=== PATIENT | male | born 1960 | race Caucasian/White ===

== ENCOUNTER → 2018-01-09 06:38 | Outpatient (CLI) | payer BC, SELFPAY ==
--- NOTE | 2018-01-09 14:50 | PFTCOMP ---
COMPLETE PULMONARY FUNCTION TEST INTERPRETATION Brief HPI: Patient is a 57 year old male, currently under the care of Naina Downing, who presents to [facility] for complete pulmonary function tests secondary to diagnosis of shortness of breath. Respiratory therapist reports good effort and reproducible results. Interpretation: Forced expiration spirometry shows no large airways obstructive ventilatory defect with an FEV1 of 64 % predicted. There is no significant bronchodilator response by ATS criteria. Spirograms are of good quality and plateau normally. The respiratory flow volume loop shows a normal pattern. Lung volumes by body plethysmography show a decreased total lung capacity at 4.92 L, 74 % predicted. All other lung volumes are reduced symmetrically. Diffusion capacity by carbon monoxide is decreased at 52 % predicted. The airway resistance is normal. Compared to previous pulmonary function tests from 05/14/2015, there has been a significant change in FVC, FEV1 and DLCO. Impression: Moderate restrictive ventilatory defect with a symmetric reduction diffusing capacity and worsening compared to previous study. Consider chest imaging if not completed previously.
--- NOTE | 2018-01-09 14:54 | PFTCOMP_ITS ---
COMPLETE PULMONARY FUNCTION TEST INTERPRETATION Brief HPI: Patient is a 57 year old male, currently under the care of Naina Downing, who presents to [facility] for complete pulmonary function tests secondary to diagnosis of shortness of breath. Respiratory therapist reports good effort and reproducible results. Interpretation: Forced expiration spirometry shows no large airways obstructive ventilatory defect with an FEV1 of 64 % predicted. There is no significant bronchodilator response by ATS criteria. Spirograms are of good quality and plateau normally. The respiratory flow volume loop shows a normal pattern. Lung volumes by body plethysmography show a decreased total lung capacity at 4.92 L, 74 % predicted. All other lung volumes are reduced symmetrically. Diffusion capacity by carbon monoxide is decreased at 52 % predicted. The airway resistance is normal. Compared to previous pulmonary function tests from 05/14/2015, there has been a significant change in FVC, FEV1 and DLCO. Impression: Moderate restrictive ventilatory defect with a symmetric reduction diffusing capacity and worsening compared to previous study. Consider chest imaging if not completed previously.
== END ==
PROVIDERS: Family Provider Nurse Practitioner; PCP Nurse Practitioner; Visit Provider Physician Assistant Medical
DX: R06.02 Shortness of breath (principal)
CPT/HCPCS: 94060; 94726; 94729

== ENCOUNTER → 2018-01-16 05:48 | Outpatient (CLI) | payer BC, SELFPAY ==
--- NOTE | 2018-01-16 12:57 | STRESSREP_ITS ---
Stress Test Report Myocardial perfusion stress test. 57-year-old man scleroderma status post pacemaker implantation. Stress protocol: EKG demonstrates atrial fibrillation with a ventricular paced rhythm at 70 bpm. Resting blood pressure is 148/100 mmHg. 0.4 mg regadenoson was infused per usual protocol followed by rapid intravenous saline flush injection continuous EKG monitoring was performed. The maximum heart rate attained was 74 beats minute is 45% maximum predicted heart rate the maximum workload attained was 1 metabolic equivalent. Patient maintained a paced rhythm throughout the recording. Resting blood pressure is 148/100 with a final blood pressure 138/ 92. Myocardial perfusion protocol: 11.7 mCi of technetium 99m sestamibi was injected at rest. 0.4 mg of regadenoson was infused per usual protocol peak infusion 33.5 mCi of technetium 99m sestamibi was injected. Stress images were obtained stress and rest images were reconstructed and compared in the short axis vertical long and horizontal long axis. Gated images, also obtained. Perfusion SPECT analysis: There is significant GI attenuation artifact noted. The stress images however demonstrate normal uptake of tracer noted in the septum and anterior wall and lateral wall. The apex appears to have a medium-sized defect on the stress images as well as the mid inferior wall. Images demonstrate a similar patent in the septum and anterior wall and lateral wall. There is a persistent defect noted in the apex with improvement in the mid inferior wall. The bibi-infarct area around the apex appears to improve. Previous apical infarct cannot be completely excluded with mild bibi-infarct ischemia and a mid inferior wall ischemic zone is noted. Gated SPECT analysis: The gated ejection fraction is noted be 46% with apical dyskinesis present. The above may be secondary to pacemaker activity. Conclusion: Abnormal pharmacologic myocardial perfusion scan with evidence of mid inferior ischemia and previous apical infarct. Cardiomyopathy noted
== END ==
PROVIDERS: Family Provider Nurse Practitioner; PCP Nurse Practitioner; Visit Provider Physician Assistant Medical
DX: I42.9 Cardiomyopathy, unspecified (principal); M34.9 Systemic sclerosis, unspecified; Z95.0 Presence of cardiac pacemaker
CPT/HCPCS: 78452; 93017; A9500; A4216; J2785

== ENCOUNTER → 2018-01-17 12:10 | Outpatient (CLI) | payer BC, SELFPAY ==
--- NOTE | 2018-01-17 12:26 | RAD_ITS ---
STUDY: X-RAY CHEST REASON FOR EXAM: Male, 57 years old. SOB, ABNORMAL STRESS TEST; SCLERODERMA, PACER TECHNIQUE: Frontal and lateral views of the chest. COMPARISON: 3.3 FINDINGS: Chronic appearing increased interstitial lung markings. There is a left sided pacemaker batterypack. There is no demonstrated pleural abnormality. Enlarged heart size. Normal mediastinum and samantha. Normal visualized pulmonary arteries. There is atherosclerotic calcification of the aortic arch with tortuosity. There are diffuse degenerative changes of the visualized thoracic spine. There is degenerative osteoarthritis of the bilateral shoulders. There is no demonstrated abnormality of the visualized soft tissue structures of the upper abdomen. RAD/Chest PA and Lateral IMPRESSION: There are no acute findings. Electronically Signed: Meño Valentin MD at 17:30 EST , Service support ,
[2018-01-17 12:44] LABS: Absolute Lymphocyte Count 2.18 X10^3/ul (0.83-4.51); Absolute Neutrophil Count 6.6 X10^3/uL (2.0-7.7); Basophil# 0.03 X10^3/uL; Basophil% 0.3 % (0-1); Eosinophil# 0.12 X10^3/uL; Eosinophils% 1.2 % (0-5); Hematocrit 42.1 % (40-54); Hemoglobin 13.8 g/dl (13.0-16.5); Lymphocyte # 2.18 X10^3/ul (4.0); Mean Corp Hgb Conc 32.8 g/gl (32-36); Mean Corpuscular Hgb 31.2 pg (27.0-32.0); Mean Platelet Vol. 11.1 fl (6.2-12.0); Monocyte% 9.1 % (0-10); Neutrophil # 6.62 X10^3/uL (2.7-7.7); Platelet Count 211 K/mm3 (150-450); RBC Distribution Width CV 13.5 % (11.6-14.6); RBC Distribution Width SD 45.1 fl (35.1-43.9); Red Blood Count 4.43 M/mm3 (4.6-6.2); White Blood Count 9.9 K/mm3 (4.4-11.0)
[2018-01-17 12:50] LABS: POSITIVE COUNT NO; POSITIVE DIFFERENTIAL NO; POSITIVE MORPHOLOGY NO
[2018-01-17 13:11] LABS: Anion Gap 5 (5-15); BUN 28 mg/dL (7-18); BUN/Creat Ratio 14.7 RATIO (10-20); Calcium,Total 9.3 mg/dL (8.5-10.1); Chloride 110 mmol/L (98-107); Creatinine, Serum 1.91 mg/dL (0.70-1.30); EST Glomerular Filtration Rate 39 mL/min (>60); Est Glom Filt Rate - Afr Amer 47 mL/min (>60); Glucose 96 mg/dL (74-106); Potassium 4.9 mmol/L (3.5-5.1); Sodium Level 142 mmol/L (136-145)
== END ==
PROVIDERS: Family Provider Nurse Practitioner; PCP Nurse Practitioner; Visit Provider Physician Assistant Medical
DX: R06.02 Shortness of breath (principal); R94.39 Abnormal result of other cardiovascular function study
CPT/HCPCS: 36415; 71046; 80048; 85025

== ENCOUNTER → 2018-01-28 06:52 | Day surgery (SDC) | payer BC, SELFPAY ==
[2018-01-25 11:39] VITALS: BMI 26.8
[2018-01-28 08:36] LABS: International Normalized Ratio 1.2; Prothrombin Time (Protime)PT. 15.5 SECONDS (11.7-14.9)
--- NOTE | 2018-01-28 10:47 | CL.D_ITS ---
Patient Name: LAINE OLIVARES Study Date: 01/28/2018 Performing: Sudheer Lemus MD Ht: 70.07 inches 178 cm : 1960 Wt: 187.39 lbs 85 kg Age: 57 Gender: male BSA: 2.03 PROCEDURE(S) PERFORMED ZB28-DUO/COR CLINICAL PROFILE AND INDICATIONS INDICATIONS: 57-year-old man with a history of shortness of breath and abnormal stress test Stress/Imaging Standard Exercise Stress Test: Yes Result: Positive Low Risk CONCLUSIONS Normal coronary arteries RECOMMENDATIONS Medical therapy DESCRIPTION OF PROCEDURE The patient arrived to the procedure lab. The risks and benefits of the procedure as well as a full d escription of our services here and current unavailability of surgical backup were fully explained to the patient and/or their significant other prior to the catheterization. The Timeout was completed, verifying the correct patient and procedure. The patient's procedural site was prepped and draped in the usual fashion. Local anesthetic was given subcutaneously to right groin region with Lidocaine 2%. Using a modified Seldinger technique, arterial access was obtained via the right femoral artery, a 5 Fr sheath was inserted. Left Coronary Artery selective angiography was performed in multiple views u sing a 5 Fr. JL4 catheter. Right Coronary Artery selective angiography was then performed in multiple views using a 5 Fr. 3DRC (Randy) catheter.The arterial sheath was pulled and a Mynx closure devic e was deployed for hemostasis CORONARY ANGIOGRAPHY DOMINANCE: Right Dominant LEFT HEART ASSESSMENT Left Ventricular Ejection Fraction: by Echo 50 % Normal Left Ventricular systolic function LEFT MAIN: Angiographically normal LEFT ANTERIOR DECENDING ARTERY: Angiographically normal CIRCUMFLEX ARTERY: Angiographically normal RIGHT CORONARY ARTERY: Angiographically normal COMPLICATIONS No Complications PROCEDURE MEDICATIONS Versed 1 mg IV Aspirin (325mg) 1 Tabs PO @ 01/28/2018 08:41:17 Plavix 75 mg PO 01/28/2018 08:03:46 IV Fluids: .9 NaCl IV started @ 75 ml/hr 01/28/2018 07:48:42 SUMMARY OF HEMODYNAMIC DATA Time AIR REST ECG 07:47:06 ECG 10:03:20 AO 126/72 (94) SA 10:27:57 Signed By Sudheer Lemus MD On 01/28/2018 10:46:46 AM Sudheer Lemus MD
== END ==
PROVIDERS: Family Provider Nurse Practitioner; PCP Nurse Practitioner; Visit Provider Internal Medicine Cardiovascular Disease
DX: I48.1 Persistent atrial fibrillation (principal); R06.02 Shortness of breath; R94.39 Abnormal result of other cardiovascular function study; I10 Essential (primary) hypertension; I48.2 Chronic atrial fibrillation; M34.9 Systemic sclerosis, unspecified; E78.5 Hyperlipidemia, unspecified; Z79.01 Long term (current) use of anticoagulants; Z95.0 Presence of cardiac pacemaker; Z94.84 Stem cells transplant status
CPT/HCPCS: 36415; 85610; 93454; 99152; 99153; C1760; J7040; C1769; Q9967

== ENCOUNTER 2018-07-11 15:48 | Outpatient (RCR) | payer BC, SELFPAY ==
[2018-07-08 17:07] LABS: Prothrombin Time (Protime)PT. 46.5 SECONDS (11.7-14.9)
== END 2018-07-11 17:00 ==
LOC: LAB 15:48
PROVIDERS: Family Provider Nurse Practitioner; PCP Nurse Practitioner; Visit Provider Internal Medicine Cardiovascular Disease
DX: I42.0 Dilated cardiomyopathy (principal); I48.1 Persistent atrial fibrillation; I48.2 Chronic atrial fibrillation; Z79.01 Long term (current) use of anticoagulants
CPT/HCPCS: 36415; 85610

== ENCOUNTER 2018-08-13 16:13 | Outpatient (RCR) | payer BC, SELFPAY ==
[2018-08-13 17:48] LABS: Prothrombin Time (Protime)PT. 39.9 SECONDS (11.7-14.9)
[2018-08-13 18:09] LABS: International Normalized Ratio 4.1
== END 2018-08-13 18:00 | disposition home or self-care (01) ==
LOC: LAB 16:13
PROVIDERS: Family Provider Nurse Practitioner; PCP Nurse Practitioner; Visit Provider Internal Medicine Cardiovascular Disease
DX: I42.0 Dilated cardiomyopathy (principal); I48.1 Persistent atrial fibrillation; I48.2 Chronic atrial fibrillation; Z79.01 Long term (current) use of anticoagulants
CPT/HCPCS: 36415; 85610

== ENCOUNTER → 2018-08-27 09:12 | Outpatient (CLI) | payer BC, SELFPAY ==
[2018-08-27 10:58] LABS: Absolute Lymphocyte Count 1.84 X10^3/ul (0.83-4.51); Absolute Neutrophil Count 4.6 X10^3/uL (2.0-7.7); Basophil# 0.03 X10^3/uL; Basophil% 0.4 % (0-1); Eosinophil# 0.17 X10^3/uL; Eosinophils% 2.3 % (0-5); Hematocrit 41.6 % (40-54); Hemoglobin 13.3 g/dl (13.0-16.5); Lymphocyte # 1.84 X10^3/ul (4.0); Lymphocyte % 24.6 % (19-41); Mean Corpuscular Hgb 30.2 pg (27.0-32.0); Mean Corpuscular Volume 94.3 fL (80-94); Mean Platelet Vol. 11.9 fl (6.2-12.0); Monocyte# 0.84 X10^3/uL; Monocyte% 11.2 % (0-10); Neutrophil # 4.57 X10^3/uL (2.7-7.7); Neutrophil % 61.1 % (47-70); POSITIVE COUNT NO; POSITIVE DIFFERENTIAL NO; POSITIVE MORPHOLOGY NO; Platelet Count 186 K/mm3 (150-450); Red Blood Count 4.41 M/mm3 (4.6-6.2); White Blood Count 7.5 K/mm3 (4.4-11.0)
[2018-08-27 11:37] LABS: AST(SGOT) 33 U/L (15-37); Alanine Aminotransfer ALT/SGPT 45 U/L (16-61); Alkaline Phosphatase 76 U/L (45-117); Anion Gap 7 (5-15); BUN 26 mg/dL (7-18); Calcium,Total 9.5 mg/dL (8.5-10.1); Chloride 108 mmol/L (98-107); Cholesterol 139 mg/dL (200); Creatinine, Serum 1.86 mg/dL (0.70-1.30); EST Glomerular Filtration Rate 40 mL/min (>60); Est Glom Filt Rate - Afr Amer 48 mL/min (>60); Free T3 2.9 pg/mL (2.18-3.98); Glucose 97 mg/dL (74-106); High Density Lipoprotein 26 mg/dL; Potassium 4.6 mmol/L (3.5-5.1); Sodium Level 141 mmol/L (136-145); T4 Free Direct 1.13 ng/dL (0.76-1.46); Thyroid Stim Hormone (TSH) 0.14 uIU/mL (0.358-3.74); Triglycerides 130 mg/dL; Very Low Density Lipoprotein 26 mg/dL (5-40)
[2018-08-30 13:40] LABS: Testosterone Free 4.9 pg/mL (7.2-24.0)
== END ==
PROVIDERS: Family Provider Nurse Practitioner; PCP Nurse Practitioner; Referring Provider Nurse Practitioner; Visit Provider Nurse Practitioner
DX: R53.83 Other fatigue (principal); E78.1 Pure hyperglyceridemia; E03.9 Hypothyroidism, unspecified
CPT/HCPCS: 36415; 80053; 80061; 84402; 84439; 84443; 84481; 85025

== ENCOUNTER → 2018-09-12 12:14 | Outpatient (CLI) | payer BC, SELFPAY ==
[2018-09-12 12:32] VITALS: PULSE 60; PULSE 70; PULSE 71; PULSE 73; PULSE 78; PULSE 79; O2SAT 100; O2SAT 98; O2SAT 99
--- NOTE | 2018-09-13 12:30 | PCM.PSN.6M ---
PSN 6 Minute Walk Test - 6 Minute Walk Test 6 Minute Walk Test: 6 Minute Walk Test PSN:6-Minute Walk Test Start: 09/12/18 12:32 Freq: Status: Active Protocol: RESP.6MINW Document 09/12/18 12:32 JLA (Rec: 09/12/18 12:36 JLA [id number]) 6 Minute Walk Test Date Performed 09/12/18 Time Performed 12:30 Height 5 ft 10 in Weight: 182 lb Weight in Pounds 182.[address]: Chad Cruz Assistive device used: None Pre-test Oxygen Delivery Method Room Air Pulse Ox (%) 98 Pulse Rate (60-100 beats/min) 60 Dyspnea France Scale (0-10) 0 Exertion France Scale (6-20) 6 1st minute Oxygen Delivery Method Room Air Pulse Ox (%) 100 Pulse Rate (60-100 beats/min) 78 2nd minute Oxygen Delivery Method Room Air Pulse Ox (%) 99 Pulse Rate (60-100 beats/min) 70 3rd minute Oxygen Delivery Method Room Air Pulse Ox (%) 99 Pulse Rate (60-100 beats/min) 73 4th minute Oxygen Delivery Method Room Air Pulse Ox (%) 99 Pulse Rate (60-100 beats/min) 71 5th minute Oxygen Delivery Method Room Air Pulse Ox (%) 100 Pulse Rate (60-100 beats/min) 78 6th minute Oxygen Delivery Method Room Air Pulse Ox (%) 99 Pulse Rate (60-100 beats/min) 79 Dyspnea France Scale (0-10) 2 Exertion France Scale (6-20) 11 Post-test Oxygen Delivery Method Room Air Pulse Ox (%) 98 Pulse Rate (60-100 beats/min) 70 Full Laps Walked 24 Partial Lap, Number of Tiles Walked 30 Total Distance Walked (ft) 1446 - Interpretation Interpretation: The patient ambulated 1446 feet over the course of 6 minutes beginning on room air without assistive devices or breaks. Pretesting oxygen saturation was noted to be 98% on room air. With ambulation, the cynthia oxygen saturation was 99%. There was no significant exertional oxygen desaturation. - Recommendations Recommendations: There is no indication for the use of supplemental oxygen at this time.
== END ==
PROVIDERS: Family Provider Nurse Practitioner; PCP Nurse Practitioner; Referring Provider Internal Medicine Critical Care Medicine; Visit Provider Internal Medicine Critical Care Medicine
DX: R06.02 Shortness of breath (principal)
CPT/HCPCS: 94618

== ENCOUNTER → 2018-09-13 14:45 | Outpatient (CLI) | payer BC, SELFPAY ==
--- NOTE | 2018-09-13 14:49 | ECHOD_ITS ---
[id number] ECHO^ECHOD^Echo Complete [id number] TAG_START Cardiovascular Services Echocardiogram [address] [place], [place] [address] Ordering Physician: Chad Cruz D.O. TAG_ENDED TAG_START Name: LAINE OLIVARES Study Date: 09/13/2018 02:47 PM BP: 140/80 mmHg Patient Location: [facility] BSA: 2.0 m2 : 1960 Gender: Male Height: 70 in Age: 58 yrs Ethnicity: C Weight: 182 lb History: SCLERODERMA, CMP, AFIB w/anticoagulation, HTN, HLD, PACEMAKER, DYSPNEA/SOB. TAG_ENDED Reason For Study: DYSPNEA/SOB Procedure This was a 2D Doppler, Color Flow transthoracic echocardiogram. Exam performed in department. Left Ventricle Moderate concentric left ventricular hypertrophy. The estimated ejection fraction is 55 %. Septal motion consistent with IVCD. No regional wall motion abnormalities noted. TAG_START I Segments Size 1-2 small X - Cannot 1 - Normal 2 - 3 - Akinetic 4 - Dyskinetic3-5 moderate Interpret Hypokinetic 6-14 large 5 - Aneurysmal 15-16 diffuse TAG_ENDED Right Ventricle Normal size and thickness. ICD or pacer leads identified within the right ventricle. Normal systolic function. Atria The left atrium is severely enlarged. The right atrium is severely enlarged. Normal atrial septum. Mitral Valve Mild diffuse mitral valve thickening. Mild (1+) mitral valve insufficiency. Tricuspid Valve Normal tricuspid valve. Mild to moderate (1-2+) tricuspid valve insufficiency. Right ventricular systolic pressure estimated to be 28 mmHg. Aortic Valve Trisinus/trileaflet aortic valve. Pulmonic Valve Normal pulmonic valve. Great Vessels Normal aortic root. Normal arch. Normal inferior vena cava. Inferior vena cava collapse with sniff. Pericardium/Pleural No pericardial effusion. MMode/2D Measurements & Calculations LVIDd: 5.2 cm IVSd: 1.4 cm Ao root diam: 3.6 cm LVIDs: 3.6 cm LVPWd: 1.4 cm RVDd: 4.2 cm FS: 29.7 % LAV(MOD-bp): 107.2 ml LA A4 area: 30.7 cm2 LA dimension(2D): 4.5 cm LAV(MOD-bp) Indexed: 53.5 ml/m2 LAV(MOD-sp2): 88.7 ml LAV(MOD-sp4): 115.8 ml RA A4 area: 30.7 cm2 Doppler Measurements & Calculations MV E max jose david: 106.8 cm/sec Lat Peak E' Jose David: 8.5 cm/sec Med Peak E' Jose David: 7.1 cm/sec MV A max jose david: 27.3 cm/sec E/E' lat: 12.5 E/E' med: 15.0 MV E/A: 3.9 Ao V2 max: 126.1 cm/sec LV V1 max: 91.4 cm/sec MR max jose david: 515.9 cm/sec Ao max P.4 mmHg LV V1 max P.3 mmHg MR max P.5 mmHg PA V2 max: 75.7 cm/sec TR max jose david: 241.7 cm/sec TR max P.4 mmHg Interpretation Summary The estimated ejection fraction is 55 %. The left atrium is severely enlarged. The right atrium is severely enlarged. Mild (1+) mitral valve insufficiency. Mild to moderate (1-2+) tricuspid valve insufficiency. Right ventricular systolic pressure estimated to be 28 mmHg. Compared to echo report dated 06/05/2016, no appreciable changes noted. TAG_START TAG_ENDED Ordering Physician: Chad Cruz D.O. Referring Physician: Janette Chavira Performed By: Melba Wells, HAYLEY, RVT
== END ==
PROVIDERS: Family Provider Nurse Practitioner; PCP Nurse Practitioner; Referring Provider Internal Medicine Critical Care Medicine; Visit Provider Internal Medicine Critical Care Medicine
DX: R06.02 Shortness of breath (principal); M34.9 Systemic sclerosis, unspecified
CPT/HCPCS: 93306

== ENCOUNTER → 2018-09-18 17:49 | Outpatient (CLI) | payer BC, SELFPAY ==
--- NOTE | 2018-09-18 17:53 | CT_ITS ---
STUDY: CT CHEST WITHOUT CONTRAST REASON FOR EXAM: Male, 58 years old. Interstitial lung disease. RADIATION DOSAGE (If Supplied By Facility): CTDIvol = ( 14.80 ) mGy, DLP = ( 491.76 ) mGycm TECHNIQUE: Transaxial imaging was performed without the administration of intravenous contrast material. Individualized dose optimization techniques were used for this CT. COMPARISON: 01/17/2018. FINDINGS: Normal lung volumes. Mild peripheral interstitial fibrotic changes in the mid and lower lung pandey bilaterally. Findings most pronounced in the posterior lung bases. No infiltrates. No effusions. There is moderate cardiac enlargement. There are calcifications of the coronary arteries. Pacemaker is seen with leads terminating in the right atrium and right ventricle. Normal mediastinum. Normal hilar regions. Normal unenhanced pulmonary arteries. Normal aorta arch and descending thoracic aorta. Normal osseous structures. There is no demonstrated acute abnormality of the visualized upper abdomen. CT/Chest without Contrast IMPRESSION: No acute abnormality. Diffuse bilateral peripheral interstitial fibrosis of the mid and lower lung pandey. Cardiomegaly. Electronically Signed: Tyler Christianson MD at 14:15 EDT , Service support ,
== END ==
PROVIDERS: Family Provider Nurse Practitioner; PCP Nurse Practitioner; Referring Provider Internal Medicine Critical Care Medicine; Visit Provider Internal Medicine Critical Care Medicine
DX: J84.9 Interstitial pulmonary disease, unspecified (principal)
CPT/HCPCS: 71250

== ENCOUNTER → 2018-11-05 12:06 | Outpatient (CLI) | payer BC, SELFPAY ==
[2018-10-30 14:12] VITALS: BMI 25.4
[2018-11-05 12:30] VITALS: PULSE 70; PULSE 75; PULSE 76; O2SAT 96; O2SAT 97; O2SAT 98; O2SAT 99
[2018-11-05 12:46] LABS: Allen Test POS; Base Excess -3 mmol/L (-2 to +2); Bicarbonate 22.5 mmol/L (22-26); Blood Gas Specimen Type ART; O2 Delivery Device Room Air; PO2 93 mmHG (75-100); SITE L Radial; SO2 97 % (95-99); Time Given 1240; Total Carbon Dioxide 24 mmol/L; pCO2 38.5 mmHg (35-45); pH 7.38 (7.35-7.45)
--- NOTE | 2018-11-05 12:50 | CPS ---
Pt walked with ear pulse ox probe on during test, pt's SpO2 stayed normal the entire test. ABG done immediately after with normal results.
--- NOTE | 2018-11-07 15:03 | PCM.PSN.6M ---
PSN 6 Minute Walk Test - 6 Minute Walk Test 6 Minute Walk Test: 6 Minute Walk Test PSN:6-Minute Walk Test Start: 11/05/18 12:47 Freq: Status: Active Protocol: RESP.6MINW Document 11/05/18 12:30 HG (Rec: 11/05/18 12:51 HG [id number]) 6 Minute Walk Test Date Performed 11/05/18 Time Performed 12:30 Height 5 ft 10 in Weight: 180 lb Weight in Pounds 180.[address]: Chad Cruz Assistive device used: None Pre-test Oxygen Delivery Method Room Air Pulse Ox (%) 99 Pulse Rate (60-100 beats/min) 70 Dyspnea France Scale (0-10) 1 Exertion France Scale (6-20) 8 1st minute Oxygen Delivery Method Room Air Pulse Ox (%) 97 Pulse Rate (60-100 beats/min) 75 2nd minute Oxygen Delivery Method Room Air Pulse Ox (%) 98 Pulse Rate (60-100 beats/min) 75 3rd minute Oxygen Delivery Method Room Air Pulse Ox (%) 98 Pulse Rate (60-100 beats/min) 76 4th minute Oxygen Delivery Method Room Air Pulse Ox (%) 96 Pulse Rate (60-100 beats/min) 76 5th minute Oxygen Delivery Method Room Air Pulse Ox (%) 96 Pulse Rate (60-100 beats/min) 76 6th minute Oxygen Delivery Method Room Air Pulse Ox (%) 97 Pulse Rate (60-100 beats/min) 76 Post-test Oxygen Delivery Method Room Air Pulse Ox (%) 98 Pulse Rate (60-100 beats/min) 70 Dyspnea France Scale (0-10) 2 Exertion France Scale (6-20) 11 Full Laps Walked 22 Partial Lap, Number of Tiles Walked 0 Total Distance Walked (ft) 1298 11/05/18 12:50 Cardiopulmonary Services by Nargis Lancaster Pt walked with ear pulse ox probe on during test, pt's SpO2 stayed normal the entire test. ABG done immediately after with normal results. Initialized on 11/05/18 12:50 - END OF NOTE - Interpretation Interpretation: The patient ambulated 1298 feet over the course of 6 minutes beginning on room air without assistive devices or breaks. Pretesting oxygen saturation was noted to be 99% on room air. With ambulation, the cynthia oxygen saturation was 96%. There was no significant exertional oxygen desaturation. A post walk arterial blood gas was also obtained, which revealed a pH of 7.37, PCO2 of 39 and PO2 of 93 on room air. - Recommendations Recommendations: There is no indication for the use of supplemental oxygen at this time.
--- OUTSIDE RECORDS SUMMARY | 2019-02-06 21:47 | XMS RPT_ITS ---
:1960 Author Organization OHIP Support Name Relationship Address Phone JANETTE OLIVARES Unavailable [address] + [place] [address] MARSHALL, CINTHIA Unavailable [address] + [place] [address] WOOBR Unavailable [address] [place] [address] JANETTE OLIVARES JO Unavailable [address] + [place] [address] BOYENS, CINTHIA Unavailable [address] + [place] [address] WOOBR Unavailable [address] + [address] [place] [address] MARSHALL, CRIS Unavailable [address] + [place] [address] BOYENS, CINTHIA Unavailable [address] + [place] [address] WOOBR Unavailable [address] [place] [address] JANETTE OLIVARES JO Unavailable [address] + [place] [address] BOYENS, CINTHIA Unavailable [address] + [place] [address] WOOBR Unavailable [address] + [address] [place] [address] JANETTE OLIVARES JO Unavailable [address] + [place] [address] BOYENS, CINTHIA Unavailable [address] + [place] [address] WOOBR Unavailable [address] + [address] [place] [address] BOYENS, CRIS Unavailable [address] + [place] [address] BOYENS, CINTHIA Unavailable [address] + [place] [address] WOOBR Unavailable [address] + [address] [place] [address] BOYENS, CRIS Unavailable [address] + [place] [address] BOYENS, CINTHIA Unavailable [address] + [place] [address] WOOBR Unavailable [address] [place] [address] BOYENS, CRIS Unavailable [address] + [place] [address] BOYENS, CINTHIA Unavailable [address] + [place] [address] WOOBR Unavailable [address] [place] [address] BOYENS, CRIS Unavailable [address] + [place] [address] BOYENS, CINTHIA Unavailable [address] + [place] [address] WOOBR Unavailable [address] [place] [address] BOYENS, CRIS Unavailable [address] + [place] [address] BOYENS, CINTHIA Unavailable [address] + [place] [address] WOOBR Unavailable [address] + [address] [place] [address] BOYENS, CRIS Unavailable [address] + [place] [address] BOYENS, CINTHIA Unavailable [address] + [place] [address] WOOBR Unavailable [address] + [address] [place] [address] BOYENS, CRIS Unavailable [address] + [place] [address] BOYENS, CINTHIA Unavailable [address] + [place] [address] WOOBR Unavailable [address] + [address] [place] [address] BOYENS, CRIS Unavailable [address] + [place] [address] BOYENS, CINTHIA Unavailable [address] + [place] [address] WOOBR Unavailable [address] + [address] [place] [address] BOYENS, CRIS Unavailable [address] + [place] [address] BOYENS, CINTHIA Unavailable [address] + [place] [address] WOOBR Unavailable [address] + [address] [place] [address] BOYENS, CRIS Unavailable [address] + [place] [address] BOYENS, CINTHIA Unavailable [address] + [place] [address] WOOBR Unavailable [address] + [address] [place] [address] BOYENS, CRIS Unavailable [address] + [place] [address] BOYENS, CINTHIA Unavailable [address] + [place] [address] WOOBR Unavailable [address] + [address] [place] [address] BOYENS, CRIS Unavailable [address] + [place] [address] BOYENS, CINTHIA [address]available [address] + [place] [address] WOOBR Unavailable [address] + [address] [place] [address] BOYENS, CRIS Unavailable [address] + [place] [address] BOYENS, CINHTIA Unavailable [address] + [place] [address] WOOBR Unavailable [address] [place] [address] BOYENS, CRIS Unavailable [address] + [place] [address] BOYENS, CINTHIA [facility] + [place] [address] WOOBR Unavailable [address] + [address] [place] [address] BOYENS, CRIS Unavailable [address] + [place] [address] BOYENS, CINTHIA [facility] + [place] [address] WOOBR Unavailable [address] [place] [address] BOYENS, CRIS Unavailable [address] + [place] [address] BOYENS, CINTHIA [facility] + [place] [address] WOOBR Unavailable [address] + [address] [place] [address] BOYENS, CRIS Unavailable [address] + [place] [address] BOYENS, CINTHIA [facility] + [place] [address] WOOBR Unavailable [address] [place] [address] BOYENS, CRIS Unavailable [address] [place] [address] RD + [place] [address] BOYENS, CINTHIA Unavailable . + [place] [address] WOOBR Unavailable [address] + [address] [place] [address] BOYENS, CRIS Unavailable [address] + [place] [address] BOYENS, CINTHIA Unavailable . + [place] [address] WOOBR Unavailable [address] [place] [address] JANETTE OLIVARES JO Unavailable [address] + [place] [address] BOYENS, CINTHIA Unavailable [facility] + [place] [address] WOOBR Unavailable [address] [place] [address] JANETTE OLIVARES JO Unavailable [address] + [place] [address] BOYENS, CINTHIA Unavailable Unavailable + WOOBR Unavailable [address] + [address] [place] [address] JANETTE OLIVARES JO Unavailable [address] + [place] [address] BOYENS, CINTHIA Unavailable Unavailable + WOOBR Unavailable [address] [place] [address] JANETTE OLIVARES JO Unavailable [address] + [place] [address] BOYENS, CINTHIA Unavailable [facility] + [place] [address] WOOBR Unavailable [address] + [address] [place] [address] JANETTE OLIVARES JO Unavailable NA + [place], [place] BOY, CINTHIA Unavailable NA + [place], [place] WOOBR Unavailable [address] [place] [address] Care Team Providers Name Role Phone Chad Cruz D.O. Attending Unavailable Chad Cruz D.O. Referring Unavailable Chad Cruz D.O. Attending Unavailable Chad Cruz D.O. Referring Unavailable [facility] Primary Care Unavailable Chad Cruz D.O. Attending Unavailable Chad Cruz D.O. Referring Unavailable Naina Downing Attending Unavailable [facility] Janette Referring Unavailable [facility] Primary Care Unavailable Jesica Chopra Attending Unavailable Jennifer Daugherty Attending Unavailable sharifa, Janette Referring Unavailable Ciesa, Janette Primary Care Unavailable Sudheer Lemus Attending Unavailable Ciesa, Janette Referring Unavailable Ciesa, Janette Attending Unavailable Ciesa, Janette Referring Unavailable Ciesa, Janette Primary Care Unavailable Varun Jensen Attending Unavailable Ciesa, Janette Referring Unavailable Chad Cruz D.O. Attending Unavailable Chad Cruz D.O. Referring Unavailable Ciesa, Janette Primary Care Unavailable Chad Cruz D.O. Attending Unavailable Chad Cruz D.O. Referring Unavailable Ciesa, Janette Primary Care Unavailable Jennifer Daugherty Attending Unavailable Ciesa, Janette Referring Unavailable Indy Ricardo Attending Unavailable Ciesa, Janette Referring Unavailable DatJennifer stinson Attending Unavailable Ciesa, Janette Referring Unavailable Ciesa, Janette Primary Care Unavailable Mariah, [employer] Attending Unavailable Mariah, [employer] Attending Unavailable Naina Downing Referring Unavailable Bright Mcdaniel Attending Unavailable Naina Downing Referring Unavailable Mariah, Sudheer Attending Unavailable Mariah, [employer] Referring Unavailable Ciesa, Janette Primary Care Unavailable Naina Downing Attending Unavailable Ciesa, Janette Primary Care Unavailable Naina Downing Referring Unavailable Naina Downing Attending Unavailable Naina Downing Referring Unavailable Ciesa, Janette Primary Care Unavailable Jennifer Daugherty Attending Unavailable Ciesa, Janette Referring Unavailable Chad Cruz D.O. Attending Unavailable Ciesa, Janette Referring Unavailable Varun Vo Attending Unavailable Chad Cruz D.O. Referring Unavailable Ciesa, Janette Primary Care Unavailable Chad Cruz D.O. Consulting Unavailable Chad Cruz D.O. Attending Unavailable Chad Cruz D.O. Referring Unavailable Ciesa, Janette Primary Care Unavailable Chad Cruz D.O. Attending Unavailable Ciesa, Janette Referring Unavailable Mariah, [employer] Attending Unavailable Mariah, [employer] Referring Unavailable Ciesa, Janette Primary Care Unavailable Mraiah, Sudheer Attending Unavailable Mariah, Sudheer Referring Unavailable Ciesa, Janette Primary Care Unavailable Mariah, [employer] Attending Unavailable Mariah, [employer] Referring Unavailable Ciesa, Janette Primary Care Unavailable Naina Downing Attending Unavailable Naina Downing Referring Unavailable Ciesa, Janette Primary Care Unavailable PROBLEMS PROBLEMS DATE TYPE CONDITION / CODE ATTENDING STATUS SOURCE 12/05/2018 Unknown I42.0 - Dilated Mariah, [employer] Active [place] cardiomyopathy / Community I42.0(ICD-10) Hospital Repository 11/21/2018 Unknown J96.11 - Chronic Chad Cruz, Active [place] respiratory failure D.O. Community with hypoxia / Hospital J96.11(ICD-10) Repository 09/13/2018 Unknown M34.9 - Systemic Varun Vo Active [place] sclerosis, unspecified Community / M34.9(ICD-10) Hospital Repository 11/01/2018 Unknown R06.02 - Shortness of Chad Cruz Active [place] breath / D.O. Community R06.02(ICD-10) Hospital Repository 09/04/2018 Unknown J98.4 - Other Chad Cruz Active [place] disorders of lung / D.O. Community J98.4(ICD-10) Hospital Repository 08/27/2018 Unknown R53.83 - Other fatigue Janette Chavira Active [place] / R53.83(ICD-10) Community Hospital Repository 08/27/2018 Unknown E78.1 - Pure CiJanette angel Active [place] hyperglyceridemia / Community E78.1(ICD-10) Hospital Repository 08/27/2018 Unknown E03.9 - CiJanette angel Active [place] Hypothyroidism, Community unspecified / Hospital E03.9(ICD-10) Repository 08/27/2018 Unknown R73.01 - Impaired CiJanette angel Active [place] fasting glucose / Community R73.01(ICD-10) Hospital Repository 08/13/2018 Unknown I10 - Essential Mariah, Sudheer Active [place] (primary) hypertension Community / I10(ICD-10) Hospital Repository 08/13/2018 Unknown Z95.0 - Presence of Mariah, Sudheer Active [place] cardiac pacemaker / Community Z95.0(ICD-10) Hospital Repository 07/23/2018 Unknown I48.1 - Persistent Mariah, [employer] Active [place] atrial fibrillation / Community I48.1(ICD-10) Hospital Repository 07/23/2018 Unknown 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, Sudheer Active [place] (current) use of Community anticoagulants / Hospital Z79.01(ICD-10) Repository 07/23/2018 Unknown I48.2 - Chronic atrial Mariah, [employer] Active [place] fibrillation / Community I48.2(ICD-10) Hospital Repository 01/17/2018 Unknown R94.39 - Abnormal [place], Active [place] result of other [facility] cardiovascular Hospital function study / Repository R94.39(ICD-10) 02/15/2018 Unknown I42.9 - Sduheer Lemus Active [place] Cardiomyopathy, Community unspecified / Hospital I42.9(ICD-10) Repository PROCEDURES PROCEDURES No Procedure Records FoundRESULTS RESULTS PROTHROMBIN TIME W/INR Collected: 12/05/2018 Status: F Source: [place] 3:59 PM [facility] REPOSITORY TYPE CODE TESTS RESULT OUT OF RANGE REFERENCE UNITS LAB L300.4150 11.7-14.9 SECONDS High PROTIME 30.6 LAB L300.4200 Normal INR 2.9 Performed By: #### L300.3900 #### [facility] [address] [place], [address] PROTHROMBIN TIME W/INR Collected: 11/27/2018 Status: F Source: [place] 3:51 PM [facility] REPOSITORY TYPE CODE TESTS RESULT OUT OF REFERENCE UNITS RANGE LAB L300.4150 11.7-14.9 SECONDS High PROTIME 37.3 LAB L300.4200 High alert INR 3.7 Result Comment: CRITICAL VALUE VERIFIED. [facility] DR [facility]EMUS [facility] RESULTS READ BACK BY DR LEMUS . Performed By: #### L300.3900 #### [facility] [address] [place], [place], [id number] 6 MINUTE WALK TEST Observed: 11/07/2018 Status: F Source: [place] 3:04 PM [facility] REPOSITORY [facility] Pulmonary Services/Neurology [address] [place] [address] MR#: [id number] Acct: [id number] Name: LAINE OLIVARES Rep #: [id number] : 1960 58 From: Chad Cruz DO Referring Dr: Chad Cruz D.O. Date: Ordering Dr: Keeley: Justin Layne Location: PSN PSN 6 Minute Walk Test - 6 Minute Walk Test 6 Minute Walk Test: 6 Minute Walk Test PSN:6-Minute Walk Test Start: 11/05/18 12:47 Freq: Status: Active Protocol: RESP.6MINW Document 11/05/18 12:30 HG (Rec: 11/05/18 12:51 HG [id number]) 6 Minute Walk Test Date Performed 11/05/18 Time Performed 12:30 Height 5 ft 10 in Weight: 180 lb Weight in Pounds 180.[address]: Chad Cruz Assistive device used: None Pre-test Oxygen Delivery Method Room Air Pulse Ox (%) 99 Pulse Rate (60-100 beats/min) 70 Dyspnea France Scale (0-10) 1 Exertion France Scale (6-20) 8 1st minute Oxygen Delivery Method Room Air Pulse Ox (%) 97 Pulse Rate (60-100 beats/min) 75 2nd minute Oxygen Delivery Method Room Air Pulse Ox (%) 98 Pulse Rate (60-100 beats/min) 75 3rd minute Oxygen Delivery Method Room Air Pulse Ox (%) 98 Pulse Rate (60-100 beats/min) 76 4th minute Oxygen Delivery Method Room Air Pulse Ox (%) 96 Pulse Rate (60-100 beats/min) 76 5th minute Oxygen Delivery Method Room Air Pulse Ox (%) 96 Pulse Rate (60-100 beats/min) 76 6th minute Oxygen Delivery Method Room Air Pulse Ox (%) 97 Pulse Rate (60-100 beats/min) 76 Post-test Oxygen Delivery Method Room Air Pulse Ox (%) 98 Pulse Rate (60-100 beats/min) 70 Dyspnea France Scale (0-10) 2 Exertion France Scale (6-20) 11 Full Laps Walked 22 Partial Lap, Number of Tiles Walked 0 Total Distance Walked (ft) 1298 11/05/18 12:50 Cardiopulmonary Services by Nargis Lancaster Pt walked with ear pulse ox probe on during test, pt's SpO2 stayed normal the entire test. ABG done immediately after with normal results. Initialized on 11/05/18 12:50 - END OF NOTE - Interpretation Interpretation: The patient ambulated 1298 feet over the course of 6 minutes beginning on room air without assistive devices or breaks. Pretesting oxygen saturation was noted to be 99% on room air. With ambulation, the cynthia oxygen saturation was 96%. There was no significant exertional oxygen desaturation. A post walk arterial blood gas was also obtained, which revealed a pH of 7.37, PCO2 of 39 and PO2 of 93 on room air. - Recommendations Recommendations: There is no indication for the use of supplemental oxygen at this time. 11/07/18 1504 <Electronically signed by Chad Cruz DO> Date Chad Cruz DO CC: Date Dictated: 11/07/18 1503 Date Transcribed: 11/07/181502 Zipper Setter Chainstitch: Chad Cruz DO Signed BLOOD GASES BY CPS Collected: 11/05/2018 Status: F Source: [place] 12:42 PM [facility] REPOSITORY TYPE CODE TESTS RESULT OUT OF RANGE REFERENCE UNITS LAB L9000.9990 Normal BLD GAS TYPE ART LAB L9001.1000 Normal SITE L Radial LAB L9001.1010 Normal JONG TEST POS LAB L9001.1050 O2 Normal Delivery Dev Room Air LAB L9001.1104 Normal Results To OTHER LAB L9001.1105 Normal Time Given 1240 LAB L9001.1110 7.35-7.45 pH Normal - I-STAT 7.38 LAB L9001.1210 35-45 mmHg Normal pCO2 - ISTAT 38.5 LAB L9001.1310 75-100 mmHG Normal PO2 I-STAT 93 LAB L9001.2300 22-26 mmol/L Normal HCO3 ISTAT 22.5 LAB L9001.2400 -2 to +2 mmol/L Low BE ISTAT -3 LAB L9001.2415 mmol/L Normal TOTAL CO2 24 ISTAT LAB L9001.2425 95-99 % Normal SO2 ISTAT 97 Performed By: #### L9000.0800 #### [facility] Point of Care [address] [place] [address] PULMONARY VISIT REPORT Observed: 10/31/2018 Status: F Source: [place] 6:39 AM [facility] REPOSITORY [facility] [place] [id number] [place] [address] OFFICE VISIT Date of Service: 10/30/18 MR#: [id number] Acct: [id number] Name: LAINE OLIVARES Rep #: [id number] : 1960 Provider: Chad Cruz D.O. Age/Sex: 58/M Location: [facility] Status: Signed Assessment AND Plan 1. Scleroderma M34.9 Plan The patient has a long-standing history of scleroderma, with previously stable disease off of any form of treatment. The patient was previously being followed by a can reforming machine operator at the [facility]. Prior documentation did reveal the presence of scleroderma related interstitial lung disease along with a reduced diffusing capacity dating back to 2005. Repeat chest imaging did confirm the presence of basilar predominant interstitial lung disease along with a restrictive ventilatory impairment and reduced DLCO. However, given that I do not have prior imaging studies to review personally, it is unclear as to whether his pulmonary disease has progressed over time. He did have a documented DLCO during his last office visit at the [facility] of 67%, which is now reduced further on his most recent PFTs. Although the patient's right ventricular systolic pressures have been noted to be normal in surface echocardiograms, there is also the possibility that he may have pulmonary hypertension. At this time, I do feel that it is imperative that the patient be reevaluated by a can reforming machine operator to render an opinion as to whether the patient's disease is active or quiescent. The patient states that he will reach out to his previous provider and attempt to reestablish care. If rheumatology does not feel that the patient's disease is active, may need to consider right heart catheterization for evaluation of pulmonary hypertension. Of note, I did spend 35 minutes prior to the patient's office visit today reviewing his medical records from the [facility], which totaled 43 pages. 2. Chronic hypoxemic respiratory failure J96.11 Plan During the patient's last office visit, a walking oximetry study was completed which revealed the need for supplemental oxygen. However, the patient has exceedingly inconsistent pulse oximetry readings due to a history of raynaud's. I Would like to reevaluate his supplemental oxygen need by performing a repeat 6-minute walk test, utilizing an ear probe and obtaining an arterial blood gas immediately after the walk test is completed. The patient is in agreement with this plan. Orders Orders: 3. Restrictive airway disease J98.4 Plan The patient does have restrictive airway disease related to known interstitial lung disease. This will need to be tracked longitudinally on a yearly basis. 4. Interstitial lung disease J84.9 Plan The patient does have evidence of scleroderma associated interstitial lung disease. Given that I do not have prior imaging studies for comparison, it is unknown as to whether this disease has progressed with time. I am concerned that this is a distinct possibility, given that the patient's shortness of breath has progressed and his DLCO has decreased. I have recommended that he be reevaluated by a can reforming machine operator, as noted above. Plan Detail Follow Up 3 Months (DMB) HPI HPI Comments Details: The patient is a 58-year-old male who presents to the clinic today for a routine scheduled follow-up office visit. If you recall, the patient initially presented to me with a long-standing history of progressively worsening exertional shortness of breath. He reported at that time that he was initially diagnosed with scleroderma in 1994. He also has a history of nonischemic cardiomyopathy and is status post pacemaker placement. He follows with Dr. Lemus on an outpatient basis. Pulmonary function testing was completed in December 2017 and revealed evidence of a moderate restrictive ventilatory defect with a symmetric reduction in diffusing capacity. Surface echocardiogram completed in May 2016 revealed an ejection fraction of 50% with a pulmonary artery systolic pressure estimated to be 26 mmHg. A repeat surface echocardiogram was obtained in August 2018 revealed evidence of moderate concentric LVH with an ejection fraction of 55%. There was evidence of severe biatrial enlargement. Right ventricular systolic pressure was estimated to be [address] chest without contrast was completed in September 2018 and revealed evidence of diffuse bilateral peripheral interstitial fibrosis of the mid and lower lung pandey. He is a lifelong non-smoker and denies any significant secondhand smoke exposure. 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 He has lived in [place] his entire life. He does keep a dog as a pet in his home environment. Since the patient's last office visit with our nurse practitioner, records from the [facility] were obtained regarding the patient's prior treatment. In total, 43 pages of outside medical records were personally reviewed prior to the patient's office visit today. The patient appears to have been followed by a can reforming machine operator in 2002 and was being treated for systemic sclerosis with Prograf. At that time, the patient disease was noted to be stable. A CT chest completed in 2002 did demonstrate minimal to moderate bilateral interstitial lung disease in the lung bases. It was noted to be essentially unchanged from prior imaging studies. In 2005, the patient was noted to have been off Prograf for 1 years duration. His DLCO in 2005 was noted to be 67%. The patient was also noted at that time to have new dysphasia, for which the patient underwent upper endoscopy with dilation. The last documented note by the patient's prior can reforming machine operator occurred in July 2008, it which time the patient was again documented to have stable pulmonary function testing. Today, the patient does confirm progressively worsening shortness of breath with time. At his last office visit a walking oximetry study was completed and revealed the need for supplemental oxygen. However, the patient continues to be reluctant to utilize said oxygen as it will limit his ability to continue to remain employed. It has been noted previously that the patient's pulse oximetry readings are inconsistent due to his history of Raynaud's. The patient has yet to reestablish care with a can reforming machine operator. Intake Vital Signs10/30/18 Height 5 ft 10 in 10/30/18 Weight: 177 lb 10/30/18 Body Mass Index (BMI) 25.4 Intake Visit Reasons: 1 M FU Accompanied by: Allergies penicillamine Allergy (Severe, Verified 10/30/18 13:17) Anaphylaxis Medications Lamotrigine [Lamictal] 200 mg PO QHS 12/24/13 [History Confirmed 10/30/18] Olanzapine [Zyprexa] 5 mg PO QHS 12/24/13 [History Confirmed 10/30/18] Cholecalciferol (VIT D3) [Vitamin D3] 1,000 unit PO DAILY 09/23/14 [History Confirmed 10/30/18] ascorbic acid (vitamin C) 1,000 mg tablet 1,000 mg PO QDAY tab 11/14/17 [History Confirmed 10/30/18] levothyroxine 125 mcg tablet 125 mcg PO QDAY 30 Days #30 tab 11/14/17 [History Confirmed 10/30/18] fenofibrate nanocrystallized 145 mg tablet 145 mg PO DAILY 30 Days #30 01/17/18 [History Confirmed 10/30/18] lisinopril 40 mg tablet 40 mg PO DAILY 30 Days #30 01/17/18 [History Confirmed 10/30/18] carvedilol 25 mg tablet 25 mg PO BID #60 tab 03/04/18 [Rx Confirmed 10/30/18] warfarin 1 mg tablet 1 mg PO .COMPLEX tab 08/13/18 [History Confirmed 10/30/18] warfarin 4 mg tablet 4 mg PO DAILY #135 tab 08/13/18 [Rx Confirmed 10/30/18] esomeprazole magnesium 40 mg capsule,delayed release 40 mg PO DAILY 09/03/18 [History Confirmed 10/30/18] [facility] 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 (Chronic) History of left heart catheterization (Chronic) Yodit's thyroiditis (Chronic) Hypothyroidism, iatrogenic (Chronic) Lipoprotein deficiency (Chronic) HTN (hypertension) (Chronic) Dilated cardiomyopathy (Chronic) Persistent atrial fibrillation (Chronic) Cardiac pacemaker in situ (Chronic) HLD (hyperlipidemia) (Chronic) Scleroderma (Chronic) Shortness of breath (Chronic) Hypertension (Chronic) Atrial fibrillation, chronic (Chronic) Hypothyroidism (Chronic) Pacemaker (Chronic) History of scleroderma (Chronic) Community acquired pneumonia (Chronic) Acute kidney injury (Chronic) Head trauma (Chronic) Scalp laceration (Chronic) Surgical History S/P inguinal hernia repair (Acute) H/O stem cell transplant (Chronic) hx pacemaker generator change (Chronic) H/O colonoscopy (Resolved) Family History Mother CVA (cerebral vascular accident) Yodit's disease Social History Smoking Status: Never smoker alcohol intake: current alcohol intake frequency: a few times a week Alcohol type: beer substance use type: does not use caffeine: Yes Type: coffee Number of servings: 1 what type of physical activity do you participate in: none seatbelt use: always do you feel safe at home: Yes Review of Systems Const CONSTITUTIONAL: Negative anorexia, body ache, chills, daytime sleepiness, fever(s), night sweats, oral thrush, stops breathing during sleep, weight loss, sleeping in chair, fatigue, weight loss, weight gain, frequent colds, seasonal allergies, other, headache(s) or orthopnea EETM Ear Nose Throat Mouth: Positive hearing normal; negative hard of hearing, hoarseness, dry mouth in morning, change in vision, itchy eyes, eye pain, swallowing Difficulty, ear pain, nose bleed, headache(s), mouth pain, nasal congestion, nasal discharge, post nasal drip, sinus pain, sinus pressure, sore throat or other Cardio Cardiovascular: Negative chest pain, chest pain at rest, chest pain with activity, irregular heart rhythm, edema, shortness of breath when lying down, palpitations, murmur or other Resp Respiratory: Positive as per HPI and shortness of breath shortness of breath: Positive with activity; negative pain with cough, wheezing, chest congestion, cough, chest tightness, pain on inspiration, inhalers, increase use of rescue inhalers, snoring, apnea or other Gastro Gastrointestional: Negative bloody stools, change in appetite, difficulty swallowing, reflux, hematemesis, melena stool, loose stool, constipation or other Genitourinary: Negative blood in urine, nocturia, pain with urination or other Musc Musculoskeletal: Negative body pain, back pain, neck pain or other Skin/Breast Skin/Breast: Negative dry skin, itching, unusual bruising, breast lump or other Neuro Neurological: Negative restless legs, confusion, weakness or other Psych Psychocological: Negative abnormal sleep pattern, anxiety, thoughts of hurting self/others, hopelessness or other Lymph Lymphatic: Negative easy bleeding, easy bruising, swollen lymph nodes or other Exam Const Constitutional: Positive conversant, cooperative, in no acute respiratory distress, well developed, well nourished and good hygiene Head Head: Positive normocephalic and atraumatic; negative cyanosis of lips/distal nose Eyes Eye: Positive clear conjunctiva; negative nystagmus or scleral abnormality Ears Ear: Positive hearing normal and external ears normal; negative hard of hearing Nose Nose: Positive external nose normal; negative epistaxis Mouth Mouth: Positive oral mucosae normal and posterior oropharynx is adequate; negative no lesions or post nasal drip Mallampati Score: III: Mallampati Score Neck Neck: Positive normal visual inspection and trachea midline; negative lymphadenopathy Chest Wall Chest: Positive symmetric chest movement Normal AP diameter. Resp lung sounds: Positive good air exchange and rales rales: Positive lower; negative wheezes or rhonchi Cardio Cardiac: Positive regular rate, regular rhythm, S1 normal and S2 normal; negative rub, gallop or murmur GI GI: Positive normal bowel sounds Soft without distention Genitourinary: Positive deferred Musc Musculoskeletal: Positive steady gait Skin Pulmonary Skin Exam: Positive intact Stigmata of scleroderma and Raynaud's present Pulses Pulse: Yes Pedal pulses present: Extremities Extremities: Yes clubbing, No cyanosis, No edema Neuro Neurologic: Yes conversant, Yes no focal neuro deficits, Yes cooperative Lymph Lymphatic: No lymphadenopathy Psych Appearance: Positive grossly normal Mental Status: Positive mental status grossly normal Mood: Positive congruent mood Affect: Positive normal affect Coding Level of Care Code Off vis,est,level 4 Diagnoses Scleroderma M34.9 Chronic hypoxemic respiratory failure J96.11 Restrictive airway disease J98.4 Interstitial lung disease J84.9 Comment 35 minutes was spent reviewing medical records prior to office visit. CPT 07359 10/31/18 0639 <Electronically signed by Chad Cruz DO> Date Chad Cruz DO Cosigner Signature: Date (if applicable) CC: Janette Chavira NP PULMONARY VISIT REPORT Observed: 10/24/2018 Status: F Source: [place] 10:28 AM [facility] REPOSITORY [facility] Pulmonary Medicine [address] [place] [address] OFFICE VISIT Date of Service: 10/22/18 MR#: [id number] Acct: [id number] Name: LAINE OLIVARES Rep #: [id number] : 1960 Provider: Indy Ricardo Age/Sex: 58/M Location: [facility] Status: Signed Assessment AND Plan 1. Acute respiratory failure with hypoxia J96.01 Plan New. Patient recently had a walking stress test but did not support the need for supplemental oxygen, however given the patient's severe raynaud's phenomenon and scleroderma it is possible that the results obtained during that test are not accurately depicting his clinical presentation. He was found to be hypoxic today with little ambulation he is safe at rest, but does require 2 L/min with ambulation. The patient will be set up with supplemental oxygen. Follow-up with Dr. Cruz in 1 month to evaluate how the patient is responding. 2. Scleroderma M34.9 Plan Deteriorated. The patient admits that he has not followed up with a specialist regarding his scleroderma in approximately 10 years. The patient has been encouraged to reestablish a relationship with this provider or contact our office for referral to a new provider. We will attempt to obtain previous records regarding management of his scleroderma. Follow-up with Dr. Crzu in 1 month. 3. Shortness of breath R06.02 Plan Deteriorated. Suspect pulmonary hypertension or cor pulmonale. Pulmonary hypertension not documented on recent echocardiogram, however severely enlarged right atrium was noted. The patient may require a right heart catheterization to accurately diagnose and documented right-sided heart pressures. This was discussed with the patient and will be further discussed at the one-month follow-up with Dr. Cruz. Plan Detail Follow Up 1 Month (DMB) HPI HPI Comments Details: This patient presents to the office today to follow-up on recent test results, regarding his shortness of breath. He is ambulatory and currently on room air. Shortness of breath currently occurs when he is walking up elevations. He states that when he is on a flat surface his shortness of breath does not become too bothersome, however if he is walking up steps, a ramp or graded surface he becomes short of breath. He denies any chest pain or palpitations. He is not experience any wheezing or chest tightness. He denies any cough, sputum production or hemoptysis. He does not have any trouble with lower extremity edema. He is not currently on any inhalers. He is compliant with medications for his high blood pressure and is currently on oral anticoagulation. CT of the chest completed on September 18, 2018 shows mild peripheral interstitial fibrotic changes in the mid and lower lung pandey bilaterally as well as cardiomegaly. Echocardiogram completed on September 13, 2018 shows an EF of 55%. RVSP estimated to be 28 mmHg, right atrium is severely enlarged. Walking oximetry was completed on September 12, 2018 shows that the patient was able to walk a total of 1446 feet over the course of 6 minutes, he did not require supplemental oxygen at the time. Intake Vital Signs10/22/18 Pulse Ox 95 Intake Visit Reasons: 6 wk FU Accompanied by: Self Allergies penicillamine Allergy (Severe, Verified 10/22/18 13:13) Anaphylaxis Medications Lamotrigine [Lamictal] 200 mg PO QHS 12/24/13 [History Confirmed 10/22/18] Olanzapine [Zyprexa] 5 mg PO QHS 12/24/13 [History Confirmed 10/22/18] Cholecalciferol (VIT D3) [Vitamin D3] 1,000 unit PO DAILY 09/23/14 [History Confirmed 10/22/18] ascorbic acid (vitamin C) 1,000 mg tablet 1,000 mg PO QDAY tab 11/14/17 [History Confirmed 10/22/18] levothyroxine 125 mcg tablet 125 mcg PO QDAY 30 Days #30 tab 11/14/17 [History Confirmed 10/22/18] fenofibrate nanocrystallized 145 mg tablet 145 mg PO DAILY 30 Days #30 01/17/18 [History Confirmed 10/22/18] lisinopril 40 mg tablet 40 mg PO DAILY 30 Days #30 01/17/18 [History Confirmed 10/22/18] carvedilol 25 mg tablet 25 mg PO BID #60 tab 03/04/18 [Rx Confirmed 10/22/18] warfarin 1 mg tablet 1 mg PO .COMPLEX tab 08/13/18 [History Confirmed 10/22/18] warfarin 4 mg tablet 4 mg PO DAILY #135 tab 08/13/18 [Rx Confirmed 10/22/18] esomeprazole magnesium 40 mg capsule,delayed release 40 mg PO DAILY 09/03/18 [History Confirmed 10/22/18] [facility] Medical History senior living current use of anticoagulant (Chronic) History of left heart catheterization (Chronic) Yodit's thyroiditis (Chronic) Hypothyroidism, iatrogenic (Chronic) Lipoprotein deficiency (Chronic) HTN (hypertension) (Chronic) Dilated cardiomyopathy (Chronic) Persistent atrial fibrillation (Chronic) Cardiac pacemaker in situ (Chronic) HLD (hyperlipidemia) (Chronic) Scleroderma (Chronic) Shortness of breath (Chronic) Hypertension (Chronic) Atrial fibrillation, chronic (Chronic) Hypothyroidism (Chronic) Pacemaker (Chronic) History of scleroderma (Chronic) Community acquired pneumonia (Chronic) Acute kidney injury (Chronic) Head trauma (Chronic) Scalp laceration (Chronic) Surgical History S/P inguinal hernia repair (Acute) H/O stem cell transplant (Chronic) hx pacemaker generator change (Chronic) H/O colonoscopy (Resolved) Family History Mother CVA (cerebral vascular accident) Yodit's disease Social History Smoking Status: Never smoker alcohol intake: current alcohol intake frequency: a few times a week Alcohol type: beer substance use type: does not use caffeine: Yes Type: coffee Number of servings: 1 what type of physical activity do you participate in: none seatbelt use: always do you feel safe at home: Yes Review of Systems Const CONSTITUTIONAL: Negative anorexia, body ache, chills, daytime sleepiness, fever(s), night sweats, oral thrush, stops breathing during sleep, weight loss, sleeping in chair, fatigue, weight loss, weight gain, frequent colds, seasonal allergies, other, headache(s) or orthopnea EETM Ear Nose Throat Mouth: Positive hearing normal; negative hard of hearing, hoarseness, dry mouth in morning, change in vision, itchy eyes, eye pain, swallowing Difficulty, ear pain, nose bleed, headache(s), mouth pain, nasal congestion, nasal discharge, post nasal drip, sinus pain, sinus pressure, sore throat or other Cardio Cardiovascular: Negative chest pain, chest pain at rest, chest pain with activity, irregular heart rhythm, edema, shortness of breath when lying down, palpitations, murmur or other Resp Respiratory: Positive as per HPI; negative shortness of breath, pain with cough, wheezing, chest congestion, cough, chest tightness, pain on inspiration, inhalers, increase use of rescue inhalers, snoring, apnea or other Gastro Gastrointestional: Negative bloody stools, change in appetite, difficulty swallowing, reflux, hematemesis, melena stool, loose stool, constipation or other Genitourinary: Negative blood in urine, nocturia, pain with urination or other Musc Musculoskeletal: Negative body pain, back pain, neck pain or other Skin/Breast Skin/Breast: Negative dry skin, itching, rash, unusual bruising, breast lump or other Neuro Neurological: Negative restless legs, confusion, weakness or other Psych Psychocological: Negative abnormal sleep pattern, anxiety, thoughts of hurting self/others, hopelessness or other Lymph Lymphatic: Negative easy bleeding, easy bruising, swollen lymph nodes or other Exam Const Constitutional: Positive conversant, cooperative, in no acute respiratory distress, well developed, well nourished and good hygiene Head Head: Positive normocephalic and atraumatic; negative cyanosis of lips/distal nose Eyes Eye: Positive clear conjunctiva; negative nystagmus or scleral abnormality Ears Ear: Positive hearing normal and external ears normal; negative hard of hearing Nose Nose: Positive external nose normal and no nasal discharge; negative epistaxis Mouth Mouth: Positive oral mucosae normal, no lesions and crowded posterior oropharynx; negative post nasal drip, malodorous breath or oral thrush present Mallampati Score: III: Mallampati Score Neck Neck: Positive normal visual inspection, full ROM and trachea midline; negative lymphadenopathy, JVD or tender Chest Wall Chest: Positive normal inspection of the chest and symmetric chest movement; negative increased A/P diameter Resp lung sounds: Positive clear to auscultation, diminished, normal expiratory time and normal respiratory effort; negative wheezes, rhonchi, rales, dullness to percussion or wheeze present on forced exhalation Cardio Cardiac: Positive regular rate, regular rhythm, S1 normal and S2 normal; negative murmur GI GI: Positive normal to inspection; negative distended Genitourinary: Positive deferred Musc Musculoskeletal: Positive steady gait, ROM normal and Raynaud's phenomenon; negative kyphosis or scoliosis Skin Pulmonary Skin Exam: Positive intact and other (raynaud's phenomenon and scleroderma obvious in fingertips); negative rash Pulses Pulse: Yes pulses normal x4 extremities Extremities Extremities: Yes capillary refill normal, Yes clubbing, No cyanosis, No edema Neuro Neurologic: Yes conversant, Yes no focal neuro deficits, Yes normal concentration, Yes understands questions, Yes cooperative, Yes normal cognition, Yes normal coordination, No tremor Lymph Lymphatic: No lymphadenopathy, No tenderness, No cervical adenopathy Psych Appearance: Positive grossly normal, eye contact and well kempt Mental Status: Positive mental status grossly normal Mood: Positive congruent mood Affect: Positive normal affect Coding Level of Care Code Off vis,est,level 4 Diagnoses Acute respiratory failure with hypoxia J96.01 Scleroderma M34.9 Shortness of breath R06.02 10/24/18 1028 <Electronically signed by Indy Ricardo SHOP DIRECTOR-C> Date Indy Ricardo SHOP DIRECTOR-C Cosigner Signature: Date (if applicable) CC: Janette Fan SHOP DIRECTOR 6 MINUTE WALK TEST Observed: 10/08/2018 Status: F Source: [place] 12:36 PM [facility] REPOSITORY [facility] Pulmonary Services/Neurology [address] [place] [address] MR#: [id number] Acct: [id number] Name: LAINE OLIVARES Rep #: [id number] : 1960 58 From: Chad Cruz DO Referring Dr: Chad Cruz D.O. Date: Ordering Dr: Sex: M C Location: PSN PSN 6 Minute Walk Test - 6 Minute Walk Test 6 Minute Walk Test: 6 Minute Walk Test PSN:6-Minute Walk Test Start: 09/12/18 12:32 Freq: Status: Active Protocol: RESP.6MINW Document 09/12/18 12:32 JLA (Rec: 09/12/18 12:36 JLA [id number]) 6 Minute Walk Test Date Performed 09/12/18 Time Performed 12:30 Height 5 ft 10 in Weight: 182 lb Weight in Pounds 182.[address]: Chad Cruz Assistive device used: None Pre-test Oxygen Delivery Method Room Air Pulse Ox (%) 98 Pulse Rate (60-100 beats/min) 60 Dyspnea France Scale (0-10) 0 Exertion France Scale (6-20) 6 1st minute Oxygen Delivery Method Room Air Pulse Ox (%) 100 Pulse Rate (60-100 beats/min) 78 2nd minute Oxygen Delivery Method Room Air Pulse Ox (%) 99 Pulse Rate (60-100 beats/min) 70 3rd minute Oxygen Delivery Method Room Air Pulse Ox (%) 99 Pulse Rate (60-100 beats/min) 73 4th minute Oxygen Delivery Method Room Air Pulse Ox (%) 99 Pulse Rate (60-100 beats/min) 71 5th minute Oxygen Delivery Method Room Air Pulse Ox (%) 100 Pulse Rate (60-100 beats/min) 78 6th minute Oxygen Delivery Method Room Air Pulse Ox (%) 99 Pulse Rate (60-100 beats/min) 79 Dyspnea France Scale (0-10) 2 Exertion France Scale (6-20) 11 Post-test Oxygen Delivery Method Room Air Pulse Ox (%) 98 Pulse Rate (60-100 beats/min) 70 Full Laps Walked 24 Partial Lap, Number of Tiles Walked 30 Total Distance Walked (ft) 1446 - Interpretation Interpretation: The patient ambulated 1446 feet over the course of 6 minutes beginning on room air without assistive devices or breaks. Pretesting oxygen saturation was noted to be 98% on room air. With ambulation, the cynthia oxygen saturation was 99%. There was no significant exertional oxygen desaturation. - Recommendations Recommendations: There is no indication for the use of supplemental oxygen at this time. 10/08/18 1236 <Electronically signed by Chad Cruz DO> Date Chad Cruz DO CC: Date Dictated: 09/13/18 1230 Date Transcribed: 09/13/181229 Zipper Setter Chainstitch: Chad Cruz DO Signed PACEMAKER CHECK Observed: 10/04/2018 Status: F Source: [place] 9:[address] [place] [address] Pacemaker Check Date of Service: 10/03/18 1646 MR#: [id number] Acct: [id number] Name: LAINE OLIVARES Rep #: [id number] : 1960 From: Jennifer Daugherty Age/Sex: 58/M Location: [facility] Status: Signed with Addenda ADDENDUM by Jennifer Daugherty on 10/03/18 at 1841 Addendum entered and electronically signed by Jennifer Daugherty 10/03/18 18:41: Dr. Lemus should be billed for PPM check 10/03/18 1841 <Electronically signed by Jennifer Daugherty > Date Jennifer Daugherty cc: * Signed ADDENDUM Addendum entered and electronically signed by Jennifer Daugherty 10/03/18 18:41: Dr. Lemus should be billed for PPM check Original Note: Billing Codes PM Device Codes: PM Dev Prog Eval, Dual 10/03/18 1648 <Electronically signed by Jennifer Daugherty > Date Jennifer Youngignmilad Signature: Date (if applicable) CC: CHEST WITHOUT Observed: 09/18/2018 Status: F Source: [place] CONTR[place] 5:53 PM [facility] REPOSITORY [facility] Imaging Services [address] [place] [address] Chest without Contrast MR#: [id number] Acct: [id number] Name: LAINE OLIVARES Rep #: [id number] : 1960 M 58 From: Tyler Christianson MD PCP: Janette Chavira NP Status: REG CLI Study: Chest without Contrast Date of Exam: 09/18/18 Exam# [id number] Ordering Dr: Chad Cruz DO STUDY: CT CHEST WITHOUT CONTRAST REASON FOR EXAM: Male, 58 years old. Interstitial lung disease. RADIATION DOSAGE (If Supplied By Facility): CTDIvol = ( 14.80 ) mGy, DLP = ( 491.76 ) mGycm TECHNIQUE: Transaxial imaging was performed without the administration of intravenous contrast material. Individualized dose optimization techniques were used for this CT. COMPARISON: 01/17/2018. FINDINGS: Normal lung volumes. Mild peripheral interstitial fibrotic changes in the mid and lower lung pandey bilaterally. Findings most pronounced in the posterior lung bases. No infiltrates. No effusions. There is moderate cardiac enlargement. There are calcifications of the coronary arteries. Pacemaker is seen with leads terminating in the right atrium and right ventricle. Normal mediastinum. Normal hilar regions. Normal unenhanced pulmonary arteries. Normal aorta arch and descending thoracic aorta. Normal osseous structures. There is no demonstrated acute abnormality of the visualized upper abdomen. CT/Chest without Contrast IMPRESSION: No acute abnormality. Diffuse bilateral peripheral interstitial fibrosis of the mid and lower lung pandey. Cardiomegaly. Electronically Signed: Tyler Christianson MD at 14:15 EDT , Service support , CC: Janette Chavira SHOP DIRECTOR; Chad Cruz D.O. Zipper Setter Chainstitch: Signed ECHOCARDIOGRAM COMPLETE Observed: 09/13/2018 Status: F Source: [place] 5:08 PM [facility] REPOSITORY [facility] Cardiovascular Services [address] [place] [address] Echo Complete 09/13/18 1447 MR#: [id number] Acct: [id number] Name: LAINE OLIVARES Rep #: [id number] : 1960 58 From: Varun Vo MD Attending Dr: Chad Cruz D.O. Status: REG CLI Ordering Dr: Chad Cruz DO Date: 09/13/18 Location: [facility] Sex: M C Admitted: [id number] ECHO [id number] TAG_START Cardiovascular Services Echocardiogram [facility] [place] [address] Ordering Physician: Chad Cruz D.O. TAG_ENDED TAG_START Name: LAINE OLIVARES Study Date: 09/13/2018 02:47 PM BP: 140/80 mmHg Patient Location: [facility] BSA: 2.0 m2 : 1960 Gender: Male Height: 70 in Age: 58 yrs Ethnicity: C Weight: 182 lb History: SCLERODERMA, CMP, AFIB w/anticoagulation, HTN, HLD, PACEMAKER, DYSPNEA/SOB. TAG_ENDED Reason For Study: DYSPNEA/SOB Procedure This was a 2D Doppler, Color Flow transthoracic echocardiogram. Exam performed in department. Left Ventricle Moderate concentric left ventricular hypertrophy. The estimated ejection fraction is 55 %. Septal motion consistent with IVCD. No regional wall motion abnormalities noted. TAG_START I Segments Size 1-2 small X - Cannot 1 - Normal 2 - 3 - Akinetic 4 - Dyskinetic3-5 moderate Interpret Hypokinetic 6-14 large 5 - Aneurysmal 15-16 diffuse TAG_ENDED Right Ventricle Normal size and thickness. ICD or pacer leads identified within the right ventricle. Normal systolic function. Atria The left atrium is severely enlarged. The right atrium is severely enlarged. Normal atrial septum. Mitral Valve Mild diffuse mitral valve thickening. Mild (1+) mitral valve insufficiency. Tricuspid Valve Normal tricuspid valve. Mild to moderate (1-2+) tricuspid valve insufficiency. Right ventricular systolic pressure estimated to be 28 mmHg. Aortic Valve Trisinus/trileaflet aortic valve. Pulmonic Valve Normal pulmonic valve. Great Vessels Normal aortic root. Normal arch. Normal inferior vena cava. Inferior vena cava collapse with sniff. Pericardium/Pleural No pericardial effusion. MMode/2D Measurements AND Calculations LVIDd: 5.2 cm IVSd: 1.4 cm Ao root diam: 3.6 cm LVIDs: 3.6 cm LVPWd: 1.4 cm RVDd: 4.2 cm FS: 29.7 % LAV(MOD-bp): 107.2 ml LA A4 area: 30.7 cm2 LA dimension(2D): 4.5 cm LAV(MOD-bp) Indexed: 53.5 ml/m2 LAV(MOD-sp2): 88.7 ml LAV(MOD-sp4): 115.8 ml RA A4 area: 30.7 cm2 Doppler Measurements AND Calculations MV E max noe: 106.8 cm/sec Lat Peak E' Noe: 8.5 cm/sec Med Peak E' Noe: 7.1 cm/sec MV A max noe: 27.3 cm/sec E/E' lat: 12.5 E/E' med: 15.0 MV E/A: 3.9 Ao V2 max: 126.1 cm/sec LV V1 max: 91.4 cm/sec MR max noe: 515.9 cm/sec Ao max P.4 mmHg LV V1 max P.3 mmHg MR max P.5 mmHg PA V2 max: 75.7 cm/sec TR max noe: 241.7 cm/sec TR max P.4 mmHg Interpretation Summary The estimated ejection fraction is 55 %. The left atrium is severely enlarged. The right atrium is severely enlarged. Mild (1+) mitral valve insufficiency. Mild to moderate (1-2+) tricuspid valve insufficiency. Right ventricular systolic pressure estimated to be 28 mmHg. Compared to echo report dated 06/05/2016, no appreciable changes noted. TAG_START TAG_ENDED Ordering Physician: Chad Cruz D.O. Referring Physician: Janette Chavira Performed By: Melba Wells RDCS, RVT 09/13/181707 Date Varun Vo MD CC: Janette Chavira SHOP DIRECTOR; Chad Cruz D.O. Date Dictated: 09/13/18 1447 Date Transcribed: 09/13/181707 Zipper Setter Chainstitch: Signed SURGERY VISIT REPORT Observed: 09/10/2018 Status: F Source: [place] 9:12 AM [facility] REPOSITORY [facility] [address] [place] [address]. [address] [place] [address] OFFICE VISIT Date of Service: 09/03/18 MR#: [id number] Acct: [id number] Name: LAINE OLIVARES Rep #: [id number] : 1960 Provider: Varun Jensen MD Age/Sex: 58/M Location: [facility] Status: Signed Intake Vital Signs09/03/18 Height 5 ft 10 in 09/03/18 Weight: 183 lb 09/03/18 Body Mass Index (BMI) 26.2 Intake Visit Reasons: Rt Knee Ganglion Cyst or Fatty Tumor Chief Complaint: Follow up visit Stocking And Box Shop Supervisor Required: No Is patient in pain?: No Allergies penicillamine Allergy (Severe, Verified 09/04/18 12:56) Anaphylaxis Medications Lamotrigine [Lamictal] 200 mg PO QHS 12/24/13 [History Confirmed 09/04/18] Olanzapine [Zyprexa] 5 mg PO QHS 12/24/13 [History Confirmed 09/04/18] Cholecalciferol (VIT D3) [Vitamin D3] 1,000 unit PO DAILY 09/23/14 [History Confirmed 09/04/18] ascorbic acid (vitamin C) 1,000 mg tablet 1,000 mg PO QDAY tab 11/14/17 [History Confirmed 09/04/18] levothyroxine 125 mcg tablet 125 mcg PO QDAY 30 Days #30 tab 11/14/17 [History Confirmed 09/04/18] fenofibrate nanocrystallized 145 mg tablet 145 mg PO DAILY 30 Days #30 01/17/18 [History Confirmed 09/04/18] lisinopril 40 mg tablet 40 mg PO DAILY 30 Days #30 01/17/18 [History Confirmed 09/04/18] carvedilol 25 mg tablet 25 mg PO BID #60 tab 03/04/18 [Rx Confirmed 09/04/18] warfarin 1 mg tablet 1 mg PO .COMPLEX tab 08/13/18 [History Confirmed 09/04/18] warfarin 4 mg tablet 4 mg PO DAILY #135 tab 08/13/18 [Rx Confirmed 09/04/18] esomeprazole magnesium 40 mg capsule,delayed release 40 mg PO DAILY 09/03/18 [History Confirmed 09/04/18] [facility] Medical History senior living current use of anticoagulant (Chronic) History of left heart catheterization (Chronic) Yodit's thyroiditis (Chronic) Hypothyroidism, iatrogenic (Chronic) Lipoprotein deficiency (Chronic) HTN (hypertension) (Chronic) Dilated cardiomyopathy (Chronic) Persistent atrial fibrillation (Chronic) Cardiac pacemaker in situ (Chronic) HLD (hyperlipidemia) (Chronic) Scleroderma (Chronic) Shortness of breath (Chronic) Hypertension (Chronic) Atrial fibrillation, chronic (Chronic) Hypothyroidism (Chronic) Pacemaker (Chronic) History of scleroderma (Chronic) Community acquired pneumonia (Chronic) Acute kidney injury (Chronic) Head trauma (Chronic) Scalp laceration (Chronic) Surgical History S/P inguinal hernia repair (Acute) H/O stem cell transplant (Chronic) hx pacemaker generator change (Chronic) H/O colonoscopy (Resolved) Family History Mother CVA (cerebral vascular accident) Yodit's disease Social History Smoking Status: Never smoker alcohol intake: current alcohol intake frequency: a few times a week Alcohol type: beer substance use type: does not use caffeine: Yes Type: coffee Number of servings: 1 what type of physical activity do you participate in: none seatbelt use: always do you feel safe at home: Yes HPI HPI HPI: LAINE OLIVARES, is a 58 M who presents to the office today for a cyst on the lateral aspect of his right knee right along the joint line. States that he has had this for many years and it is gradually gotten larger. He is not complaining of any pain from it. He has never sought surgical consultation for it ROS General General: Yes fatigue; no weight change, appetite, colon cancer, breast cancer or weakness HEENT HEENT: Yes difficulty swallowing; no eye injury, eye surgery, swollen glands or hoarseness Endo Endocrine: Yes thyroid disease; no diabetes mellitus, thyroid cancer, Hair loss, heat intolerance or cold intolerance Skin Skin: No rash or changing moles Breast Breast: No left breast lump, right breast lump, nipple discharge, breast pain, abnormal mammogram, abnormal US or breast enlargement Musc Musculoskeletal: No back problems, arthritis, rheumatoid arthritis, gout or joint pain Cardio Cardiovascular: Yes pacemaker, atrial fibrillation and high blood pressure; no murmur, heart disease, heart attack, heart stent, palpitations, shortness of breat with exertion or chest pain Psych Psychiatric: Yes depression; no anxiety or hearing voices Resp Respiratory: Yes shortness of breath, No sleep apnea, No cough, No COPD, No asthma, No emphysema, No wheezing Gastro Gastrointestinal: Yes acid reflux, No abdominal pain, No nausea or vomiting, No diarrhea, No constipation, No blood in stool, No hemorrhoids, No ulcers, No gallbladder problem, No black,tarry stools Leobardo Hematologic: Yes blood thinners, No blood disorders, No bleeding, No anemia, No blood clots Neuro Neurologic: No system reviewed and no additional complaints, except as docu, No as per HPI, No abnormal walking, No abnormal hearing, No abnormal movements, No abnormal speech, No behavioral changes, No burning sensations, No confusion, No seizure-like activity, No unsteadiness, No dizziness, No localized weakness, No frequent falls, No headache(s), No lack of coordination, No loss of vision, No memory loss, No numbness, No other visual disturbances, No radiating pain, No restless legs, No sensory deficit, No fainting, No tingling, No tremor(s), No weakness, No other Exam Chest Breast Palpation: No nipple discharge Cardio Heart Sounds: no murmurs Skin Other: On the right lateral aspect of his knee right on the joint line there is a 1-1/2 cm subcutaneous nodule it appears to be somewhat firm it is not appreciably movable. It does not appear to be a fatty tumor. Assessment AND Plan Problems 1. Lesion of subcutaneous tissue L98.9 Plan At this point I do not feel comfortable removing this. I think it represents probably a cyst from the underlying joint and would be reserved to be seen by a orthopedic surgeon. Coding Level of Care Code Off vis,est,level 2 Diagnoses Lesion of subcutaneous tissue L98.9 09/10/18 0912 <Electronically signed by Varun Jensen MD> Date Varun Jensen MD Cosigner Signature: Date (if applicable) CC: Janette Chavira SHOP DIRECTOR; David Rowan DO PULMONARY VISIT REPORT Observed: 09/04/2018 Status: F Source: [place] 1:48 PM [facility] REPOSITORY [facility] [address] [place] [address] OFFICE VISIT Date of Service: 09/04/18 MR#: [id number] Acct: [id number] Name: LAINE OLIVARES Rep #: [id number] : 1960 Provider: Chad Cruz D.O. Age/Sex: 58/M Location: [facility] Status: Signed Assessment AND Plan 1. SOB (shortness of breath) R06.02 Plan Given the patient's pulmonary function testing completed in December that revealed evidence of a restrictive ventilatory defect with a proportionate reduction in diffusing capacity, it is possible that the patient may have an evolving interstitial lung process. Given his history of scleroderma, would recommend obtaining a high-resolution chest CT for further evaluation. In addition, would also recommend repeating a surface echocardiogram to evaluate for the presence of pulmonary hypertension. Additionally, the patient will undergo a 6-minute walk test to assess for any exertional hypoxemia. He will have a short interval follow-up office visit with our nurse practitioner to review the results of those tests. Orders Orders: 2. Scleroderma M34.9 Plan The patient was diagnosed initially in 1994. Given his worsening shortness of breath and restrictive lung mechanics on PFTs, concerns arise for an evolving interstitial lung process and/or the development of pulmonary hypertension. As noted above, will obtain CT chest and surface echocardiogram. Orders Orders: Plan Detail Other Orders Orders: Follow Up 6 Weeks (CSM) HPI HPI Comments Details: The patient is a 58-year-old male who presents to the clinic today in referral for evaluation of shortness of breath. The patient reports a long-standing history of progressively worsening exertional shortness of breath. He states that he was initially diagnosed with scleroderma in 1994. He also has a history of nonischemic cardiomyopathy and is status post pacemaker placement. He follows with Dr. Lemus on an outpatient basis. Pulmonary function testing was completed in December 2017 and revealed evidence of a moderate restrictive ventilatory defect with a symmetric reduction in diffusing capacity. The patient denies the presence of a cough, chest tightness or wheezing. He is a lifelong non-smoker and denies any significant secondhand smoke exposure. 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 He has lived in [place] his entire life. He does keep a dog as a pet in his home environment. His weight has been stable. He denies fevers, chills or night sweats. Surface echocardiogram completed in May 2016 revealed ejection fraction of 50% with a pulmonary artery systolic pressure estimated to be 26 mmHg. The patient does not currently utilize inhalers or supplemental oxygen at his baseline. Intake Vital Signs09/04/18 Height 5 ft 10 in 09/04/18 Weight: 180 lb Intake Visit Reasons: ESTABLISH CARE Accompanied by: Self Allergies penicillamine Allergy (Severe, Verified 09/04/18 12:56) Anaphylaxis Medications Lamotrigine [Lamictal] 200 mg PO QHS 12/24/13 [History Confirmed 09/04/18] Olanzapine [Zyprexa] 5 mg PO QHS 12/24/13 [History Confirmed 09/04/18] Cholecalciferol (VIT D3) [Vitamin D3] 1,000 unit PO DAILY 09/23/14 [History Confirmed 09/04/18] ascorbic acid (vitamin C) 1,000 mg tablet 1,000 mg PO QDAY tab 11/14/17 [History Confirmed 09/04/18] levothyroxine 125 mcg tablet 125 mcg PO QDAY 30 Days #30 tab 11/14/17 [History Confirmed 09/04/18] fenofibrate nanocrystallized 145 mg tablet 145 mg PO DAILY 30 Days #30 01/17/18 [History Confirmed 09/04/18] lisinopril 40 mg tablet 40 mg PO DAILY 30 Days #30 01/17/18 [History Confirmed 09/04/18] carvedilol 25 mg tablet 25 mg PO BID #60 tab 03/04/18 [Rx Confirmed 09/04/18] warfarin 1 mg tablet 1 mg PO .COMPLEX tab 08/13/18 [History Confirmed 09/04/18] warfarin 4 mg tablet 4 mg PO DAILY #135 tab 08/13/18 [Rx Confirmed 09/04/18] esomeprazole magnesium 40 mg capsule,delayed release 40 mg PO DAILY 09/03/18 [History Confirmed 09/04/18] [facility] Medical History senior living current use of anticoagulant (Chronic) History of left heart catheterization (Chronic) Yodit's thyroiditis (Chronic) Hypothyroidism, iatrogenic (Chronic) Lipoprotein deficiency (Chronic) HTN (hypertension) (Chronic) Dilated cardiomyopathy (Chronic) Persistent atrial fibrillation (Chronic) Cardiac pacemaker in situ (Chronic) HLD (hyperlipidemia) (Chronic) Scleroderma (Chronic) Shortness of breath (Chronic) Hypertension (Chronic) Atrial fibrillation, chronic (Chronic) Hypothyroidism (Chronic) Pacemaker (Chronic) History of scleroderma (Chronic) Community acquired pneumonia (Chronic) Acute kidney injury (Chronic) Head trauma (Chronic) Scalp laceration (Chronic) Surgical History H/O colonoscopy (Resolved) S/P inguinal hernia repair (Acute) H/O stem cell transplant (Chronic) hx pacemaker generator change (Chronic) Family History Mother CVA (cerebral vascular accident) Yodit's disease Social History Smoking Status: Never smoker alcohol intake: current alcohol intake frequency: a few times a week Alcohol type: beer substance use type: does not use caffeine: Yes Type: coffee Number of servings: 1 what type of physical activity do you participate in: none seatbelt use: always do you feel safe at home: Yes Review of Systems Const CONSTITUTIONAL: Negative anorexia, body ache, chills, daytime sleepiness, fever(s), night sweats, oral thrush, stops breathing during sleep, weight loss, sleeping in chair, fatigue, weight loss, weight gain, frequent colds, seasonal allergies, other, headache(s) or orthopnea EETM Ear Nose Throat Mouth: Positive hearing normal; negative hard of hearing, hoarseness, dry mouth in morning, change in vision, itchy eyes, eye pain, swallowing Difficulty, ear pain, nose bleed, headache(s), mouth pain, nasal congestion, nasal discharge, post nasal drip, sinus pain, sinus pressure, sore throat or other Cardio Cardiovascular: Negative chest pain, chest pain at rest, chest pain with activity, irregular heart rhythm, edema, shortness of breath when lying down, palpitations, murmur or other Resp Respiratory: Positive as per HPI and shortness of breath shortness of breath: Positive with activity; negative pain with cough, wheezing, chest congestion, cough, chest tightness, pain on inspiration, inhalers, increase use of rescue inhalers, snoring, apnea or other Gastro Gastrointestional: Negative bloody stools, change in appetite, difficulty swallowing, reflux, hematemesis, melena stool, loose stool, constipation or other Genitourinary: Negative blood in urine, nocturia, pain with urination or other Musc Musculoskeletal: Negative body pain, back pain, neck pain or other Skin/Breast Skin/Breast: Negative dry skin, itching, rash, unusual bruising, breast lump or other Neuro Neurological: Negative restless legs, confusion, weakness or other Psych Psychocological: Negative abnormal sleep pattern, anxiety, thoughts of hurting self/others, hopelessness or other Lymph Lymphatic: Negative easy bleeding, easy bruising, swollen lymph nodes or other Exam Const Constitutional: Positive conversant, cooperative, in no acute respiratory distress, well developed, well nourished and good hygiene Head Head: Positive normocephalic and atraumatic; negative cyanosis of lips/distal nose Eyes Eye: Positive clear conjunctiva; negative nystagmus or scleral abnormality Ears Ear: Positive hearing normal; negative hard of hearing Nose Nose: Positive external nose normal; negative epistaxis Mouth Mouth: Positive oral mucosae normal and posterior oropharynx is adequate; negative no lesions or post nasal drip Mallampati Score: II: Mallampati Score Neck Neck: Positive normal visual inspection and trachea midline; negative lymphadenopathy Chest Wall Chest: Positive symmetric chest movement Normal AP diameter. Resp lung sounds: Positive rales, diminished and normal expiratory time; negative wheezes or rhonchi Cardio Cardiac: Positive regular rate, regular rhythm, S1 normal and S2 normal; negative rub, gallop or murmur GI GI: Positive normal bowel sounds Soft without distention Genitourinary: Positive deferred Musc Musculoskeletal: Positive steady gait Skin Pulmonary Skin Exam: Positive intact; negative lesion, ulcers, dermal atrophy or rash Pulses Pulse: Yes Pedal pulses present: Extremities Extremities: No clubbing, No cyanosis, No edema Neuro Neurologic: Yes conversant, Yes no focal neuro deficits, Yes cooperative Lymph Lymphatic: No lymphadenopathy Psych Appearance: Positive grossly normal Mental Status: Positive mental status grossly normal Mood: Positive congruent mood Affect: Positive normal affect Coding Level of Care Code Off vis,new,level 4 Diagnoses SOB (shortness of breath) R06.02 Scleroderma M34.9 09/04/18 1348 <Electronically signed by Chad Cruz DO> Date Chad Cruz DO Cosigner Signature: Date (if applicable) CC: Janette Chavira SHOP DIRECTOR CBC W/DIFF, AUTOMATED Collected: 08/27/2018 Status: F Source: [place] 9:16 AM [facility] REPOSITORY TYPE CODE TESTS RESULT OUT OF RANGE REFERENCE UNITS LAB L100.1000 4.4-11.0 K/mm3 Normal WBC 7.5 LAB L100.1200 4.6-6.2 M/mm3 Low RBC 4.41 LAB L100.1300 13.0-16.5 g/dl Normal HGB 13.3 LAB L100.1400 40-54 % Normal HCT 41.6 LAB L100.1500 80-94 fL High MCV 94.3 LAB L100.1600 27.0-32.0 pg Normal MCH 30.2 LAB L100.1700 32-36 g/gl Normal MCHC 32.0 LAB L100.1810 11.6-14.6 % Normal RDW CV 14.0 LAB L100.1820 35.1-43.9 fl High RDW SD 48.0 LAB L100.1900 150-450 K/mm3 Normal PLT 186 LAB L100.2000 6.2-12.0 fl Normal MPV 11.9 LAB L100.2100 47-70 % Normal NEUT% 61.1 LAB L100.2200 19-41 % Normal LY% 24.6 LAB L100.2300 0-10 % High MONO% 11.2 LAB L100.2400 0-5 % Normal EO% 2.3 LAB L100.2500 0-1 % Normal BASO% 0.4 LAB L100.2550 0.0-0.9 % Normal IM GRAN % 0.400 Result Comment: IG% - Immature Granulocytes (promyelocytes, myelocytes and metamyelocytes) > 1% indicates that a LEFT SHIFT is Present. LAB L100.2620 2.0-7.7 X10 3/uL Normal Absolute Neut 4.6 LAB L100.2720 0.83-4.51 X10 3/ul Normal Absolute Lymph 1.84 Performed By: #### L100.0100 #### [facility] [address] [place], [place], [id number] COMPREHENSIVE METABOLIC Collected: 08/27/2018 Status: F Source: [place] 9:16 AM [facility] REPOSITORY TYPE CODE TESTS RESULT OUT OF RANGE REFERENCE UNITS LAB L501.0100 74-106 mg/dL Normal GLU 97 Result Comment: Please note revised GLUCOSE reference range effective 2017. LAB L501.1000 7-18 mg/dL High BUN 26 LAB L501.1100 0.70-1.30 mg/dL High CREAT,SERUM 1.86 Result Comment: The validity of the calculated GFR AND GFRAA in patients over 70 years has not been determined. Clinical correlation is essential. LAB L501.1110 >60 mL/min Low EST GFR 40 Result Comment: Non- GFR Calc LAB L501.1115 >60 mL/min Low EST GFR - AA 48 Result Comment: GFR Calc LAB L501.1300 10-20 RATIO Normal BUN/CRE 14.0 LAB L501.1500 6.4-8.2 g/dL T Normal PROT 8.0 LAB L501.1800 3.2-5.0 g/dL Normal ALB 4.0 LAB L501.1950 2.2-4.2 g/dL Normal GLOB 4.0 LAB L501.2000 0.9-2.4 RATIO Normal A/G 1.0 LAB L501.2200 8.5-10.1 mg/dL CA Normal 9.5 LAB L501.4100 15-37 U/L Normal AST 33 LAB L501.4305 45-117 U/L Normal ALK P 76 LAB L501.4405 16-61 U/L Normal ALT 45 LAB L501.4600 0.20-1.00 mg/dL T Normal BILI 0.50 LAB L501.5300 136-145 mmol/L NA Normal 141 LAB L501.5600 3.5-5.1 mmol/L K Normal 4.6 LAB L501.5900 98-107 mmol/L High CL 108 LAB L501.6100 21.0-32.0 mmol/L Normal CO2 26.0 LAB L501.6200 5-15 Normal GAP 7 Performed By: #### L500.4050, L500.4100, L501.68938, L501.9520, L506.0400 #### [facility] [address] [place], [address] LIPID PROFILE Collected: 08/27/2018 Status: F Source: [place] 9:16 AM [facility] REPOSITORY TYPE CODE TESTS RESULT OUT OF RANGE REFERENCE UNITS LAB L501.4900 200 mg/dL Normal CHOL 139 Result Comment: <200 mg/dL Desirable 200-240 mg/dL Borderline >240 mg/dL High Risk LAB L501.5000 mg/dL Normal TRIG 130 Result Comment: The drugs N-Acetylcysteine and Metamizole may falsely depress this assay. Serum Triglycerides Reference Interval Normal <150 mg/dL Borderline high 150 - 199 mg/dL High 200 - 499 mg/dL Very High > or = 500 mg/dL LAB L501.6400 mg/dL Low HDL 26 Result Comment: The drugs N-Acetylcysteine and Metamizole may falsely depress this assay. Reference Range HDL <40 mg/dL Low HDL Cholesterol HDL >or= 60 mg/dL High HDL Cholesterol LAB L501.6500 0-130 mg/dL Normal LDL 87 LAB L501.6600 5-40 mg/dL Normal VLDL 26 Performed By: #### L500.4050, L500.4100, L501.28580, L501.9520, L506.0400 #### [facility] [address] [place], [place], [id number] FREE T3 Collected: 08/27/2018 Status: F Source: [place] 9:16 AM [facility] REPOSITORY TYPE CODE TESTS RESULT OUT OF RANGE REFERENCE UNITS LAB L501.46813 2.18-3.98 pg/mL Normal FREE T3 2.9 Performed By: #### L500.4050, L500.4100, L501.40608, L501.9520, L506.0400 #### [facility] [address] [place], [place], [id number] THYROID STIM HORMONE Collected: 08/27/2018 Status: F Source: [place] (TSH) 9:16 AM [facility] REPOSITORY TYPE CODE TESTS RESULT OUT OF RANGE REFERENCE UNITS LAB L501.9520 0.358-3.74 uIU/mL Low TSH 0.14 Performed By: #### L500.4050, L500.4100, L501.48897, L501.9520, L506.0400 #### [facility] [address] [place], [address] T4 FREE DIRECT Collected: 08/27/2018 Status: F Source: [place] 9:16 AM [facility] REPOSITORY TYPE CODE TESTS RESULT OUT OF RANGE REFERENCE UNITS LAB L506.0400 0.76-1.46 ng/dL Normal T4 FREE 1.13 DIRECT Performed By: #### L500.4050, L500.4100, L501.53072, L501.9520, L506.0400 #### [facility] [address] [place], [address] TESTOSTERONE FREE Collected: 08/27/2018 Status: F Source: [place] 9:16 AM [facility] REPOSITORY TYPE CODE TESTS RESULT OUT OF REFERENCE UNITS RANGE LAB L3400.4800 7.2-24.0 pg/mL Low TEST FR 4.9 [id number] Result Comment: Performed at: [facility] [address] [id number] [place]: Wolf Puckett MD, Phone: [phone] Performed By: #### L3400.4800 #### [facility] (refer to report for specific site) refer to report for address and phone number PROTHROMBIN TIME W/INR Collected: 08/13/2018 Status: C Source: [place] 4:21 PM [facility] REPOSITORY TYPE CODE TESTS RESULT OUT OF REFERENCE UNITS RANGE LAB L300.4150 11.7-14.9 SECONDS High PROTIME 39.9 LAB L300.4200 High alert INR 4.1 Result Comment: CRITICAL VALUE VERIFIED. CALLED TO [facility] FROM DR. MARSHALL'S OFFICE 08/13/18 1800 Faby Lincoln. RESULTS READ BACK BY SAME . Performed By: #### L300.3900 #### [facility] [address] [place], [address] CARDIOLOGY VISIT Observed: 08/13/2018 Status: F Source: [place] 4:05 PM [facility] REPOSITORY [facility] [address] [place] [address] OFFICE VISIT Date of Service: 08/13/18 MR#: [id number] Acct: [id number] Name: LAINE OLIVARES Rep #: [id number] : 1960 Provider: Sudheer Lemus MD Age/Sex: 58/M Location: [facility] Status: Signed [facility] Chief Complaint: Follow up visit Details: LAINE OLIVARES, is a 58 M who presents to the office today for for a follow-up visit. He has a history of nonischemic cardiomyopathy status post pacemaker implantation chronic atrial fibrillation, scleroderma and hypertension. You do remember he underwent a cardiac catheterization in January 2018 due to shortness of breath. It demonstrated no obstructive coronary disease and his ejection fraction was estimated to be 50%. He is scheduled to see a car inspector. He has had no neck arm or jaw discomfort suggest angina no dizziness or diaphoresis no near syncope or syncope. He continues to follow- up in our pacemaker clinic. His physical exam today demonstrates clear lung pandey regular rate and rhythm and no pedal edema. Intake Vital Signs08/13/18 Height 5 ft 10 in 08/13/18 Weight: 183 lb 08/13/18 Body Mass Index (BMI) 26.2 08/13/18 Blood Pressure 142/84 H H H Intake Visit Reasons: missed last appt [employer] Supervisor Required: No Accompanied by: none Is patient in pain?: No Allergies penicillamine Allergy (Verified 01/28/18 07:20) Unknown Medications Lamotrigine [Lamictal] 200 mg PO QHS 12/24/13 [History Confirmed 08/13/18] Olanzapine [Zyprexa] 5 mg PO QHS 12/24/13 [History Confirmed 08/13/18] Cholecalciferol (VIT D3) [Vitamin D3] 1,000 unit PO DAILY 09/23/14 [History Confirmed 08/13/18] ascorbic acid (vitamin C) 1,000 mg tablet 1,000 mg PO QDAY tab 11/14/17 [History Confirmed 08/13/18] levothyroxine 125 mcg tablet 125 mcg PO QDAY 30 Days #30 tab 11/14/17 [History Confirmed 08/13/18] warfarin 4 mg tablet 4 mg PO .COMPLEX #135 tab 11/21/17 [Rx Confirmed 08/13/18] clopidogrel 75 mg tablet 75 mg PO QDAY #30 tab 01/17/18 [Rx Confirmed 08/13/18] fenofibrate nanocrystallized 145 mg tablet 145 mg PO DAILY 30 Days #30 01/17/18 [History Confirmed 08/13/18] lisinopril 40 mg tablet 40 mg PO DAILY 30 Days #30 01/17/18 [History Confirmed 08/13/18] omeprazole 40 mg capsule,delayed release 40 mg PO DAILY 90 Days #90 01/17/18 [History Confirmed 08/13/18] Warfarin Sodium [Coumadin] 6 mg PO .COMPLEX 01/28/18 [History Confirmed 08/13/18] carvedilol 25 mg tablet 25 mg PO BID #60 tab 03/04/18 [Rx Confirmed 08/13/18] [facility] 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 (Chronic) History of left heart catheterization (Chronic) Yodit's thyroiditis (Chronic) Hypothyroidism, iatrogenic (Chronic) Lipoprotein deficiency (Chronic) HTN (hypertension) (Chronic) Dilated cardiomyopathy (Chronic) Persistent atrial fibrillation (Chronic) Cardiac pacemaker in situ (Chronic) HLD (hyperlipidemia) (Chronic) Scleroderma (Chronic) Shortness of breath (Chronic) Surgical History H/O stem cell transplant (Chronic) hx pacemaker generator change (Chronic) Family History Mother CVA (cerebral vascular accident) Yodit's disease Social History Smoking Status: Never smoker alcohol intake: current alcohol intake frequency: a few times a week Alcohol type: beer substance use type: does not use caffeine: Yes Type: coffee Number of servings: 1 what type of physical activity do you participate in: none seatbelt use: always do you feel safe at home: Yes ROS Const Const: Negative for fatigue, weakness, night sweats, excessive sweating, frequent falls, headache(s) or daytime sleepiness Eyes Eyes: Negative for loss of peripheral vision, transient loss of vision, blind spots, double vision or blurry vision ENT ENT: Negative for headache(s), dizziness, balance problems, Nosebleed/epistaxis, tongue swelling or lip swelling Cardio Chest Pain: No Palpitations: No Edema: None Muscle aches with walking: None Resp Respiratory: Negative for SOB at rest, SOB orthopnea\SOB lying down, Cough, paroxysmal nocturnal dyspnea or SOB with activity GI GI: Negative nausea, vomiting, heartburn, black,tarry stools or bright, red blood in stools : Negative for hematuria Musc Musc: Negative for balance problems, muscle aches/ myalgia, muscle weakness or joint pain Skin Skin: Negative non-healing lesions, unusual bruising or rash Neuro Neuro: Negative for weakness, frequent falls, headache(s), double vision, dizziness, lightheadedness, orthostatic symptoms, blurry vision or lack of coordination Leobardo Hematologic/Lymphatic: Negative for easy bruising or easy bleeding Endo Endo: Negative for fatigue, excessive sweating, cold intolerance, heat intolerance, increased thirst/drinking or hair loss Psych Psych: Negative for anxiety or depression Allergy Allergy/Immunology: Negative for throat swelling, Negative for tongue swelling, Negative for hives, Negative for rash, Negative for lip swelling Cardiology Exam Const Appearance: cooperative, healthy appearing, well developed, well groomed and no acute distress Nutritional Appearance: well nourished and average body habitus Orientation: alert, awake and oriented x3 Head Head: normal to inspection, normocephalic and atraumatic Ears: hearing grossly normal bilaterally and external ears normal Nose: external nose normal, nasal mucous membranes and turbinates normal, nares normal, septum normal, no nasal discharge Face and Sinus: face symmetric Mouth: oral mucosae normal, tongue normal, oropharynx normal and moist mucous membranes Teeth and gingiva: dentition normal Throat: posterior oropharynx normal, tonsils normal and uvula midline Eyes General: appearance normal, both eyes and all related structures Eyelids: eyelids normal Conjunctivae: conjunctivae normal Pupils: PERRL, normal by confrontation and accommodation normal EOM: EOM intact bilaterally Neck Neck: normal visual inspection, trachea midline and no JVD JVD: +5 Carotids: normal carotid upstroke and bounding pulses Chest Chest inspection: normal inspection of the chest, symmetric chest movement and normal respiratory effort Auscultation: Bilateral: Clear to Auscultation Cardio Palpation: normal PMI Rate: regular rate Rhythm: regular rhythm Heart sounds: S1 normal, S2 normal and normal, physiologic split S2; negative rub, gallop or murmur GI GI: normal to inspection, soft, no hepatosplenomegaly and bowel sounds present Neuro General: alert, awake, oriented x3, no focal sensory deficit, gait normal and moves all extremities Skin Skin: no rashes or lesions noted Extremities Pulses: Normal: Right Femoral Pulse, Left Femoral Pulse, Right Dorsalis Pedis Pulse, Left Dorsalis Pedis Pulse, Right Posterior Tibial Pulse, Left Posterior Tibial Pulse, Right Radial Pulse, Left Radial Pulse Lower Extremity Edema: None: Bilateral Musculoskel Musculoskeletal: No joint tenderness Psych Psychological: normal affect Assessment AND Plan 1. HTN (hypertension) I10 Plan His blood pressure remains under good control at this particular time my recommendation is to keep things the same on the carvedilol as well as the lisinopril. 2. Dilated cardiomyopathy I42.0 Plan He does have a history of a cardiomyopathy which is mild. His last ejection fraction via the cardiac catheterization was estimated to be approximately 50%. He is already on a beta-norma and PATRICIO inhibitor I suspect some of this may be secondary to pacemaker function. 3. Cardiac pacemaker in situ Z95.0 Plan He does have a permanent pacemaker in situ and he has been having routine pacemaker interrogations. His last pacemaker interrogation demonstrated underlying atrial fibrillation with ventricular pacing 99% of the time. His battery longevity was noted to be in excess of 5 years. At this time I will not suggest any changes other than following him up in our pacemaker clinic. Thank you for allowing me to participate in his care. Plan Detail Follow Up 6 Months (mmm) Coding Level of Care Code Off vis,est,level 3 Diagnoses HTN (hypertension) I10 Dilated cardiomyopathy I42.0 Cardiac pacemaker in situ Z95.0 Coding Level of Care Code Off vis,est,level 3 Diagnoses HTN (hypertension) I10 Dilated cardiomyopathy I42.0 Cardiac pacemaker in situ Z95.0 08/13/18 6555 <Electronically signed by Sudheer Lemus MD> Date Sudheer Lemus MD Cosigner Signature: Date (if applicable) CC: Janette Chavira SHOP DIRECTOR PROTHROMBIN TIME W/INR Collected: 07/11/2018 Status: F Source: [place] 3:52 PM [facility] REPOSITORY Order Comment: Comments: Standing order Comments: Standing order TYPE CODE TESTS RESULT OUT OF RANGE REFERENCE UNITS LAB L300.4150 11.7-14.9 SECONDS High PROTIME 23.0 LAB L300.4200 Normal INR 2.0 Performed By: #### L300.3900 #### [facility] [address] [place], [address] PROTHROMBIN TIME W/INR Collected: 07/08/2018 Status: F Source: [place] 3:55 PM [facility] REPOSITORY TYPE CODE TESTS RESULT OUT OF REFERENCE UNITS RANGE LAB L300.4150 11.7-14.9 SECONDS High PROTIME 46.5 LAB L300.4200 High alert INR 5.0 Result Comment: RESULTS CALLED TO TIMBER FRAMER FOR 07/08/18 1738 David Guerrero. REPORT READ BACK BY SAME . Performed By: #### L300.3900 #### [facility] [address] [place], [address] PACEMAKER CHECK Observed: 07/01/2018 Status: F Source: [place] 10:44 AM [facility] REPOSITORY [facility] [address] [place] [address] Pacemaker Check Date of Service: 06/28/18919 MR#: [id number] Acct: [id number] Name: LAINE OLIVARES Rep #: [id number] : 1960 From: Jennifer Daugherty Age/Sex: 57/M Location: [facility] Status: Signed Billing Codes PM Device Codes: PM Dev Prog Eval, Dual 06/28/18 0922 <Electronically signed by Jennifer Daugherty > Date Jennifer Daugherty 07/01/18 1044<Electronically signed by Naina Justin Schofield Signature: Date (if applicable) Naina Downing CC: PACEMAKER CHECK Observed: 04/02/2018 Status: F Source: [place] 12:45 PM [facility] REPOSITORY [facility] [address] [place] [address] Pacemaker Check Date of Service: 03/21/18 1616 MR#: [id number] Acct: [id number] Name: LAINE OLIVARES Rep #: [id number] : 1960 From: Jennifer Raber Age/Sex: 57/M Location: [facility] Status: Signed Comments Summary Comments: Dual Chamber Pacemaker Evaluation: See attached scanned net programmer report. Interrogation shows ongoing 1 MS episode, 100% total time and no VT/VF episodes since last check 12/14/17. Presenting rhythm shows ventricular paced @ 70 ppm with underlying chronic atrial fib. 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 Pt PPM dependent, no intrinsic R waves. Device and lead measurements remain stable. No parameter changes made. Counters cleared. Next f/u appt scheduled for in 3 mos. Device Device Date Interviewed: 03/21/18 Follow-up Location: in office Interview Reason: routine follow up Supervisor Tunnel Heading: St. Rm Name: Elio PARRISH Model: 2210 Serial #: [id number] Implant Date: 12/25/13 Year(s): 4 Implant Physician: Dr. Sudheer Lemus Patient Characteristics Atrial Indication: Paroxysmal atrial fibrillation AV/Node Indication: Complete heart block Patient Substrate: Nonischemic cardiomyopathy Ejection fraction %: 50 to 54 (06/05/2016) By: Echo Underlying rhythm: Atrial flutter, Complete heart block Pacemaker Dependent: Yes Device Characteristics Device: Dual Chamber Type: Pacemaker Remote Follow-Up: No Device Physical Exam Yes Incision well healed Leads Lead #1 Supervisor Tunnel Heading Lead 1: St. Rm Model Lead 1: 2088TC/46 Serial# Lead 1: [id number] Date Implanted Lead 1: 01/02/14 Position Lead 1: RA Lead #2 Supervisor Tunnel Heading Lead 2: 8th [employer] Model Lead 2: 5076/52 Serial# Lead 2: [id number] Date Implanted Lead 2: 01/02/14 Position Lead 2: RV Cristhian Settings Bradycardia Mode and Timing Settings Pacemaker Mode: DDDR Base Rate: 60 bpm Max Track Rate: 120 bpm Max Sensor Rate: 120 bpm Maximum AV Delay: 200 msec Bradycardia Output and Sensitivity Settings Right Atrium: 0.4 msec, Automatic1.5 volts, 0.5 mV sensitivity. Right Ventricle: 0.4 msec, 2.5 volts, 2 mV sensitivity. Billing Codes PM Device Codes: PM Dev Prog Eval, Dual Assessment AND Plan Problems 1. Head trauma S09.90XA 2. Pacemaker Z95.0 3. Dilated cardiomyopathy I42.0 4. Persistent atrial fibrillation I48.1 03/30/18 1258 <Electronically signed by Jennifer Daugherty > Date Jennifer Daugherty 04/02/18 1245<Electronically signed by Sudheer Lemus MD> Cosigner Signature: Date (if applicable) Sudheer Lemus MD CC: Observed: 02/07/2018 Status: F Source: [place] URINE CULTURE 4:15 PM [facility] REPOSITORY Sp. Request/Comment: - Specimen received in preservative Culture Result - No growth (<1,000 CFU/ml) Performed By: #### URCUL #### [facility] [address], [place] [address] PROGRESS Observed: 02/07/2018 Status: COMPLETED Source: [place] 4:10 PM [facility] REPOSITORY HNO ID: [id number] Author: Yao Ross) Elysia Service: (none) Author Type: Physician Service Counselor Type: Progress Notes Filed: 02/07/2018 4:22 PM Note Text: Subjective HPI Pt presents with dysuria and frequency x 2 weeks. He was on macrobid until 2 days ago which seemed to be helping but has returned. He has never had a UTI before. No discharge. No fever. He is on coumadin due to afib as well. No vomiting. No back pain. Review of Systems Constitutional: Negative. HENT: Negative. Eyes: Negative. Respiratory: Negative. Cardiovascular: Negative. Gastrointestinal: Negative. Genitourinary: Positive for dysuria, frequency and urgency. Negative for flank pain and hematuria. Musculoskeletal: Negative. Skin: Negative. Endo/Heme/Allergies: Negative. All other systems reviewed and are negative. PAST MEDICAL HISTORY Diagnosis Date - Atrial fibrillation (HCC) - Bipolar disorder, unspecified (HCC) - Dysmetabolic syndrome X - Esophageal reflux - Essential hypertension, benign - Loss of weight - Raynaud's disease - Renal failure, unspecified - Scleroderma (HCC) - Systemic sclerosis (HCC) - Unspecified hypothyroidism Current Outpatient Prescriptions: OLANZAPINE (ZYPREXA ORAL) Take by mouth. Disp: Rfl: Cholecalciferol, Vitamin D3, (VITAMIN D) 1,000 unit cap Take 1,000 Units by mouth once daily. Disp: Rfl: lisinopril(ZESTRIL 10 MG TAB) Take one(1) tablet daily. Disp: Rfl: 0 esomeprazole mag trihydrate(NEXIUM 40 MG CAP) Take one(1) capsule daily. Disp: Rfl: 0 lamotrigine(LAMICTAL 200 MG TAB) Take 1 tab daily Disp: Rfl: 0 ascorbic acid(VITAMIN C 1,000 MG TAB) Take one(1) tablet daily. Disp: Rfl: 0 levothyroxine sodium(SYNTHROID 150 MCG TAB) take one(1)tablet sunday-sunday Disp: 30 Rfl: 6 carvedilol(COREG 25 MG TAB) Take one(1) tablet twice daily. Disp: Rfl: 0 COUMADIN 5 MG TAB daily Disp: Rfl: 0 cephALEXin (KEFLEX) 500 mg capsule Take 1 capsule by mouth twice daily for 10 days. Disp: 20 capsule Rfl: 0 lactobacillus rhamnosus (CULTURELLE) 10 billion cell capsule Take 1 capsule by mouth once daily. Disp: 30 capsule Rfl: 0 clonazepam(KLONOPIN 1 MG TAB) Take two(2) at bedtime Disp: Rfl: 0 No current facility-administered medications for this visit. PAST SURGICAL HISTORY Procedure Laterality Date - COLONOSCOP W/ OR W/O [facility] SPEC 01/28/10 - EGD W/O [facility] SPECIMEN W/BX 01/28/10 - INSER ANAYA PACER XVENOUS ATRIAL Perm pacemaker insert - PAST SURGICAL HISTORY OF bone marrow transplant FAMILY HISTORY Problem Relation Age of Onset - Allergies Mother - Cancer Paternal Grandmother - Psychiatry Father - Stroke Maternal Grandmother Social History Substance Use Topics - Smoking status: Never Smoker - Smokeless tobacco: Never Used - Alcohol use Not on file BP 160/100 Pulse 72 Temp 36.3 ?C (97.4 ?F) (Left Tympanic) Resp 18 Wt 84.8 kg (187 lb) BMI 26.83 kg/m2 Objective Physical Exam Constitutional: He is oriented to person, place, and time. HENT: Head: Normocephalic and atraumatic. Cardiovascular: Normal rate, regular rhythm and normal heart sounds. Pulmonary/Chest: Effort normal and breath sounds normal. Abdominal: Soft. Bowel sounds are normal. He exhibits no distension. There is no tenderness. Musculoskeletal: No cva tenderness Neurological: He is alert and oriented to person, place, and time. Skin: Skin is warm and dry. Psychiatric: Affect normal. Nursing note and vitals reviewed. ASSESSMENT/PLAN: 1. Dysuria - ICD9: 788.1, ICD10: R30.0 acute - UA positive for romaine esterase and hematuria - Send urine for culture - Begin treatment with Keflex for 10 days Follow up with pcp if no better in 1 week. - If you develop fever, chills, vomiting, go to the ED. - UA DIP B/O - URINE CULTURE CHE HigginsOV Observed: 02/07/2018 Status: COMPLETED Source: [place] 4:00 PM [facility] REPOSITORY Office Visit (WSTR) LAINE OLIVARES ([id number]) 1960 M Date Time Provider Department 02/07/18 4:00 PM YAO PITTS) [facility] During your visit today, we recorded the following information about you: Temperature Pulse Respiration Blood pressure 97.4 degrees 72/minute 18/minute 160/100 Weight 84.8 kg Yao Pitts PA-C 02/07/2018 4:22 PM Signed Subjective HPI Pt presents with dysuria and frequency x 2 weeks. He was on macrobid until 2 days ago which seemed to be helping but has returned. He has never had a UTI before. No discharge. No fever. He is on coumadin due to afib as well. No vomiting. No back pain. Review of Systems Constitutional: Negative. HENT: Negative. Eyes: Negative. Respiratory: Negative. Cardiovascular: Negative. Gastrointestinal: Negative. Genitourinary: Positive for dysuria, frequency and urgency. Negative for flank pain and hematuria. Musculoskeletal: Negative. Skin: Negative. Endo/Heme/Allergies: Negative. All other systems reviewed and are negative. PAST MEDICAL HISTORY Diagnosis Date - Atrial fibrillation (HCC) - Bipolar disorder, unspecified (HCC) - Dysmetabolic syndrome X - Esophageal reflux - Essential hypertension, benign - Loss of weight - Raynaud's disease - Renal failure, unspecified - Scleroderma (HCC) - Systemic sclerosis (HCC) - Unspecified hypothyroidism Current Outpatient Prescriptions: OLANZAPINE (ZYPREXA ORAL) Take by mouth. Disp: Rfl: Cholecalciferol, Vitamin D3, (VITAMIN D) 1,000 unit cap Take 1,000 Units by mouth once daily. Disp: Rfl: lisinopril(ZESTRIL 10 MG TAB) Take one(1) tablet daily. Disp: Rfl: 0 esomeprazole mag trihydrate(NEXIUM 40 MG CAP) Take one(1) capsule daily. Disp: Rfl: 0 lamotrigine(LAMICTAL 200 MG TAB) Take 1 tab daily Disp: Rfl: 0 ascorbic acid(VITAMIN C 1,000 MG TAB) Take one(1) tablet daily. Disp: Rfl: 0 levothyroxine sodium(SYNTHROID 150 MCG TAB) take one(1)tablet sunday-sunday Disp: 30 Rfl: 6 carvedilol(COREG 25 MG TAB) Take one(1) tablet twice daily. Disp: Rfl: 0 COUMADIN 5 MG TAB daily Disp: Rfl: 0 cephALEXin (KEFLEX) 500 mg capsule Take 1 capsule by mouth twice daily for 10 days. Disp: 20 capsule Rfl: 0 lactobacillus rhamnosus (CULTURELLE) 10 billion cell capsule Take 1 capsule by mouth once daily. Disp: 30 capsule Rfl: 0 clonazepam(KLONOPIN 1 MG TAB) Take two(2) at bedtime Disp: Rfl: 0 No current facility-administered medications for this visit. PAST SURGICAL HISTORY Procedure Laterality Date - COLONOSCOP W/ OR W/O [facility] SPEC 01/28/10 - EGD W/O [facility] SPECIMEN W/BX 01/28/10 - INSER ANAYA PACER XVENOUS ATRIAL Perm pacemaker insert - PAST SURGICAL HISTORY OF bone marrow transplant FAMILY HISTORY Problem Relation Age of Onset - Allergies Mother - Cancer Paternal Grandmother - Psychiatry Father - Stroke Maternal Grandmother Social History Substance Use Topics - Smoking status: Never Smoker - Smokeless tobacco: Never Used - Alcohol use Not on file BP 160/100 Pulse 72 Temp 36.3 ?C (97.4 ?F) (Left Tympanic) Resp 18 Wt 84.8 kg (187 lb) BMI 26.83 kg/m2 Objective Physical Exam Constitutional: He is oriented to person, place, and time. HENT: Head: Normocephalic and atraumatic. Cardiovascular: Normal rate, regular rhythm and normal heart sounds. Pulmonary/Chest: Effort normal and breath sounds normal. Abdominal: Soft. Bowel sounds are normal. He exhibits no distension. There is no tenderness. Musculoskeletal: No cva tenderness Neurological: He is alert and oriented to person, place, and time. Skin: Skin is warm and dry. Psychiatric: Affect normal. Nursing note and vitals reviewed. ASSESSMENT/PLAN: 1. Dysuria - ICD9: 788.1, ICD10: R30.0 acute - UA positive for romaine esterase and hematuria - Send urine for culture - Begin treatment with Keflex for 10 days Follow up with pcp if no better in 1 week. - If you develop fever, chills, vomiting, go to the ED. - UA DIP B/O - URINE CULTURE MIRLANDE HigginsC Referring Provider: SELF [200] Allergies As of Date: 02/07/2018 Noted Allergy Reaction Depenicillamine [Other] 12/02/1999 Comments: tightening throat Date Reviewed: 02/07/2018 Reviewed by: Ellen Ortega Ma - Fully Assessed Reason for Visit: UTI [116] Primary Visit Diagnosis:Dysuria [R30.0] Order(s):UA DIP B/O [[id number]] Order #: [id number] URINE CULTURE [SQURCUL] Order #: [id number] cephALEXin (KEFLEX) 500 mg capsuleTake 1 capsule by mouth twice daily for 10 days.Disp: 20 capsuleRfl: 0 Prescriptions as of 02/07/2018 Sig: ZYPREXA ORAL Take by mouth. CHOLECALCIFEROL (VITAMIN D3) * Take 1,000 Units by mouth onc* * ZESTRIL 10 MG TABLET Take one(1) tablet daily. * NEXIUM 40 MG CAPSULE,DELAYED * Take one(1) capsule daily. * LAMICTAL 200 MG TABLET Take 1 tab daily * VITAMIN C 1,000 MG TABLET Take one(1) tablet daily. * SYNTHROID 150 MCG TABLET take one(1)tablet sunday-* * COREG 25 MG TABLET Take one(1) tablet twice gloria* * COUMADIN 5 MG TABLET daily CEPHALEXIN 500 MG CAPSULE Take 1 capsule by mouth twice* LACTOBACILLUS RHAMNOSUS GG 10* Take 1 capsule by mouth once * * KLONOPIN 1 MG TABLET Take two(2) at bedtime Problem List As Of Date 02/07/2018 Noted Resolved ATRIAL FLUTTER [I48.92] INVALID FOR* Class: Chronic SYSTEMIC SCLEROSIS [M34.9] INVALID FOR* IMPOTENCE, ORGANIC ORIGN [N52.9] INVALID FOR* ASCVD [I25.10] INVALID FOR* HYPOTHYROIDISM NOS [E03.9] INVALID FOR* Bilat Ing Hernia [K40.20] INVALID FOR* Loss of Weight [R63.4] INVALID FOR* Prescriptions ordered this encounter Disp Refills Start End CEPHALEXIN 500 MG CAPSULE 20 c* 0 02/07/2018 02/17/2018 Route: ORAL Sig: Take 1 capsule by mouth twice daily for 10 days. Encounter Status:Closed by YAO PITTS PA-C on 02/07/18 CARDIOLOGY VISIT Observed: 01/29/2018 Status: F Source: [place] REPORT 2:57 PM [facility] REPOSITORY [facility] [address] [place] [address]. [address] [place] [address] OFFICE VISIT Date of Service: 01/17/18 MR#: [id number] Acct: [id number] Name: LAINE OLIVARES Rep #: [id number] : 1960 Provider: Naina Downing Age/Sex: 57/M Location: [facility] Status: Signed [facility] HPI Details: LAINE OLIVARES, is a 57 M who presents to the office today for cardiovascular follow-up. He underwent a stress test this past week for increased SOB, this was abnormal. He has a history of nonischemic cardiomyopathy with pacemaker implant, chronic atrial fibrillation, scleroderma and hypertension. He continues to have SOB with exertion. This is worse than was it was in the last year. He does not have any chest pain/tightness. He does occasionally have SOB when he lays down, this has never woken him up. He does not have any near syncope/syncope. He does occasionally have lightheadedness, he notes that this occurs when he is SOB with exertion. He does not have any edema. He is scheduled to undergo an upper EGD tomorrow to evaluate for barretts. 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 Intake Vital Signs01/17/18 Height 5 ft 10 in 01/17/18 Weight: 187 lb 01/17/18 Body Mass Index (BMI) 26.8 01/17/18 Blood Pressure 110/72 01/17/18 Blood Pressure Location Lt brachial Intake Visit Reasons: update H AND P [employer] Supervisor Required: No Accompanied by: None Is patient in pain?: No Allergies penicillamine Allergy (Verified 01/28/18 07:20) Unknown Medications Carvedilol [Coreg (Beta Norma)] 25 mg PO BID 12/24/13 [History Confirmed 01/25/18] Lamotrigine [Lamictal] 200 mg PO QHS 12/24/13 [History Confirmed 01/25/18] Olanzapine [Zyprexa] 5 mg PO QHS 12/24/13 [History Confirmed 01/25/18] Cholecalciferol (VIT D3) [Vitamin D3] 1,000 unit PO DAILY 09/23/14 [History Confirmed 01/25/18] ascorbic acid (vitamin C) 1,000 mg tablet 1,000 mg PO QDAY tab 11/14/17 [History Confirmed 01/25/18] levothyroxine 125 mcg tablet 125 mcg PO QDAY 30 Days #30 tab 11/14/17 [History Confirmed 01/25/18] warfarin 4 mg tablet 4 mg PO .COMPLEX #135 tab 11/21/17 [Rx Confirmed 01/28/18] clopidogrel 75 mg tablet 75 mg PO QDAY #30 tab 01/17/18 [Rx Confirmed 01/25/18] fenofibrate nanocrystallized 145 mg tablet 145 mg PO DAILY 30 Days #30 01/17/18 [History Confirmed 01/25/18] lisinopril 40 mg tablet 40 mg PO DAILY 30 Days #30 01/17/18 [History Confirmed 01/25/18] omeprazole 40 mg capsule,delayed release 40 mg PO DAILY 90 Days #90 01/17/18 [History Confirmed 01/25/18] Warfarin Sodium [Coumadin] 6 mg PO .COMPLEX 01/28/18 [History Confirmed 01/28/18] Ejection fraction %: 50 to 54 PFSH Medical History Yodit's thyroiditis (Chronic) Hypothyroidism, iatrogenic (Chronic) Lipoprotein deficiency (Chronic) HTN (hypertension) (Chronic) Dilated cardiomyopathy (Chronic) Persistent atrial fibrillation (Chronic) Cardiac pacemaker in situ (Chronic) HLD (hyperlipidemia) (Chronic) Scleroderma (Chronic) Anticoagulated on warfarin (Chronic) Shortness of breath (Chronic) Surgical History H/O stem cell transplant (Chronic) hx pacemaker generator change (Chronic) Family History Mother CVA (cerebral vascular accident) Yodit's disease Social History Smoking Status: Never smoker alcohol intake: current alcohol intake frequency: a few times a week Alcohol type: beer substance use type: does not use caffeine: Yes Type: coffee Number of servings: 1 what type of physical activity do you participate in: none seatbelt use: always do you feel safe at home: Yes ROS Const Const: Negative for weakness, fatigue, fever(s) or headache(s) Eyes Eyes: Negative for blind spots, loss of peripheral vision or transient loss of vision ENT ENT: Negative for headache(s), dizziness, tinnitus or Nosebleed/epistaxis Cardio Chest Pain: No Palpitations: No Edema: None Muscle aches with walking: None Resp Respiratory: Positive for SOB with activity; negative for SOB at rest, SOB orthopnea\SOB lying down or Cough GI GI: Negative nausea, vomiting, heartburn or vomiting blood/hematemesis : Negative for hematuria Musc Musc: Negative for muscle aches/ myalgia Neuro Neuro: Positive for lightheadedness; negative for weakness, headache(s), dizziness, near syncope, syncope or orthostatic symptoms Leobardo Hematologic/Lymphatic: Negative for easy bleeding Endo Endo: Negative for fatigue Cardiology Exam Const Appearance: cooperative, no acute distress and well developed Orientation: alert, awake and oriented x3 Head Head: normocephalic and atraumatic Mouth: moist mucous membranes Eyes General: appearance normal, both eyes and all related structures Conjunctivae: conjunctivae normal Pupils: PERRL EOM: EOM intact bilaterally Neck Neck: normal visual inspection, no lymphadenopathy and no JVD Carotids: Negative bruit Neck Mass: Negative Neck mass Chest Chest inspection: normal inspection of the chest, symmetric chest movement and Pacemaker/ICD Yes left pectoral incision Auscultation: Bilateral: Clear to Auscultation, Diminished Lung Sounds Cardio Palpation: normal PMI Rate: regular rate Rhythm: regular rhythm Heart sounds: S1 normal and S2 normal; negative rub, gallop or murmur GI GI: normal to inspection, soft, no hepatosplenomegaly and bowel sounds present; negative tender Neuro General: alert, awake, oriented x3, CN's II-XI intact bilaterally and moves all extremities Extremities Pulses: Normal: Right Posterior Tibial Pulse, Left Posterior Tibial Pulse, Right Radial Pulse, Left Radial Pulse Lower Extremity Edema: None: Bilateral Psych Psychological: normal affect Assessment AND Plan 1. Abnormal stress test R94.39 Plan - HEIKE Lindquist Patient had an abnormal stress test. Would like to proceed with a diagnostic heart catheterization. He does have renal insufficiency. Would like for patient to come in to be hydrated prior to his heart catheterization. Based upon findings he will follow up accordingly. Patient Instructions - HEIKE Lindquist You will hold your coumadin starting 01/23 and start plavix on that day. If you do not need a stent placed at the time of the heart cath you will be able to stop this. Orders Orders: 2. Persistent atrial fibrillation I48.1 Plan - HEIKE Lindquist Patient's heart rate is controlled. He is currently anticoagulated with a therapeutic INR goal of 2-3. This will need to be held prior to his heart catheterization. 3. Pacemaker Z95.0 Plan - HEIKE Lindquist Pacemaker is functioning appropriately. We will continue to monitor at routine scheduled pacemaker interrogations. 4. Shortness of breath R06.02 Plan - HEIKE Lindquist If heart catheterization does not find anything significant will then refer patient to pulmonary for his shortness of breath. Orders Orders: 5. Essential hypertension I10 Plan - HEIKE Lindquist Blood pressure is well controlled on current medications, we do not recommend any changes at this time. Plan Detail Other Medications New: Discontinued: warfarin Discontinued Reason: Orde1 mg PO take two tablets with a 4 mg t Michelle dixon edited - Discontinuing original ordeablet to = 6 mg X 3 days per week (ata r e a 4 mg tablet daily the other 4 days per week 60 tabs 11RF Additional Comments - HEIKE Lindquist The above patient was discussed with Dr. Lemus, he agrees with plan of care. Thank you for allowing us to participate in patient's plan of care, if you have any questions please do not hesitate to call. This note was generated using a voice recognition system and there may be incorrect words, spelling or punctuation errors that were not noted when reviewing the office note prior to saving. Coding Level of Care Code Off vis,est,level 4 Diagnoses Abnormal stress test R94.39 Persistent atrial fibrillation I48.1 Pacemaker Z95.0 Shortness of breath R06.02 Essential hypertension I10 Hypertension type: essential hypertension Coding Level of Care Code Off vis,est,level 4 Diagnoses Abnormal stress test R94.39 Persistent atrial fibrillation I48.1 Pacemaker Z95.0 Shortness of breath R06.02 Essential hypertension I10 Hypertension type: essential hypertension 01/28/18 0850 <Electronically signed by Naina BURROUGHS> Date Naina BURROUGHS 01/29/18 1457<Electronically signed by Sudheer Lemus MD> Cosigner Signature: Date (if applicable) Sudheer Lemus MD CC: Janette Chavira NP PROTHROMBIN TIME W/INR Collected: 01/28/2018 Status: F Source: [place] 7:06 AM [facility] REPOSITORY TYPE CODE TESTS RESULT OUT OF RANGE REFERENCE UNITS LAB L300.4150 11.7-14.9 SECONDS High PROTIME 15.5 LAB L300.4200 Normal INR 1.2 Performed By: #### L300.3900 #### [facility] [address] [place], [address] CHEST PA AND LATERAL Observed: 01/17/2018 Status: F Source: [place] 12:25 PM [facility] REPOSITORY [facility] Imaging Services [address] [place] [address] Chest PA and Lateral MR#: [id number] Acct: [id number] Name: LAINE OLIVARES Rep #: [id number] : 1960 M 57 From: Meño Valentin MD PCP: Janette Chavira NP Status: REG CLI Study: Chest PA and Lateral Date of Exam: 01/17/18 Exam# [id number] Ordering Dr: Naina Downing STUDY: X-RAY CHEST REASON FOR EXAM: Male, 57 years old. SOB, ABNORMAL STRESS TEST; SCLERODERMA, PACER TECHNIQUE: Frontal and lateral views of the chest. COMPARISON: 3.3.15 FINDINGS: Chronic appearing increased interstitial lung markings. There is a left sided pacemaker batterypack. There is no demonstrated pleural abnormality. Enlarged heart size. Normal mediastinum and samantha. Normal visualized pulmonary arteries. There is atherosclerotic calcification of the aortic arch with tortuosity. There are diffuse degenerative changes of the visualized thoracic spine. There is degenerative osteoarthritis of the bilateral shoulders. There is no demonstrated abnormality of the visualized soft tissue structures of the upper abdomen. RAD/Chest PA and Lateral IMPRESSION: There are no acute findings. Electronically Signed: Meño Valentin MD at 17:30 EST , Service support , CC: Janette Chavira NP; Naina Downing Zipper Setter Chainstitch: Signed CBC W/DIFF, AUTOMATED Collected: 01/17/2018 Status: F Source: [place] 12:16 PM [facility] REPOSITORY TYPE CODE TESTS RESULT OUT OF RANGE REFERENCE UNITS LAB L100.1000 4.4-11.0 K/mm3 Normal WBC 9.9 LAB L100.1200 4.6-6.2 M/mm3 Low RBC 4.43 LAB L100.1300 13.0-16.5 g/dl Normal HGB 13.8 LAB L100.1400 40-54 % Normal HCT 42.1 LAB L100.1500 80-94 fL High MCV 95.0 LAB L100.1600 27.0-32.0 pg Normal MCH 31.2 LAB L100.1700 32-36 g/gl Normal MCHC 32.8 LAB L100.1810 11.6-14.6 % Normal RDW CV 13.5 LAB L100.1820 35.1-43.9 fl High RDW SD 45.1 LAB L100.1900 150-450 K/mm3 Normal PLT 211 LAB L100.2000 6.2-12.0 fl Normal MPV 11.1 LAB L100.2100 47-70 % Normal NEUT% 67.0 LAB L100.2200 19-41 % Normal LY% 22.0 LAB L100.2300 0-10 % Normal MONO% 9.1 LAB L100.2400 0-5 % Normal EO% 1.2 LAB L100.2500 0-1 % Normal BASO% 0.3 LAB L100.2550 0.0-0.9 % Normal IM GRAN % 0.400 Result Comment: IG% - Immature Granulocytes (promyelocytes, myelocytes and metamyelocytes) > 1% indicates that a LEFT SHIFT is Present. LAB L100.2620 2.0-7.7 X10 3/uL Normal Absolute Neut 6.6 LAB L100.2720 0.83-4.51 X10 3/ul Normal Absolute Lymph 2.18 Performed By: #### L100.0100 #### [facility] [address] [place], [address] BASIC METABOLIC Collected: 01/17/2018 Status: F Source: [place] PROFILE (BMP) 12:16 PM [facility] REPOSITORY TYPE CODE TESTS RESULT OUT OF RANGE REFERENCE UNITS LAB L501.0100 74-106 mg/dL Normal GLU 96 Result Comment: Please note revised GLUCOSE reference range effective 2017. LAB L501.1000 7-18 mg/dL High BUN 28 LAB L501.1100 0.70-1.30 mg/dL High CREAT,SERUM 1.91 Result Comment: The validity of the calculated GFR AND GFRAA in patients over 70 years has not been determined. Clinical correlation is essential. LAB L501.1110 >60 mL/min Low EST GFR 39 Result Comment: Non- GFR Calc LAB L501.1115 >60 mL/min Low EST GFR - AA 47 Result Comment: GFR Calc LAB L501.1300 10-20 RATIO Normal BUN/CRE 14.7 LAB L501.2200 8.5-10.1 mg/dL CA Normal 9.3 LAB L501.5300 136-145 mmol/L NA Normal 142 LAB L501.5600 3.5-5.1 mmol/L K Normal 4.9 LAB L501.5900 98-107 mmol/L High CL 110 LAB L501.6100 21.0-32.0 mmol/L Normal CO2 27.0 LAB L501.6200 5-15 Normal GAP 5 Performed By: #### L500.2500 #### [facility] [address] [place], [address] STRESS REPORT Observed: 01/16/2018 Status: F Source: [place] 12:57 PM [facility] REPOSITORY [facility] Cardiovascular Services [address] [place] [address] MR#: [id number] Acct: [id number] Name: LAINE OLIVARES Rep #: [id number] : 1960 57 From: Sudheer Lemus MD Primary Care: Janette Chavira NP Status: REG CLI Ordering Dr: Sex: Justin C Stress Test Report Myocardial perfusion stress test. 57-year-old man scleroderma status post pacemaker implantation. Stress protocol: EKG demonstrates atrial fibrillation with a ventricular paced rhythm at 70 bpm. Resting blood pressure is 148/100 mmHg. 0.4 mg regadenoson was infused per usual protocol followed by rapid intravenous saline flush injection continuous EKG monitoring was performed. The maximum heart rate attained was 74 beats minute is 45% maximum predicted heart rate the maximum workload attained was 1 metabolic equivalent. Patient maintained a paced rhythm throughout the recording. Resting blood pressure is 148/100 with a final blood pressure 138/92. Myocardial perfusion protocol: 11.7 mCi of technetium 99m sestamibi was injected at rest. 0.4 mg of regadenoson was infused per usual protocol peak infusion 33.5 mCi of technetium 99m sestamibi was injected. Stress images were obtained stress and rest images were reconstructed and compared in the short axis vertical long and horizontal long axis. Gated images, also obtained. Perfusion SPECT analysis: There is significant GI attenuation artifact noted. The stress images however demonstrate normal uptake of tracer noted in the septum and anterior wall and lateral wall. The apex appears to have a medium-sized defect on the stress images as well as the mid inferior wall. Images demonstrate a similar patent in the septum and anterior wall and lateral wall. There is a persistent defect noted in the apex with improvement in the mid inferior wall. The bibi-infarct area around the apex appears to improve. Previous apical infarct cannot be completely excluded with mild bibi-infarct ischemia and a mid inferior wall ischemic zone is noted. Gated SPECT analysis: The gated ejection fraction is noted be 46% with apical dyskinesis present. The above may be secondary to pacemaker activity. Conclusion: Abnormal pharmacologic myocardial perfusion scan with evidence of mid inferior ischemia and previous apical infarct. Cardiomyopathy noted 01/16/18 1257 <Electronically signed by Sudheer Lemus MD> Date Sudheer Lemus MD CC: Janette Chavira NP; Naina Downing Date Dictated: 01/16/18 1253 Date Transcribed: 01/16/18 1253 Zipper Setter Chainstitch: CO Signed PULMONARY FUNCTION Observed: 01/09/2018 Status: F Source: [place] REPORT COMP 2:54 PM [facility] REPOSITORY [facility] Pulmonary Services/Neurology [facility] [place] [address] MR#: [id number] Acct: [id number] Name: LAINE OLIVARES Rep #: [id number] : 1960 57 From: Bright Mcdaniel MD Referring Dr: Naina Downing Status: REG CLI Ordering Dr: Date: Location: [facility] Sex: M C COMPLETE PULMONARY FUNCTION TEST INTERPRETATION Brief HPI: Patient is a 57 year old male, currently under the care of Naina Downing, who presents to [facility] for complete pulmonary function tests secondary to diagnosis of shortness of breath. Respiratory therapist reports good effort and reproducible results. Interpretation: Forced expiration spirometry shows no large airways obstructive ventilatory defect with an FEV1 of 64 % predicted. There is no significant bronchodilator response by ATS criteria. Spirograms are of good quality and plateau normally. The respiratory flow volume loop shows a normal pattern. Lung volumes by body plethysmography show a decreased total lung capacity at 4.92 L, 74 % predicted. All other lung volumes are reduced symmetrically. Diffusion capacity by carbon monoxide is decreased at 52 % predicted. The airway resistance is normal. Compared to previous pulmonary function tests from 05/14/2015, there has been a significant change in FVC, FEV1 and DLCO. Impression: Moderate restrictive ventilatory defect with a symmetric reduction diffusing capacity and worsening compared to previous study. Consider chest imaging if not completed previously. 01/09/181453 <Electronically signed by Bright Mcdaniel MD> Date Bright Mcdaniel MD CC: Janette Chavira SHOP DIRECTOR; Bright Mcdaniel MD; Naina Downing Date Dictated: 01/09/181449 Date Transcribed: 01/09/181449 Zipper Setter Chainstitch: ROBI Signed OFFICE VISIT REPORT Observed: 12/17/2017 Status: F Source: [place] 7:32 AM [place] [address] [place] [address] OFFICE VISIT Date of Service: 12/14/17 MR#: [id number] Acct: [id number] Patient: LAINE OLIVARES Rep #: [id number] : 1960 Provider: Jennifer Daugherty Age/Sex: 57/M Location: [facility] Status: Signed Comments Summary Comments: Dual Chamber Pacemaker Evaluation: Interrogation shows 13 MS episodes, 55% total time or 54 day 4 hrs. Pt in atrial flutter since 10/21/17 with fairly well controlled ventricular rate. Left pectoral pocket/incision w/o s/s of infection or erosion. Patient states he has been experiencing increased SOB with activity over last 6 mos. Presenting rhythm shows ventricular paced @ 70 ppm with underlying atrial fib. Battery longevity approx 8.3 yrs. 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 Lead impedances, sensing and pace/sense thresholds remain stable. Increased ventricular amplitude for 2:1 safety margin. No other parameter changes made. Counters cleared. Next f/u appt scheduled for in 3 mos. Pt scheduled for stress test and PFT's on 12/18/17 per Naina Downing PA-C for increased SOB. Device Device Date Interviewed: 12/14/17 Follow-up Location: in office Interview Reason: routine follow up Supervisor Tunnel Heading: St. Rm Name: Elio PARRISH Model: 2210 Serial #: [id number] Implant Date: 12/25/13 Year(s): 3 Implant Physician: Dr. Sudheer Lemus Patient Characteristics Atrial Indication: Paroxysmal atrial fibrillation (atril flutter) AV/Node Indication: Complete heart block Patient Substrate: Nonischemic cardiomyopathy (dilated cardiomyopathy) Ejection fraction %: 50 to 54 (06/05/2016) By: Echo Underlying rhythm: Atrial flutter, Complete heart block Pacemaker Dependent: Yes Device Characteristics Device: Dual Chamber Type: Pacemaker Remote Follow-Up: No Device Physical Exam Yes Incision well healed Leads Lead #1 Supervisor Tunnel Heading Lead 1: St. Rm Model Lead 1: 2088TC/46 Serial# Lead 1: [id number] Date Implanted Lead 1: 01/02/14 Position Lead 1: RA Lead #2 Supervisor Tunnel Heading Lead 2: 8th [employer] Model Lead 2: 5076/52 Serial# Lead 2: [id number] Date Implanted Lead 2: 01/02/14 Position Lead 2: RV Diagnostics Pacing % RA Pacin % RV Pacin Mode Switching Total # Episodes: 13 % Mode switched: 55 Arrhythmias Non-Sust Episodes: 0 Measurements Battery Voltage (V): 2.93 Magnet Rate (bmp): 99.4 Battery %: 81 Predicted Remaining Longevity (months or years): 8.3 years RA Measurements Signal Amplitude (mV): 2.8 Impedance (Ohms): 380 RV Measurements Impedance (Ohms): 490 Threshold Voltage: 1.5 @ PW(ms): 0.4 Cristhian Settings Cristhian Settings Pacemaker Mode DDDR Output/Sensing V/PW (ms) 1.5/0.4 3.0/0.4 Sensitivity RA RV LV Comments: Billing Codes PM Device Codes: PM Dev Prog Eval, Dual Assessment AND Plan Problems 1. Dilated cardiomyopathy I42.0 2. Persistent atrial fibrillation I48.1 3. Pacemaker Z95.0 4. Atrial fibrillation, chronic I48.2 Status post pacemaker, on Coumadin. 5. Acute kidney injury N17.9 12/15/17 0942 <Electronically signed by Jennifer Daugherty > Date Jennifer Daugherty 12/17/17 0732<Electronically signed by Sudheer Lemus MD> Cosigner Signature: Date (if applicable) Sudheer Lemus MD CC: ALLERGIES ALLERGIES DATE TYPE / CODE NAME / CODE REACTION SEVERITY SOURCE 10/30/2018 Drug penicillami Anaphylaxis [place] Allergy/[id number]([facility]/[id number] [place] [address](RXNORM) Hospital Repository 12/02/1999 Miscellaneous OTHER Sen Allergy/974216247([facility]) [place] Repository ENCOUNTERS ENCOUNTERS ADMIT/DISCHARGE ACCOUNT ADMITTING ENCOUNTER LOCATION SOURCE NUMBER CLASS 12/05/2018 [id number] Ambulatory [facility] ing:LAB Repository 11/07/2018 [id number] Ambulatory [facility] Repository 11/05/2018 [id number] Ambulatory [facility] ing:PSN Repository 10/30/2018/10/30/20 [id number] Ambulatory [facility]:B [place] [facility] MS.[facility] Repository 10/22/2018/10/22/20 [id number] Ambulatory [facility]:B [place] 18 MS.[facility] Repository 10/03/2018/10/03/20 [id number] Ambulatory [facility]:B [place] 18 MS.[facility] Repository 09/18/2018 [id number] Ambulatory [facility] ing:CT Repository 09/13/2018 [id number] Ambulatory [facility]Building:B [place] MS.CF.[facility] Repository 09/13/2018 [id number] Ambulatory [facility] ing:CVS Repository 09/13/2018 [id number] Ambulatory [facility] Repository 09/12/2018 [id number] Ambulatory [facility] ing:PSN Repository 09/04/2018/09/04/20 [id number] Ambulatory [facility]:B [place] 18 MS.[facility] Repository 09/03/2018/09/03/20 [id number] Ambulatory [facility]:B [place] 18 MS.[facility] Repository 08/27/2018 [id number] Ambulatory [facility] ing:LAB Repository 08/13/2018/08/13/20 [id number] Ambulatory [address] Hospital ing:LAB Repository 08/13/2018/08/13/20 [id number] Ambulatory [facility]:B [place] 18 MS.[facility] Repository 07/11/2018/07/11/20 [id number] Ambulatory [address] [facility] ing:LAB Repository 06/27/2018/06/27/20 [id number] Ambulatory [facility]:B [place] 18 MS.[facility] Repository 03/21/2018/03/21/20 [id number] Ambulatory [facility]:B [place] 18 MS.[facility] Repository 02/07/2018/02/08/20 [id number] Ambulatory [address] Repository 01/29/2018 [id number] Ambulatory [facility]Building:B [place].[facility] Repository 01/28/2018 [id number] Ambulatory [facility] Repository 01/28/2018 [id number] Ambulatory [facility] ing:CLSP Repository 01/17/2018 [id number] Ambulatory [facility] ing:LAB Repository 01/17/2018/01/18/20 [id number] Ambulatory [facility]MSBuilding:B [place] 18 MS.[facility] Repository 01/16/2018 [id number] Ambulatory [facility] Repository 01/16/2018 [id number] Ambulatory [facility] ing:CVS Repository 01/09/2018 [id number] Ambulatory [facility] ing:PSN Repository 01/09/2018 [id number] Ambulatory [facility] Repository 12/14/2017/12/14/19 [id number] Ambulatory [facility]:B [place] 18 MS.[facility] Repository PAYERS PAYERS ENCOUNTER GUARANTOR PAYER SUBSCRIBER SOURCE 12/05/2018 LAINE F Primary LAINE Benavides [place] [id number] [address] Insurance:ANTHEMPolic [facility] y Number: [id number], [place] [id number] Repository [address]Gkd: 330) Date:3495-84-01DS [phone] () [place]47[place]QKXCVOB, [place] [address]PF: 12/05/2018 Secondary NOT GIVENUNK [place] Insurance:SELF PAY [facility] Number: Effective Repository Date:2018-08-21 11/07/2018 LAINE F Primary LAINE Carvalho [id number] W [facility] y Number: [id number], [place] [id number] Repository [address]Mna: 330) Date:4741-65-18SM [phone] () [id number], [place] [address]WS: 11/07/2018 Secondary NOT GIVENUNK [place] Insurance:SELF PAY [facility] Number: Effective Repository Date:2018-11-07 11/05/2018 LAINE Benavides Primary LAINE Carvalho [id number] W Insurance:ANTHEMPolic BOYENSDOB: Community [place] y Number: [id number], [place] [id number] Repository [address]Ghu: (330) Date:0545-16-07VC [phone] () [id number], [place] [address]AM: 11/05/2018 Secondary NOT GIVENUNK [place] Insurance:SELF PAY [facility] Number: Effective Repository Date:2018-10-30 10/30/2018 LAINE Benavides Primary LAINE Carvalho [id number] W Insurance:ANTHEMPolic BOYENSDOB: Community [place] y Number: [id number], [place] [id number] Repository [address]Xbx: (330) Date:6373-73-03EZ [phone] () [id number], [place] [address]KI: 10/30/2018 Secondary NOT GIVENUNK [place] Insurance:SELF PAY [facility] Number: Effective Repository Date:2018-10-25 10/22/2018 LAINE Benavides Primary LAINE Carvalho [id number] W Insurance:ANTHEMPolic BOYENSDOB: Community [place] y Number: [id number], [place] [id number] Repository [address]Pgo: (330) Date:9102-69-28WJ [phone] () [id number], [place] [address]EA: 10/22/2018 Secondary NOT GIVENUNK [place] Insurance:SELF PAY [facility] Number: Effective Repository Date:2018-10-08 10/03/2018 LAINE Benavides Primary LAINE Carvalho [id number] [address] Insurance:ANTHEMPolic BOYENSDOB: Community [place] y Number: [id number], [place] [id number] Repository [address]Daw: (330) Date:5381-44-84KK [phone] () [address] [place] [address]FW: 10/03/2018 Secondary NOT GIVENUNK [place] Insurance:SELF PAY [facility] Number: Effective Repository Date:2018-10-03 09/18/2018 LAINE Benavides Primary LAINE Carvalho [id number] W Insurance:ANTHEMPolic BOYENSDOB: Community [place] y Number: [id number], [place] [id number] Repository [address]Pzq: (330) Date:8581-05-79ND [phone] () [address] [place] [address]VN: 09/18/2018 Secondary NOT GIVENUNK [place] Insurance:SELF PAY [facility] Number: Effective Repository Date:2018-09-09 09/13/2018 LAINE Benavides Primary LAINE Carvalho [id number] W Insurance:ANTHEMPolic BO[facility]ENSDOB: [facility] [place] y Number: [id number] Lady of Peace [id number] Repository [address]Qug: (330) Date:4393-66-56ZC [phone] () [id number] [place] [address]DH: 09/13/2018 Secondary NOT GIVENUNK [place] Insurance:SELF PAY [facility] Number: Effective Repository Date:2018-09-13 09/13/2018 LAINE Benavides Primary LAINE Carvalho [id number] W Insurance:ANTHEMPolic BOYENSDOB: Community [place] y Number: [id number], [place] [id number] Repository [address]Wgf: 330) Date:2208-41-43CC [phone] () [id number] [place] [address]ZK: 09/13/2018 Secondary NOT GIVENUNK [place] Insurance:SELF PAY [facility] Number: Effective Repository Date:2018-09-09 09/13/2018 LAINE Benavides Primary LAINE Carvalho [id number] W Insurance:ANTHEMPolic BOYENSDOB: Community [place] y Number: [id number] Lady of Peace [id number] Repository [address]Uyl: (330) Date:5613-25-65KO [phone] () [id number] [place] [address]IK: 09/13/2018 Secondary NOT GIVENUNK [place] Insurance:SELF PAY [facility] Number: Effective Repository Date:2018-09-13 09/12/2018 LAINE Benavides Primary LAINE Carvalho [id number] W Insurance:ANTHEMPolic BOYENSDOB: Community [place] y Number: [id number], [place] [id number] Repository [address]Inc: (330) Date:0072-60-23BA [phone] () RUY CUENCA [address]IW: 09/12/2018 Secondary NOT GIVENUNK [place] Insurance:SELF PAY [facility] Number: Effective Repository Date:2018-09-04 09/04/2018 LAINE F Primary LAINE Carvalho [id number] [address] Insurance:ANTHEMPolic BOYENSDOB: Community [place] y Number: [id number], [place] [id number] Repository [address]Fao: (330) Date:9748-69-72CW [phone] () [id number] [place] [address]YP: 09/04/2018 Secondary NOT GIVENUNK [place] Insurance:SELF PAY [facility] Number: Effective Repository Date:2018-08-28 09/03/2018 LAINE F Primary LAINE Carvalho [id number] W Insurance:ANTHEMPolic BOYENSDOB: Community [place] y Number: [id number], [place] [id number] Repository [address]Jsr: (330) Date:1836-36-80YQ [phone] () [id number] [place] [address]WP: 09/03/2018 Secondary NOT GIVENUNK [place] Insurance:SELF PAY [facility] Number: Effective Repository Date:2018-09-03 08/27/2018 LAINE F Primary LAINE Carvalho [id number] W Insurance:ANTHEMPolic BOYENSDOB: Community [place] y Number: [id number], [place] [id number] Repository [address]Yuy: (330) Date:1513-51-26QU [phone] () 418794HZPBUDK, [place] [address]OJ: 08/27/2018 Secondary NOT GIVENUNK [place] Insurance:SELF PAY [facility] Number: Effective Repository Date:2018-08-27 08/13/2018 LAINE Kennedy Primary LAINE Carvalho [id number] W Insurance:ANTHEMPolic BOYENSDOB: Community [place] y Number: [id number] Lady of Peace [id number] Repository [address]Cfb: (330) Date:3953-50-99SZ [phone] () [id number], [place] [address]MS: 08/13/2018 Secondary NOT GIVENUNK [place] Insurance:SELF PAY [facility] Number: Effective Repository Date:2018-07-23 08/13/2018 LAINE Kennedy Primary LAINE Carvalho [id number] [address] Insurance:ANTHEMPolic BOYENSDOB: Community [place] y Number: [id number] Lady of Peace [id number] Repository 32670Bwt: (330) Date:4480-47-24FS [phone] () 477901UVGEWTW, [place] [address]PW: 08/13/2018 Secondary NOT GIVENUNK [place] Insurance:SELF PAY [facility] Number: Effective Repository Date:2018-08-13 07/11/2018 LAINE Benavides Primary LAINE Carvalho [id number] W Insurance:ANTHEMPolic BOYENSDOB: Community [place] y Number: [id number] Lady of Peace [id number] Repository 97901Bgu: (330) Date:0215-04-02MJ [phone] () 750263YCRNSMK, [place] [address]EG: 07/11/2018 Secondary NOT GIVENUNK [place] Insurance:SELF PAY [facility] Number: Effective Repository Date:2018-07-08 06/27/2018 LAINE Benavides Primary LAINE Carvalho [id number] [address] Insurance:ANTHEMPolic BOYENSDOB: Community [place] y Number: [id number], [place] [id number] Repository 58589Rbz: (330) Date:9724-99-52JP [phone] () [id number], [place] [address]TZ: 06/27/2018 Secondary NOT GIVENUNK [place] Insurance:SELF PAY [facility] Number: Effective Repository Date:2018-06-27 03/21/2018 LAINE Benavides Primary LAINE Carvalho [id number] W Insurance:ANTHEMPolic BOYENSDOB: Community [place] y Number: [id number], [place] [id number] Repository 70[address]Pwm: (330) Date:1346-97-85GB [phone] () 690333RNJOFGB, [place] [address]LU: 03/21/2018 Secondary NOT GIVENUNK [place] Insurance:SELF PAY [facility] Number: Effective Repository Date:2018-03-21 01/29/2018 LAINE Benavides Primary LAINE Carvalho [id number] W Insurance:ANTHEMPolic BOYENSDOB: Community [place] y Number: [id number], [place] [id number] Repository 764[address]Zxg: (330) Date:7549-42-04YM [phone] () [id number], [place] [address]AJ: 01/29/2018 Secondary NOT GIVENUNK [place] Insurance:SELF PAY [facility] Number: Effective Repository Date:2018-01-29 01/28/2018 LAINE Benavides Primary LAINE Carvalho [id number] W Insurance:ANTHEMPolic BOYENSDOB: Community [place] y Number: [id number], [place] [id number] Repository 57[address]Ulp: (330) Date:5780-24-34II [phone] () 489207SWGLENL, [place] [address]OA: 01/28/2018 Secondary NOT GIVENUNK [place] Insurance:SELF PAY [facility] Number: Effective Repository Date:2018-01-28 01/28/2018 LAINE Benavides Primary LAINE Carvalho [id number] W Insurance:ANTHEMPolic BOYENSDOB: Community [place] y Number: [id number], [place] [id number] Repository [address]17[address]Ava: (330) Date:3490-06-36CN [phone] () [id number] [place] [address]VP: 01/28/2018 Secondary NOT GIVENUNK [place] Insurance:SELF PAY [facility] Number: Effective Repository Date:2018-01-17 01/17/2018 LAINE F Primary LAINE Carvalho [id number] W Insurance:ANTHEMPolic BOYENSDOB: Community [place] y Number: [id number] Lady of Peace [id number] Repository 34891Bro: (330) Date:3255-34-88CK [phone] () [id number] [place] [address]IR: 01/17/2018 Secondary NOT GIVENUNK [place] Insurance:SELF PAY [facility] Number: Effective Repository Date:2018-01-17 01/17/2018 LAINE Kennedy Primary LAINE Carvalho [id number] W Insurance:ANTHEMPolic BOYENSDOB: Community [place] y Number: [id number], [place] [id number] Repository 846[address]Ykb: (330) Date:8627-39-77AP [phone] () [id number], [place] [address]IS: 01/17/2018 Secondary NOT GIVENUNK [place] Insurance:SELF PAY [facility] Number: Effective Repository Date:2018-01-17 01/16/2018 LAINE F Primary LAINE Carvalho [id number] W Insurance:ANTHEMPolic BOYENSDOB: Community [place] y Number: [id number] Lady of Peace [id number] Repository 712[address]Oxh: (330) Date:8236-18-91TN [phone] () [id number] [place] [address]OM: 01/16/2018 Secondary NOT GIVENUNK [place] Insurance:SELF PAY [facility] Number: Effective Repository Date:2018-01-16 01/16/2018 LAINE Benavides Primary LAINE Carvalho [id number] W Insurance:ANTHEMPolic BOYENSDOB: Community [place] y Number: [id number], [place] [id number] Repository 88227Hzv: (330) Date:2393-51-83EM [phone] () [id number] [place] [address]WM: 01/16/2018 Secondary NOT GIVENUNK [place] Insurance:SELF PAY [facility] Number: Effective Repository Date:2017-12-25 01/09/2018 LAINE F Primary LAINE Carvalho [id number] W Insurance:ANTHEMPolic BOYENSDOB: Community [place] y Number: [id number], [place] [id number] Repository 95[address]Xvm: (330) Date:9548-72-96HN [phone] () [id number] [place] [address]UI: 01/09/2018 Secondary NOT GIVENUNK [place] Insurance:SELF PAY [facility] Number: Effective Repository Date:2017-12-04 01/09/2018 LAINE F Primary LAINE Carvalho [id number] W Insurance:ANTHEMPolic BOYENSDOB: Community [place] y Number: [id number], [place] [id number] Repository 387[address]Wge: (330) Date:0735-16-45DF [phone] () [id number] [place] [address]ZJ: 01/09/2018 Secondary NOT GIVENUNK [place] Insurance:SELF PAY [facility] Number: Effective Repository Date:2018-01-09 12/14/2017 LAINE F Primary LAINE Carvalho [id number] W Insurance:ANTHEMPolic BOYENSDOB: Community [place] y Number: [id number] [place] [id number] Repository 617[address]Rem: (330) Date:6805-35-92EG [phone] () [id number], [place] [address]UT: 12/14/2017 Secondary NOT GIVENUNK [place] Insurance:SELF PAY [facility] Number: Effective Repository Date:2017-10-21
== END ==
PROVIDERS: Family Provider Nurse Practitioner; PCP Nurse Practitioner; Referring Provider Internal Medicine Critical Care Medicine; Visit Provider Internal Medicine Critical Care Medicine
DX: J96.11 Chronic respiratory failure with hypoxia (principal)
CPT/HCPCS: 36600; 82803; 94618

== ENCOUNTER 2018-12-05 15:44 | Outpatient (RCR) | payer BC, SELFPAY ==
[2018-10-30 14:12] VITALS: BMI 25.4
[2018-11-27 18:16] LABS: Prothrombin Time (Protime)PT. 37.3 SECONDS (11.7-14.9)
[2018-11-27 18:28] LABS: International Normalized Ratio 3.7
[2018-12-05 16:42] LABS: International Normalized Ratio 2.9; Prothrombin Time (Protime)PT. 30.6 SECONDS (11.7-14.9)
== END 2018-12-05 16:00 | disposition home or self-care (01) ==
LOC: LAB 15:44
PROVIDERS: Family Provider Nurse Practitioner; PCP Nurse Practitioner; Referring Provider Internal Medicine Cardiovascular Disease; Visit Provider Internal Medicine Cardiovascular Disease
DX: I42.0 Dilated cardiomyopathy (principal); I48.1 Persistent atrial fibrillation; I48.2 Chronic atrial fibrillation; Z79.01 Long term (current) use of anticoagulants
CPT/HCPCS: 36415; 85610

== ENCOUNTER → 2018-12-21 08:09 | Outpatient (CLI) | payer BC, SELFPAY ==
[2018-10-30 14:12] VITALS: BMI 25.4
[2018-12-21 08:38] LABS: Bacteria 0 SEEN /hpf (None Seen); Mucous, Urine 0 SEEN /hpf (<or=2+); Red Blood Cells-Urine 0 SEEN /hpf (0-5); Squamous Epithelial Cells - UA 0 SEEN /hpf (0-5); White Blood Cells 0 SEEN /hpf (0-5)
[2018-12-21 09:08] LABS: Absolute Lymphocyte Count 1.06 X10^3/ul (0.83-4.51); Absolute Neutrophil Count 4.1 X10^3/uL (2.0-7.7); Basophil# 0.02 X10^3/uL; Basophil% 0.3 % (0-1); Eosinophil# 0.13 X10^3/uL; Eosinophils% 2.1 % (0-5); Hematocrit 39.9 % (40-54); Hemoglobin 12.4 g/dl (13.0-16.5); Lymphocyte # 1.06 X10^3/ul (4.0); Mean Corp Hgb Conc 31.1 g/gl (32-36); Mean Corpuscular Hgb 30.2 pg (27.0-32.0); Mean Corpuscular Volume 97.3 fL (80-94); Mean Platelet Vol. 11.9 fl (6.2-12.0); Monocyte% 14.4 % (0-10); Neutrophil % 65.9 % (47-70); Platelet Count 144 K/mm3 (150-450); RBC Distribution Width CV 14.2 % (11.6-14.6); RBC Distribution Width SD 50.1 fl (35.1-43.9); White Blood Count 6.2 K/mm3 (4.4-11.0)
[2018-12-21 09:09] LABS: POSITIVE COUNT NO; POSITIVE DIFFERENTIAL NO; POSITIVE MORPHOLOGY NO
[2018-12-21 09:24] LABS: Color, Urine Yellow (Yellow); Glucose, Dipstick Normal (Normal); Ketone-Dipstick Negative (Negative); Leukocyte Esterase-Dipstick Negative /ul (Negative); Nitrite-Dipstick Negative (Negative); Occult Blood-Urine Negative /ul (Negative); Protein-Dipstick 100 mg/dl (Negative); Urine Bilirubin Dipstick Negative (Negative); Urine Clarity Clear (Clear); Urine Urobilinogen Normal (Normal); Urine pH 6.5 (5.0 - 8.0)
[2018-12-21 09:27] LABS: Microalbumin:Creatinine Ratio 365.6 mg/g CRE (<30 mg/g CRE)
[2018-12-21 09:48] LABS: ALB/GLOB Ratio 0.9 RATIO (0.9-2.4); AST(SGOT) 22 U/L (15-37); Alanine Aminotransfer ALT/SGPT 26 U/L (16-61); Albumin, Serum 3.8 g/dL (3.2-5.0); Alkaline Phosphatase 83 U/L (45-117); Anion Gap 9 (5-15); BUN 23 mg/dL (7-18); BUN/Creat Ratio 12.9 RATIO (10-20); Calcium,Total 9.9 mg/dL (8.5-10.1); Chloride 108 mmol/L (98-107); Cholesterol 134 mg/dL (200); Creatinine, Serum 1.78 mg/dL (0.70-1.30); EST Glomerular Filtration Rate 42 mL/min (>60); Est Glom Filt Rate - Afr Amer 51 mL/min (>60); Globulin 4.3 g/dL (2.2-4.2); Glucose 108 mg/dL (74-106); High Density Lipoprotein 29 mg/dL; Magnesium 2.2 mg/dL (1.6-2.6); Potassium 4.3 mmol/L (3.5-5.1); Protein, Total 8.1 g/dL (6.4-8.2); Sodium Level 144 mmol/L (136-145); T4 Free Direct 1.28 ng/dL (0.76-1.46); Thyroid Stim Hormone (TSH) 0.21 uIU/mL (0.358-3.74); Triglycerides 113 mg/dL; Very Low Density Lipoprotein 23 mg/dL (5-40)
[2018-12-21 11:09] LABS: Ferritin 73 ng/mL (26-388); Iron 66 ug/dL (65-175); Iron Binding Capacity,Total 433 ug/dL (250-450); PERCENT IRON SATURATION 15.2 % (15.0-55.0)
[2018-12-23 10:47] LABS: Vitamin B12 595 pg/mL (211-911); Vitamin D,25 Hydroxy 60.5 ng/mL (29.95-100.01)
[2018-12-24 09:38] LABS: Testosterone, Free 6.34 ng/dL (5.00-21.00)
[2018-12-24 13:15] LABS: Testosterone, Total 488 ng/dL (264-916)
== END ==
PROVIDERS: Family Provider Family Medicine; PCP Family Medicine; Referring Provider Family Medicine; Visit Provider Family Medicine
DX: E03.8 Other specified hypothyroidism (principal); I10 Essential (primary) hypertension; R53.83 Other fatigue; I48.91 Unspecified atrial fibrillation; E78.1 Pure hyperglyceridemia
CPT/HCPCS: 80053; 80061; 81001; 82043; 82306; 82570; 82607; 82728; 82746; 83540; 83550; 83735; 84402; 84403; 84439; 84443; 85025

== ENCOUNTER 2019-01-08 15:47 | Outpatient (RCR) | payer BC, SELFPAY ==
[2018-10-30 14:12] VITALS: BMI 25.4
[2019-01-08 16:35] LABS: International Normalized Ratio 2.8; Prothrombin Time (Protime)PT. 29.9 SECONDS (11.7-14.9)
== END 2019-01-16 13:42 | disposition home or self-care (01) ==
LOC: LAB 15:47
PROVIDERS: Family Provider Nurse Practitioner; PCP Nurse Practitioner; Referring Provider Internal Medicine Cardiovascular Disease; Visit Provider Internal Medicine Cardiovascular Disease
DX: I42.0 Dilated cardiomyopathy (principal); I48.1 Persistent atrial fibrillation; I48.2 Chronic atrial fibrillation; Z79.01 Long term (current) use of anticoagulants
CPT/HCPCS: 36415; 85610

== ENCOUNTER → 2019-01-09 16:29 | Outpatient (CLI) | payer BC, SELFPAY ==
[2018-10-30 14:12] VITALS: BMI 25.4
[2019-01-09 17:52] LABS: Anion Gap 8 (5-15); BUN 23 mg/dL (7-18); BUN/Creat Ratio 12.6 RATIO (10-20); Chloride 108 mmol/L (98-107); Creatinine, Serum 1.83 mg/dL (0.70-1.30); EST Glomerular Filtration Rate 40 mL/min (>60); Est Glom Filt Rate - Afr Amer 49 mL/min (>60); Glucose 100 mg/dL (74-106); Sodium Level 140 mmol/L (136-145)
[2019-01-09 17:59] LABS: Hemoglobin A1c 6.2 % (4.2-6.3)
== END ==
PROVIDERS: Family Provider Family Medicine; PCP Family Medicine; Referring Provider Family Medicine; Visit Provider Family Medicine
DX: R73.09 Other abnormal glucose (principal); R94.4 Abnormal results of kidney function studies
CPT/HCPCS: 36415; 80048; 83036

== ENCOUNTER → 2019-01-21 08:02 | Outpatient (CLI) | payer BC, SELFPAY ==
[2018-10-30 14:12] VITALS: BMI 25.4
--- NOTE | 2019-01-21 08:10 | RDU_ITS ---
Reason For Study: Decreased GFR Right Renal Artery Left Renal Artery Right renal artery ostium 131/36.5 Left renal artery ostium 96.7/24.6 RSV/EDV. PSV/EDV. Right renal artery proximal Left renal artery proximal PSV/EDV 143/36.5 PSV/EDV. 117/31.9 . Right renal artery mid 141/37.4 Left renal artery mid 131/39.2 PSV/EDV. PSV/EDV . Right renal artery distal 126/39.9 Left renal artery distal 137/35.6 PSV/EDV. PSV/EDV. Right RAR 2.46. Left RAR 2.36. Right Renal Parenchyma Left Renal Parenchyma Upper Pole Medula 13.8/3.51 Left upper pole medulla 29/11.6 PSV/EDV. PSV/EDV . Right upper pole medulla EDR 0.25 . Left upper pole medulla EDR 0.4 . Right upper pole medulla R.I. Left upper pole medulla R.I. 0.60 . 0.74 . UP Cortex 19.3/6.30 PSV/EDV. Upper Ray Cortx 11.8/3.97 PSV/EDV. Left upper pole cortex EDR 0.33 . Right upper pole cortex EDR 0.34 . Left upper pole cortex R.I. 0.67 . Right upper pole cortex R.I. 0.66 . Left lower Pole medulla 24.6/8.52 Right lower Pole medulla 24.8/9.26 PSV/EDV . PSV/EDV . Left lower pole medulla EDR 0.35 . Right lower pole medulla EDR 0.37 . Left lower pole medulla R.I. 0.65 . Right lower pole medulla R.I. Lower Pole Cortx 12.8/4.07 PSV/EDV. 0.63 . Left lower pole cortex EDR 0.32 . Lower Pole Cortex 16.9/4.26 Left lower pole cortex R.I. 0.68 . PSV/EDV. Left Renal Hilar Right lower pole cortex EDR 0.25 . LT Hilar avg 70.2/19.6 PSV/EDV . Right lower pole cortex R.I. 0.75 . Left hilar acceleration time 37 Right Renal Hilar m/sec. Right Hilar avg 52.4/13.7 PSV/EDV. Left Renal Dimensions Right hilar acceleration time 51 Left kidney size 12.5 cm . m/sec. Left cortical dimension 1.48 cm . Right Renal Dimensions Right kidney size 12 cm . Right cortical dimension 1.57 cm . Cysts noted measuring 2.63 x 2.74 cm and 4.45 x 3.75 cm. Aorta Proximal abdominal aorta 1.42 x 1.40 cm . Proximal abdominal aorta peak systolic velocity is 58.1 cm/sec . Distal abdominal aorta 1.56 x 1.57 cm . Distal abdominal aorta peak systolic velocity is 56.2 cm/sec . Interpretation Summary Dimensions of the intra-abdominal aorta appear normal, without evidence of aneurysmal dilatation. Renal artery velocities are bilaterally normal. Acceleration times are normal bilaterally. Renal- aortic ratios are also bilaterally normal. There is no evidence of hemodynamically significant renal artery stenosis on either side. Renovascular resistance appears to be bilaterally normal . The right cortical dimension is increased. The left cortical dimension is normal. Two cystic structures are noted in the right kidney, with dimensions as noted above. Clinical correlation is advised. Ordering Physician: Satnam Ybarra Referring Physician: Satnam Ybarra Performed By: Valeria Strauss RVT and Student
== END ==
PROVIDERS: Family Provider Family Medicine; PCP Family Medicine; Referring Provider Family Medicine; Visit Provider Family Medicine
DX: R94.4 Abnormal results of kidney function studies (principal)
CPT/HCPCS: 93975

== ENCOUNTER → 2019-01-28 16:38 | Outpatient (CLI) | payer BC, SELFPAY ==
[2018-10-30 14:12] VITALS: BMI 25.4
--- NOTE | 2019-01-28 16:40 | US_ITS ---
STUDY: RENAL ULTRASOUND - COMPLETE REASON FOR EXAM: Male, 58 years old. Decreased GFR. TECHNIQUE: Ultrasound evaluation of the kidneys was performed with real-time and static millan-scale imaging. COMPARISON: None. FINDINGS: RIGHT KIDNEY: Normal location of the right kidney, which is normal in size. The right kidney measures 11.8 cm x 4.5 cm x 4.7 cm. There is a normal cortex of the right kidney. The renal cortex measures 1.5 cm. Multiple renal cysts are seen. The largest cyst measures 5 cm x 4.3 cm x 4.1 cm. This is in the upper pole. There are no right renal calculi. There is no right hydronephrosis. DISTAL RIGHT URETER: There is non-visualization of the distal right ureter. There is no demonstrated right ureterovesical junction calculus. There is no demonstrated right ureteral jet. LEFT KIDNEY: Normal location of the left kidney, which is normal in size. The left kidney measures 12.7 cm x 5.2 cm x 5.3 cm. There is a normal cortex of the left kidney. The renal cortex measures 2.0 cm. There is no left renal mass or cyst. There are no left renal calculi. There is no left hydronephrosis. DISTAL LEFT URETER: There is non-visualization of the distal left ureter. There is no demonstrated left ureterovesical junction calculus. There is no demonstrated left ureteral jet. BLADDER: The distended urinary bladder has a volume of 28 ml. The empty urinary bladder has a volume of 22 ml. The bladder wall thickness measures 8 mm most likely secondary to poor distention. There is no demonstrated mass within the urinary bladder. There are no demonstrated bladder calculi. US/Kidney and Bladder IMPRESSION: Right renal cysts. Electronically Signed: Levi Hernandez, at 14:13 EDT , Service support ,
== END ==
PROVIDERS: Family Provider Family Medicine; PCP Family Medicine; Referring Provider Family Medicine; Visit Provider Family Medicine
DX: R94.4 Abnormal results of kidney function studies (principal)
CPT/HCPCS: 76770

== ENCOUNTER 2019-02-18 16:06 | Outpatient (RCR) | payer BC, SELFPAY ==
[2018-10-30 14:12] VITALS: BMI 25.4
[2019-02-18 17:40] LABS: International Normalized Ratio 2.6; Prothrombin Time (Protime)PT. 28.2 SECONDS (11.7-14.9)
== END 2019-03-18 16:00 | disposition home or self-care (01) ==
LOC: LAB 16:06
PROVIDERS: Family Provider Family Medicine; PCP Family Medicine; Referring Provider Internal Medicine Cardiovascular Disease; Visit Provider Internal Medicine Cardiovascular Disease
DX: I42.0 Dilated cardiomyopathy (principal); I48.1 Persistent atrial fibrillation; I48.2 Chronic atrial fibrillation; Z79.01 Long term (current) use of anticoagulants
CPT/HCPCS: 36415; 85610

== ENCOUNTER → 2019-04-07 16:15 | Outpatient (CLI) | payer BC, SELFPAY ==
[2019-04-07 16:14] VITALS: BMI 24.8
[2019-04-07 17:46] LABS: Anion Gap 10 (5-15); BUN 42 mg/dL (7-18); BUN/Creat Ratio 13.9 RATIO (10-20); Calcium,Total 9.6 mg/dL (8.5-10.1); Chloride 110 mmol/L (98-107); Creatinine, Serum 3.03 mg/dL (0.70-1.30); EST Glomerular Filtration Rate 23 mL/min (>60); Est Glom Filt Rate - Afr Amer 27 mL/min (>60); Glucose 116 mg/dL (74-106); Potassium 3.9 mmol/L (3.5-5.1); Sodium Level 144 mmol/L (136-145)
[2019-04-07 17:51] LABS: International Normalized Ratio 2.5; Prothrombin Time (Protime)PT. 27.2 SECONDS (11.7-14.9)
== END ==
PROVIDERS: Family Provider Family Medicine; PCP Nurse Practitioner; Visit Provider Family Medicine
DX: I10 Essential (primary) hypertension (principal)
CPT/HCPCS: 36415; 80048; 85610

== ENCOUNTER → 2019-04-09 08:06 | Outpatient (CLI) | payer BC, SELFPAY ==
[2019-04-07 16:14] VITALS: BMI 24.8
[2019-04-09 10:05] LABS: Absolute Lymphocyte Count 0.85 X10^3/ul (0.83-4.51); Absolute Neutrophil Count 3.9 X10^3/uL (2.0-7.7); Basophil# 0.02 X10^3/uL; Basophil% 0.4 % (0-1); Eosinophil# 0.18 X10^3/uL; Eosinophils% 3.2 % (0-5); Hematocrit 36.9 % (40-54); Hemoglobin 11.6 g/dl (13.0-16.5); Lymphocyte # 0.85 X10^3/ul (4.0); Lymphocyte % 15.2 % (19-41); Mean Corp Hgb Conc 31.4 g/gl (32-36); Mean Corpuscular Hgb 28.7 pg (27.0-32.0); Mean Corpuscular Volume 91.3 fL (80-94); Mean Platelet Vol. 11.7 fl (6.2-12.0); Monocyte# 0.64 X10^3/uL; Monocyte% 11.4 % (0-10); Neutrophil % 69.6 % (47-70); Platelet Count 164 K/mm3 (150-450); RBC Distribution Width CV 14.9 % (11.6-14.6); RBC Distribution Width SD 50.1 fl (35.1-43.9); Red Blood Count 4.04 M/mm3 (4.6-6.2); White Blood Count 5.6 K/mm3 (4.4-11.0)
[2019-04-09 10:19] LABS: POSITIVE COUNT NO; POSITIVE DIFFERENTIAL NO; POSITIVE MORPHOLOGY NO
[2019-04-09 10:41] LABS: AST(SGOT) 22 U/L (15-37); Alanine Aminotransfer ALT/SGPT 26 U/L (16-61); Albumin, Serum 3.7 g/dL (3.2-5.0); Alkaline Phosphatase 114 U/L (45-117); Anion Gap 8 (5-15); BUN 32 mg/dL (7-18); BUN/Creat Ratio 17.3 RATIO (10-20); Calcium,Total 9.8 mg/dL (8.5-10.1); Chloride 108 mmol/L (98-107); Cholesterol 134 mg/dL (200); Creatinine, Serum 1.85 mg/dL (0.70-1.30); EST Glomerular Filtration Rate 40 mL/min (>60); Est Glom Filt Rate - Afr Amer 48 mL/min (>60); Globulin 3.6 g/dL (2.2-4.2); Glucose 94 mg/dL (74-106); High Density Lipoprotein 27 mg/dL; Magnesium 1.6 mg/dL (1.6-2.6); Potassium 4.2 mmol/L (3.5-5.1); Protein, Total 7.3 g/dL (6.4-8.2); Sodium Level 143 mmol/L (136-145); T4 Free Direct 1.06 ng/dL (0.76-1.46); Thyroid Stim Hormone (TSH) 2.38 uIU/mL (0.358-3.74); Triglycerides 142 mg/dL; Very Low Density Lipoprotein 28 mg/dL (5-40)
== END ==
PROVIDERS: Family Provider Family Medicine; PCP Family Medicine; Referring Provider Family Medicine; Visit Provider Family Medicine
DX: E78.1 Pure hyperglyceridemia (principal); I10 Essential (primary) hypertension; E03.8 Other specified hypothyroidism; I48.91 Unspecified atrial fibrillation
CPT/HCPCS: 36415; 80053; 80061; 83735; 84439; 84443; 85025

== ENCOUNTER → 2019-05-06 | Outpatient (CLI) | payer BC, SELFPAY ==
[2019-04-07 16:14] VITALS: BMI 24.8
[2019-05-06 17:55] LABS: Hemoglobin A1c 6.3 % (4.2-6.3)
[2019-05-06 18:20] LABS: Anion Gap 11 (5-15); BUN 40 mg/dL (7-18); BUN/Creat Ratio 21.7 RATIO (10-20); Calcium,Total 10.2 mg/dL (8.5-10.1); Chloride 106 mmol/L (98-107); Creatinine, Serum 1.84 mg/dL (0.70-1.30); EST Glomerular Filtration Rate 40 mL/min (>60); Est Glom Filt Rate - Afr Amer 49 mL/min (>60); Glucose 130 mg/dL (74-106); Potassium 4.9 mmol/L (3.5-5.1); Sodium Level 142 mmol/L (136-145)
[2019-05-07 09:29] LABS: Absolute Lymphocyte Count 1.32 X10^3/ul (0.83-4.51); Absolute Neutrophil Count 5.6 X10^3/uL (2.0-7.7); Basophil# 0.02 X10^3/uL; Basophil% 0.3 % (0-1); Eosinophil# 0.21 X10^3/uL; Eosinophils% 2.7 % (0-5); Hematocrit 37.8 % (40-54); Hemoglobin 12.3 g/dl (13.0-16.5); Lymphocyte # 1.32 X10^3/ul (4.0); Lymphocyte % 16.7 % (19-41); Mean Corp Hgb Conc 32.5 g/gl (32-36); Mean Corpuscular Hgb 29.3 pg (27.0-32.0); Mean Platelet Vol. 12.9 fl (6.2-12.0); Monocyte# 0.77 X10^3/uL; Monocyte% 9.7 % (0-10); Neutrophil # 5.57 X10^3/uL (2.7-7.7); Neutrophil % 70.2 % (47-70); Platelet Count 152 K/mm3 (150-450); RBC Distribution Width CV 14.5 % (11.6-14.6); RBC Distribution Width SD 47.3 fl (35.1-43.9); White Blood Count 7.9 K/mm3 (4.4-11.0)
[2019-05-07 09:30] LABS: Magnesium 1.9 mg/dL (1.6-2.6)
[2019-05-07 09:30] LABS: POSITIVE COUNT NO; POSITIVE DIFFERENTIAL NO; POSITIVE MORPHOLOGY NO
== END | disposition home or self-care (01) ==
PROVIDERS: Family Provider Family Medicine; PCP Family Medicine; Referring Provider Family Medicine; Visit Provider Family Medicine
DX: I12.9 Hypertensive chronic kidney disease with stage 1 through stage 4 chronic kidney disease, or unspecified chronic kidney disease (principal); N18.3 Chronic kidney disease, stage 3 (moderate); I48.91 Unspecified atrial fibrillation; R73.02 Impaired glucose tolerance (oral)
CPT/HCPCS: 36415; 80048; 83036; 83735; 85025

== ENCOUNTER 2019-11-03 16:30 | Outpatient (RCR) | payer BC, SELFPAY ==
[2019-03-19 11:39] VITALS: BMI 25.4
[2019-09-11 15:33] VITALS: BMI 25.2
[2019-11-03 17:30] LABS: Prothrombin Time (Protime)PT. 22.8 SECONDS (11.7-14.9)
== END 2019-11-03 18:00 | disposition home or self-care (01) ==
LOC: LAB 16:30
PROVIDERS: Family Provider Family Medicine; PCP Family Medicine; Referring Provider Internal Medicine Cardiovascular Disease; Visit Provider Internal Medicine Cardiovascular Disease
DX: I48.20 Chronic atrial fibrillation, unspecified (principal); Z79.01 Long term (current) use of anticoagulants
CPT/HCPCS: 36415; 85610

== ENCOUNTER → 2019-12-05 05:55 | Outpatient (CLI) | payer BC, SELFPAY ==
[2019-04-07 16:14] VITALS: BMI 24.8
[2019-09-11 15:33] VITALS: BMI 25.2
[2019-12-05 07:31] LABS: Absolute Lymphocyte Count 1.16 X10^3/uL (0.83-4.51); Basophil# 0.03 X10^3/uL; Basophil% 0.5 % (0-1); Eosinophils% 1.7 % (0-5); Hematocrit 40.2 % (40-54); Hemoglobin 12.8 g/dL (13.0-16.5); Lymphocyte # 1.16 X10^3/ul (4.0); Lymphocyte % 19.1 % (19-41); Mean Corp Hgb Conc 31.8 g/dL (32-36); Mean Corpuscular Volume 97.3 fL (80-94); Monocyte# 0.79 X10^3/uL; NRBC Flagged by Analyzer 0 % (0-5); Neutrophil # 3.95 X10^3/uL (2.7-7.7); Neutrophil % 65.2 % (47-70); Platelet Count 144 K/mm3 (150-450); RBC Distribution Width CV 13.9 % (11.6-14.6); RBC Distribution Width SD 49.2 fl (35.1-43.9); Red Blood Count 4.13 M/mm3 (4.6-6.2); White Blood Count 6.1 K/mm3 (4.4-11.0)
[2019-12-05 07:47] LABS: Protein, Urine (Random) 149.5 mg/dL (<11.9); Protein:Creat Ratio 1335 mg/g CRE (0-200)
[2019-12-05 08:00] LABS: Hemoglobin A1c 6.5 % (4.2-6.3)
[2019-12-05 08:20] LABS: ALB/GLOB Ratio 0.9 RATIO (0.9-2.4); AST(SGOT) 25 U/L (15-37); Alanine Aminotransfer ALT/SGPT 38 U/L (16-61); Albumin, Serum 3.8 g/dL (3.2-5.0); Alkaline Phosphatase 125 U/L (45-117); Anion Gap 5 (5-15); BUN 25 mg/dL (7-18); BUN/Creat Ratio 16.3 RATIO (10-20); Calcium,Total 10.1 mg/dL (8.5-10.1); Chloride 106 mmol/L (98-107); Cholesterol 151 mg/dL (200); Creatinine, Serum 1.53 mg/dL (0.70-1.30); EST Glomerular Filtration Rate 50 mL/min (>60); Est Glom Filt Rate - Afr Amer 60 mL/min (>60); Ferritin 27 ng/mL (26-388); Globulin 4.1 g/dL (2.2-4.2); Glucose 115 mg/dL (74-106); High Density Lipoprotein 27 mg/dL; Iron 52 ug/dL (65-175); Iron Binding Capacity,Total 407 ug/dL (250-450); Potassium 3.9 mmol/L (3.5-5.1); Protein, Total 7.9 g/dL (6.4-8.2); Sodium Level 141 mmol/L (136-145); T4 Free Direct 1.12 ng/dL (0.76-1.46); Thyroid Stim Hormone (TSH) 2.83 uIU/mL (0.358-3.74); Triglycerides 144 mg/dL; Very Low Density Lipoprotein 29 mg/dL (5-40)
[2019-12-05 08:22] LABS: Vitamin B12 541 pg/mL (211-911); Vitamin D,25 Hydroxy 85.8 ng/mL (29.95-100.01)
== END ==
LOC: LAB.FUTURE 05:58 → LAB 06:08
PROVIDERS: Family Provider Family Medicine; PCP Family Medicine; Referring Provider Family Medicine; Visit Provider Family Medicine
DX: D64.9 Anemia, unspecified (principal); E78.1 Pure hyperglyceridemia; R73.02 Impaired glucose tolerance (oral); I48.91 Unspecified atrial fibrillation; E03.8 Other specified hypothyroidism; I10 Essential (primary) hypertension
CPT/HCPCS: 36415; 80053; 80061; 82306; 82570; 82607; 82728; 82746; 83036; 83540; 83550; 83735; 84156; 84439; 84443; 85025

== ENCOUNTER → 2020-01-14 15:56 | Outpatient (CLI) | payer BC, SELFPAY ==
[2019-09-11 15:33] VITALS: BMI 25.2
[2020-01-14 17:29] LABS: Absolute Lymphocyte Count 1.51 X10^3/uL (0.83-4.51); Absolute Neutrophil Count 4.8 X10^3/uL (2.0-7.7); Basophil# 0.02 X10^3/uL; Basophil% 0.3 % (0-1); Eosinophil# 0.11 X10^3/uL; Eosinophils% 1.5 % (0-5); Hematocrit 43.7 % (40-54); Hemoglobin 13.9 g/dL (13.0-16.5); Lymphocyte # 1.51 X10^3/ul (4.0); Lymphocyte % 20.8 % (19-41); Mean Corp Hgb Conc 31.8 g/dL (32-36); Mean Corpuscular Hgb 31.4 pg (27.0-32.0); Mean Corpuscular Volume 98.6 fL (80-94); Mean Platelet Vol. 12.2 fl (6.2-12.0); Monocyte# 0.83 X10^3/uL; Monocyte% 11.4 % (0-10); NRBC Flagged by Analyzer 0 % (0-5); Neutrophil # 4.78 X10^3/uL (2.7-7.7); Neutrophil % 65.7 % (47-70); Platelet Count 141 K/mm3 (150-450); RBC Distribution Width CV 13.9 % (11.6-14.6); RBC Distribution Width SD 50.5 fl (35.1-43.9); Red Blood Count 4.43 M/mm3 (4.6-6.2); White Blood Count 7.3 K/mm3 (4.4-11.0)
[2020-01-14 18:14] LABS: Ferritin 42 ng/mL (26-388); Iron 62 ug/dL (65-175); Iron Binding Capacity,Total 380 ug/dL (250-450); PERCENT IRON SATURATION 16.3 % (15.0-55.0)
== END ==
PROVIDERS: PCP Family Medicine; Referring Provider Family Medicine; Visit Provider Family Medicine
DX: D50.9 Iron deficiency anemia, unspecified (principal)
CPT/HCPCS: 36415; 82728; 83540; 83550; 85025

== ENCOUNTER 2020-02-17 11:46 | Emergency (ER) | payer BC, SELFPAY ==
[2020-02-03 15:46] VITALS: BMI 25.2
[2020-02-17 11:48] VITALS: BP 161/93; PULSE 69; RESP 18; TEMP 36.3; O2SAT 99; BMI 24.3
--- NOTE | 2020-02-17 12:02 | ED.VIS.GEN ---
History of Present Illness Chief Complaint: Nosebleed Narrative: Patient is a 59-year-old male who presents with epistaxis. He developed a nosebleed from the left nostril about 11:30 PM last night. He has been unable to control this. He is on warfarin for history of atrial fibrillation. He admits that he does not get his INR checked regularly and that it is likely been months since it has been checked. He otherwise denies any recent illness. Past Medical History - Allergies and Home Meds Allergies/Adverse Reactions: Allergies penicillamine Allergy (Severe, Verified 02/17/20 11:46) Anaphylaxis Primary Care Physician: Satnam Ybarra MD [Primary Care Provider] - Past Medical History: - - Atrial fibrillation, hypertension, scleroderma Surgical History: herniorrhaphy, - - Bone marrow transplantation for scleroderma. Smoking Status: Never smoker - Family History Maternal Family History: Family History (Last Updated 02/03/20 @ 15:07 by Melba Alfredo) Mother Yodit's disease Diabetes Hypertension Grandfather CVA (cerebral vascular accident) Family History: Reports: No pertinent history Paternal Family History: Family History (Last Updated 02/03/20 @ 15:07 by Melba Alfredo) Mother Yodit's disease Diabetes Hypertension Grandfather CVA (cerebral vascular accident) Family History: Reports: No pertinent history Review of Systems All systems negative except as indicated General: Denies: Fever Eyes: Denies: Visual changes - bilaterally ENT: Reports: - - Epistaxis. Denies: Bilateral ear pain Cardiovascular: Denies: Chest pain Respiratory: Denies: Dyspnea Gastrointestinal: Denies: Vomiting Skin: Denies: Rash Neurological: Denies: Headache Physical Exam Vital Signs/Narrative: Vital Signs Temp Pulse Resp BP Pulse Ox 02/17/20 11:48 97.3 F L 69 18 161/93 H 99 Inital Vital Signs reviewed: Yes General: Well nourished Head: Normocephalic Eyes: EOMI ENT: Moist mucous membranes, - - Patient presented with a cotton ball in his left nostril. This was removed along with a large clot. I am unable to identify definite source of bleeding. Neck: Supple Cardiovascular: Regular rate Respiratory: No distress Skin: Normal color Neurological: Alert Psychological: Normal affect Diagnostic/Tx/Re-eval Laboratory Results 02/17/20 12:46 PT 20.2 H INR 1.7 - Medical Decision Making INR subtherapeutic at 1.7. Patient advised to follow-up with his primary care physician in regards to this. Patient had an Afrin-soaked cotton ball placed in the left nare. This was then later removed and an anterior 5.5 cm Rhino Rocket type packing was placed and hemostasis achieved. Patient has been observed without any apparent bleeding around this. He will be discharged with packing in place to follow-up with otolaryngology. ED Disposition - Plan for ED Patient: Disposition: Home or Assisted Living Diagnosis: Epistaxis Instructions: ED Epistaxis Adult Referrals: Satnam Ybarra MD [Primary Care Provider] - Lionel Steel MD [STAFF PHYSICIAN] -
[2020-02-17 12:53] VITALS: RESP 18
[2020-02-17] MEDS: Oxymetazoline 0.05% 1 SPRAY SPRAY.BTL 2 SPRAY NASAL (12:54)
[2020-02-17 13:09] LABS: International Normalized Ratio 1.7; Prothrombin Time (Protime)PT. 20.2 SECONDS (11.7-14.9)
== END 2020-02-17 13:30 | disposition home or self-care (01) ==
PROVIDERS: Emergency Provider Emergency Medicine; PCP Family Medicine
DX: R04.0 Epistaxis (principal); I48.91 Unspecified atrial fibrillation; I10 Essential (primary) hypertension; M34.9 Systemic sclerosis, unspecified; Z82.3 Family history of stroke; Z82.49 Family history of ischemic heart disease and other diseases of the circulatory system
CPT/HCPCS: 30901; 36415; 85610; 99282

== ENCOUNTER → 2020-04-27 15:50 | Outpatient (CLI) | payer BC, SELFPAY ==
[2020-04-27 17:42] LABS: Absolute Lymphocyte Count 1.18 X10^3/uL (0.83-4.51); Absolute Neutrophil Count 4.7 X10^3/uL (2.0-7.7); Basophil# 0.03 X10^3/uL; Basophil% 0.4 % (0-1); Eosinophil# 0.09 X10^3/uL; Eosinophils% 1.3 % (0-5); Hematocrit 37.3 % (40-54); Hemoglobin 12.1 g/dL (13.0-16.5); Lymphocyte # 1.18 X10^3/ul (4.0); Lymphocyte % 17.2 % (19-41); Mean Corp Hgb Conc 32.4 g/dL (32-36); Mean Corpuscular Hgb 31.3 pg (27.0-32.0); Mean Corpuscular Volume 96.6 fL (80-94); Mean Platelet Vol. 11.5 fl (6.2-12.0); Monocyte# 0.83 X10^3/uL; Monocyte% 12.1 % (0-10); NRBC Flagged by Analyzer 0 % (0-5); Neutrophil # 4.71 X10^3/uL (2.7-7.7); Neutrophil % 68.7 % (47-70); Platelet Count 145 K/mm3 (150-450); RBC Distribution Width CV 13.6 % (11.6-14.6); RBC Distribution Width SD 48.3 fl (35.1-43.9); Red Blood Count 3.86 M/mm3 (4.6-6.2); White Blood Count 6.9 K/mm3 (4.4-11.0)
[2020-04-27 17:58] LABS: AST(SGOT) 17 U/L (15-37); Alanine Aminotransfer ALT/SGPT 29 U/L (16-61); Albumin, Serum 3.9 g/dL (3.2-5.0); Alkaline Phosphatase 153 U/L (45-117); Anion Gap 10 (5-15); BUN 29 mg/dL (7-18); BUN/Creat Ratio 16.2 RATIO (10-20); Calcium,Total 9.5 mg/dL (8.5-10.1); Chloride 107 mmol/L (98-107); Cholesterol 161 mg/dL (200); Creatinine, Serum 1.79 mg/dL (0.70-1.30); EST Glomerular Filtration Rate 41 mL/min (>60); Est Glom Filt Rate - Afr Amer 50 mL/min (>60); Ferritin 28 ng/mL (26-388); Globulin 4.1 g/dL (2.2-4.2); Glucose 122 mg/dL (74-106); High Density Lipoprotein 25 mg/dL; Iron 74 ug/dL (65-175); Iron Binding Capacity,Total 394 ug/dL (250-450); Potassium 3.8 mmol/L (3.5-5.1); Sodium Level 141 mmol/L (136-145); T4 Free Direct 0.97 ng/dL (0.76-1.46); Thyroid Stim Hormone (TSH) 4.18 uIU/mL (0.358-3.74); Triglycerides 163 mg/dL; Very Low Density Lipoprotein 33 mg/dL (5-40)
[2020-04-27 19:05] LABS: Microalbumin:Creatinine Ratio 908.6 mg/g CRE (<30 mg/g CRE); Protein, Urine (Random) 216.7 mg/dL (<11.9); Protein:Creat Ratio 1165 mg/g CRE (0-200)
== END ==
PROVIDERS: PCP Family Medicine; Referring Provider Family Medicine; Visit Provider Family Medicine
DX: E11.22 Type 2 diabetes mellitus with diabetic chronic kidney disease (principal); N18.3 Chronic kidney disease, stage 3 (moderate); D50.9 Iron deficiency anemia, unspecified; E03.8 Other specified hypothyroidism
CPT/HCPCS: 36415; 80053; 80061; 82043; 82570; 82728; 83036; 83540; 83550; 84156; 84439; 84443; 85025

== ENCOUNTER 2020-05-12 15:11 | Outpatient (RCR) | payer BC, SELFPAY ==
[2019-09-11 15:33] VITALS: BMI 25.2
[2020-05-12 16:19] LABS: International Normalized Ratio 1.4; Prothrombin Time (Protime)PT. 16.6 SECONDS (11.7-14.9)
== END 2020-05-12 18:00 | disposition home or self-care (01) ==
LOC: LAB 15:11
PROVIDERS: Family Provider Family Medicine; PCP Family Medicine; Referring Provider Internal Medicine Cardiovascular Disease; Visit Provider Internal Medicine Cardiovascular Disease
DX: I48.20 Chronic atrial fibrillation, unspecified (principal); Z79.01 Long term (current) use of anticoagulants
CPT/HCPCS: 36415; 85610

== ENCOUNTER → 2020-05-13 | Outpatient (CLI) | payer BC, SELFPAY ==
[2020-05-13 16:03] VITALS: BMI 24.5
--- NOTE | 2020-05-13 16:16 | RAD_ITS ---
STUDY: X-RAY CHEST REASON FOR EXAM: Male, 59 years old. sob, takes HBP medication TECHNIQUE: Frontal and lateral views of the chest COMPARISON: September 18, 2018 FINDINGS: Lungs are clear. There is no pneumothorax, pulmonary edema or pleural effusions. There is moderate cardiomegaly. Pacemaker is present in the left upper chest with intact leads terminating in the right atrium and right ventricle. Appearance is stable since prior. RAD/Chest PA and Lateral IMPRESSION: 1. No acute findings or change since prior. 2. Moderate cardiomegaly. Electronically Signed: Benny Dunaway, at 16:38 EDT Tel , Service support ,
[2020-05-13 17:14] LABS: Absolute Lymphocyte Count 1.34 X10^3/uL (0.83-4.51); Absolute Neutrophil Count 5.3 X10^3/uL (2.0-7.7); Basophil# 0.04 X10^3/uL; Basophil% 0.5 % (0-1); Eosinophil# 0.11 X10^3/uL; Eosinophils% 1.4 % (0-5); Hematocrit 43.2 % (40-54); Hemoglobin 13.2 g/dL (13.0-16.5); Lymphocyte # 1.34 X10^3/ul (4.0); Mean Corp Hgb Conc 30.6 g/dL (32-36); Mean Corpuscular Hgb 30.9 pg (27.0-32.0); Mean Corpuscular Volume 101.2 fL (80-94); Mean Platelet Vol. 11.4 fl (6.2-12.0); Monocyte# 1.02 X10^3/uL; Monocyte% 12.9 % (0-10); NRBC Flagged by Analyzer 0 % (0-5); Neutrophil # 5.34 X10^3/uL (2.7-7.7); Neutrophil % 67.8 % (47-70); Platelet Count 179 K/mm3 (150-450); RBC Distribution Width CV 14.1 % (11.6-14.6); RBC Distribution Width SD 51.5 fl (35.1-43.9); Red Blood Count 4.27 M/mm3 (4.6-6.2); White Blood Count 7.9 K/mm3 (4.4-11.0)
[2020-05-13 17:46] LABS: BNP,B-Type NATRIURETIC PEPTIDE 439.8 pg/mL (0-100)
[2020-05-13 17:47] LABS: Anion Gap 4 (5-15); BUN 28 mg/dL (7-18); BUN/Creat Ratio 17.8 RATIO (10-20); Calcium,Total 9.9 mg/dL (8.5-10.1); Chloride 105 mmol/L (98-107); Creatinine, Serum 1.57 mg/dL (0.70-1.30); EST Glomerular Filtration Rate 48 mL/min (>60); Est Glom Filt Rate - Afr Amer 58 mL/min (>60); Glucose 84 mg/dL (74-106); Potassium 4.2 mmol/L (3.5-5.1); Sodium Level 138 mmol/L (136-145)
== END | disposition home or self-care (01) ==
PROVIDERS: PCP Family Medicine; Referring Provider Nurse Practitioner Family; Visit Provider Nurse Practitioner Family
DX: R06.00 Dyspnea, unspecified (principal)
CPT/HCPCS: 36415; 71046; 80048; 83880; 85025

== ENCOUNTER → 2020-06-02 14:47 | Outpatient (CLI) | payer BC, SELFPAY ==
[2020-05-13 16:03] VITALS: BMI 24.5
--- NOTE | 2020-06-02 14:48 | ECHOD_ITS ---
Reason For Study: CHF Procedure This was a 2D Doppler, Color Flow transthoracic echocardiogram. Exam performed in department. Left Ventricle Normal LV size. Left ventricular systolic function is normal. Stage 3 diastolic dysfunction. No regional wall motion abnormalities noted. Right Ventricle Normal RV size. ICD or pacer leads identified within the right ventricle. Normal systolic function. Atria The left atrium is moderately enlarged. The right atrium is moderately enlarged. Mitral Valve Normal mitral valve. Mild (1+) eccentric mitral valve insufficiency. Tricuspid Valve Normal tricuspid valve. Mild (1+) tricuspid valve insufficiency. Pulmonary artery systolic pressure is 34 mmHg. Aortic Valve Normal aortic valve. Trisinus/trileaflet aortic valve. Pulmonic Valve Normal pulmonic valve. Great Vessels Mildly dilated aortic root. The pulmonary artery is normal size. The inferior vena cava is dilated. Pericardium/Pleural No pericardial effusion. MMode/2D Measurements & Calculations RVDd: 4.2 cm Ao root diam: 3.9 cm LAV(MOD-bp): 121.1 ml LAV(MOD-bp) Indexed: 62.5 ml/m2 LAV(MOD-sp2): 118.5 ml LAV(MOD-sp4): 111.1 ml LA dimension(2D): 4.5 cm LA A4 area: 31.0 cm2 RA A4 area: 27.8 cm2 Time Measurements MV dec time: 0.15 sec Doppler Measurements & Calculations MV E max jose david: 102.3 cm/sec Lat Peak E' Jose David: 12.1 cm/sec Med Peak E' Jose David: 5.6 cm/sec MV A max jose david: 21.7 cm/sec E/E' lat: 8.5 E/E' med: 18.2 MV E/A: 4.7 Ao V2 max: 131.0 cm/sec LV V1 max: 78.8 cm/sec PA V2 max: 98.0 cm/sec Ao max P.9 mmHg LV V1 max P.5 mmHg TR max jose david: 272.4 cm/sec TR max P.7 mmHg Interpretation Summary Normal LV size. Left ventricular systolic function is normal. Stage 3 diastolic dysfunction. The left atrium is moderately enlarged. The right atrium is moderately enlarged. Compared to prior study, there is no significant change. Ordering Physician: Laine Esparza/Sudheer Lemus Referring Physician: LAINE VENTURA Performed By: Joyce Montemayor, AIRAMCS, RVT
== END ==
PROVIDERS: PCP Family Medicine; Referring Provider Nurse Practitioner Family; Visit Provider Nurse Practitioner Family
DX: R06.00 Dyspnea, unspecified (principal); I50.9 Heart failure, unspecified
CPT/HCPCS: 93306

== ENCOUNTER 2020-06-11 09:52 | Day surgery (SDC) | payer BC, SELFPAY ==
[2020-05-13 16:03] VITALS: BMI 24.5
--- NOTE | 2020-06-11 | GASB_PTH ---
PATIENT: LAINE OLIVARES LOC: EN U#:[id number] AGE/SX: 59/M ROOM: RE06/11/[address]: Dr. Aureliano Kamara MD : 1960 BED: DIS: 06/11/2020 SPEC #: [id number] RECD: 06/11/20 13:51 STATUS: JENIFER RAMOS #: [id number] BELLE: 06/11/20 00:[address]: Aureliano Kamara DEPT: SURGICAL PATHOLOGY RECD BY: Imtiaz Spaulding ENTERED: 06/14/20 07:57 SP TYPE: Gastric Bx OTHR DR: Dr. Laine Ybarra MD Tissues: A - Gastric mucous membrane B - Gastric mucous membrane C - Sigmoid colon biopsy Procedures: Surgery Specimen Level IV HEADER OPERATION: Colonoscopy[place] DIAGNOSIS: Guaiac positive stools; iron deficiency TISSUE SUBMITTED: A - Antrum histo and H. pylori, B - Gastric polyp, C - Proximal sigmoid MICROSCOPIC DIAGNOSIS A. Gastric antrum, biopsy: Mild chronic inflammation. See comment. B. Gastric polyp, biopsy: Fundic gland polyp. C. Proximal sigmoid colon, biopsy: No significant pathologic change. No evidence of colitis. AM:kendra 06/15/20 COMMENT A. The results of immunohistochemistry for Helicobacter pylori will be reported separately ([id number]). MICROSCOPIC DESCRIPTION Slides are reviewed. GROSS DESCRIPTION A - Received in fixative is one container labeled with the patient's name and designated antrum biopsy. The specimen consists of one irregular fragment of light singletary soft tissue that measures 0.5 x 0.3 x 0.1 cm. The specimen is totally submitted in one cassette. B - Received in fixative is one container labeled with the patient's name and designated gastric polyp. The specimen consists of one irregular fragment of light singletary soft tissue that measures 0.5 x 0.3 x 0.1 cm. The specimen is totally submitted in one cassette. C - Received in fixative is one container labeled with the patient's name and designated proximal sigmoid. The specimen consists of three irregular fragments of light singletary soft tissue that in aggregate measure 0.6 x 0.5 x 0.1 cm. The specimen is totally submitted in one cassette. / AM:kendra 06/14/20 TC:3 CPT: 42672 x3
[2020-06-11 10:19] VITALS: BP 130/76; PULSE 60; RESP 15; TEMP 36.4; O2SAT 100; BMI 23.5
[2020-06-11 10:26] LABS: Prothrombin Time Fingerstick 16.6 SEC (11.9-14.4)
[2020-06-11] MEDS: Lactated Ringers 1,000 ML 100 ML IV (10:30)
--- NOTE | 2020-06-11 11:00 | IMM_PTH ---
PATIENT: LAINE OLIVARES LOC: EN U#:[id number] AGE/SX: 59/M ROOM: RE06/11/[address]: Dr. Aureliano Kamara MD : 1960 BED: DIS: 06/11/2020 SPEC #: [id number] RECD: 06/14/20 09:46 STATUS: SOUJacey REQ #: [id number] BELLE: 06/11/20 11:[address]: Aureliano Kamara DEPT: IMMUNOHISTOCHEMISTRY RECD BY: Elaine Santos ENTERED: 06/14/20 09:46 SP TYPE: IMMUNO OTHR DR: Dr. Laine Ybarra MD Tissues: A - Stomach, NOS Procedures: H Pylori (initial) PHYSICIAN & INSTITUTION [place] [address] SPECIMEN INFORMATION: Tissue Source: A - Antrum Clinical Info: Guaiac positive stools, iron deficiency Specimen Number: [id number] CPT code: 15935 METHODOLOGY: Deparaffinized sections of prefer/formalin-fixed tissue or PAP/DQ stained slides are incubated with monoclonal/polyclonal antibodies/oligonucleotide probes. Localization is made via biotin free immunoperoxidase method. Appropriate controls are performed and reacted as expected. Results on target cell population are indicated in the following table: RESULTS: ANTIBODY / CLONE RESULT Block A H Pylori (polyclonal) negative These tests were developed and their performance characteristics determined by [facility]. They may not have been cleared or approved by the U.S. Food and Drug Administration. The FDA has determined that such clearance or approval is not necessary. INTERPRETATION: A. Antrum biopsy: Negative for Helicobacter pylori organisms. AM:kendra 06/16/20
--- NOTE | 2020-06-11 11:13 | PCM.HP.STD ---
Problem List (1) Guaiac positive stools Status: Acute (2) Iron deficiency Status: Acute History of Present Illness Date of Admission: 06/11/20 The patient is a 59 year old M for surgical follow-up regarding Hemoccult positive stool and iron deficiency anemia. I saw him January 2020 but COVID-19 shutdown elective procedures. HPI: LAINE OLIVARES, is a 59 M who presents to the office today for who is referred by Dr Laine Ybarra for evaluation of stool card Hemoccult positive x3 and iron deficiency anemia. A written copy of my surgical consult recommendations will be returned to him. The patient previously on January 28, 2010 had a combined upper and lower endoscopy. At that time esophagus stomach duodenum normal. Colonoscopy was not remarkable either. The patient states that approximately September 2019 he noted some tarry dark stool. Now the patient does have scleroderma. 1996 he had a stem cell transplant. He has chronic atrial fibrillation and indwelling pacemaker. He is on chronic Coumadin therapy. He also because of his scleroderma routinely gets esophageal dilatations approximately once a year or every other year by in [facility]. The most recent upper endoscopy and dilatation he had done was September 2019. The patient will occasionally have some bright red blood on the stool and tissue paper. That has been going on for several years. As of January 14, 2020 his white blood cell count was 7.3 with a hemoglobin 13.9 and hematocrit 43.7 platelet count 141,000. TIBC was 380 normal. Iron was 62 with normal being 65-1 75. Iron saturation was 16.3 with normal being 15-55. Ferritin was 42 with normal being 26-388. Since previous visit he has had no new complaints. No abdominal pain. 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) Medical History: Medical History (Last Reviewed 02/03/20 @ 15:07 by Melba Alfredo) Guaiac positive stools (Acute) R19.5 Iron deficiency (Acute) E61.1 Cardiac pacemaker in situ (Chronic) Onset Date: 12/25/13 Z95.0 Dilated cardiomyopathy (Chronic) I42.0 Chronic atrial fibrillation (Chronic) I48.20 Chronotropic incompetence (Chronic) I45.89 Essential (primary) hypertension (Chronic) I10 HLD (hyperlipidemia) (Chronic) E78.5 Black tarry stools K92.1 hemoccult positive stools 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 Hypothyroidism, iatrogenic E03.2 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 Scleroderma M34.9 Acute kidney injury N17.9 Community acquired pneumonia J18.9 Head trauma S09.90XA Scalp laceration Allergies penicillamine Allergy (Severe, Verified 06/11/20 10:10) Anaphylaxis Home Medications: Ambulatory Orders Medication Instructions Recorded Lamotrigine [Lamictal] 200 mg PO QHS 12/24/13 lisinopril 40 mg tablet 40 mg PO DAILY 30 Days #30 01/17/18 esomeprazole magnesium 40 mg 40 mg PO DAILY 09/03/18 capsule,delayed release ascorbic acid (vitamin C) 500 mg 500 mg PO DAILY cap 02/03/20 capsule cholecalciferol (vitamin D3) 125 125 mcg PO DAILY 02/03/20 mcg (5,000 unit) tablet magnesium 250 mg tablet 500 mg PO DAILY tab 02/03/20 olanzapine 5 mg tablet 5 mg PO DAILY 02/03/20 carvedilol 25 mg tablet 25 mg PO BID #60 tab 03/12/20 amlodipine 10 mg tablet 10 mg PO DAILY 05/13/20 hydralazine 50 mg tablet 50 mg PO TID 05/13/20 levothyroxine 112 mcg tablet 112 mcg PO DAILY tab 05/13/20 furosemide 40 mg tablet 40 mg PO DAILY #30 tab 06/02/20 Warfarin Sodium [Coumadin] 4 mg PO DAILY 06/10/20 Surgical History: Surgical History (Last Reviewed 02/03/20 @ 15:07 by Melba Alfredo) H/O stem cell transplant Z94.84 H/O colonoscopy Z98.890 01/2010, negative History of left heart catheterization Onset Date: 01/28/18 Z98.890 01/28/[address] Lemus: normal coronaries, EF 50% History of right heart catheterization Onset Date: 05/07/19 Z98.890 S/P inguinal hernia repair Z98.890, Z87.19 bilat Surgical History: herniorrhaphy, - - Bone marrow transplantation for scleroderma. Smoking Status: Never smoker Tobacco Use: Non-smoker - *Family History Maternal Family History: Family History (Last Updated 02/03/20 @ 15:07 by Melba Alfredo) Mother Yodit's disease Diabetes Hypertension Grandfather CVA (cerebral vascular accident) History Items: No pertinent history Paternal Family History: Family History (Last Updated 02/03/20 @ 15:07 by Melba Alfredo) Mother Yodit's disease Diabetes Hypertension Grandfather CVA (cerebral vascular accident) History Items: No pertinent history Review of Systems Constitutional: Denies: Anorexia Cardiovascular: Denies: Chest Pain Respiratory: Denies: Cough, Shortness of Breath Gastrointestinal: Denies: Abdominal Pain, Melena VTE Information - Inpt Only VTE Present on Admission: No - Physical Exam Vitals/I&O's: Vital Signs Temp Pulse Resp BP Pulse Ox 97.5 F L 60 15 130/76 H 100 06/11/20 10:19 06/11/20 10:19 06/11/20 10:19 06/11/20 10:19 06/11/20 10:19 Oxygen Delivery Method Room Air Weight: 164 lb 0.383 oz Body Mass Index (BMI) 23.5 General: Alert, Oriented x3, Cooperative, No apparent distress HEENT: Atraumatic Lungs: Clear to auscultation, Normal air movement Cardiovascular: Regular rate, Regular Rhythm Abdomen: Bowel Sounds Present, Soft, Non Tender Extremities: No Calf Tenderness Psych/Mental Status: Normal Affect Laboratory Results 06/10/20 16:25: COVID-19 (IBAN) Negative 06/11/20 10:20: POC PT 16.6 H, INR 1.30 Current Medications Lactated Ringer's () 1,000 mls @ 100 mls/hr IV .Q10H VANDANA Last Admin: 06/11/20 10:30 Dose: 100 mls/hr Documented by: Assessment/Plan All Active Problems (Last Reviewed 02/03/20 @ 15:07 by Melba Alfredo) Guaiac positive stools (Acute) Iron deficiency (Acute) Shortness of breath (Resolved) Because of his Hemoccult positive stool and after discussion with the patient we have elected to proceed with a combined upper and lower endoscopy. We are planning for a esophagogastroduodenoscopy with possible biopsy and colonoscopy with possible biopsy or polypectomy is indicated. He is aware of the technique, benefit, risk, alternatives. He has had an opportunity to ask and have questions answered. He presents via open access today. Aureliano Kamara M.D., F.A.C.S. Procedure Criteria Procedure Type: Elective COVID Risk Discussion: The surgeon/proceduralist and patient have discussed in detail the risk of exposure to and/or potential harm posed by the COVID-19 virus with having a surgery/procedure at this time versus the risk of delaying the surgery/procedure. It is not possible to know either the risk of delaying the surgery or procedure or chance of getting an infection with perfect accuracy, but a joint decision was made between the patient and the surgeon/proceduralist to proceed at this time with the scheduled surgery/procedure as indicated on the consent form.
[2020-06-11 12:40] VITALS: BP 113/66; BP 130/76; PULSE 60; RESP 16; TEMP 36.2; O2SAT 100
--- NOTE | 2020-06-11 12:40 | OP.EGD_ITS ---
Patient Name: Satnam Yu Procedure Date: 06/11/2020 12:05 PM Date of : 1960 Age: 59 Procedure: Upper GI endoscopy Indications: Iron deficiency anemia Providers: Aureliano Kamara MD Medicines: See the Anesthesia note for documentation of the administered medications Complications: No immediate complications. Procedure: Pre-Anesthesia Assessment: - Prior to the procedure, a History and Physical was performed, and patient medications and allergies were reviewed. The patient's tolerance of previous anesthesia was also reviewed. The risks and benefits of the procedure and the sedation options and risks were discussed with the patient. All questions were answered, and informed consent was obtained. Prior Anticoagulants: The patient has taken no previous anticoagulant or antiplatelet agents. ASA Grade Assessment: II - A patient with mild systemic disease. After reviewing the risks and benefits, the patient was deemed in satisfactory condition to undergo the procedure. After obtaining informed consent, the endoscope was passed under direct vision. Throughout the procedure, the patient's blood pressure, pulse, and oxygen saturations were monitored continuously. The gastroscope was introduced through the mouth, and advanced to the second part of duodenum. The upper GI endoscopy was accomplished without difficulty. The patient tolerated the procedure well. Scope In: 12:08:39 PM Scope Out: 12:14:35 PM Total Procedure Duration Time 0 hours 5 minutes 56 seconds Findings: There were esophageal mucosal changes secondary to established long-segment Walden's disease present in the lower third of the esophagus. The maximum longitudinal extent of these mucosal changes was 8 cm in length. A medium-sized hiatal hernia was present. Diffuse minimal inflammation was found in the gastric antrum. Biopsies were taken with a cold forceps for histology. A few sessile polyps with no bleeding and no stigmata of recent bleeding were found in the gastric fundus. The polyp was removed with a cold biopsy forceps. Polyp resection was incomplete. The examined duodenum was normal. Impression: - Esophageal mucosal changes secondary to established long-segment Walden's disease. - Medium-sized hiatal hernia. - Chronic gastritis. Biopsied. - A few gastric polyps. Incomplete resection. - Normal examined duodenum. Recommendation: - Await pathology results. - Resume previous diet. - Continue present medications. - Telephone my office for pathology results in 1 week. No active signs of bleeding Walden's not biopsied as he is already under managemtent for this Procedure Code(s): --- Professional --- 75048, Esophagogastroduodenoscopy, flexible, transoral; with biopsy, single or multiple Diagnosis Code(s): --- Professional --- K22.70, Walden's esophagus without dysplasia K44.9, Diaphragmatic hernia without obstruction or gangrene K29.50, Unspecified chronic gastritis without bleeding K31.7, Polyp of stomach and duodenum D50.9, Iron deficiency anemia, unspecified CPT copyright 2017 [employer]. All rights reserved. The codes documented in this report are preliminary and upon tiller worker review may be revised to meet current compliance requirements. Aureliano Kamara MD 06/11/2020 12:40:02 PM This report has been signed electronically. Number of Addenda: 0 Note Initiated On: 06/11/2020 12:05 PM
--- NOTE | 2020-06-11 12:40 | OP.CCLET_ITS ---
06/11/2020 Satnam Ybarra [address] [place] [address] Re : Upper GI endoscopy procedure for Satnam Yu Dear Dr. Ybarra This procedure was performed on Thursday, June 11, 2020. My impressions and recommendations are as follows: Impressions : - Esophageal mucosal changes secondary to established long-segment Walden's disease. - Medium-sized hiatal hernia. - Chronic gastritis. Biopsied. - A few gastric polyps. Incomplete resection. - Normal examined duodenum. Recommendations : - Await pathology results. - Resume previous diet. - Continue present medications. - Telephone my office for pathology results in 1 week. No active signs of bleeding Walden's not biopsied as he is already under managemtent for this My findings are described in the full procedure note, which is enclosed. If I can be of further assistance, please feel free to contact me at Doctor phone number(s): Work: . Sincerely, Aureliano Kamara MD 06/11/2020 12:40:02 PM This report has been signed electronically.
[2020-06-11 12:45] VITALS: BP 116/66; BP 130/76; PULSE 63; RESP 16; O2SAT 100
--- NOTE | 2020-06-11 12:45 | OP.CCLET_ITS ---
06/11/2020 Satnam Ybarra [address] [place] [address] Re : Colonoscopy procedure for Satnam Yu Dear Dr. Ybarra This procedure was performed on Thursday, June 11, 2020. My impressions and recommendations are as follows: Impressions : - Non-thrombosed external hemorrhoids, non-thrombosed internal hemorrhoids and internal hemorrhoids that prolapse with straining, but spontaneously regress to the resting position (Grade II) found on digital rectal exam. - One 4 mm polyp in the proximal sigmoid colon, removed with a cold biopsy forceps. Resected and retrieved. - A few non-bleeding colonic angioectasias. - Tortuous colon. Recommendations : - Discharge patient to home. - Resume previous diet. - Continue present medications. - Repeat colonoscopy in 5 years for surveillance based on pathology results. No signs of active bleeding. Angioectasias of cecum/ascending colon can bleed but appeared stable My findings are described in the full procedure note, which is enclosed. If I can be of further assistance, please feel free to contact me at Doctor phone number(s): Work: . Sincerely, Aureliano Kamara MD 06/11/2020 12:45:17 PM This report has been signed electronically.
--- NOTE | 2020-06-11 12:45 | OP.COLON_ITS ---
Patient Name: Satnam Yu Procedure Date: 06/11/2020 12:15 PM Date of : 1960 Age: 59 Procedure: Colonoscopy Indications: Iron deficiency anemia Providers: Aureliano Kamara MD Medicines: See the Anesthesia note for documentation of the administered medications Patient Profile: Last Colonoscopy: January 2010. Complications: No immediate complications. Procedure: Pre-Anesthesia Assessment: - Prior to the procedure, a History and Physical was performed, and patient medications and allergies were reviewed. The patient's tolerance of previous anesthesia was also reviewed. The risks and benefits of the procedure and the sedation options and risks were discussed with the patient. All questions were answered, and informed consent was obtained. Prior Anticoagulants: The patient has taken no previous anticoagulant or antiplatelet agents. ASA Grade Assessment: II - A patient with mild systemic disease. After reviewing the risks and benefits, the patient was deemed in satisfactory condition to undergo the procedure. After I obtained informed consent, the scope was passed under direct vision. Throughout the procedure, the patient's blood pressure, pulse, and oxygen saturations were monitored continuously. The adult colonoscope was introduced through the anus and advanced to the cecum, identified by appendiceal orifice and ileocecal valve. The patient tolerated the procedure well. The ileocecal valve and the appendiceal orifice were photographed. Scope In: 12:15:42 PM Scope Withdrawal Time 0 hours 6 minutes 44 seconds Scope Out: 12:32:18 PM Total Procedure Duration Time 0 hours 16 minutes 36 seconds Findings: The digital rectal exam findings include non-thrombosed external hemorrhoids, non-thrombosed internal hemorrhoids and internal hemorrhoids that prolapse with straining, but spontaneously regress to the resting position (Grade II). Pertinent negatives include normal prostate (size, shape, and consistency). A 4 mm polyp was found in the proximal sigmoid colon. The polyp was sessile. The polyp was removed with a cold biopsy forceps. Resection and retrieval were complete. A few medium-sized localized angioectasias without bleeding were found in the cecum. The colon (entire examined portion) was moderately tortuous. Advancing the scope required using manual pressure. Impression: - Non-thrombosed external hemorrhoids, non-thrombosed internal hemorrhoids and internal hemorrhoids that prolapse with straining, but spontaneously regress to the resting position (Grade II) found on digital rectal exam. - One 4 mm polyp in the proximal sigmoid colon, removed with a cold biopsy forceps. Resected and retrieved. - A few non-bleeding colonic angioectasias. - Tortuous colon. Recommendation: - Discharge patient to home. - Resume previous diet. - Continue present medications. - Repeat colonoscopy in 5 years for surveillance based on pathology results. No signs of active bleeding. Angioectasias of cecum/ascending colon can bleed but appeared stable Procedure Code(s): --- Professional --- 73425, Colonoscopy, flexible; with biopsy, single or multiple Diagnosis Code(s): --- Professional --- K64.1, Second degree hemorrhoids K64.4, Residual hemorrhoidal skin tags D12.5, Benign neoplasm of sigmoid colon K55.20, Angiodysplasia of colon without hemorrhage D50.9, Iron deficiency anemia, unspecified Q43.8, Other specified congenital malformations of intestine CPT copyright 2017 [employer]. All rights reserved. The codes documented in this report are preliminary and upon fleet administrator review may be revised to meet current compliance requirements. Aureliano Kamara MD 06/11/2020 12:45:17 PM This report has been signed electronically. Number of Addenda: 0 Note Initiated On: 06/11/2020 12:15 PM
[2020-06-11 12:50] VITALS: BP 130/69; BP 130/76; PULSE 60; RESP 16; O2SAT 99
[2020-06-11 12:55] VITALS: BP 128/71; BP 130/76; PULSE 60; RESP 16; TEMP 36.4; O2SAT 100
== END 2020-06-11 13:17 | disposition home or self-care (01) ==
LOC: EN 09:53 → AC 09:55
PROVIDERS: Anesthesiology; PCP Family Medicine; Referring Provider Family Medicine; Visit Provider Surgery
PROC: 0DJD8ZZ Inspection of Lower Intestinal Tract, Via Natural or Artificial Opening Endoscopic (ICD-10-PCS; CPT 45378; principal; 2020-06-11 10:55)
DX: D50.9 Iron deficiency anemia, unspecified (principal); K64.1 Second degree hemorrhoids; K64.4 Residual hemorrhoidal skin tags; D12.5 Benign neoplasm of sigmoid colon; K55.20 Angiodysplasia of colon without hemorrhage; Q43.8 Other specified congenital malformations of intestine; K22.70 Barrett's esophagus without dysplasia; K44.9 Diaphragmatic hernia without obstruction or gangrene; K31.7 Polyp of stomach and duodenum; K29.50 Unspecified chronic gastritis without bleeding; Z79.01 Long term (current) use of anticoagulants; Z82.3 Family history of stroke; Z82.49 Family history of ischemic heart disease and other diseases of the circulatory system; Z95.0 Presence of cardiac pacemaker; I48.20 Chronic atrial fibrillation, unspecified; I42.0 Dilated cardiomyopathy; I10 Essential (primary) hypertension; E78.5 Hyperlipidemia, unspecified; M34.9 Systemic sclerosis, unspecified
CPT/HCPCS: 43239; 45380; 36416; 85610; 87635; 88305; 88342; G2023; J7120; J2405; U0003

== ENCOUNTER 2020-08-31 15:46 | Outpatient (RCR) | payer BC, SELFPAY ==
[2020-05-13 16:03] VITALS: BMI 24.5
[2020-08-31 17:10] LABS: International Normalized Ratio 1.9; Prothrombin Time (Protime)PT. 21.1 SECONDS (11.7-14.9)
== END 2020-08-31 18:00 | disposition home or self-care (01) ==
LOC: LAB 15:46
PROVIDERS: Family Provider Family Medicine; PCP Family Medicine; Referring Provider Internal Medicine Cardiovascular Disease; Visit Provider Internal Medicine Cardiovascular Disease
DX: I48.20 Chronic atrial fibrillation, unspecified (principal); Z79.01 Long term (current) use of anticoagulants
CPT/HCPCS: 36415; 85610

== ENCOUNTER → 2020-10-19 09:10 | Outpatient (CLI) | payer BC, SELFPAY ==
[2020-10-19 09:59] LABS: Hemoglobin 14.4 g/dL (13.0-16.5); Mean Corpuscular Hgb 31.7 pg (27.0-32.0); Mean Corpuscular Volume 99.1 fL (80-94); Mean Platelet Vol. 11.2 fl (6.2-12.0); Platelet Count 197 K/mm3 (150-450); RBC Distribution Width CV 12.7 % (11.6-14.6); RBC Distribution Width SD 45.4 fl (35.1-43.9); Red Blood Count 4.54 M/mm3 (4.6-6.2); White Blood Count 9.5 K/mm3 (4.4-11.0)
[2020-10-19 10:07] LABS: International Normalized Ratio 1.5; Prothrombin Time (Protime)PT. 17.4 SECONDS (11.7-14.9)
[2020-10-19 10:23] LABS: Hemoglobin A1c 5.6 % (3.8-5.6)
[2020-10-19 10:40] LABS: ALB/GLOB Ratio 0.9 RATIO (0.9-2.4); AST(SGOT) 38 U/L (15-37); Alanine Aminotransfer ALT/SGPT 56 U/L (16-61); Albumin, Serum 4.5 g/dL (3.2-5.0); Alkaline Phosphatase 157 U/L (45-117); Anion Gap 7 (5-15); BUN 40 mg/dL (7-18); BUN/Creat Ratio 12.9 RATIO (10-20); Calcium,Total 10.2 mg/dL (8.5-10.1); Chloride 106 mmol/L (98-107); Creatinine, Serum 3.11 mg/dL (0.70-1.30); EST Glomerular Filtration Rate 22 mL/min (>60); Est Glom Filt Rate - Afr Amer 26 mL/min (>60); Globulin 4.8 g/dL (2.2-4.2); Glucose 112 mg/dL (74-106); Magnesium 2.2 mg/dL (1.6-2.6); Potassium 4.5 mmol/L (3.5-5.1); Protein, Total 9.3 g/dL (6.4-8.2); Sodium Level 138 mmol/L (136-145); T4 Free Direct 1.32 ng/dL (0.76-1.46); Thyroid Stim Hormone (TSH) 0.24 uIU/mL (0.358-3.74)
[2020-10-19 11:16] LABS: Vitamin D,25 Hydroxy 76.8 ng/mL
== END ==
PROVIDERS: PCP Family Medicine; Visit Provider Family Medicine
DX: I48.20 Chronic atrial fibrillation, unspecified (principal); Z79.01 Long term (current) use of anticoagulants; N18.30 Chronic kidney disease, stage 3 unspecified; E11.9 Type 2 diabetes mellitus without complications; E03.8 Other specified hypothyroidism; R53.83 Other fatigue
CPT/HCPCS: 36415; 80053; 82306; 83036; 83735; 84439; 84443; 85027; 85610

== ENCOUNTER → 2020-11-04 08:49 | Outpatient (CLI) | payer BC, SELFPAY ==
--- NOTE | 2020-11-04 08:51 | RDU_ITS ---
Reason For Study: HTN Right Renal Artery Left Renal Artery Right renal artery ostium Left renal artery ostium 112.3/22.4 118.9/18.0 RSV/EDV. PSV/EDV. Right renal artery proximal Left renal artery proximal PSV/EDV 129.9/24.6 PSV/EDV. 99.2/22.4 . Right renal artery mid 140.9/26.8 Left renal artery mid 94.8/20.2 PSV/EDV. PSV/EDV . Right renal artery distal Left renal artery distal 122.2/39.4 179.2/42.0 PSV/EDV. PSV/EDV. Right RAR 2.0. Left RAR 1.4. Right Renal Parenchyma Left Renal Parenchyma Upper Pole Medula 33.1/10.1 Left upper pole medulla 28.7/10.6 PSV/EDV. PSV/EDV . Right upper pole medulla EDR .3 . Left upper pole medulla EDR .37 . Right upper pole medulla R.I. .7 . Left upper pole medulla R.I. .63 . Upper Ray Cortx 26.5/6.8 PSV/EDV. UP Cortex 26.2/8.0 PSV/EDV. Right upper pole cortex EDR .26 . Left upper pole cortex EDR .31 . Right upper pole cortex R.I. .74 . Left upper pole cortex R.I. .69 . Right lower Pole medulla 29.8/9.0 Left lower Pole medulla 32.6/15.8 PSV/EDV . PSV/EDV . Right lower pole medulla EDR .3 . Left lower pole medulla EDR .48 . Right lower pole medulla R.I. .7 . Left lower pole medulla R.I. .52 . Lower Pole Cortex 17.8/7.9 PSV/EDV. Lower Pole Cortx 17.1/5.4 PSV/EDV. Right lower pole cortex EDR .44 . Left lower pole cortex EDR .32 . Right lower pole cortex R.I. .56 . Left lower pole cortex R.I. .68 . Right Renal Hilar Left Renal Hilar Right Hilar avg 89.7/21.0 PSV/EDV. LT Hilar avg 62.4/13.2 PSV/EDV . Right hilar acceleration time 30.0 Left hilar acceleration time 50.0 m/sec. m/sec. Right Renal Dimensions Left Renal Dimensions Right kidney size 12.6 cm . Left kidney size 12.9 cm . Right cortical dimension 1.84 cm . Left cortical dimension 1.73 cm . Hypoechoic structure noted measuring 2.39 x 3.93 cm. Area is nonvascular. 2nd hypoechoic structure noted measuring 4.24 x 5.41 cm. Area is nonvascular. Aorta Proximal abdominal aorta 1.66 x 1.69 cm . Proximal abdominal aorta peak systolic velocity is 88.2 cm/sec . Distal abdominal aorta 1.45 x 1.46 cm . Distal abdominal aorta peak systolic velocity is 86.0 cm/sec . Normal renal veins bilat. Interpretation Summary Dimensions of the intra-abdominal aorta appear normal, without evidence of aneurysmal dilatation. Renal artery velocities are bilaterally normal. Acceleration times are normal bilaterally. Renal- aortic ratios are also bilaterally normal. There is no evidence of hemodynamically significant renal artery stenosis on either side. Renovascular resistance appears to be bilaterally normal . The right cortical dimension is increased. The left cortical dimension is increased. Kidneys appear normal in size bilaterally. Two non-vascular, hypoechoic structures are noted in the right kidney, with dimensions as documented above. These probably represent renal cysts. Clinical correlation is advised. Ordering Physician: Satnam Ybarra Performed By: Yovany Chan RVT
--- NOTE | 2020-11-04 09:17 | US_ITS ---
STUDY: RENAL ULTRASOUND - COMPLETE REASON FOR EXAM: Male, 60 years old. CKD renal cysts. TECHNIQUE: Ultrasound evaluation of the kidneys was performed with real-time and static millan-scale imaging. COMPARISON: Comparison is made with prior study dated 01/28/2019. FINDINGS: RIGHT KIDNEY: Normal location of the right kidney, which is normal in size. The right kidney measures 13.1 cm x 5.7 cm x 5.4 cm. There is a normal cortex of the right kidney. The renal cortex measures 2.1 cm. 4 renal cysts are seen. The largest measures 4.5 cm x 4.7 cm x 4.1 cm and is in the upper pole. There are no right renal calculi. There is no right hydronephrosis. DISTAL RIGHT URETER: There is non-visualization of the distal right ureter. There is no demonstrated right ureterovesical junction calculus. There is no demonstrated right ureteral jet. LEFT KIDNEY: Normal location of the left kidney, which is normal in size. The left kidney measures 13.4 cm x 4.2 cm x 5.4 cm. There is a normal cortex of the left kidney. The renal cortex measures 1.4 cm. There is no left renal mass or cyst. There are no left renal calculi. There is no left hydronephrosis. DISTAL LEFT URETER: There is non-visualization of the distal left ureter. There is no demonstrated left ureterovesical junction calculus. There is no demonstrated left ureteral jet. BLADDER: The distended urinary bladder has a volume of 166 ml. There is a normal wall thickness of the distended urinary bladder. There is no demonstrated mass within the urinary bladder. There are no demonstrated bladder calculi. US/Kidney and Bladder IMPRESSION: Stable multiple right renal cysts. Electronically Signed: Levi Hernandez, at 11:19 EST , Service support ,
[2020-11-04 12:58] LABS: Anion Gap 5 (5-15); BUN 27 mg/dL (7-18); BUN/Creat Ratio 16.8 RATIO (10-20); Calcium,Total 9.9 mg/dL (8.5-10.1); Chloride 108 mmol/L (98-107); Creatinine, Serum 1.61 mg/dL (0.70-1.30); EST Glomerular Filtration Rate 47 mL/min (>60); Est Glom Filt Rate - Afr Amer 56 mL/min (>60); Glucose 102 mg/dL (74-106); Potassium 4.7 mmol/L (3.5-5.1); Sodium Level 140 mmol/L (136-145)
== END ==
PROVIDERS: PCP Family Medicine; Referring Provider Family Medicine; Visit Provider Family Medicine
DX: N18.4 Chronic kidney disease, stage 4 (severe) (principal)
CPT/HCPCS: 36415; 76770; 80048; 93975

== ENCOUNTER → 2020-11-17 16:47 | Outpatient (CLI) | payer BC, SELFPAY ==
[2020-11-17 18:29] LABS: Anion Gap 6 (5-15); BUN 39 mg/dL (7-18); BUN/Creat Ratio 17.9 RATIO (10-20); Calcium,Total 9.7 mg/dL (8.5-10.1); Chloride 107 mmol/L (98-107); Creatinine, Serum 2.18 mg/dL (0.70-1.30); EST Glomerular Filtration Rate 33 mL/min (>60); Est Glom Filt Rate - Afr Amer 40 mL/min (>60); Glucose 89 mg/dL (74-106); Potassium 4.6 mmol/L (3.5-5.1); Sodium Level 139 mmol/L (136-145)
== END ==
PROVIDERS: PCP Family Medicine; Visit Provider Family Medicine
DX: N18.4 Chronic kidney disease, stage 4 (severe) (principal)
CPT/HCPCS: 36415; 80048

== ENCOUNTER 2020-12-24 08:55 | Inpatient (IN) | payer OTHER, SELFPAY ==
[2020-12-24] VITALS (9 sets, daily range): BP systolic 154–178; BP diastolic 73–86; PULSE 60–105; RESP 16–27; TEMP 36.2–37.4; O2SAT 84–100; BMI 24.3; BMI 24.5
--- NOTE | 2020-12-24 09:31 | EKG12_ITS ---
Test Reason : Blood Pressure : / mmHG Vent. Rate : 060 BPM Atrial Rate : 394 BPM P-R Int : 000 ms QRS Dur : 202 ms QT Int : 484 ms P-R-T Axes : 000 -78 074 degrees QTc Int : 484 ms Ventricular-paced rhythm Abnormal ECG Confirmed by JOANNA RICO, ADRIANNA ([id number]), editor index CHRISTY OROZCO ([id number]) on 12/27/2020 2:11:54 PM Referred By: CAROL Confirmed By:ADRIANNA MARSHALL MD
--- NOTE | 2020-12-24 09:32 | ED.VIS.DYS ---
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 Negative for: Fever, Sore throat Chest Pain: None Narrative: Patient started having symptoms of Covid 1 week ago, tested positive earlier this week. In the last several days he has been getting short of breath with minimal activity and exertion. This morning his fingers were blue, although he states he has a history of Raynaud's phenomenon. 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 He has no other history of lung disease. He ended up getting a stem cell transplant which took care of his scleroderma and he is on no immunosuppressive medications now. He also has a history of chronic atrial fibrillation, and continues to be on warfarin as a result. He denies any bleeding from anywhere recently. No leg pain or swelling, no history of DVT or pulmonary embolus. - Past Medical History (1) Scleroderma Status: Suspected (2) Chronic atrial fibrillation Status: Chronic (3) Dilated cardiomyopathy Status: Chronic (4) Essential (primary) hypertension Status: Chronic (5) HLD (hyperlipidemia) Status: Chronic (6) Iron deficiency Status: Chronic Past Medical History - Allergies and Home Meds Allergies/Adverse Reactions: Allergies penicillamine Allergy (Severe, Verified 12/24/20 08:58) Anaphylaxis Primary Care Physician: Satnam Ybarra MD [Primary Care Provider] - Surgical History: herniorrhaphy, pacemaker implantation, - - Bone marrow transplantation for scleroderma. Lives: Spouse/ Significant Other Smoking Status: Never smoker - Family History Maternal Family History: Family History (Last Updated 02/03/20 @ 15:07 by Melba Alfredo) Mother Yodit's disease Diabetes Hypertension Grandfather CVA (cerebral vascular accident) Family History: Reports: No pertinent history Paternal Family History: Family History (Last Updated 02/03/20 @ 15:07 by Melba Alfredo) Mother Yodit's disease Diabetes Hypertension Grandfather CVA (cerebral vascular accident) Family History: Reports: No pertinent history Review of Systems General: Reports: Chills, Malaise. Denies: Fever, Sweats Eyes: Denies: Visual changes - bilaterally, Diplopia ENT: Denies: Bilateral ear pain, Rhinorrhea, Sore throat Cardiovascular: Denies: Chest pain, Palpitations Respiratory: Reports: Dyspnea, Cough, Dyspnea on exertion. Denies: Sputum, Orthopnea Gastrointestinal: Denies: Abdominal pain, Nausea, Vomiting, Diarrhea, Melena, Hematochezia Genitourinary: Denies: Dysuria, Hematuria, Frequency Musculoskeletal: Reports: Myalgias. Denies: Neck pain, Back pain, Swelling, Extremity Pain Skin: Denies: Rash, Wounds Neurological: Denies: Headache, Weakness, Numbness Physical Exam Vital Signs/Narrative: Vital Signs Temp Pulse Resp BP Pulse Ox 12/24/20 09:22 99 F 62 27 H 155/83 H 100 12/24/20 08:56 99 F 105 H 22 H 155/83 H 84 Inital Vital Signs reviewed: Yes General: Well nourished, Well developed, No Acute Distress Head: Normocephalic, Atraumatic Eyes: Perrl, EOMI ENT: Moist mucous membranes, No rhinorrhea Neck: Supple, Nontender, No lymphadenopathy, No JVD Cardiovascular: Regular rate, Regular rhythm, No murmurs, Tachycardia - Mild Respiratory: No distress, CTA bilaterally, Chest nontender Abdomen: Soft, Nontender, Nondistended, Normal bowel sounds Back: Nontender, Normal Inspection Extremities: Nontender, No edema. Negative for: Calf Tenderness Skin: Normal color, No rash, No Trauma Neurological: Alert, Oriented x3, Cranial nerves II-XII grossly intact, Normal Strength, Normal Sensation, Normal Gait Psychological: Normal affect, Normal Mood Diagnostic/Tx/Re-eval Chest X-Ray - ED: 1 View, Read by ED Physician, Right Infiltrate, Left Infiltrate Laboratory Tests 12/24/20 12/24/20 12/24/20 Range/Units 09:15 09:15 09:15 WBC (4.4-11.0) K/mm3 RBC (4.6-6.2) M/mm3 Hgb (13.0-16.5) g/dL Hct (40-54) % MCV (80-94) fL MCH (27.0-32.0) pg MCHC (32-36) g/dL RDW Std Deviation (35.1-43.9) fl RDW Coeff of Blanquita (11.6-14.6) % Plt Count (150-450) K/mm3 MPV (6.2-12.0) fl Immature Gran % (Auto) (0.0-0.9) % Neut % (Auto) (47-70) % Lymph % (Auto) (19-41) % Bergen % (Auto) (0-10) % Eos % (Auto) (0-5) % Baso % (Auto) (0-1) % Absolute Neuts (auto) (2.0-7.7) X10^3/uL Absolute Lymphs (auto) (0.83-4.51) X10^3/uL Nucleated RBC % (0-5) % PT 31.8 H (11.7-14.9) SECONDS INR 3.1 Sodium 139 (136-145) mmol/L Potassium 3.5 (3.5-5.1) mmol/L Chloride 106 (98-107) mmol/L Carbon Dioxide 28.0 (21.0-32.0) mmol/L Anion Gap 5 (5-15) BUN 28 H (7-18) mg/dL Creatinine 1.46 H (0.70-1.30) mg/dL Estim Creat Clear Calc 54.86 ml/min Est GFR (MDRD) Af Amer 63 (>60) mL/min Est GFR (MDRD) Non-Af 52 L (>60) mL/min BUN/Creatinine Ratio 19.2 (10-20) RATIO Glucose 84 (74-106) mg/dL Lactic Acid 2.3 H* (0.4-1.9) mmol/L Calcium 9.3 (8.5-10.1) mg/dL Total Bilirubin 0.50 (0.20-1.00) mg/dL AST 28 (15-37) U/L ALT 44 (16-61) U/L Alkaline Phosphatase 106 (45-117) U/L Troponin I < 0.015 (<0.045) ng/mL Total Protein 7.8 (6.4-8.2) g/dL Albumin 3.5 (3.2-5.0) g/dL Globulin 4.3 H (2.2-4.2) g/dL Albumin/Globulin Ratio 0.8 L (0.9-2.4) RATIO 12/24/ Range/Units 09:15 WBC 8.9 (4.4-11.0) K/mm3 RBC 4.36 L (4.6-6.2) M/mm3 Hgb 13.6 (13.0-16.5) g/dL Hct 41.1 (40-54) % MCV 94.3 H (80-94) fL MCH 31.2 (27.0-32.0) pg MCHC 33.1 (32-36) g/dL RDW Std Deviation 45.3 H (35.1-43.9) fl RDW Coeff of Blanquita 13.2 (11.6-14.6) % Plt Count 160 (150-450) K/mm3 MPV 11.2 (6.2-12.0) fl Immature Gran % (Auto) 1.300 H (0.0-0.9) % Neut % (Auto) 75.6 H (47-70) % Lymph % (Auto) 11.2 L (19-41) % Berg[place] % (Auto) 11.5 H (0-10) % Eos % (Auto) 0.1 (0-5) % Baso % (Auto) 0.3 (0-1) % Absolute Neuts (auto) 6.7 (2.0-7.7) X10^3/uL Absolute Lymphs (auto) 1.00 (0.83-4.51) X10^3/uL Nucleated RBC % 0 (0-5) % PT (11.7-14.9) SECONDS INR Sodium (136-145) mmol/L Potassium (3.5-5.1) mmol/L Chloride (98-107) mmol/L Carbon Dioxide (21.0-32.0) mmol/L Anion Gap (5-15) BUN (7-18) mg/dL Creatinine (0.70-1.30) mg/dL Estim Creat Clear Calc ml/min Est GFR (MDRD) Af Amer (>60) mL/min Est GFR (MDRD) Non-Af (>60) mL/min BUN/Creatinine Ratio (10-20) RATIO Glucose (74-106) mg/dL Lactic Acid (0.4-1.9) mmol/L Calcium (8.5-10.1) mg/dL Total Bilirubin (0.20-1.00) mg/dL AST (15-37) U/L ALT (16-61) U/L Alkaline Phosphatase (45-117) U/L Troponin I (<0.045) ng/mL Total Protein (6.4-8.2) g/dL Albumin (3.2-5.0) g/dL Globulin (2.2-4.2) g/dL Albumin/Globulin Ratio (0.9-2.4) RATIO - Rhythm Strip Rhythm Strip: paced Rate: 60 Ectopy: None - EKG Initial EKG Interpretation: No Acute Injury Pattern, Atrial Fibrillation, - - Ventricular pacing capture Treatment - Dyspnea: Oxygen, Steroid - Medical Decision Making Chest x-ray 1 view on my interpretation consistent with early bilateral infiltrates, consistent with Covid pneumonia. The rest of his labs look good, his renal insufficiency is actually better than usual. He was 84% on room air, placed on 2 L nasal cannula and now at 100%. Because of his history of lung disease, significant dyspnea with very little activity, infiltrates on x-ray, and need for oxygen, I think admitting him for further treatment and care is indicated. Started on Decadron 6 mg IV. Added procalcitonin which is pending, so holding off on antibiotics at this time. His INR is therapeutic at 3.1 so I do not think he needs to be scanned for pulmonary embolism at this time. Patient is clinically and hemodynamically stable on 2 L nasal cannula and I do not think requires intensive care at this time. Discussed with hospitalist for admission to Covid cohort floor. ED Disposition - Plan for ED Patient: Disposition: Acute Care Hospital [facility] Diagnosis: Pneumonia due to COVID-19 virus, Hypoxemia Referrals: Satnam Ybarra MD [Primary Care Provider] -
[2020-12-24 09:46] LABS: Absolute Neutrophil Count 6.7 X10^3/uL (2.0-7.7); Basophil# 0.03 X10^3/uL; Basophil% 0.3 % (0-1); Eosinophil# 0.01 X10^3/uL; Eosinophils% 0.1 % (0-5); Hematocrit 41.1 % (40-54); Hemoglobin 13.6 g/dL (13.0-16.5); Lymphocyte % 11.2 % (19-41); Mean Corp Hgb Conc 33.1 g/dL (32-36); Mean Corpuscular Hgb 31.2 pg (27.0-32.0); Mean Corpuscular Volume 94.3 fL (80-94); Mean Platelet Vol. 11.2 fl (6.2-12.0); Monocyte# 1.03 X10^3/uL; Monocyte% 11.5 % (0-10); NRBC Flagged by Analyzer 0 % (0-5); Neutrophil # 6.74 X10^3/uL (2.7-7.7); Neutrophil % 75.6 % (47-70); Platelet Count 160 K/mm3 (150-450); RBC Distribution Width CV 13.2 % (11.6-14.6); RBC Distribution Width SD 45.3 fl (35.1-43.9); Red Blood Count 4.36 M/mm3 (4.6-6.2); White Blood Count 8.9 K/mm3 (4.4-11.0)
[2020-12-24] MEDS: 0.9% Normal Saline 1,000 ML 125 ML IV (09:53)
[2020-12-24 09:55] LABS: International Normalized Ratio 3.1; Prothrombin Time (Protime)PT. 31.8 SECONDS (11.7-14.9)
[2020-12-24 10:05] LABS: ALB/GLOB Ratio 0.8 RATIO (0.9-2.4); AST(SGOT) 28 U/L (15-37); Alanine Aminotransfer ALT/SGPT 44 U/L (16-61); Albumin, Serum 3.5 g/dL (3.2-5.0); Alkaline Phosphatase 106 U/L (45-117); Anion Gap 5 (5-15); BUN 28 mg/dL (7-18); BUN/Creat Ratio 19.2 RATIO (10-20); Calcium,Total 9.3 mg/dL (8.5-10.1); Chloride 106 mmol/L (98-107); Creatinine, Serum 1.46 mg/dL (0.70-1.30); EST Glomerular Filtration Rate 52 mL/min (>60); Est Glom Filt Rate - Afr Amer 63 mL/min (>60); Estimated Creatinine Clearance 54.86 ml/min; Globulin 4.3 g/dL (2.2-4.2); Glucose 84 mg/dL (74-106); Potassium 3.5 mmol/L (3.5-5.1); Protein, Total 7.8 g/dL (6.4-8.2); Sodium Level 139 mmol/L (136-145)
[2020-12-24 10:09] LABS: Lactic Acid 2.3 mmol/L (0.4-1.9)
--- NOTE | 2020-12-24 10:10 | RAD_ITS ---
STUDY: X-RAY CHEST REASON FOR EXAM: Male, 60 years old. COUGHING AND SOB. PATIENT STATES HE IS POSITIVE FOR COVID TECHNIQUE: Single AP portable view of the chest. COMPARISON: Comparison is made with prior study dated 05/13/2020. FINDINGS: EKG electrodes are seen. The now is evidence of a mild degree of increased markings in the right mid lung as well as in the left lower lobe. Follow-up is recommended. There is no demonstrated pleural abnormality. There is mild cardiac enlargement. A left-sided dual-chamber pacemaker is seen. Normal mediastinum and samantha. Normal visualized pulmonary arteries. There is atherosclerotic tortuosity of the aortic arch and descending thoracic aorta. Normal visualized thoracic spine. Normal visualized ribs, clavicles, and shoulders. There is no demonstrated abnormality of the visualized soft tissue structures of the upper abdomen. RAD/Chest 1 View (Portable) IMPRESSION: Increased markings in the right midlung as well as in the left lower lobe suggestive of early infiltrates. Follow-up is recommended. Electronically Signed: Levi Hernandez MD at 10:51 EST , Service support ,
--- NOTE | 2020-12-24 11:05 | HP.PCM_ITS ---
Problem List (1) Scleroderma Status: Chronic (2) Pneumonia due to COVID-19 virus Status: Acute (3) Hypoxemia Status: Acute (4) Longstanding persistent atrial fibrillation Status: Chronic (5) History of permanent cardiac pacemaker placement Status: Chronic (6) Chronic atrial fibrillation Status: Chronic (7) Essential (primary) hypertension Status: Chronic (8) HLD (hyperlipidemia) Status: Chronic Qualifiers: Hyperlipidemia type: pure hypercholesterolemia Qualified Code(s): E78.00 - Pure hypercholesterolemia, unspecified; E78.00 - Pure hypercholesterolemia, unspecified; E78.00 - Pure hypercholesterolemia, unspecified; E78.0 - Pure hypercholesterolemia History of Present Illness Date of Admission: 12/24/20 Chief Complaint: Shortness of breath -couple of days The patient is a 60 year old M with past medical history of scleroderma, hypertension, hypothyroidism, chronic atrial fibrillation who comes in with generalized malaise, cough, sinus symptoms that started a week ago. Patient was diagnosed with COVID-19 infection about 5 days prior. He has been getting progressively short of breath, and decided to come to the emergency room. In the emergency room, his oxygen saturation was 84% on room air. Patient however states he has Raynaud phenomena and he told them have his hands warmed up before the recheck. When the oxygen probe was placed on his ear, he was 100% on room air. Vitals in the ED showed temperature of 90 9F, heart rate 105, blood pressure 155/83, respiratory rate 22, SPO2 was 84% on room air, later on became 100% on room air. His WBC count was 8.9, hemoglobin 13.6, platelet count 160, INR 3.1, sodium 139, potassium 3.5, chloride 106, bicarbonate 28, BUN 28, creatinine 1.46, which is about his baseline. Lactic acid was 2.3, improved to 1.4, LFTs are unremarkable. Procalcitonin 0.10. Admitting chest x-ray showed increased markings in the right midlung as well as in the left lower lung suggestive of early infiltrates. Past Medical History Past Medical History (Chronic Problems): Chronic Problems (Last Updated 08/28/20 @ 11:48 by Jewels Zuñiga) Scleroderma (Chronic) Longstanding persistent atrial fibrillation (Chronic) History of permanent cardiac pacemaker placement (Chronic 12/25/13) Dilated cardiomyopathy (Chronic) Chronic atrial fibrillation (Chronic) Chronotropic incompetence (Chronic) Essential (primary) hypertension (Chronic) HLD (hyperlipidemia) (Chronic) senior care current use of anticoagulant (Chronic) Iron deficiency (Chronic) Medical History: Medical History (Last Updated 08/28/20 @ 11:48 by Jewels Zuñiga) Dilated cardiomyopathy (Chronic) I42.0 Chronic atrial fibrillation (Chronic) I48.20 Chronotropic incompetence (Chronic) I45.89 Essential (primary) hypertension (Chronic) I10 HLD (hyperlipidemia) (Chronic) E78.5 Iron deficiency (Chronic) E61.1 Black tarry stools K92.1 hemoccult positive stools 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 Hypothyroidism, iatrogenic E03.2 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 Scleroderma M34.9 Acute kidney injury N17.9 Community acquired pneumonia J18.9 Guaiac positive stools (Resolved) R19.5 Head trauma S09.90XA Scalp laceration Allergies penicillamine Allergy (Severe, Verified 12/24/20 08:58) Anaphylaxis Home Medications: Ambulatory Orders Medication Instructions Recorded Lamotrigine [Lamictal] 200 mg PO QHS 12/24/13 lisinopril 40 mg tablet 20 mg PO DAILY 30 Days #30 01/17/18 esomeprazole magnesium 40 mg 40 mg PO DAILY 09/03/18 capsule,delayed release ascorbic acid (vitamin C) 500 mg 500 mg PO DAILY cap 02/03/20 capsule cholecalciferol (vitamin D3) 125 125 mcg PO DAILY 02/03/20 mcg (5,000 unit) tablet magnesium 250 mg tablet 500 mg PO DAILY tab 02/03/20 olanzapine 5 mg tablet 5 mg PO DAILY 02/03/20 carvedilol 25 mg tablet 25 mg PO BID #60 tab 03/12/20 hydralazine 50 mg tablet 100 mg PO TID 05/13/20 levothyroxine 112 mcg tablet 112 mcg PO DAILY tab 05/13/20 warfarin 4 mg tablet 4 mg PO DAILY #90 tab 09/06/20 Surgical History: Surgical History (Last Updated 08/28/20 @ 11:48 by Jewels Zuñiga) History of permanent cardiac pacemaker placement (Chronic) Onset Date: 12/25/13 Z95.0 H/O stem cell transplant Z94.84 H/O colonoscopy Z98.890 01/2010, negative History of left heart catheterization Onset Date: 01/28/18 Z98.890 01/28/[address] Lemus: normal coronaries, EF 50% History of right heart catheterization Onset Date: 05/07/19 Z98.890 S/P inguinal hernia repair Z98.890, Z87.19 bilat Surgical History: herniorrhaphy, pacemaker implantation, - - Bone marrow transplantation for scleroderma, status post left heart cath, Psychiatric History: No pertinent psych hx Lives: Spouse/ Significant Other Smoking Status: Never smoker Alcohol: Occasional Drugs: None - *Family History Maternal Family History: Family History (Last Updated 02/03/20 @ 15:07 by Melba Alfredo) Mother Yodit's disease Diabetes Hypertension Grandfather CVA (cerebral vascular accident) History Items: No pertinent history Paternal Family History: Family History (Last Updated 02/03/20 @ 15:07 by Melba Alfredo) Mother Yodit's disease Diabetes Hypertension Grandfather CVA (cerebral vascular accident) History Items: No pertinent history Review of Systems Constitutional: Reports: Malaise, Weakness, Fatigue. Denies: Anorexia, Chills, Fever, Night Sweats, Weight Change Eyes: Denies: Blurred vision, Cataracts, Conjunctivae Inflammation, Pain, Redness, Vision Change HEENT: Denies: Difficulty Hearing, Difficulty Swallowing, Head Aches, Hearing Changes, Sinus Congestion, Sinus Drainage Cardiovascular: Denies: Chest Pain, Claudication, Orthopnea, Palpitations, Paroxysmal Noc. Dyspnea Respiratory: Reports: Shortness of Breath, Shortness of breath at rest, Shortness of breath upon exertion. Denies: Cough, Sputum production, Wheezing Gastrointestinal: Denies: Abdominal Pain, Constipation, Hematemesis, Hematochezia, Nausea, Vomiting Genitourinary: Denies: Dysuria, Frequency, Incontinence, Nocturia Musculoskeletal: Denies: Joint Pain, Joint stiffness, Joint swelling, Joint Tenderness Skin: Denies: Rash, Wounds Neurological: Denies: Difficulty swallowing, Focal weakness, Numbness, Tingling Psychiatric: Denies: Anxiety, Depression, Homicidal Ideations, Suicidal Ideations Hematologic/ Lymphatic: Denies: Easy Bruising, Easy Bleeding VTE Information - Inpt Only VTE Present on Admission: No VTE Pharm Prophylaxis ordered?: Yes Patient Problems: Active and Suspected Problems (Last Updated 08/28/20 @ 11:48 by Jewels Zuñiga) Pneumonia due to COVID-19 virus (Acute) Hypoxemia (Acute) - Physical Exam Vitals/I&O's: Vital Signs Temp Pulse Resp BP Pulse Ox 99 F 62 27 H 155/83 H 100 12/24/20 09:22 12/24/20 09:22 12/24/20 09:22 12/24/20 09:22 12/24/20 09:32 Oxygen Delivery Method Room Air Weight: 77.111 kg Body Mass Index (BMI) 24.3 General: Alert, Oriented x3, Cooperative, No apparent distress HEENT: Atraumatic, PERRLA, EOMI, Normocephalic Oral: Moist Mucosa Neck: Supple Lungs: Diminished Cardiovascular: Regular rate, Regular Rhythm, Normal S1, Normal S2, No murmurs Abdomen: Bowel Sounds Present, Soft, Non Tender, Non-Distended, No Hepato- splenomegaly Extremities: No edema, - - multiple joint deformities in PIP and DIP Skin: - - Taut skin over the joints of the hands Musculoskeletal: No Tenderness to Palpation of Joints or Extremities Lymphatic: No Cervical, Supraclavicular, or Inguinal Adenopathy Neurological: Cranial nerves II-XII grossly intact Psych/Mental Status: Normal Affect, Appropriate Laboratory Results 12/24/20 09:15: WBC 8.9, RBC 4.36 L, Hgb 13.6, Hct 41.1, MCV 94.3 H, MCH 31.2, MCHC 33.1, RDW Std Deviation 45.3 H, RDW Coeff of Blanquita 13.2, Plt Count 160, MPV 11.2, Immature Gran % (Auto) 1.300 H, Neut % (Auto) 75.6 H, Lymph % (Auto) 11.2 L, [place] % (Auto) 11.5 H, Eos % (Auto) 0.1, Baso % (Auto) 0.3, Absolute Neuts (auto) 6.7, Absolute Lymphs (auto) 1.00, Nucleated RBC % 0 12/24/20 09:15: Sodium 139, Potassium 3.5, Chloride 106, Carbon Dioxide 28.0, Anion Gap 5, BUN 28 H, Creatinine 1.46 H, Estim Creat Clear Calc 54.86, Est GFR (MDRD) Af Amer 63, Est GFR (MDRD) Non-Af 52 L, BUN/Creatinine Ratio 19.2, Glucose 84, Calcium 9.3, Total Bilirubin 0.50, AST 28, ALT 44, Alkaline Phosphatase 106, Troponin I < 0.015, Total Protein 7.8, Albumin 3.5, Globulin 4.3 H, Albumin/Globulin Ratio 0.8 L 12/24/20 09:15: Lactic Acid 2.3 H* 12/24/20 09:15: PT 31.8 H, INR 3.1 12/24/20 09:15: Procalcitonin Pending Current Medications Sodium Chloride () 1,000 mls @ 125 mls/hr IV .Q8H VANDANA Last Admin: 12/24/20 09:53 Dose: 125 mls/hr Documented by: Assessment/Plan All Active Problems (Last Updated 08/28/20 @ 11:48 by Jewels Zuñiga) Pneumonia due to COVID-19 virus (Acute) Hypoxemia (Acute) Guaiac positive stools (Resolved) Shortness of breath (Resolved) 1. Acute COVID-19 pneumonia, patient initially was reportedly on oxygen, not on oxygen and admission Started on remdesivir, ID consulted?appreciate recommendations Encourage use of incentive spirometer 2. Chronic atrial fibrillation, rate controlled, continue on carvedilol INR 3. 1, continue on warfarin, repeat INR in a.m. 3. Hypertension/status post pacemaker Blood pressures controlled, continue hydralazine, carvedilol, lisinopril 4. Hypothyroidism, continue on levothyroxine 5. DVT PPx- INR is therapeutic; on warfarin Inpatient E&M: 91176 Subs Hosp L2
[2020-12-24] MEDS: dexAMETHasone 4 MG/ML Vial 6 MG IV (11:15)
[2020-12-24 13:44] LABS: Reflex Lactate? Y
[2020-12-24 14:40] LABS: Lactic Acid 1.4 mmol/L (0.4-1.9)
--- NOTE | 2020-12-24 14:45 | CON.PCM_ITS ---
Problem List (1) Pneumonia due to COVID-19 virus Status: Acute Reason for Consult: covid Consulted by: Dr. Morel History of Present Illness: The patient is a 60 year old M with scleroderma, presented with sx starting 12/18 with dry cough, congestion, headache, mild chills. No change in taste or smell, no aches, no n/v/d. Covid (+), sx worsened, came to ED, started on remdesivir and dex. Feeling better today. tested neg, feeling fine, is in quarantine. Full ROS performed and neg except as noted above. - Medical History Past Medical History (Chronic Problems): Chronic Problems (Last Updated 08/28/20 @ 11:48 by Jewels Zuñiga) Longstanding persistent atrial fibrillation (Chronic) History of permanent cardiac pacemaker placement (Chronic 12/25/13) Dilated cardiomyopathy (Chronic) Chronic atrial fibrillation (Chronic) Chronotropic incompetence (Chronic) Essential (primary) hypertension (Chronic) HLD (hyperlipidemia) (Chronic) retirement current use of anticoagulant (Chronic) Iron deficiency (Chronic) Allergies/Adverse Reactions: Allergies penicillamine Allergy (Severe, Verified 12/24/20 08:58) Anaphylaxis Home Medications: Ambulatory Orders Medication Instructions Recorded Lamotrigine [Lamictal] 200 mg PO QHS 12/24/13 lisinopril 40 mg tablet 20 mg PO DAILY 30 Days #30 01/17/18 esomeprazole magnesium 40 mg 40 mg PO DAILY 09/03/18 capsule,delayed release ascorbic acid (vitamin C) 500 mg 500 mg PO DAILY cap 02/03/20 capsule cholecalciferol (vitamin D3) 125 125 mcg PO DAILY 02/03/20 mcg (5,000 unit) tablet magnesium 250 mg tablet 500 mg PO DAILY tab 02/03/20 olanzapine 5 mg tablet 5 mg PO DAILY 02/03/20 carvedilol 25 mg tablet 25 mg PO BID #60 tab 03/12/20 hydralazine 50 mg tablet 100 mg PO TID 05/13/20 levothyroxine 112 mcg tablet 112 mcg PO DAILY tab 05/13/20 warfarin 4 mg tablet 4 mg PO DAILY #90 tab 09/06/20 - Social History Tobacco Use: non-smoker Vital Signs Temp Pulse Resp BP Pulse Ox 98.9 F 62 16 154/86 H 99 12/24/20 12:45 12/24/20 12:45 12/24/20 12:45 12/24/20 12:45 12/24/20 12:45 Oxygen Delivery Method Room Air Weight: 77.578 kg Body Mass Index (BMI) 24.5 Laboratory Tests Past 24 Hrs 12/24/20 12/24/20 12/24/20 09:15 09:15 09:15 WBC 8.9 RBC 4.36 L Hgb 13.6 Hct 41.1 MCV 94.3 H MCH 31.2 MCHC 33.1 RDW Std Deviation 45.3 H RDW Coeff of Blanquita 13.2 Plt Count 160 MPV 11.2 Immature Gran % (Auto) 1.300 H Neut % (Auto) 75.6 H Lymph % (Auto) 11.2 L [place] % (Auto) 11.5 H Eos % (Auto) 0.1 Baso % (Auto) 0.3 Absolute Neuts (auto) 6.7 Absolute Lymphs (auto) 1.00 Nucleated RBC % 0 PT INR Sodium 139 Potassium 3.5 Chloride 106 Carbon Dioxide 28.0 Anion Gap 5 BUN 28 H Creatinine 1.46 H Estim Creat Clear Calc 54.86 Est GFR (MDRD) Af Amer 63 Est GFR (MDRD) Non-Af 52 L BUN/Creatinine Ratio 19.2 Glucose 84 Lactic Acid 2.3 H* Calcium 9.3 Total Bilirubin 0.50 AST 28 ALT 44 Alkaline Phosphatase 106 Troponin I < 0.015 Total Protein 7.8 Albumin 3.5 Globulin 4.3 H Albumin/Globulin Ratio 0.8 L Procalcitonin 12/24/20 12/24/20 12/24/20 09:15 09:15 14:08 WBC RBC Hgb Hct MCV MCH MCHC RDW Std Deviation RDW Coeff of Blanquita Plt Count MPV Immature Gran % (Auto) Neut % (Auto) Lymph % (Auto) [place] % (Auto) Eos % (Auto) Baso % (Auto) Absolute Neuts (auto) Absolute Lymphs (auto) Nucleated RBC % PT 31.8 H INR 3.1 Sodium Potassium Chloride Carbon Dioxide Anion Gap BUN Creatinine Estim Creat Clear Calc Est GFR (MDRD) Af Amer Est GFR (MDRD) Non-Af BUN/Creatinine Ratio Glucose Lactic Acid 1.4 Calcium Total Bilirubin AST ALT Alkaline Phosphatase Troponin I Total Protein Albumin Globulin Albumin/Globulin Ratio Procalcitonin 0.10 H - Other Studies Radiology: [] reviewed Other Studies: [] Route of nutrition/ use of supplements: [] Nutritional Intake: [] IV Site: [] Dia Catheter: [] - Physical Exam General: Alert, Oriented x3, Cooperative, No apparent distress HEENT: Atraumatic, PERRLA, EOMI Neck: Supple, No Nodes Lungs: Diminished Cardiovascular: Regular rate, Regular Rhythm Abdomen: Soft, Non Tender, Non-Distended Extremities: No edema Skin: No rashes IV Site: Peripheral, without redness Musculoskeletal: No Tenderness to Palpation of Joints or Extremities Neurological: Cranial nerves II-XII grossly intact - Assessment/Plan Antibiotics: [] Assessment/Plan: [] Active and Suspected Problems (Last Updated 08/28/20 @ 11:48 by Jewels Zuñiga) Scleroderma (Suspected) Pneumonia due to COVID-19 virus (Acute) Hypoxemia (Acute) covid - suspect initial hypoxia is due to raynaud's causing pulse ox error. Sats have been 99-100% on RA since then. Will stop dex. Cont remdesivir. is in quarantine, tested neg. If not further hypoxia, plan will be for 10 days of quarantine, possible discharge tomorrow. INR therapeutic. Will follow, thank you
[2020-12-24] MEDS: Famotidine 20 MG Tablet PO (20:40)
--- NOTE | 2020-12-24 22:50 | PCM.PN.BLA ---
Progress Note Home medications including Coumadin reordered. STROKE Vital Signs/Narrative: Vital Signs Temp Pulse Resp BP 12/24/20 20:43 97.1 F L 63 18 163/73 H
[2020-12-25 02:00] VITALS: BP 160/91; PULSE 75; RESP 18; TEMP 36.4; O2SAT 99
[2020-12-25 05:34] LABS: Absolute Lymphocyte Count 0.82 X10^3/uL (0.83-4.51); Absolute Neutrophil Count 5.1 X10^3/uL (2.0-7.7); Basophil# 0.02 X10^3/uL; Basophil% 0.3 % (0-1); Hematocrit 38.1 % (40-54); Hemoglobin 12.6 g/dL (13.0-16.5); Lymphocyte # 0.82 X10^3/ul (4.0); Lymphocyte % 11.8 % (19-41); Mean Corp Hgb Conc 33.1 g/dL (32-36); Mean Corpuscular Hgb 30.7 pg (27.0-32.0); Mean Corpuscular Volume 92.7 fL (80-94); Mean Platelet Vol. 10.8 fl (6.2-12.0); Monocyte# 0.91 X10^3/uL; Monocyte% 13.1 % (0-10); NRBC Flagged by Analyzer 0 % (0-5); Neutrophil # 5.08 X10^3/uL (2.7-7.7); Neutrophil % 72.9 % (47-70); Platelet Count 132 K/mm3 (150-450); RBC Distribution Width CV 13.1 % (11.6-14.6); RBC Distribution Width SD 44.3 fl (35.1-43.9); Red Blood Count 4.11 M/mm3 (4.6-6.2)
[2020-12-25 05:47] LABS: International Normalized Ratio 3.1; Prothrombin Time (Protime)PT. 31.9 SECONDS (11.7-14.9)
[2020-12-25 05:51] LABS: ALB/GLOB Ratio 0.8 RATIO (0.9-2.4); AST(SGOT) 26 U/L (15-37); Alanine Aminotransfer ALT/SGPT 37 U/L (16-61); Alkaline Phosphatase 100 U/L (45-117); Anion Gap 6 (5-15); BUN 31 mg/dL (7-18); BUN/Creat Ratio 27.9 RATIO (10-20); Calcium,Total 9.3 mg/dL (8.5-10.1); Chloride 108 mmol/L (98-107); Creatinine, Serum 1.11 mg/dL (0.70-1.30); EST Glomerular Filtration Rate 72 mL/min (>60); Est Glom Filt Rate - Afr Amer 87 mL/min (>60); Estimated Creatinine Clearance 72.16 ml/min; Glucose 126 mg/dL (74-106); Potassium 4.1 mmol/L (3.5-5.1); Sodium Level 138 mmol/L (136-145)
[2020-12-25] MEDS: Lisinopril 20 MG Tablet PO (08:05)
[2020-12-25] MEDS: OLANZapine 5 MG/TAB TAB.RAPDIS PO (08:06)
[2020-12-25] MEDS: Ascorbic Acid 500 MG Tablet PO (08:06)
[2020-12-25 08:07] VITALS: PULSE 60
[2020-12-25] MEDS: Carvedilol 25 MG Tablet PO (08:07)
[2020-12-25] MEDS: Pantoprazole Sodium 40 MG Tablet PO (08:07)
[2020-12-25] MEDS: Levothyroxine 112 MCG Tablet PO (08:07)
[2020-12-25] MEDS: hydrALAZINE 50 MG Tablet 100 MG PO (08:07)
[2020-12-25] MEDS: Magnesium Chloride 64 MG Delay Rel.Tablet 128 MG PO (08:07)
[2020-12-25] MEDS: Famotidine 20 MG Tablet PO (08:09)
[2020-12-25 08:11] VITALS: BP 161/90; PULSE 60; RESP 16; TEMP 36.4; O2SAT 94; O2SAT 95
[2020-12-25 08:15] VITALS: O2SAT 94; O2SAT 95
[2020-12-25] MEDS: 0.9% Saline Lock 10 ML Syringe IV (09:37)
--- NOTE | 2020-12-25 10:47 | NURSING ---
pt having blood in stools, dr loja aware. no new orders
--- NOTE | 2020-12-25 11:23 | DCINST_ITS ---
- Discharge Diagnoses Current Active Problems: Current Active and Chronic Problems (Last Updated 08/28/20 @ 11:48 by Jewels Zuñiga) Scleroderma (Chronic) Pneumonia due to COVID-19 virus (Acute) Hypoxemia (Acute) Longstanding persistent atrial fibrillation (Chronic) History of permanent cardiac pacemaker placement (Chronic 12/25/13) Dilated cardiomyopathy (Chronic) Chronic atrial fibrillation (Chronic) Essential (primary) hypertension (Chronic) HLD (hyperlipidemia) (Chronic) Iron deficiency (Chronic) Reason(s) for Visit for Discharge Instructions: Acute COVID-19 infection You will use the following diet at home:: Cardiac Your food should be the consistency of: Regular Your liquids should be the consistency of: Regular/Thin Discharge Activity: Return to Normal Activity Additional Instructions: Continue to quarantine for 10 more days. Continue to keep yourself hydrated, you are encouraged to use your incentive spirometer. Allergies/Adverse Reactions: Allergies penicillamine Allergy (Severe, Verified 12/24/20 08:58) Anaphylaxis Medications to take at Discharge Lamotrigine [Lamictal] 200 mg PO QHS 12/24/13 lisinopril 40 mg tablet 20 mg PO DAILY 30 Days #30 01/17/18 esomeprazole magnesium 40 mg capsule,delayed release 40 mg PO DAILY 09/03/18 ascorbic acid (vitamin C) 500 mg capsule 500 mg PO DAILY cap 02/03/20 cholecalciferol (vitamin D3) 125 mcg (5,000 unit) tablet 125 mcg PO DAILY 02/03/20 magnesium 250 mg tablet 500 mg PO DAILY tab 02/03/20 olanzapine 5 mg tablet 5 mg PO DAILY 02/03/20 carvedilol 25 mg tablet 25 mg PO BID #60 tab 03/12/20 hydralazine 50 mg tablet 100 mg PO TID 05/13/20 levothyroxine 112 mcg tablet 112 mcg PO DAILY tab 05/13/20 warfarin 4 mg tablet 4 mg PO DAILY #90 tab 09/06/20 Primary Care Physician: Satnam Ybarra MD [Primary Care Provider] - Please follow up with your Primary Care Physician in: within 1-2 weeks Test Results: Test results from this visit will be discussed in further detail at your follow- up appointment, if applicable. Proposed Discharge Date: 12/25/20
--- NOTE | 2020-12-25 11:26 | PCM.DC.SUM ---
Discharge Date and Diagnosis - Problem List Patient Problems: Active and Suspected Problems (Last Updated 08/28/20 @ 11:48 by Jewels Zuñiga) Pneumonia due to COVID-19 virus (Acute) Hypoxemia (Acute) Date of Admission: 12/24/20 Date of Discharge: 12/25/20 - Primary Discharge Diagnosis Acute Problems: Active Problems (Last Updated 08/28/20 @ 11:48 by Jewels Zuñiga) Pneumonia due to COVID-19 virus (Acute) - Secondary Discharge Diagnosis Chronic Problems: Chronic Problems (Last Updated 08/28/20 @ 11:48 by Jewels Zuñiga) Scleroderma (Chronic) Longstanding persistent atrial fibrillation (Chronic) History of permanent cardiac pacemaker placement (Chronic 12/25/13) Dilated cardiomyopathy (Chronic) Chronic atrial fibrillation (Chronic) Chronotropic incompetence (Chronic) Essential (primary) hypertension (Chronic) HLD (hyperlipidemia) (Chronic) penitentiary current use of anticoagulant (Chronic) Iron deficiency (Chronic) Hospital Course and Treatment Imaging Results: Clinical Impression(s) from Imaging Studies Chest X-Ray 12/24/20 10:10 IMPRESSION: Increased markings in the right midlung as well as in the left lower lobe suggestive of early infiltrates. Follow-up is recommended. Electronically Signed: Levi Hernandez MD at 10:51 EST , Service support , ID Operations: None Procedures: None Summary of Care Provided: The patient is a 60 year old M with past medical history of scleroderma, hypertension, hypothyroidism, chronic atrial fibrillation who comes in with generalized malaise, cough, sinus symptoms that started a week ago. Patient was diagnosed with COVID-19 infection about 5 days prior. He has been getting progressively short of breath, and decided to come to the emergency room. In the emergency room, his oxygen saturation was 84% on room air. Patient however states he has Raynaud phenomena and he told them have his hands warmed up before the recheck. When the oxygen probe was placed on his ear, he was 100% on room air. Patient was admitted to to the cohort unit. He did not require oxygen overnight. He received remdesivir over 2 days. Patient was seen by infectious disease who did not recommend use of dexamethasone in the absence of hypoxia. Patient continued to remain stable, no new complaints, he was ambulated and did not qualify for oxygen. He was discharged to continue to quarantine for 10 more days. Patient Problems: Active and Suspected Problems (Last Updated 08/28/20 @ 11:48 by Jewels Zuñiga) Pneumonia due to COVID-19 virus (Acute) Hypoxemia (Acute) Subjective: Patient was seen and examined. Denied any new complaint. He has not required oxygen during this stay. He was ambulated and did not qualify for oxygen. Objective: Physical exam: General: Alert, Oriented x3, Cooperative, No apparent distress HEENT: Atraumatic, PERRLA, EOMI, Normocephalic Oral: Moist Mucosa Neck: Supple Lungs: Diminished Cardiovascular: Regular rate, Regular Rhythm, Normal S1, Normal S2, No murmurs Abdomen: Bowel Sounds Present, Soft, Non Tender, Non-Distended, No Hepato-splenomegaly Extremities: No edema, - - multiple joint deformities in PIP and DIP Skin: - - Taut skin over the joints of the hands Musculoskeletal: No Tenderness to Palpation of Joints or Extremities Lymphatic: No Cervical, Supraclavicular, or Inguinal Adenopathy Neurological: Cranial nerves II-XII grossly intact Psych/Mental Status: Normal Affect, Appropriate - Physical Exam Vitals/I&O's: Vital Signs Temp Pulse Resp BP Pulse Ox 97.6 F L 60 16 161/90 H 95 12/25/20 08:11 12/25/20 08:11 12/25/20 08:11 12/25/20 08:11 12/25/20 08:15 Oxygen Delivery Method Room Air Weight: 70.76 kg Body Mass Index (BMI) 24.5 Intake and Output for Last 24 Hours 12/23/20 12/24/20 12/25/20 23:59 23:59 23:59 Intake Total 1250 / 1450 440 / 440 Balance 1250 / 1450 440 / 440 Microbiology Past 72 Hours 12/24/20 13:20 Mucosa - Nasopharyngeal Respiratory Panel (PCR) - Final Laboratory Results 12/24/20 09:15: Procalcitonin 0.10 H 12/24/20 14:08: Lactic Acid 1.4 12/25/20 05:00: WBC 7.0, RBC 4.11 L, Hgb 12.6 L, Hct 38.1 L, MCV 92.7, MCH 30.7, MCHC 33.1, RDW Std Deviation 44.3 H, RDW Coeff of Blanquita 13.1, Plt Count 132 L, MPV 10.8, Immature Gran % (Auto) 1.900 H, Neut % (Auto) 72.9 H, Lymph % (Auto) 11.8 L, [place] % (Auto) 13.1 H, Eos % (Auto) 0.0, Baso % (Auto) 0.3, Absolute Neuts (auto) 5.1, Absolute Lymphs (auto) 0.82 L, Nucleated RBC % 0 12/25/20 05:00: PT 31.9 H, INR 3.1 12/25/20 05:00: Sodium 138, Potassium 4.1, Chloride 108 H, Carbon Dioxide 24.0, Anion Gap 6, BUN 31 H, Creatinine 1.11, Estim Creat Clear Calc 72.16, Est GFR (MDRD) Af Amer 87, Est GFR (MDRD) Non-Af 72, BUN/Creatinine Ratio 27.9 H, Glucose 126 H, Calcium 9.3, Total Bilirubin 0.50, AST 26, ALT 37, Alkaline Phosphatase 100, Total Protein 7.0, Albumin 3.0 L, Globulin 4.0, Albumin/Globulin Ratio 0.8 L Current Medications Acetaminophen (Acetaminophen 325 Mg Tablet) 650 mg PO Q6H PRN PRN PRN Reason: Pain Score 1-10/Temp > 100.7 F Al Hydroxide/Mg Hydroxide (Mag Hydrox/Al Hydrox/Simeth 30 Ml Udc) 30 ml PO Q6H PRN PRN PRN Reason: Gastric Burning Ascorbic Acid (Ascorbic Acid 500 Mg Tablet) 500 mg PO DAILY [facility] Last Admin: 12/25/20 08:06 Dose: 500 mg Documented by: Carvedilol (Carvedilol 25 Mg Tablet) 25 mg PO BID [facility] Last Admin: 12/25/20 08:07 Dose: 25 mg Documented by: Cholecalciferol (Cholecalciferol (Vit D3) 1,000 Unit (25mcg)) 5,000 unit PO DAILY [facility] Last Admin: 12/25/20 08:06 Dose: 5,000 unit Documented by: Famotidine (Famotidine 20 Mg Tablet) 20 mg PO BID [facility] Last Admin: 12/25/20 08:09 Dose: 20 mg Documented by: Hydralazine HCl (Hydralazine 50 Mg Tablet) 100 mg PO TIDCM [facility] Last Admin: 12/25/20 08:07 Dose: 100 mg Documented by: Remdesivir 100 mg/ Sodium (Chloride) 250 mls @ 125 mls/hr IV DAILY [facility] Stop: 12/28/20 11:59 Last Admin: 12/25/20 09:36 Dose: 125 mls/hr Documented by: Sodium Chloride () 250 mls @ 15 mls/hr IV .[id number] PRN PRN Reason: Saline Flush Lamotrigine (Lamotrigine 100 Mg Tablet) 200 mg PO QHS [facility] Levothyroxine Sodium (Levothyroxine 112 Mcg Tablet) 112 mcg PO DAILY [facility] Last Admin: 12/25/20 08:07 Dose: 112 mcg Documented by: Lisinopril (Lisinopril 20 Mg Tablet) 20 mg PO DAILY [facility] Last Admin: 12/25/20 08:05 Dose: 20 mg Documented by: Magnesium Chloride (Magnesium Chloride 64 Mg Delay Rel.Tablet) 128 mg PO DAILY [facility] Last Admin: 12/25/20 08:07 Dose: 128 mg Documented by: Olanzapine (Olanzapine 5 Mg/Tab Tab.Rapdis) 5 mg PO DAILY [facility] Last Admin: 12/25/20 08:06 Dose: 5 mg Documented by: Ondansetron HCl (Ondansetron 4 Mg/2 Ml Vial) 4 mg IV Q8H PRN PRN PRN Reason: NAUSEA/VOMITING Oxycodone HCl (Oxycodone 5 Mg Tablet) 5 mg PO Q4H PRN PRN PRN Reason: Pain Score 4-10 Pantoprazole Sodium (Pantoprazole Sodium 40 Mg Tablet) 40 mg PO DAILY [facility] Last Admin: 12/25/20 08:07 Dose: 40 mg Documented by: Senna/Docusate Sodium (Senna/Docusate Sodium 1 Tablet) 2 tablet PO BID PRN PRN PRN Reason: Constipation Sodium Chloride (0.9% Saline Lock 10 Ml Syringe) 10 - 40 ml IV UD PRN PRN Reason: SALINE FLUSH Last Admin: 12/25/20 09:37 Dose: 10 ml Documented by: Warfarin Sodium (Warfarin 4 Mg Tablet) 4 mg PO DAILY [facility] Last Admin: 12/25/20 10:46 Dose: Not Given Documented by: Discharge Diet: Low fat/ Low Cholesterol, 2000 mg Sodium Diet Discharge Activity: Return to Normal Activity Home Medications: Medications to take at Discharge Lamotrigine [Lamictal] 200 mg PO QHS 12/24/13 lisinopril 40 mg tablet 20 mg PO DAILY 30 Days #30 01/17/18 esomeprazole magnesium 40 mg capsule,delayed release 40 mg PO DAILY 09/03/18 ascorbic acid (vitamin C) 500 mg capsule 500 mg PO DAILY cap 02/03/20 cholecalciferol (vitamin D3) 125 mcg (5,000 unit) tablet 125 mcg PO DAILY 02/03/20 magnesium 250 mg tablet 500 mg PO DAILY tab 02/03/20 olanzapine 5 mg tablet 5 mg PO DAILY 02/03/20 carvedilol 25 mg tablet 25 mg PO BID #60 tab 03/12/20 hydralazine 50 mg tablet 100 mg PO TID 05/13/20 levothyroxine 112 mcg tablet 112 mcg PO DAILY tab 05/13/20 warfarin 4 mg tablet 4 mg PO DAILY #90 tab 09/06/20 Primary Care Physician: Satnam Ybarra MD [Primary Care Provider] - Please follow up with your Primary Care Physician in: within 1-2 weeks Disposition: Home Minutes spent on discharge:: 40 Patient Condition:: Stable Medical Necessity - Tobacco Use Smoking Status: Never smoker Tobacco Use: Non-smoker Meaningful Use Info Meaningful Use Diagnoses (Choose all that apply): None applicable Inpatient E&M: 85512 Disch Hosp
--- NOTE | 2020-12-27 15:25 | CASEMGMT ---
RN [facility] Note: DC Date: 12/25/20 DC Disposition: Covid 19 pneumonia Attempted call to patient's phone.No answer and no messaging with name identifier. Pt did not return home on oxygen. Yaya CÁRDENASN RN AC
== END 2020-12-25 12:35 | disposition home or self-care (01) | DRG 177 ==
LOC: ED 10:49 → MS2 11:45
PROVIDERS: Admitting Provider Internal Medicine; Emergency Provider Emergency Medicine; PCP Family Medicine; Visit Provider Internal Medicine
DX: U07.1 COVID-19 (principal); J12.82 Pneumonia due to coronavirus disease 2019; I48.11 Longstanding persistent atrial fibrillation; I45.89 Other specified conduction disorders; I73.00 Raynaud's syndrome without gangrene; M34.9 Systemic sclerosis, unspecified; I10 Essential (primary) hypertension; R09.02 Hypoxemia; E61.1 Iron deficiency; E78.00 Pure hypercholesterolemia, unspecified; E78.5 Hyperlipidemia, unspecified; Z79.01 Long term (current) use of anticoagulants; Z79.890 Hormone replacement therapy; Z82.3 Family history of stroke; Z82.49 Family history of ischemic heart disease and other diseases of the circulatory system; Z83.3 Family history of diabetes mellitus; Z95.0 Presence of cardiac pacemaker
CPT/HCPCS: 36415; 71045; 80053; 83605; 84145; 84484; 85025; 85610; 87040; 87633; 93005; 99251; 99285; J7050; A4216; G0463

== ENCOUNTER 2021-01-17 15:54 | Outpatient (RCR) | payer OTHER, SELFPAY ==
[2020-12-24 12:25] VITALS: BMI 24.5
[2021-01-17 17:31] LABS: International Normalized Ratio 2.7; Prothrombin Time (Protime)PT. 28.5 SECONDS (11.7-14.9)
== END 2021-01-17 18:00 | disposition home or self-care (01) ==
LOC: LAB 15:54
PROVIDERS: Family Provider Family Medicine; PCP Family Medicine; Referring Provider Internal Medicine Cardiovascular Disease; Visit Provider Internal Medicine Cardiovascular Disease
DX: I48.11 Longstanding persistent atrial fibrillation (principal); Z79.01 Long term (current) use of anticoagulants
CPT/HCPCS: 36415; 85610

== ENCOUNTER → 2021-01-20 11:57 | Outpatient (CLI) | payer OTHER, SELFPAY ==
[2020-12-24 12:25] VITALS: BMI 24.5
[2021-01-20 12:36] LABS: Protein, Urine (Random) 34.5 mg/dL (<11.9); Protein:Creat Ratio 400 mg/g CRE (0-200)
== END ==
PROVIDERS: PCP Family Medicine; Visit Provider Internal Medicine Nephrology
DX: N18.30 Chronic kidney disease, stage 3 unspecified (principal)
CPT/HCPCS: 82570; 84156

== ENCOUNTER → 2021-02-17 16:20 | Outpatient (CLI) | payer OTHER, SELFPAY ==
[2021-02-08 16:23] VITALS: BMI 24.8
[2021-02-17 17:33] LABS: Absolute Lymphocyte Count 1.47 X10^3/uL (0.83-4.51); Absolute Neutrophil Count 3.5 X10^3/uL (2.0-7.7); Basophil# 0.03 X10^3/uL; Basophil% 0.5 % (0-1); Eosinophil# 0.13 X10^3/uL; Eosinophils% 2.2 % (0-5); Hematocrit 41.5 % (40-54); Hemoglobin 12.9 g/dL (13.0-16.5); Lymphocyte # 1.47 X10^3/ul (4.0); Lymphocyte % 24.9 % (19-41); Mean Corp Hgb Conc 31.1 g/dL (32-36); Mean Corpuscular Hgb 30.1 pg (27.0-32.0); Mean Corpuscular Volume 96.7 fL (80-94); Monocyte# 0.77 X10^3/uL; NRBC Flagged by Analyzer 0 % (0-5); Neutrophil # 3.48 X10^3/uL (2.7-7.7); Neutrophil % 58.9 % (47-70); Platelet Count 172 K/mm3 (150-450); RBC Distribution Width CV 13.9 % (11.6-14.6); RBC Distribution Width SD 49.2 fl (35.1-43.9); Red Blood Count 4.29 M/mm3 (4.6-6.2); White Blood Count 5.9 K/mm3 (4.4-11.0)
[2021-02-17 17:43] LABS: International Normalized Ratio 2.4; Prothrombin Time (Protime)PT. 25.2 SECONDS (11.7-14.9)
[2021-02-17 18:03] LABS: Hemoglobin A1c 5.4 % (3.8-5.6)
[2021-02-17 18:39] LABS: Vitamin D,25 Hydroxy 106.1 ng/mL
[2021-02-17 20:29] LABS: AST(SGOT) 24 U/L (15-37); Alanine Aminotransfer ALT/SGPT 39 U/L (16-61); Albumin, Serum 4.1 g/dL (3.2-5.0); Alkaline Phosphatase 110 U/L (45-117); Anion Gap 7 (5-15); BUN 29 mg/dL (7-18); BUN/Creat Ratio 19.1 RATIO (10-20); Calcium,Total 10.1 mg/dL (8.5-10.1); Chloride 106 mmol/L (98-107); Creatinine, Serum 1.52 mg/dL (0.70-1.30); EST Glomerular Filtration Rate 50 mL/min (>60); Est Glom Filt Rate - Afr Amer 60 mL/min (>60); Globulin 4.1 g/dL (2.2-4.2); Glucose 84 mg/dL (74-106); Protein, Total 8.2 g/dL (6.4-8.2); Sodium Level 141 mmol/L (136-145); T4 Free Direct 1.16 ng/dL (0.76-1.46)
== END ==
PROVIDERS: Internal Medicine Cardiovascular Disease; PCP Family Medicine; Referring Provider Family Medicine; Visit Provider Family Medicine
DX: E03.8 Other specified hypothyroidism (principal); E55.9 Vitamin D deficiency, unspecified; I48.11 Longstanding persistent atrial fibrillation; Z79.01 Long term (current) use of anticoagulants; E11.9 Type 2 diabetes mellitus without complications
CPT/HCPCS: 36415; 80053; 82306; 83036; 83735; 84439; 84443; 85025; 85610

== ENCOUNTER → 2021-02-21 15:53 | Outpatient (CLI) | payer OTHER, SELFPAY ==
[2020-12-24 12:25] VITALS: BMI 24.5
[2021-02-08 16:23] VITALS: BMI 24.8
[2021-02-21 17:41] LABS: Albumin, Serum 3.9 g/dL (3.2-5.0); BUN 25 mg/dL (7-18); BUN/Creat Ratio 14.5 RATIO (10-20); Calcium,Total 9.6 mg/dL (8.5-10.1); Chloride 108 mmol/L (98-107); Creatinine, Serum 1.72 mg/dL (0.70-1.30); EST Glomerular Filtration Rate 43 mL/min (>60); Est Glom Filt Rate - Afr Amer 52 mL/min (>60); Glucose 103 mg/dL (74-106); Phosphorus 2.7 mg/dL (2.5-4.9); Potassium 4.5 mmol/L (3.5-5.1); Sodium Level 138 mmol/L (136-145)
[2021-02-21 17:46] LABS: Vitamin D,25 Hydroxy 88.6 ng/mL
== END ==
PROVIDERS: PCP Family Medicine; Referring Provider Internal Medicine Nephrology; Visit Provider Internal Medicine Nephrology
DX: N18.30 Chronic kidney disease, stage 3 unspecified (principal); E55.9 Vitamin D deficiency, unspecified
CPT/HCPCS: 36415; 80069; 82306

== ENCOUNTER → 2021-05-16 16:00 | Outpatient (CLI) | payer OTHER, SELFPAY ==
[2021-02-08 16:23] VITALS: BMI 24.8
== END ==
PROVIDERS: PCP Family Medicine; Visit Provider Family Medicine
DX: Z00.00 Encounter for general adult medical examination without abnormal findings (principal)

== ENCOUNTER → 2021-05-25 12:13 | Outpatient (CLI) | payer OTHER, SELFPAY ==
[2021-02-08 16:23] VITALS: BMI 24.8
--- NOTE | 2021-05-25 12:16 | US_ITS ---
STUDY: THYROID ULTRASOUND REASON FOR EXAM: Male, 60 years old. NODULE TECHNIQUE: Ultrasound evaluation of the thyroid was performed with real-time and static polk-scale imaging. COMPARISON: None. FINDINGS: RIGHT LOBE: The right lobe of the thyroid gland measures 3.3 cm x 1.4 cm x 1.3 cm. There is a heterogeneous echotexture. There are no demonstrated solid, cystic or complex lesions. LEFT LOBE: The left lobe of the thyroid gland measures 2.8 cm x 1.2 cm x 1.2 cm. There is a heterogeneous echotexture. There are no demonstrated solid, cystic or complex lesions. ISTHMUS: The isthmus measures 4 mm. The regional lymph nodes are normal. US/Thyroid IMPRESSION: Heterogeneous echotexture of both lobes of the thyroid gland. No focal nodule is seen. Electronically Signed: Levi Hernandez MD at 15:29 EDT , Service support ,
== END ==
PROVIDERS: PCP Family Medicine; Referring Provider Family Medicine; Visit Provider Family Medicine
DX: E04.1 Nontoxic single thyroid nodule (principal)
CPT/HCPCS: 76536

== ENCOUNTER 2021-07-18 16:16 | Outpatient (RCR) | payer OTHER, SELFPAY ==
[2021-02-08 16:23] VITALS: BMI 24.8
[2021-07-18 17:06] LABS: Absolute Lymphocyte Count 1.22 X10^3/uL (0.83-4.51); Absolute Neutrophil Count 3.9 X10^3/uL (2.0-7.7); Basophil# 0.03 X10^3/uL; Basophil% 0.5 % (0-1); Eosinophil# 0.07 X10^3/uL; Eosinophils% 1.2 % (0-5); Hematocrit 36.9 % (40-54); Hemoglobin 11.4 g/dL (13.0-16.5); Lymphocyte # 1.22 X10^3/ul (0.83-4.51); Lymphocyte % 20.4 % (19-41); Mean Corp Hgb Conc 30.9 g/dL (32-36); Mean Corpuscular Hgb 28.4 pg (27.0-32.0); Mean Corpuscular Volume 91.8 fL (80-94); Mean Platelet Vol. 11.5 fl (6.2-12.0); Monocyte% 11.7 % (0-10); NRBC Flagged by Analyzer 0 % (0-5); Neutrophil # 3.94 X10^3/uL (2.7-7.7); Neutrophil % 65.9 % (47-70); Platelet Count 145 K/mm3 (150-450); RBC Distribution Width CV 15.3 % (11.6-14.6); RBC Distribution Width SD 51.1 fl (35.1-43.9); Red Blood Count 4.02 M/mm3 (4.6-6.2)
[2021-07-18 17:14] LABS: International Normalized Ratio 2.8; Prothrombin Time (Protime)PT. 28.6 SECONDS (11.7-14.9)
[2021-07-18 17:53] LABS: Hemoglobin A1c 5.9 % (3.8-5.6)
[2021-07-18 18:06] LABS: ALB/GLOB Ratio 1.1 RATIO (0.9-2.4); AST(SGOT) 16 U/L (15-37); Alanine Aminotransfer ALT/SGPT 31 U/L (16-61); Alkaline Phosphatase 117 U/L (45-117); Anion Gap 6 (5-15); BUN 25 mg/dL (7-18); BUN/Creat Ratio 14.7 RATIO (10-20); Chloride 109 mmol/L (98-107); EST Glomerular Filtration Rate 44 mL/min (>60); Est Glom Filt Rate - Afr Amer 53 mL/min (>60); Globulin 3.8 g/dL (2.2-4.2); Glucose 100 mg/dL (74-106); Potassium 3.7 mmol/L (3.5-5.1); Protein, Total 7.8 g/dL (6.4-8.2); Sodium Level 140 mmol/L (136-145); T4 Free Direct 1.02 ng/dL (0.76-1.46); Thyroid Stim Hormone (TSH) 2.28 uIU/mL (0.358-3.74)
[2021-07-18 18:26] LABS: Microalbumin:Creatinine Ratio 787.4 mg/g CRE (<30 mg/g CRE)
[2021-07-20 14:10] LABS: Thyroid Peroxidase AB 85 IU/mL (0-34)
[2021-07-20 14:21] LABS: Thyroglobulin Antibody 1950.1 IU/mL (0.0-0.9)
== END 2021-07-18 18:00 | disposition home or self-care (01) ==
LOC: LAB 16:16
PROVIDERS: Family Provider Family Medicine; PCP Family Medicine; Referring Provider Internal Medicine Cardiovascular Disease; Visit Provider Internal Medicine Cardiovascular Disease
DX: I48.11 Longstanding persistent atrial fibrillation (principal); Z79.01 Long term (current) use of anticoagulants; Z12.5 Encounter for screening for malignant neoplasm of prostate; E11.9 Type 2 diabetes mellitus without complications; E04.1 Nontoxic single thyroid nodule
CPT/HCPCS: 36415; 80053; 82043; 82570; 83036; 84153; 84439; 84443; 85025; 85610; 86376; 86800; G0103

== ENCOUNTER → 2021-07-19 05:45 | Outpatient (CLI) | payer OTHER, SELFPAY ==
[2021-07-19 08:01] LABS: Cholesterol 160 mg/dL (200); High Density Lipoprotein 27 mg/dL; Triglycerides 146 mg/dL; Very Low Density Lipoprotein 29 mg/dL (5-40)
== END ==
PROVIDERS: PCP Family Medicine; Referring Provider Family Medicine; Visit Provider Family Medicine
DX: E11.9 Type 2 diabetes mellitus without complications (principal)
CPT/HCPCS: 36415; 80061

== ENCOUNTER → 2021-07-21 16:27 | Outpatient (CLI) | payer OTHER, SELFPAY ==
[2021-07-21 18:20] LABS: Vitamin B12 527 pg/mL (211-911)
[2021-07-21 19:08] LABS: Ferritin 19 ng/mL (26-388); Iron 50 ug/dL (65-175); Iron Binding Capacity,Total 402 ug/dL (250-450)
== END ==
PROVIDERS: PCP Family Medicine; Referring Provider Family Medicine; Visit Provider Family Medicine
DX: D64.9 Anemia, unspecified (principal)
CPT/HCPCS: 36415; 82607; 82728; 82746; 83540; 83550

== ENCOUNTER 2021-09-06 16:19 | Outpatient (RCR) | payer OTHER, SELFPAY ==
[2021-07-19 19:39] VITALS: BMI 24.8
[2021-09-06 17:39] LABS: International Normalized Ratio 2.6; Prothrombin Time (Protime)PT. 26.9 SECONDS (11.7-14.9)
== END 2021-09-18 02:47 | disposition home or self-care (01) ==
LOC: LAB 16:19
PROVIDERS: Family Provider Family Medicine; PCP Family Medicine; Referring Provider Internal Medicine Cardiovascular Disease; Visit Provider Internal Medicine Cardiovascular Disease
DX: I48.11 Longstanding persistent atrial fibrillation (principal); Z79.01 Long term (current) use of anticoagulants
CPT/HCPCS: 36415; 85610

== ENCOUNTER 2022-02-01 15:46 | Outpatient (RCR) | payer BC, SELFPAY ==
[2021-09-18 02:47] VITALS: BMI 24.8
[2022-02-01 17:15] LABS: International Normalized Ratio 2.2; Prothrombin Time (Protime)PT. 23.4 SECONDS (11.7-14.9)
== END 2022-02-16 18:00 | disposition home or self-care (01) ==
LOC: LAB 15:46
PROVIDERS: Family Provider Family Medicine; PCP Family Medicine; Referring Provider Internal Medicine Cardiovascular Disease; Visit Provider Internal Medicine Cardiovascular Disease
DX: I48.11 Longstanding persistent atrial fibrillation (principal); Z79.01 Long term (current) use of anticoagulants
CPT/HCPCS: 36415; 85610

== ENCOUNTER → 2022-03-10 | Outpatient (CLI) | payer BC, SELFPAY ==
[2022-03-10 13:39] LABS: Bacteria 0 SEEN /hpf (None Seen); Mucous, Urine 0 SEEN /hpf (<or=2+); Red Blood Cells-Urine 0 SEEN /hpf (0-5); White Blood Cells 0 SEEN /hpf (0-5)
[2022-03-10 14:32] LABS: Color, Urine Yellow (Yellow); Glucose, Dipstick 1000 mg/dl (Normal); Ketone-Dipstick Negative (Negative); Leukocyte Esterase-Dipstick Negative /ul (Negative); Nitrite-Dipstick Negative (Negative); Occult Blood-Urine Negative /ul (Negative); Protein-Dipstick 100 mg/dl (Negative); Urine Bilirubin Dipstick Negative (Negative); Urine Clarity Sl. Cloudy (Clear); Urine Urobilinogen Normal (Normal)
[2022-03-10 14:33] LABS: Absolute Lymphocyte Count 1.17 X10^3/uL (0.83-4.51); Basophil# 0.05 X10^3/uL; Basophil% 0.5 % (0-1); Eosinophils% 2.2 % (0-5); Lymphocyte # 1.17 X10^3/ul (0.83-4.51); Lymphocyte % 12.6 % (19-41); Mean Corpuscular Hgb 28.9 pg (27.0-32.0); Mean Corpuscular Volume 93.3 fL (80-94); Mean Platelet Vol. 11.3 fl (6.2-12.0); Monocyte# 0.83 X10^3/uL; Monocyte% 8.9 % (0-10); NRBC Flagged by Analyzer 0 % (0-5); Neutrophil # 6.96 X10^3/uL (2.7-7.7); Platelet Count 271 K/mm3 (150-450); RBC Distribution Width CV 14.1 % (11.6-14.6); RBC Distribution Width SD 47.9 fl (35.1-43.9); White Blood Count 9.3 K/mm3 (4.4-11.0)
[2022-03-10 14:39] LABS: International Normalized Ratio 2.1; Prothrombin Time (Protime)PT. 23.4 SECONDS (11.7-14.9)
[2022-03-10 14:42] LABS: Squamous Epithelial Cells - UA 0-5 SEEN /hpf (0-5)
[2022-03-10 14:55] LABS: BNP,B-Type NATRIURETIC PEPTIDE 227.5 pg/mL (0-100)
[2022-03-10 14:56] LABS: Anion Gap 5 (5-15); BUN 38 mg/dL (7-18); BUN/Creat Ratio 24.1 RATIO (10-20); Calcium,Total 10.2 mg/dL (8.5-10.1); Chloride 109 mmol/L (98-107); Creatinine, Serum 1.58 mg/dL (0.70-1.30); EST Glomerular Filtration Rate 47 mL/min (>60); Est Glom Filt Rate - Afr Amer 57 mL/min (>60); Glucose 108 mg/dL (74-106); Potassium 4.3 mmol/L (3.5-5.1); Sodium Level 139 mmol/L (136-145)
== END | disposition home or self-care (01) ==
LOC: PAT 03-27 14:26
PROVIDERS: Nurse Practitioner Gerontology; PCP Family Medicine; Visit Provider Internal Medicine Cardiovascular Disease
DX: I44.2 Atrioventricular block, complete (principal); I50.32 Chronic diastolic (congestive) heart failure; I48.11 Longstanding persistent atrial fibrillation; Z95.0 Presence of cardiac pacemaker; I51.89 Other ill-defined heart diseases
CPT/HCPCS: 36415; 80048; 81001; 83880; 85025; 85610

== ENCOUNTER → 2022-03-14 | Outpatient (CLI) | payer BC, SELFPAY ==
[2022-03-14 07:10] LABS: Absolute Lymphocyte Count 0.92 X10^3/uL (0.83-4.51); Absolute Neutrophil Count 6.1 X10^3/uL (2.0-7.7); Basophil# 0.03 X10^3/uL; Basophil% 0.4 % (0-1); Eosinophil# 0.41 X10^3/uL; Eosinophils% 4.9 % (0-5); Hematocrit 38.8 % (40-54); Hemoglobin 12.2 g/dL (13.0-16.5); Lymphocyte # 0.92 X10^3/ul (0.83-4.51); Mean Corp Hgb Conc 31.4 g/dL (32-36); Mean Corpuscular Hgb 29.3 pg (27.0-32.0); Mean Platelet Vol. 11.7 fl (6.2-12.0); Monocyte# 0.86 X10^3/uL; Monocyte% 10.3 % (0-10); NRBC Flagged by Analyzer 0 % (0-5); Neutrophil # 6.09 X10^3/uL (2.7-7.7); Neutrophil % 72.6 % (47-70); Platelet Count 206 K/mm3 (150-450); RBC Distribution Width CV 14.6 % (11.6-14.6); RBC Distribution Width SD 49.4 fl (35.1-43.9); Red Blood Count 4.17 M/mm3 (4.6-6.2); White Blood Count 8.4 K/mm3 (4.4-11.0)
[2022-03-14 07:20] LABS: Protein:Creat Ratio 583 mg/g CRE (0-200)
[2022-03-14 07:51] LABS: ALB/GLOB Ratio 0.8 RATIO (0.9-2.4); AST(SGOT) 26 U/L (15-37); Alanine Aminotransfer ALT/SGPT 38 U/L (16-61); Albumin, Serum 3.6 g/dL (3.2-5.0); Alkaline Phosphatase 167 U/L (45-117); Anion Gap 5 (5-15); BUN 32 mg/dL (7-18); BUN/Creat Ratio 20.4 RATIO (10-20); Calcium,Total 9.7 mg/dL (8.5-10.1); Chloride 114 mmol/L (98-107); Cholesterol 127 mg/dL (200); Creatinine, Serum 1.57 mg/dL (0.70-1.30); EST Glomerular Filtration Rate 48 mL/min (>60); Est Glom Filt Rate - Afr Amer 58 mL/min (>60); Ferritin 19 ng/mL (26-388); Globulin 4.4 g/dL (2.2-4.2); Glucose 114 mg/dL (74-106); High Density Lipoprotein 26 mg/dL; Iron 63 ug/dL (65-175); Iron Binding Capacity,Total 397 ug/dL (250-450); Phosphorus 3.6 mg/dL (2.5-4.9); Sodium Level 143 mmol/L (136-145); T4 Free Direct 1.04 ng/dL (0.76-1.46); Thyroid Stim Hormone (TSH) 4.64 uIU/mL (0.358-3.74); Triglycerides 155 mg/dL; Very Low Density Lipoprotein 31 mg/dL (5-40)
[2022-03-14 09:44] LABS: PTHIN 74.4 pg/mL (18.4-80.1)
[2022-03-14 09:46] LABS: Vitamin B12 658 pg/mL (211-911)
== END | disposition home or self-care (01) ==
LOC: LAB 05:50
PROVIDERS: PCP Family Medicine; Referring Provider Family Medicine; Visit Provider Family Medicine
DX: D64.9 Anemia, unspecified (principal); E11.59 Type 2 diabetes mellitus with other circulatory complications; E11.22 Type 2 diabetes mellitus with diabetic chronic kidney disease; I48.91 Unspecified atrial fibrillation; E03.8 Other specified hypothyroidism; E55.9 Vitamin D deficiency, unspecified
CPT/HCPCS: 36415; 80053; 80061; 82306; 82570; 82607; 82728; 82746; 83036; 83540; 83550; 83735; 83970; 84100; 84156; 84439; 84443; 85025

== ENCOUNTER → 2022-04-05 | Outpatient (CLI) | payer BC, SELFPAY ==
--- NOTE | 2022-04-05 13:21 | ECHOD_ITS ---
Reason For Study: DYSPNEA Procedure This was a 2D Doppler, Color Flow transthoracic echocardiogram. Exam performed in department. Left Ventricle Normal LV size. Moderate concentric left ventricular hypertrophy. Left ventricular systolic function is lower limits of normal. The estimated ejection fraction is 53 %. Apical wall motion abnormality may reflect pacemaker activation. Right Ventricle Normal RV size. ICD or pacer leads identified within the right ventricle. Normal systolic function. Atria The left atrium is severely enlarged. The right atrium is moderately enlarged. ICD or pacer leads identified within the right atrium. Mitral Valve Bileaflet diffuse mitral valve thickening. Mild-Moderate (1-2+) eccentric mitral valve insufficiency. Tricuspid Valve Normal tricuspid valve. Mild tricuspid valve insufficiency. Pulmonary artery systolic pressure is 40 mmHg. Aortic Valve Trisinus/trileaflet aortic valve. Pulmonic Valve Normal pulmonic valve. Great Vessels Normal aortic root. The pulmonary artery is normal size. Normal inferior vena cava. Pericardium/Pleural No pericardial effusion. MMode/2D Measurements & Calculations LVIDd: 4.9 cm IVSd: 1.6 cm Ao root diam: 3.1 cm LVIDs: 2.8 cm LVPWd: 1.3 cm FS: 42.4 % LAV(MOD-bp): 151.6 ml LVAd ap4: 28.0 cm2 LVAd ap2: 37.1 cm2 LAV(MOD-bp) Indexed: 77.8 ml/m2 LVLd ap4: 7.3 cm LVLd ap2: 8.4 cm LAV(MOD-sp2): 158.4 ml EDV(MOD-sp4): 90.2 ml EDV(MOD-sp2): 134.4 ml LAV(MOD-sp4): 135.9 ml EDV(sp4-el): 91.2 ml EDV(sp2-el): 139.5 ml LVAs ap4: 18.5 cm2 LVAs ap2: 24.7 cm2 LVLs ap4: 6.8 cm LVLs ap2: 7.1 cm ESV(MOD-sp4): 43.5 ml ESV(MOD-sp2): 71.0 ml ESV(sp4-el): 42.5 ml ESV(sp2-el): 72.8 ml EF(MOD-sp4): 51.7 % EF(MOD-sp2): 47.2 % EF(sp4-el): 53.4 % SV(MOD-sp4): 46.7 ml SV(MOD-sp2): 63.4 ml SV(sp4-el): 48.6 ml LA dimension(2D): 4.7 cm LA A4 area: 33.8 cm2 RA A4 area: 27.0 cm2 Doppler Measurements & Calculations MV E max noe: 102.6 cm/sec Ao V2 max: 155.1 cm/sec LV V1 max: 105.6 cm/sec Ao max P.6 mmHg LV V1 max P.5 mmHg Ao V2 mean: 107.4 cm/sec LV V1 mean P.3 mmHg Ao mean P.0 mmHg LV V1 mean: 72.0 cm/sec Ao V2 VTI: 30.4 cm LV V1 VTI: 21.0 cm MR max noe: 513.3 cm/sec PA V2 max: 97.8 cm/sec PI dec slope: 146.8 cm/sec2 MR max P.4 mmHg MR mean noe: 393.6 cm/sec MR mean P.1 mmHg MR VTI: 180.4 cm TR max noe: 304.7 cm/sec TR max P.1 mmHg ECHO/Echo Complete Interpretation Summary Normal LV size. Moderate concentric left ventricular hypertrophy. Left ventricular systolic function is lower limits of normal. The estimated ejection fraction is 53 %. The left atrium is severely enlarged. The right atrium is moderately enlarged. Pulmonary artery systolic pressure is 40 mmHg. Ordering Physician: Rosaura De La Rosa Referring Physician: Rosaura De La Rosa Performed By: Kristie Sifuentes RCS
[2022-04-05 14:59] LABS: Absolute Neutrophil Count 5.9 X10^3/uL (2.0-7.7); Basophil# 0.03 X10^3/uL; Basophil% 0.4 % (0-1); Eosinophils% 1.3 % (0-5); Hematocrit 27.1 % (40-54); Hemoglobin 8.4 g/dL (13.0-16.5); Lymphocyte % 11.9 % (19-41); Mean Corpuscular Hgb 29.8 pg (27.0-32.0); Mean Corpuscular Volume 96.1 fL (80-94); Mean Platelet Vol. 11.2 fl (6.2-12.0); Monocyte# 0.55 X10^3/uL; Monocyte% 7.3 % (0-10); NRBC Flagged by Analyzer 0 % (0-5); Neutrophil % 78.3 % (47-70); Platelet Count 179 K/mm3 (150-450); RBC Distribution Width CV 16.3 % (11.6-14.6); RBC Distribution Width SD 55.8 fl (35.1-43.9); Red Blood Count 2.82 M/mm3 (4.6-6.2); White Blood Count 7.5 K/mm3 (4.4-11.0)
[2022-04-05 15:22] LABS: Ferritin 13 ng/mL (26-388); Iron 113 ug/dL (65-175); Iron Binding Capacity,Total 432 ug/dL (250-450)
== END | disposition home or self-care (01) ==
LOC: CVS 13:20
PROVIDERS: PCP Family Medicine; Referring Provider Nurse Practitioner Gerontology; Visit Provider Nurse Practitioner Gerontology
DX: D50.0 Iron deficiency anemia secondary to blood loss (chronic) (principal); I50.20 Unspecified systolic (congestive) heart failure; R06.02 Shortness of breath
CPT/HCPCS: 36415; 82728; 83540; 83550; 85025; 93306

== ENCOUNTER → 2022-04-06 | Outpatient (CLI) | payer BC, SELFPAY ==
[2022-04-06 13:24] LABS: Absolute Lymphocyte Count 0.85 X10^3/uL (0.83-4.51); Absolute Neutrophil Count 4.7 X10^3/uL (2.0-7.7); Basophil# 0.02 X10^3/uL; Basophil% 0.3 % (0-1); Eosinophil# 0.12 X10^3/uL; Eosinophils% 1.9 % (0-5); Hematocrit 25.9 % (40-54); Hemoglobin 7.9 g/dL (13.0-16.5); Lymphocyte # 0.85 X10^3/ul (0.83-4.51); Lymphocyte % 13.4 % (19-41); Mean Corp Hgb Conc 30.5 g/dL (32-36); Mean Corpuscular Hgb 29.5 pg (27.0-32.0); Mean Corpuscular Volume 96.6 fL (80-94); Mean Platelet Vol. 11.2 fl (6.2-12.0); Monocyte# 0.59 X10^3/uL; Monocyte% 9.3 % (0-10); NRBC Flagged by Analyzer 0 % (0-5); Neutrophil # 4.69 X10^3/uL (2.7-7.7); Neutrophil % 74.3 % (47-70); Platelet Count 167 K/mm3 (150-450); RBC Distribution Width CV 16.5 % (11.6-14.6); Red Blood Count 2.68 M/mm3 (4.6-6.2); White Blood Count 6.3 K/mm3 (4.4-11.0)
[2022-04-06 13:57] LABS: Anion Gap 6 (5-15); BUN 18 mg/dL (7-18); BUN/Creat Ratio 12.9 RATIO (10-20); Calcium,Total 9.4 mg/dL (8.5-10.1); Chloride 110 mmol/L (98-107); EST Glomerular Filtration Rate 54 mL/min (>60); Est Glom Filt Rate - Afr Amer 66 mL/min (>60); Glucose 122 mg/dL (74-106); Potassium 3.8 mmol/L (3.5-5.1); Sodium Level 141 mmol/L (136-145)
== END | disposition home or self-care (01) ==
LOC: LAB 12:31
PROVIDERS: Nurse Practitioner Gerontology; PCP Family Medicine; Referring Provider Physician Assistant Medical; Visit Provider Physician Assistant Medical
DX: D50.0 Iron deficiency anemia secondary to blood loss (chronic) (principal); I50.20 Unspecified systolic (congestive) heart failure
CPT/HCPCS: 36415; 80048; 85025

== ENCOUNTER → 2022-04-10 | Outpatient (CLI) | payer BC, SELFPAY ==
[2022-04-10 15:19] LABS: Absolute Lymphocyte Count 0.73 X10^3/uL (0.83-4.51); Absolute Neutrophil Count 5.4 X10^3/uL (2.0-7.7); Basophil# 0.03 X10^3/uL; Basophil% 0.4 % (0-1); Eosinophil# 0.13 X10^3/uL; Eosinophils% 1.9 % (0-5); Hematocrit 25.9 % (40-54); Hemoglobin 7.8 g/dL (13.0-16.5); Lymphocyte # 0.73 X10^3/ul (0.83-4.51); Lymphocyte % 10.5 % (19-41); Mean Corp Hgb Conc 30.1 g/dL (32-36); Mean Corpuscular Hgb 29.5 pg (27.0-32.0); Mean Corpuscular Volume 98.1 fL (80-94); Mean Platelet Vol. 11.2 fl (6.2-12.0); Monocyte# 0.68 X10^3/uL; Monocyte% 9.8 % (0-10); NRBC Flagged by Analyzer 0 % (0-5); Neutrophil # 5.35 X10^3/uL (2.7-7.7); Neutrophil % 76.8 % (47-70); Platelet Count 156 K/mm3 (150-450); RBC Distribution Width CV 18.1 % (11.6-14.6); RBC Distribution Width SD 63.7 fl (35.1-43.9); Red Blood Count 2.64 M/mm3 (4.6-6.2)
== END | disposition home or self-care (01) ==
LOC: MFPLAB 14:06
PROVIDERS: PCP Family Medicine; Visit Provider Family Medicine
DX: D50.0 Iron deficiency anemia secondary to blood loss (chronic) (principal)
CPT/HCPCS: 36415; 85025

== ENCOUNTER → 2022-04-18 | Outpatient (CLI) | payer BC, SELFPAY ==
[2022-04-18 13:42] LABS: Absolute Lymphocyte Count 0.84 X10^3/uL (0.83-4.51); Absolute Neutrophil Count 4.7 X10^3/uL (2.0-7.7); Basophil# 0.03 X10^3/uL; Basophil% 0.5 % (0-1); Eosinophil# 0.16 X10^3/uL; Eosinophils% 2.5 % (0-5); Hematocrit 32.6 % (40-54); Hemoglobin 9.9 g/dL (13.0-16.5); Lymphocyte # 0.84 X10^3/ul (0.83-4.51); Lymphocyte % 13.2 % (19-41); Mean Corp Hgb Conc 30.4 g/dL (32-36); Mean Corpuscular Hgb 30.1 pg (27.0-32.0); Mean Corpuscular Volume 99.1 fL (80-94); Mean Platelet Vol. 10.7 fl (6.2-12.0); Monocyte# 0.68 X10^3/uL; Monocyte% 10.7 % (0-10); NRBC Flagged by Analyzer 0 % (0-5); Neutrophil # 4.65 X10^3/uL (2.7-7.7); Neutrophil % 72.8 % (47-70); POSITIVE MORPHOLOGY YES; Platelet Count 198 K/mm3 (150-450); RBC Distribution Width CV 18.2 % (11.6-14.6); RBC Distribution Width SD 66.6 fl (35.1-43.9); Red Blood Count 3.29 M/mm3 (4.6-6.2); White Blood Count 6.4 K/mm3 (4.4-11.0)
[2022-04-18 13:47] LABS: Differential Indicated SCAN CRITERIA MET
[2022-04-18 14:15] LABS: Anisocytosis 1+; Platelet Estimate ADEQUATE (ADEQ)
== END | disposition home or self-care (01) ==
LOC: LAB 13:21
PROVIDERS: PCP Family Medicine; Referring Provider Family Medicine; Visit Provider Family Medicine
DX: D50.0 Iron deficiency anemia secondary to blood loss (chronic) (principal)
CPT/HCPCS: 36415; 85025

== ENCOUNTER → 2022-04-26 | Outpatient (CLI) | payer BC, SELFPAY ==
[2022-04-26 17:51] LABS: Hematocrit 34.9 % (40-54); Hemoglobin 10.3 g/dL (13.0-16.5); Mean Corp Hgb Conc 29.5 g/dL (32-36); Mean Corpuscular Hgb 29.9 pg (27.0-32.0); Mean Corpuscular Volume 101.5 fL (80-94); Platelet Count 197 K/mm3 (150-450); RBC Distribution Width CV 17.6 % (11.6-14.6); RBC Distribution Width SD 65.5 fl (35.1-43.9); Red Blood Count 3.44 M/mm3 (4.6-6.2)
[2022-04-26 17:52] LABS: Absolute Lymphocyte Count 0.85 X10^3/uL (0.83-4.51); Absolute Neutrophil Count 3.5 X10^3/uL (2.0-7.7); Basophil# 0.02 X10^3/uL; Basophil% 0.4 % (0-1); Eosinophil# 0.07 X10^3/uL; Eosinophils% 1.4 % (0-5); Lymphocyte # 0.85 X10^3/ul (0.83-4.51); Lymphocyte % 17.1 % (19-41); Mean Platelet Vol. 10.7 fl (6.2-12.0); Monocyte# 0.51 X10^3/uL; Monocyte% 10.2 % (0-10); NRBC Flagged by Analyzer 0 % (0-5); Neutrophil # 3.52 X10^3/uL (2.7-7.7); Neutrophil % 70.7 % (47-70); POSITIVE MORPHOLOGY YES
[2022-04-26 17:57] LABS: International Normalized Ratio 1.3; Prothrombin Time (Protime)PT. 15.9 SECONDS (11.7-14.9)
[2022-04-26 18:20] LABS: Differential Indicated SCAN CRITERIA MET
[2022-04-26 18:29] LABS: Platelet Estimate ADEQUATE (ADEQ)
[2022-04-26 18:30] LABS: Anisocytosis 1+; Macrocytosis 1+; Red Cell Morphology N CHROM NORMAL (NORM C&C)
[2022-04-26 19:20] LABS: Ferritin 29 ng/mL (26-388); Iron 46 ug/dL (65-175); Iron Binding Capacity,Total 401 ug/dL (250-450)
== END | disposition home or self-care (01) ==
LOC: MFPLAB 14:52
PROVIDERS: Internal Medicine Cardiovascular Disease; PCP Family Medicine; Referring Provider Family Medicine; Visit Provider Family Medicine
DX: D64.9 Anemia, unspecified (principal); I48.11 Longstanding persistent atrial fibrillation; Z79.01 Long term (current) use of anticoagulants
CPT/HCPCS: 36415; 82728; 83540; 83550; 85025; 85610

== ENCOUNTER → 2022-05-12 | Outpatient (CLI) | payer BC, SELFPAY ==
[2022-05-12 12:36] LABS: Hematocrit 39.6 % (40-54); Hemoglobin 12.2 g/dL (13.0-16.5); Mean Corp Hgb Conc 30.8 g/dL (32-36); Mean Corpuscular Hgb 30.3 pg (27.0-32.0); Mean Corpuscular Volume 98.3 fL (80-94); Platelet Count 171 K/mm3 (150-450); RBC Distribution Width CV 15.8 % (11.6-14.6); RBC Distribution Width SD 57.9 fl (35.1-43.9); Red Blood Count 4.03 M/mm3 (4.6-6.2); White Blood Count 7.8 K/mm3 (4.4-11.0)
[2022-05-12 12:43] LABS: Vitamin B12 325 pg/mL (211-911)
[2022-05-12 13:01] LABS: ALB/GLOB Ratio 1.1 RATIO (0.9-2.4); AST(SGOT) 20 U/L (15-37); Alanine Aminotransfer ALT/SGPT 26 U/L (16-61); Albumin, Serum 4.1 g/dL (3.2-5.0); Alkaline Phosphatase 106 U/L (45-117); Anion Gap 9 (5-15); BUN 25 mg/dL (7-18); BUN/Creat Ratio 17.2 RATIO (10-20); Calcium,Total 10.3 mg/dL (8.5-10.1); Chloride 107 mmol/L (98-107); Creatinine, Serum 1.45 mg/dL (0.70-1.30); EST Glomerular Filtration Rate 52 mL/min (>60); Est Glom Filt Rate - Afr Amer 63 mL/min (>60); Ferritin 35 ng/mL (26-388); Globulin 3.6 g/dL (2.2-4.2); Glucose 98 mg/dL (74-106); Iron 42 ug/dL (65-175); Iron Binding Capacity,Total 448 ug/dL (250-450); PERCENT IRON SATURATION 9.4 % (15.0-55.0); Protein, Total 7.7 g/dL (6.4-8.2); Sodium Level 140 mmol/L (136-145)
== END | disposition home or self-care (01) ==
LOC: MFPLAB 11:17
PROVIDERS: PCP Family Medicine
DX: K62.5 Hemorrhage of anus and rectum (principal)
CPT/HCPCS: 36415; 80053; 82607; 82728; 82746; 83540; 83550; 85027

== ENCOUNTER → 2022-05-15 | Outpatient (CLI) | payer BC, SELFPAY ==
[2022-05-15 15:42] LABS: Bacteria 0 SEEN /hpf (None Seen); Mucous, Urine 0 SEEN /hpf (<or=2+); Red Blood Cells-Urine 0 SEEN /hpf (0-5); White Blood Cells 0 SEEN /hpf (0-5)
[2022-05-15 16:22] LABS: Hematocrit 39.9 % (40-54); Hemoglobin 12.6 g/dL (13.0-16.5); Mean Corp Hgb Conc 31.6 g/dL (32-36); Mean Corpuscular Hgb 30.4 pg (27.0-32.0); Mean Corpuscular Volume 96.1 fL (80-94); Mean Platelet Vol. 12.3 fl (6.2-12.0); Platelet Count 165 K/mm3 (150-450); RBC Distribution Width CV 15.3 % (11.6-14.6); RBC Distribution Width SD 54.7 fl (35.1-43.9); Red Blood Count 4.15 M/mm3 (4.6-6.2); White Blood Count 7.6 K/mm3 (4.4-11.0)
[2022-05-15 16:38] LABS: International Normalized Ratio 2.8; Prothrombin Time (Protime)PT. 29.2 SECONDS (11.7-14.9)
[2022-05-15 16:43] LABS: Anion Gap 3 (5-15); BUN 45 mg/dL (7-18); BUN/Creat Ratio 27.3 RATIO (10-20); Chloride 106 mmol/L (98-107); Creatinine, Serum 1.65 mg/dL (0.70-1.30); EST Glomerular Filtration Rate 45 mL/min (>60); Est Glom Filt Rate - Afr Amer 55 mL/min (>60); Glucose 121 mg/dL (74-106); Potassium 4.2 mmol/L (3.5-5.1); Sodium Level 139 mmol/L (136-145)
[2022-05-15 17:31] LABS: Color, Urine Yellow (Yellow); Glucose, Dipstick 1000 mg/dl (Normal); Ketone-Dipstick Negative (Negative); Leukocyte Esterase-Dipstick Negative /ul (Negative); Nitrite-Dipstick Negative (Negative); Occult Blood-Urine Negative /ul (Negative); Protein-Dipstick 30 mg/dl (Negative); Specific Gravity, Urine 1.015 (1.002-1.030); Urine Bilirubin Dipstick Negative (Negative); Urine Clarity Clear (Clear); Urine Urobilinogen Normal (Normal)
[2022-05-15 18:05] LABS: Squamous Epithelial Cells - UA 0-5 SEEN /hpf (0-5)
== END | disposition home or self-care (01) ==
LOC: LAB 15:33
PROVIDERS: PCP Family Medicine; Referring Provider Internal Medicine Cardiovascular Disease; Visit Provider Internal Medicine Cardiovascular Disease
DX: I48.11 Longstanding persistent atrial fibrillation (principal); I50.32 Chronic diastolic (congestive) heart failure; I44.2 Atrioventricular block, complete; Z95.5 Presence of coronary angioplasty implant and graft; Z95.0 Presence of cardiac pacemaker; I51.89 Other ill-defined heart diseases
CPT/HCPCS: 36415; 80048; 81001; 85027; 85610

== ENCOUNTER 2022-06-05 10:42 | Day surgery (SDC) | payer BC, SELFPAY ==
[2022-06-02 14:04] VITALS: BMI 22.8
--- NOTE | 2022-06-05 07:55 | HP.PCM_ITS ---
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 He is a gentleman with a history of nonischemic cardiomyopathy, status post pacemaker placement, chronic persistent atrial fibrillation, scleroderma, and hypertension.? His last catheterization in 2017 for an abnormal stress test demonstrated no significant obstructive coronary disease.? He continues to see the physician at the [facility] for scleroderma.? He did unfortunately contract Covid 19 pneumonia in December of 2020. His last echocardiogram in May 2020 demonstrated an ejection fraction which was normal with stage III diastolic dysfunction.? In February he had noted an severe increase in his SOB, went to [facility] and underwent a cardiac catheterization which demonstrated 95% stenosis in his mid LAD, and underwent successful MARCE placement, he had 80% stenosis of his ostial third diagonal which he had POBA,? moderate disease to his circumflex and nonobstructive disease of his RCA.? He states he did undergo an echocardiogram which demonstrated and ejection fraction of 41%. He was started on entresto, Jardiance, atorvastatin, aspirin, Brilinta, spironolactone, and hydralazine. He was seen by EP for concerns over his PPM as it is nearing OTTO.? They wanted to repeat his echo 4 weeks post PCI to see if his EF improved.? If it did not they would then consider upgrading to PIANO BENCH ASSEMBLER-P or PIANO BENCH ASSEMBLER-D. On 03/27/2022, pt was back at [facility] for significant bloody diarrhea.? His Hgb was 11.6 and decreased to 7.9.? He was evaluated by GI.? He did not have any studies done d/t his recent stenting and that his Hgb was stable.? His coumadin has been held and his ASA was stopped.? He remained on Brilinta. His Entresto and Spiroalctone was also d/c during this hospital stay. He did have a repeat echo and his EF improved to 53%. He has not had any further bleeding episodes.? He notes that his is still SOB, this does not feel like it did prior to his stents.? He did feel somewhat better after his PCI but now is again SOB.? He also has lightheadedness.? This is newer.? He does not have any CP or palpitations. He does not have any edema. 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 Acute kidney injury Black tarry stools Chronic diastolic (congestive) heart failure Chronic kidney disease (CKD) Chronotropic incompetence with left ventricular dysfunction Community acquired pneumonia Complete heart block Dilated cardiomyopathy Essential (primary) hypertension Guaiac positive stools Yodit's thyroiditis Head trauma hemoccult positive stools HFrEF (heart failure with reduced ejection fraction) HLD (hyperlipidemia) Hypothyroidism, iatrogenic Iron deficiency Lipoprotein deficiency Longstanding persistent atrial fibrillation Lower GI bleed (03/27/22) Pneumonia due to COVID-19 virus (12/24/20) Scalp laceration Scleroderma Scleroderma Surgical History?(Reviewed 03/09/22 @ 17:10 by Rosaura De La Rosa FLAVORING OIL FILTERER, FLAVORING OIL FILTERER-C) H/O colonoscopy H/O stem cell transplant History of coronary artery stent placement (03/06/22) History of inguinal hernia repair History of left heart catheterization (01/28/18) History of permanent cardiac pacemaker placement (12/25/13) History of right heart catheterization (05/07/19) Family History? Mother Yodit's disease Diabetes HypertensionGrandfather CVA (cerebral vascular accident) Social History? Smoking Status:? Never smoker alcohol intake:? current alcohol intake frequency: a few times a week Alcohol type: beer substance use type:? does not use caffeine:? Yes Type: coffee Number of servings: 1 what type of physical activity do you participate in:? none seatbelt use:? always do you feel safe at home:? Yes ROS Const Const: Positive for fatigue; Negative for weakness, headache(s), frequent falls, excessive sweating, weight gain or weight loss Eyes Eyes: Negative for blind spots, loss of peripheral vision, transient loss of vision, blurry vision, change in vision or double vision ENT ENT: Negative for headache(s), dizziness, tinnitus, Nosebleed/epistaxis or balance problems Cardio Chest Pain: No Palpitations: No Edema: None Muscle aches with walking: None Resp Respiratory: Negative for SOB with activity, SOB at rest, SOB orthopnea\SOB lying down or Cough GI GI: Negative nausea, vomiting, heartburn, bloating, vomiting blood/hematemesis, bright, red blood in stools or black,tarry stools : Negative for hematuria Musc Musc: Negative for muscle aches/ myalgia, muscle weakness, joint pain or balance problems Skin Skin: Negative rash or wounds Neuro Neuro: Negative for dizziness, lightheadedness, near syncope, syncope, orthostatic symptoms, frequent falls, headache(s), weakness, confusion, memory loss, restless legs, blurry vision or double vision Leobardo Hematologic/Lymphatic: Negative for easy bleeding or easy bruising Endo Endo: Positive for fatigue; Negative for cold intolerance, heat intolerance or excessive sweating Psych Psych: Negative for anxiety or depression Allergy Allergy/Immunology: Negative for rash Cardiology Exam Const Appearance: cooperative, no acute distress and other (pale) Orientation: alert and oriented x3 Head Head: normal to inspection Ears: hearing grossly normal bilaterally Nose: external nose normal Face and Sinus: face symmetric Eyes General: appearance normal, both eyes and all related structures Eyelids: eyelids normal Conjunctivae: conjunctivae normal Pupils: PERRL and pupil size EOM: EOM intact bilaterally Neck Neck: normal visual inspection Carotids: Negative bruit Chest Chest inspection: normal inspection of the chest and normal respiratory effort Auscultation: Bilateral: Clear to Auscultation Cardio Palpation: normal PMI Rate: regular rate Rhythm: regular rhythm Heart sounds: S1 normal and S2 normal; Negative rub, gallop or murmur GI GI: normal to inspection and soft; Negative no hepatosplenomegaly Neuro General: patient alert, patient oriented x3 and CN's II-XI intact bilaterally Skin Skin: no rashes or lesions noted Extremities Pulses: Normal: Right Posterior Tibial Pulse, Left Posterior Tibial Pulse, Right Radial Pulse and Left Radial Pulse Lower Extremity Edema: None: Bilateral Psych Psychological: normal affect Supplemental Info Supplemental Information Echocardiogram 06/02/2020: Interpretation Summary Normal LV size. Left ventricular systolic function is normal. Stage 3 diastolic dysfunction. The left atrium is moderately enlarged. The right atrium is moderately enlarged. Compared to prior study, there is no significant change. Echocardiogram 03/2022: Normal LV size. Moderate concentric left ventricular hypertrophy. Left ventricular systolic function is lower limits of normal. The estimated ejection fraction is 53 %. The left atrium is severely enlarged. The right atrium is moderately enlarged. Pulmonary artery systolic pressure is 40 mmHg. Stress Test 01/16/2018: Conclusion: Abnormal pharmacologic myocardial perfusion scan with evidence of mid inferior ischemia and previous apical infarct. Cardiomyopathy noted Labs: ?? ? LDL Cholesterol 70 mg/dL (0-130) ?? ? HDL Cholesterol 26 mg/dL (40-) L ?? ? Triglycerides 155 mg/dL (-199) ?? ? VLDL Cholesterol 31 mg/dL (5-40) Diagnostics: ?? ? Electrocardiogram ? Echocardiogram ? Pacemaker Check ? Pulmonary: ?? ? No Data to Display Assessment and Plan Assessment and Plan (1) HFrEF (heart failure with reduced ejection fraction): ?Status:?Acute ?Plan - Naina BURROUGHS PA: EF has improved, since his renal function has improved, will restart his Entrest o.? Will follow closely. He will continue with his. Abel Mackenzie. (2) History of coronary artery stent placement: ?Status:?Acute ?Comment: PCI-MARCE-Mid LAD w/ 3.0 x 38 mm, and 2.5 x 8mm Synergy Stents and POBA-D3 03/06/2022 ?Joe - Naina BURROUGHS PA: With his recent stent, he does need to stay on his Brilinta. Unfortunately he did develop a GI Bleed, his ASA was stopped with this.? He does not have any symptoms of angina. Will need to monitor closely. (3) History of permanent cardiac pacemaker placement: ?Status:?Chronic ?Comment: Pacer Dependent Gen changed 05/2008, Gen changed 12/25/13, Lead Malfunction 01/02/14 ?Plan - HEIKE Rod: Pts PPM has reached OTTO. He will proceed with generator change. (4) Longstanding persistent atrial fibrillation: ?Status:?Chronic ?Joe - Naina BURROUGHS PA: His coumadin was stopped d/t his anemia.? Not resume at this time.? Will monitor closely. Once his Hgb has improved will resume his coumadin. (5) Essential (primary) hypertension: ?Status:?Chronic ?Joe - Naina BURROUGHS, PA: BP is controlled, feel that we can readd entresto.? He will continue with is coreg. (6) HLD (hyperlipidemia): ?Status:?Chronic ?Qualifiers: ?Hyperlipidemia type:?pure hypercholesterolemia? Qualified Code(s):? E78.00 - Pure hypercholesterolemia, unspecified; E78.00 - Pure hypercholesterolemia, unspecified; E78.00 - Pure hypercholesterolemia, unspecified; E78.0 - Pure hypercholesterolemia ?Plan Prosper BURROUGHS PA: Pt will continue with his atorvastatin (7) Anemia: ?Status:?Acute ?Joe BURROUGHS PA: This is being followed by his PCP
[2022-06-05 10:56] LABS: INR Fingerstick 1.1; Prothrombin Time Fingerstick 13.9 SEC (11.7-14.9)
--- NOTE | 2022-06-05 12:49 | CL.IE_ITS ---
Patient: LAINE OLIVARES Study Date: 06/05/2022 Performing: Sudheer Lemus MD : 1960 Age: 61 Gender: male PROCEDURES PERFORMED [id number])BATTERY REMOVAL+REPLACEMENT PACER-DUAL LEAD INDICATIONS Atrial fibrillation and complete heart block PROCEDURE DETAILS The patient was brought to the Catheterization Lab in the postabsorptive nonsedated state. [facility] the procedure. Local anesthetic was given subcutaneously to the le ft subclavian region with Lidocaine 2%. Incision was made to the left subclavicular area. PPM atrial lead testing performed. PPM ventricular lead testing performed. PPM ventricular lead testing performe d. Device pocket was irrigated with antibiotic. PPM generator was attached to the lead(s) and inserte d into the pocket. PPM generator was then interrogated by the programmer analyst consultant. Subcutaneous closure was co mpleted with 3-0 Vicryl. Skin closure was completed with 4-0 Vicryl. Steri-strips applied to left sub clavicular incision. Instrument, sponge, and needle counts were noted to be normal. The patient keila ated the procedure well. Estimated Blood Loss: 20 ml's IMPLANTED / EX-PLANTED DEVICES IMPLANTED DEVICE(S): PPM Generator - Nursing Educator: St Rm, Model # [id number] , Serial # [id number] DEVICE PARAMETERS DEVICE PARAMETERS: Mode - DDD lower rate - 60 upper rate - 120 rate response on Mode- DDD CONCLUSIONS / RECOMMENDATIONS Device Conclusions: Successful implantation of a dual chamber pacemaker battery change and replacemen t Device Recommendations: Follow up with Primary Care Physician PROCEDURE MEDICATIONS Fentanyl 50 mcg IV Versed 1 mg IV Oxygen: 2 L/min via nasal cannula Clindamycin 900 mg IV 06/05/2022 11:34:16 Signed By Sudheer Lemus MD On 06/05/2022 12:49:05 Sudheer Lemus MD
== END 2022-06-05 14:00 | disposition home or self-care (01) ==
PROVIDERS: PCP Family Medicine; Referring Provider Internal Medicine Cardiovascular Disease; Visit Provider Internal Medicine Cardiovascular Disease
DX: I48.11 Longstanding persistent atrial fibrillation (principal); I42.9 Cardiomyopathy, unspecified; I11.0 Hypertensive heart disease with heart failure; I50.9 Heart failure, unspecified; I44.2 Atrioventricular block, complete; Z79.01 Long term (current) use of anticoagulants; Z95.0 Presence of cardiac pacemaker; D64.9 Anemia, unspecified; R06.02 Shortness of breath; Z95.5 Presence of coronary angioplasty implant and graft; E78.5 Hyperlipidemia, unspecified
CPT/HCPCS: 33228; 36416; 85610; 99152; 99153; J7030; J7050

== ENCOUNTER → 2022-06-06 | Outpatient (CLI) | payer BC, SELFPAY ==
--- NOTE | 2022-06-06 | IMM_PTH ---
PATIENT: LAINE OLIVARES LOC: [facility] U#:[id number] AGE/SX: 61/M ROOM: RE06/06/[address]: Dr. Mukul Euceda DDS : 1960 BED: DIS: 06/06/2022 SPEC #: [id number] RECD: 06/07/22 12:04 STATUS: JENIFER RETatyana #: [id number] BELLE: 06/06/22 00:[address]: Mukul Euceda DEPT: IMMUNOHISTOCHEMISTRY RECD BY: Elaine Santos ENTERED: 06/07/22 12:06 SP TYPE: IMMUNO OTHR DR: Dr. Laine Ybarra MD Tissues: Tongue, NOS Procedures: CD31 (add) CK5-6 (add) CK7 (add) DESMIN (add) KI-67 (add) P16 (add) 34BE12 (add) Pankeratin (initial) P40 (add) PHYSICIAN & INSTITUTION [address] [address] SPECIMEN INFORMATION: Tissue Source: Left lateral tongue Clinical Info: Ulcerated, indurated lesion for several months Specimen Number: [id number] CPT code: 01568, 06175 x8 METHODOLOGY: Deparaffinized sections of prefer/formalin-fixed tissue or PAP/DQ stained slides are incubated with monoclonal/polyclonal antibodies/oligonucleotide probes. Localization is made via biotin free immunoperoxidase method. Appropriate controls are performed and reacted as expected. Results on target cell population are indicated in the following table: RESULTS: ANTIBODY / CLONE RESULT AE1-3 (AE1/AE3/PCK26) positive CK7 (OV-TL12/30) negative 34BE12 (34BE12) positive CD31 (ROSMERY/70A) negative Desmin (CE-R-11) negative CK5-6 (D5 & 1684) positive P40 (BC28) positive P16 (E6H4) positive, focal, patchy Ki-67 (30-9) positive, >90% These tests were developed and their performance characteristics determined by [facility]. They may not have been cleared or approved by the U.S. Food and Drug Administration. The FDA has determined that such clearance or approval is not necessary. The above immunohistochemical/dualISH markers are ordered and reviewed by the Pathologist. INTERPRETATION: Left lateral tongue, biopsy: Invasive squamous cell carcinoma. AM:kendra 06/08/2022
--- NOTE | 2022-06-06 | TOBX_PTH ---
PATIENT: LAINE OLIVARES LOC: [facility] U#:[id number] AGE/SX: 61/M ROOM: RE06/06/[address]: Dr. Mukul Euceda DDS : 1960 BED: DIS: 06/06/2022 SPEC #: [id number] RECD: 06/06/22 10:59 STATUS: JENIFER RAMOS #: [id number] BELLE: 06/06/22 00:[address]: Mukul Euceda DEPT: SURGICAL PATHOLOGY RECD BY: Imtiaz Spaulding ENTERED: 06/06/22 11:00 SP TYPE: TONGUE BX OTHR DR: Dr. Laine Ybarra MD Tissues: Tongue, NOS Procedures: Surgery Specimen Level IV HEADER OPERATION: Biopsy left lateral tongue PRE-OP DIAGNOSIS: Ulcerated, indurated lesion for several months TISSUE SUBMITTED: Left lateral tongue, 2 pieces, stitched component is central denuded area MICROSCOPIC DIAGNOSIS Left lateral tongue lesion, biopsy: Invasive well to moderately differentiated squamous cell carcinoma. See comment. AM:kendra 06/07/2022 COMMENT Immunohistochemistry ([id number]) supports the above diagnosis. Clinical correlation is suggested. MICROSCOPIC DESCRIPTION Slides are reviewed. Carcinoma focally involves striated muscle. GROSS DESCRIPTION Received in fixative is one container labeled with the patient's name and designated tongue. The specimen consists of two irregular fragments of pink to light singletary soft tissue that in aggregate measure 1.2 x 0.5 x 0.5 cm. The largest fragment is inked, bisected and submitted along with the smaller fragment in one cassette. / AM:kendra 06/06/2022 TC:0 CPT: 15946 ADDENDUM ADDENDUM ADDENDUM ADDENDUM ADDENDUM ADDENDUM ADDENDUM ADDENDUM ADDENDUM ADDENDUM 07/05/2022 11:10 ADDENDUM 07/05/2022 11:10 ADDENDUM 07/05/2022 11:10 ADDENDUM 07/05/2022 11:10 ADDENDUM 07/05/2022 11:10 This addendum is added to incorporate an outside pathology report. The case was examined at [facility] (#[id number]) and the following diagnosis was rendered. Left lateral tongue lesion, biopsy: -Invasive squamous cell carcinoma. Please see complete above mentioned consultation report in EMR
== END | disposition home or self-care (01) ==
LOC: LABSPEC 10:30
PROVIDERS: PCP Family Medicine; Visit Provider Dentist Oral and Maxillofacial Surgery
DX: C02.9 Malignant neoplasm of tongue, unspecified (principal)
CPT/HCPCS: 88305; 88341; 88342

== ENCOUNTER → 2022-06-21 | Outpatient (CLI) | payer BC, SELFPAY ==
[2022-06-21 18:07] LABS: Absolute Lymphocyte Count 0.92 X10^3/uL (0.83-4.51); Absolute Neutrophil Count 5.3 X10^3/uL (2.0-7.7); Basophil# 0.02 X10^3/uL; Basophil% 0.3 % (0-1); Eosinophil# 0.05 X10^3/uL; Eosinophils% 0.7 % (0-5); Hematocrit 33.1 % (40-54); Hemoglobin 10.7 g/dL (13.0-16.5); Lymphocyte # 0.92 X10^3/ul (0.83-4.51); Lymphocyte % 13.2 % (19-41); Mean Corp Hgb Conc 32.3 g/dL (32-36); Mean Corpuscular Hgb 31.6 pg (27.0-32.0); Mean Corpuscular Volume 97.6 fL (80-94); Mean Platelet Vol. 12.4 fl (6.2-12.0); Monocyte# 0.69 X10^3/uL; Monocyte% 9.9 % (0-10); NRBC Flagged by Analyzer 0 % (0-5); Neutrophil # 5.26 X10^3/uL (2.7-7.7); Neutrophil % 75.6 % (47-70); Platelet Count 137 K/mm3 (150-450); RBC Distribution Width CV 13.9 % (11.6-14.6); RBC Distribution Width SD 49.6 fl (35.1-43.9); Red Blood Count 3.39 M/mm3 (4.6-6.2)
[2022-06-21 18:33] LABS: Protein, Urine (Random) 59.2 mg/dL (<11.9); Protein:Creat Ratio 304 mg/g CRE (0-200)
[2022-06-21 18:44] LABS: ALB/GLOB Ratio 1.1 RATIO (0.9-2.4); AST(SGOT) 20 U/L (15-37); Alanine Aminotransfer ALT/SGPT 34 U/L (16-61); Alkaline Phosphatase 100 U/L (45-117); Anion Gap 6 (5-15); BUN 62 mg/dL (7-18); Calcium,Total 9.6 mg/dL (8.5-10.1); Chloride 107 mmol/L (98-107); EST Glomerular Filtration Rate 26 mL/min (>60); Est Glom Filt Rate - Afr Amer 31 mL/min (>60); Ferritin 19 ng/mL (26-388); Globulin 3.6 g/dL (2.2-4.2); Glucose 108 mg/dL (74-106); Iron 91 ug/dL (65-175); Iron Binding Capacity,Total 378 ug/dL (250-450); Phosphorus 3.9 mg/dL (2.5-4.9); Potassium 4.9 mmol/L (3.5-5.1); Protein, Total 7.6 g/dL (6.4-8.2); Sodium Level 137 mmol/L (136-145); T4 Free Direct 1.17 ng/dL (0.76-1.46); Thyroid Stim Hormone (TSH) 0.12 uIU/mL (0.358-3.74)
[2022-06-21 18:54] LABS: Hemoglobin A1c 5.6 % (3.8-5.6)
[2022-06-21 19:12] LABS: Vitamin B12 496 pg/mL (211-911); Vitamin D,25 Hydroxy 66.7 ng/mL
[2022-06-22 08:36] LABS: PTHIN 59.1 pg/mL (18.4-80.1)
== END | disposition home or self-care (01) ==
LOC: MFPLAB 16:52
PROVIDERS: PCP Family Medicine; Referring Provider Family Medicine; Visit Provider Family Medicine
DX: E55.9 Vitamin D deficiency, unspecified (principal); E11.59 Type 2 diabetes mellitus with other circulatory complications; E11.22 Type 2 diabetes mellitus with diabetic chronic kidney disease; D64.9 Anemia, unspecified; E03.8 Other specified hypothyroidism; N18.9 Chronic kidney disease, unspecified
CPT/HCPCS: 36415; 80053; 82306; 82570; 82607; 82728; 82746; 83036; 83540; 83550; 83970; 84100; 84156; 84439; 84443; 85025

== ENCOUNTER 2022-06-27 15:58 | Outpatient (RCR) | payer BC, SELFPAY ==
[2022-06-27 16:29] LABS: International Normalized Ratio 3.3; Prothrombin Time (Protime)PT. 33.1 SECONDS (11.7-14.9)
[2022-06-27 16:57] LABS: Anion Gap 8 (5-15); BUN 51 mg/dL (7-18); BUN/Creat Ratio 21.7 RATIO (10-20); Calcium,Total 10.1 mg/dL (8.5-10.1); Chloride 103 mmol/L (98-107); Creatinine, Serum 2.35 mg/dL (0.70-1.30); EST Glomerular Filtration Rate 30 mL/min (>60); Est Glom Filt Rate - Afr Amer 36 mL/min (>60); Glucose 107 mg/dL (74-106); Potassium 4.4 mmol/L (3.5-5.1); Sodium Level 138 mmol/L (136-145)
== END 2022-06-27 18:00 | disposition home or self-care (01) ==
LOC: LAB 15:58
PROVIDERS: Internal Medicine Cardiovascular Disease; PCP Family Medicine; Referring Provider Family Medicine; Visit Provider Family Medicine
DX: N18.9 Chronic kidney disease, unspecified (principal)
CPT/HCPCS: 36415; 80048; 85610

== ENCOUNTER 2022-08-24 12:10 | Day surgery (SDC) | payer BC, SELFPAY ==
[2022-08-24] VITALS (11 sets, daily range): BP systolic 109–128; BP diastolic 70–77; PULSE 70; RESP 16–18; TEMP 36.6–37.1; O2SAT 94–100; BMI 18.9
[2022-08-24] MEDS: Lactated Ringers 1,000 ML 15 ML IV (12:37)
--- NOTE | 2022-08-24 13:14 | PCM.HP.BLA ---
History and Physical Date of Service:? 08/15/22 MR#: [id number] Acct: [id number] Name:? LAINE YU Rep #: [id number] : 1960 ? ? Provider: Dr. David Pink MD Age/Sex:? 62/M ? ? Location: [facility] Status: Signed Intake Vital Signs ? 08/15/2215:07 Height 5 ft 11 in Weight: 141 lb BMI 19.6 BP 115/75 Blood Pressure Location Rt brachial Position Sitting Respiration 16 Pulse 69 Pulse Source Monitor Temp 97.3 F L Temp Source Temporal Pulse Oximetry (%) 95 Oxygen Delivery Method room air Intake Visit Reasons:?PEG Placement Consult Chief Complaint: PEG tube consult Audio Video Mechanic Required: No Is patient in pain?: No Allergies penicillamine Allergy (Severe, Verified 08/15/22 15:08) Anaphylaxis Medications lamotrigine 200 mg tablet 200 mg PO QHS 12/24/13 [History Confirmed 08/15/22] ascorbic acid (vitamin C) 500 mg capsule 500 mg PO DAILY 02/03/20 [History Confirmed 08/15/22] cholecalciferol (vitamin D3) 125 mcg (5,000 unit) tablet 125 mcg PO DAILY 02/03/20 [History Confirmed 08/15/22] olanzapine 5 mg tablet 5 mg PO DAILY 02/03/20 [History Confirmed 08/15/22] empagliflozin 10 mg tablet (Jardiance) 10 mg PO DAILY 03/09/22 [History Confirmed 08/15/22] omeprazole 40 mg capsule,delayed release 40 mg PO BID 03/09/22 [History Confirmed 08/15/22] atorvastatin 40 mg tablet 40 mg PO DAILY #90 tabs 04/06/22 [Rx Confirmed 08/15/22] ticagrelor 90 mg tablet (Brilinta) 90 mg PO BID #180 tabs 04/06/22 [Rx Confirmed 08/15/22] warfarin 4 mg tablet 4 mg PO DAILY #180 tabs 06/19/22 [Rx Confirmed 08/15/22] carvedilol 12.5 mg tablet (Coreg) 12.5 mg PO BID #180 tabs 07/07/22 [Rx Confirmed 08/15/22] clonazepam 1 mg tablet 0.5 mg PO QHS 07/07/22 [History Confirmed 08/15/22] levothyroxine 100 mcg tablet 100 mcg PO DAILY 07/07/22 [History Confirmed 08/15/22] PFSH Medical History? Acute kidney injury Atherosclerosis of coronary artery without angina pectoris Bipolar 1 disorder Black tarry stools Chronic diastolic (congestive) heart failure Chronic kidney disease (CKD) Chronotropic incompetence with left ventricular dysfunction Community acquired pneumonia Complete heart block Dilated cardiomyopathy Essential (primary) hypertension Guaiac positive stools Yodit's thyroiditis Head trauma HFrEF (heart failure with reduced ejection fraction) History of non-ST elevation myocardial infarction (NSTEMI) (03/03/22) HLD (hyperlipidemia) Hypothyroid Hypothyroidism, iatrogenic Iron deficiency Lipoprotein deficiency Longstanding persistent atrial fibrillation Lower GI bleed (03/27/22) Paroxysmal A-fib Pneumonia due to COVID-19 virus (12/24/20) Scalp laceration Scleroderma Scleroderma 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 H/O colonoscopy H/O stem cell transplant History of coronary artery stent placement (03/06/22) History of inguinal hernia repair History of left heart catheterization (01/28/18) History of permanent cardiac pacemaker placement (06/05/22) History of right heart catheterization (05/07/19) Family History? Mother Yodit's disease Diabetes HypertensionGrandfather CVA (cerebral vascular accident) Social History? Smoking Status:? Never smoker alcohol intake:? current alcohol intake frequency: a few times a week Alcohol type: beer substance use type:? does not use caffeine:? Yes Type: coffee Number of servings: 1 what type of physical activity do you participate in:? none seatbelt use:? always do you feel safe at home:? Yes HPI HPI HPI: Laine Yu is a 62-year-old male who presents for evaluation of possible PEG tube placement.? He was diagnosed with a mass on the left side of his tongue 06/06/2022.? Following biopsy this was diagnosed as a squamous cell carcinoma.? On 07/17/2022 he underwent left hemiglossectomy and floor mouth resection with selective neck dissection levels 1 through 4 at [facility] with Dr. Last.? He is diagnosed with a pathologic stage of T4N1 and has met with both oncology and radiation oncology.? Patient states that he has decided to decline chemotherapy as it was presented to him that he would have likely more risk than benefit from the intervention, but that he is shortly due for initiation of radiation.? Following his surgery last month, Mr. Yu had a Dobbhoff tube placed for enteral nutrition.? He states that he is entirely dependent on this tube for his nutrition and has not been able to make much progress swallowing.? He does state that he is still following with [facility] for speech and swallow therapy.? He reports that the Dobbhoff that is currently in place has been so for approximately the last month.? He denies any complications from it including bleeding. Patient has a rather complex cardiac history with diastolic CHF, heart block, cardiomyopathy following NSTEMI, paroxysmal atrial fibrillation, status post right and left heart cath, status post coronary stent 03/06/2022.? He reports that he follows with Dr. Lemus here at [facility].? He states that he has been on Brilinta following his stent placement, but that this medication was held for his recent procedures.? He is uncertain for the duration. Mr. Yu also confirms a history of scleroderma.? He states that he underwent a stem cell transplant in the s which stopped the progression of this disease and had most notable effects in his esophagus and heart.? He also noticed significant improved pliability within his skin. Mr. Yu has a past surgical history of bilateral inguinal hernia repair remotely, but otherwise has not had further abdominal surgery. ROS General General: Yes weight change and fatigue; No appetite, colon cancer, breast cancer or weakness HEENT HEENT: Yes difficulty swallowing; No eye injury, eye surgery, swollen glands or hoarseness Endo Endocrine: Yes thyroid disease; No diabetes mellitus, thyroid cancer, Hair loss, heat intolerance or cold intolerance Skin Skin: No rash or changing moles Breast Breast: No left breast lump, right breast lump, nipple discharge, breast pain, abnormal mammogram, abnormal US or breast enlargement Musc Musculoskeletal: No back problems, arthritis, rheumatoid arthritis, gout or joint pain Cardio Cardiovascular: Yes pacemaker, high blood pressure and heart stent; No murmur, heart disease, atrial fibrillation, heart attack, palpitations, shortness of breat with exertion or chest pain Psych Psychiatric: Yes depression; No anxiety or hearing voices Resp Respiratory: Yes shortness of breath, No sleep apnea, No cough, No COPD, No asthma, No emphysema and No wheezing Gastro Gastrointestinal: No abdominal pain, No nausea or vomiting, No diarrhea, No constipation, No blood in stool, Yes acid reflux, No hemorrhoids, No ulcers, No gallbladder problem and No black,tarry stools Leobardo Hematologic: Yes blood thinners, No blood disorders, No bleeding, No anemia and No blood clots Neuro Neurologic: No system reviewed and no additional complaints, except as documented, No as per HPI, No abnormal gait, No abnormal hearing, No abnormal movements, No abnormal speech, No behavioral changes, No burning sensations, No confusion, No convulsions, No disequilibrium, No dizziness, No localized weakness, No frequent falls, No headache(s), No lack of coordination, No loss of vision, No memory loss, No numbness, No other visual disturbances, No radicular pain, No restless legs, No sensory deficit, No syncope, No tingling, No tremor(s), No weakness and No other Exam Const General: cooperative and no acute distress Orientation: alert, awake and oriented x3 HENMT Other: Patient was partially garbled speech, but when asked to open his mouth his opening is normal, but he has a exceptional amount of mucus extending from his tongue to his palate Neck Other: Dobbhoff in place through patient's nare with some crusted drainage along tubing Resp Effort & Inspection: normal respiratory effort GI Other: Scaphoid abdomen, evidence of recent weight loss with skin folds, no visible scars.? Nondistended, soft, nontender to palpation. 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 Discussed options, reviewed NCCN guidelines, chemotherapy regimens, renal dysfunction, risks, benefits and side effects. He may not be a candidate for Cisplatin because of renal dysfunction, Taxol may lead to scleroderma like syndrome, Carboplatin may be low dose and benefit may be questionable.? Pt wants to think about his options. 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 He underwent surgery for local control at [facility] last month.? He has met with oncology and radiation oncology for consideration of initiation of chemo and radiation therapies.? At this time he is adamant that he will decline adjuvant chemotherapy, but does plan to proceed with radiation therapy soon.? Following his diagnosis and surgery last month, Mr. Yu has become entirely dependent on enteral feeding via a Dobbhoff tube.? He is currently working with speech and swallow therapy to try to improve this function, however, between planned radiation and his history of scleroderma this may be a difficult road forward.? Therefore I agree with radiation oncology that patient requires more durable enteral access.? According to his recollection, Mr. Yu does not believe any surgical intervention was undertaken near his esophagus but only hemiglossectomy and anterior neck surgery.? He also appears to have normal opening of his mouth.? Therefore, I believe it should be reasonable to perform a percutaneous endoscopic gastrostomy.? However, I have cautioned patient that should any resistance being met when trying to perform the EGD, I would plan to postpone and schedule for a formal laparoscopic gastrostomy.? Still given his history, I think avoiding a general anesthetic is in patient's best interest if possible.? Prior to any intervention, we will look for approval from cardiology to again hold patient's Brilinta to mitigate his periprocedural bleeding risk. I have re-examined the patient. There are no clinical changes since date of exam. Have confirmed that patient held his Brilinta appropriately since 08/20/2022. We have also reviewed recommendations for resuming this 48 hours post procedure. We reviewed the details of today's procedure as well as post procedure expectations?including containing the tube in place at least 6 weeks to establish a mature gastrocutaneous tract?in the urine of his who is present for this afternoon's conversations. They confirm understanding of all these details and have no further questions before proceeding today for PEG tube placement under MAC sedation.
--- NOTE | 2022-08-24 14:10 | DCINST_ITS ---
Discharge Instructions Diet Discharge Diet: - (Cleared to begin use of tube for feeds tomorrow 08/25/2022) Activity Discharge Activity: No Restrictions Dressing / Incision Call your doctor if your incision/area has: Continuous Slow Oozing, Sudden Increased Bleeding, Increased Pain/ Swelling, Increased Redness, Foul Smelling Discharge and Swelling at the incision site Call your doctor if you observe: Fever of 101 or Higher and - (Displacement of gastric feeding tube from stomach within for 6 weeks of procedure) Cleanse incision/area with: Soap & Water Follow Up Care Test Results: Test results from this visit will be discussed in further detail at your follow- up appointment, if applicable. Discharge Plan Admission Attending Provider: David Pink Primary Care Provider: Satnam Ybarra Discharge Orders/Prescriptions Prescriptions: No Action olanzapine 5 mg tablet 5 mg feeding tube QHS ascorbic acid (vitamin C) 500 mg capsule 500 mg PO DAILY omeprazole 40 mg capsule,delayed release(DR/EC) 40 mg feeding tube BID Label Comments: TAKE 1 CAPSULE BY MOUTH DAILY Jardiance 10 mg tablet 10 mg feeding tube DAILY clonazepam 1 mg tablet 0.5 mg feeding tube QHS Rx Instructions: administer 30 minutes before bedtime levothyroxine 100 mcg tablet 100 mcg feeding tube DAILY Label Comments: Take 1 tablet by mouth daily lamotrigine 200 MG tablet 200 mg feeding tube QHS Label Comments: depression atorvastatin 40 mg tablet 40 mg feeding tube DAILY carvedilol [Coreg] 12.5 mg tablet 12.5 mg feeding tube BID Rx Instructions: must administer with a meal/food Brilinta 90 mg tablet 90 mg feeding tube BID Referrals / Follow Up: Satnam Ybarra MD [Primary Care Provider] -
[2022-08-24] MEDS: Nitroglycerin SL (ED/IMG/CATH) 0.4 MG TABLET SL (14:38)
--- NOTE | 2022-08-24 14:44 | OP.EGD_ITS ---
Patient Name: Satnam Yu Procedure Date: 08/24/2022 1:10 PM Date of : 1960 Age: 62 Procedure: Upper GI endoscopy Indications: Therapeutic procedure, Dysphagia Providers: David Pink MD Medicines: See the Anesthesia note for documentation of the administered medications Patient Profile: Refer to note in patient chart for documentation of history and physical. Complications: No immediate complications. Estimated blood loss: Minimal. Procedure: Pre-Anesthesia Assessment: - The heart rate, respiratory rate, oxygen saturations, blood pressure, adequacy of pulmonary ventilation, and response to care were monitored throughout the procedure. After obtaining informed consent, the endoscope was passed under direct vision. Throughout the procedure, the patient's blood pressure, pulse, and oxygen saturations were monitored continuously. The gastroscope was introduced through the mouth, and advanced to the pylorus. The upper GI endoscopy was accomplished without difficulty. The patient tolerated the procedure well. Scope In: 1:30:53 PM Scope Out: 2:05:13 PM Total Procedure Duration Time 0 hours 34 minutes 20 seconds Findings: Localized mild inflammation characterized by erythema was found in the gastric antrum. No biopsies or other specimens were collected for this exam. A medium-sized hiatal hernia was present. No biopsies or other specimens were collected for this exam. Multiple 5 mm semi-sessile polyps with no bleeding and no stigmata of recent bleeding were found in the gastric fundus and in the gastric body. No biopsies or other specimens were collected for this exam. The in the stomach was normal. The patient was placed in the supine position for PEG placement. The stomach was insufflated to appose gastric and abdominal morel. A site was located in the body of the stomach with excellent transillumination for placement. The abdominal wall was marked and prepped in a sterile manner. The area was anesthetized with 2 mL of 1% lidocaine. The trocar needle was introduced through the abdominal wall and into the stomach under direct endoscopic view. A snare was introduced through the endoscope and opened in the gastric lumen. The guide wire was passed through the trocar and into the open snare. The snare was closed around the guide wire. The endoscope and snare were removed, pulling the wire out through the mouth. A skin incision was made at the site of needle insertion. The externally removable gastrostomy tube was lubricated. The G-tube was tied to the guide wire and pulled through the mouth and into the stomach. The trocar needle was removed, and the gastrostomy tube was pulled out from the stomach through the skin. The external bumper was attached to the gastrostomy tube, and the tube was cut to remove the guide wire. The final position of the gastrostomy tube was confirmed by relook endoscopy, and skin marking noted to be 3.25 cm at the external bumper. The final tension and compression of the abdominal wall by the PEG tube and external bumper were checked and revealed that the bumper was loose and lightly touching the skin. The feeding tube was capped, and the tube site cleaned and dressed. Impression: - Gastritis. No specimens collected. - Medium-sized hiatal hernia. No specimens collected. Recommendation: - Discharge patient to home (via wheelchair). - Resume previous diet for 1 day. - Resume antiplatelet medication at prior dose in 2 days. - Please follow the post-PEG recommendations including: change dressing once per day, NPO x4 hrs then water today, may use PEG tomorrow for feedings, antibiotic ointment to site, check site for bleeding q 4 hrs and clean site with soap and water daily and dry thoroughly. Procedure Code(s): --- Professional --- 60842, 52, Esophagogastroduodenoscopy, flexible, transoral; with directed placement of percutaneous gastrostomy tube Diagnosis Code(s): --- Professional --- K29.70, Gastritis, unspecified, without bleeding K44.9, Diaphragmatic hernia without obstruction or gangrene R13.10, Dysphagia, unspecified CPT copyright 2017 [employer]. All rights reserved. The codes documented in this report are preliminary and upon personal investment adviser review may be revised to meet current compliance requirements. David Pink MD 08/24/2022 2:43:43 PM This report has been signed electronically. Number of Addenda: 0 Note Initiated On: 08/24/2022 1:10 PM
--- NOTE | 2022-08-24 14:45 | OP.CCLET_ITS ---
08/24/2022 Satnam Ybarra [address] [place] [address] Re : Upper GI endoscopy procedure for Satnam Yu Dear Dr. Ybarra This procedure was performed on August. My impressions and recommendations are as follows: Impressions : - Gastritis. No specimens collected. - Medium-sized hiatal hernia. No specimens collected. Recommendations : - Discharge patient to home (via wheelchair). - Resume previous diet for 1 day. - Resume antiplatelet medication at prior dose in 2 days. - Please follow the post-PEG recommendations including: change dressing once per day, NPO x4 hrs then water today, may use PEG tomorrow for feedings, antibiotic ointment to site, check site for bleeding q 4 hrs and clean site with soap and water daily and dry thoroughly. My findings are described in the full procedure note, which is enclosed. If I can be of further assistance, please feel free to contact me at Doctor phone number(s): , Work: . Sincerely, David Pink MD 08/24/2022 2:43:43 PM This report has been signed electronically.
[2022-08-24 15:24] LABS: Troponin-I HS 16 pg/mL (3.0-78.0)
== END 2022-08-24 16:23 | disposition home or self-care (01) ==
LOC: EN 12:11 → AC 12:12
PROVIDERS: Anesthesiology; PCP Family Medicine; Referring Provider Family Medicine; Visit Provider Surgery
PROC: 0DJ08ZZ Inspection of Upper Intestinal Tract, Via Natural or Artificial Opening Endoscopic (ICD-10-PCS; CPT 43235; principal; 2022-08-24 13:25)
DX: K29.70 Gastritis, unspecified, without bleeding (principal); Z93.1 Gastrostomy status; I42.9 Cardiomyopathy, unspecified; I50.30 Unspecified diastolic (congestive) heart failure; I11.0 Hypertensive heart disease with heart failure; F31.9 Bipolar disorder, unspecified; I48.0 Paroxysmal atrial fibrillation; R13.10 Dysphagia, unspecified; Z82.3 Family history of stroke; R13.0 Aphagia; K44.9 Diaphragmatic hernia without obstruction or gangrene; I25.2 Old myocardial infarction; I25.10 Atherosclerotic heart disease of native coronary artery without angina pectoris; E03.9 Hypothyroidism, unspecified
CPT/HCPCS: 43246; 84484; 97802; J7120; J2405

== ENCOUNTER → 2022-08-30 | Outpatient (CLI) | payer BC, SELFPAY ==
--- NOTE | 2022-08-30 10:24 | SP.MBSS_ITS ---
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 Medical History: Previous speech therapy: Yes; Results: He saw speech therapy at [facility] 08/17/2022. FEES was completed, recommending puree textures with L head turn, nectar thick liquids with L head turn and cough immediately following the swallow. Additionally, ST provided him exercises (hard swallows 100X/day, jaw open as wide as possible 50X/day). 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 He is planned for 6-6.5 weeks of radiation therapy. He had a trach after his surgery, but it has since been removed. He was referred for speech therapy at [facility] due to ongoing dysphagia. 390mL of pivot per day via NG tube per pt report at initial evaluation for speech therapy at [facility]. He had PEG tube removed 08/24/2022. Current Diet Ordered: Puree textures / [place] thick liquids Mental Status: WNL Respiratory Status: Oxygenating on Room Air - Penetration-Aspiration Scale Penetration-Aspiration Scale: OBJECTIVE ASSESSMENT OF SWALLOW FUNCTION (QUANTITATIVE ? PER TRIAL): PENETRATION / ASPIRATION SCALE (CORBETT): 1 = does not enter airway 2 = enters airway/above vocal folds/ejected 3 = enters airway/above vocal folds/not ejected 4 = enters airway/contacts vocal folds/ejected 5 = enters airway/contacts vocal folds/not ejected 6 = enters airway/below vocal folds/ejected 7 = enters airway/below vocal folds/not ejected despite effort 8 = enters airway/below vocal folds/no effort VIDEOFLOROSCOPIC SCALE SCORE (CORBETT): Grade I = aspiration of material that has penetrated into the laryngeal vestibule, intact cough reflex Grade II = aspiration < 10 % of the bolus, intact cough reflex Grade III = aspiration of < 10 % of the bolus, reduced cough reflex or aspiration of > 10 % of the bolus, intact cough reflex Grade IV = aspiration of > 10 % of the bolus, reduced cough reflex - Penetration-Aspiration Scale Score Thin Liquid via teaspoon Result: 7= enters airways/below vocal folds/not ejected despite effort Thin Liquid via teaspoon Left head turn Result: 5= enters airways/contacts vocal folds/not ejected Thin Liquid via small single sip from cup cued cough and re-swallow Result: 5= enters airways/contacts vocal folds/not ejected [place] Thick Liquid via teaspoon cued cough and re-swallow Result: 5= enters airways/contacts vocal folds/not ejected [place] Thick Liquid via teaspoon Left head turn Result: 5= enters airways/contacts vocal folds/not ejected [place] Thick Liquid via teaspoon Chin tuck Result: 2= enter airway/above vocal folds/ejected Thin Liquid via small single sip from cup Chin tuck and cued cough and re- swallow Result: 5= enters airways/contacts vocal folds/not ejected [place] Thick Liquid via small single sip from cup Chin tuck and cued cough and re-swallow Result: 3= enters airways/above vocal folds/not ejected Pudding via teaspoon Chin tuck Result: 2= enter airway/above vocal folds/ejected - Oral Phase Labial Seal: Escape beyond interlabial space; no extension beyond perry border Tongue Control During Bolus Hold: Posterior escape of less than half of bolus Bolus Transport/Lingual Motion: Repetitive/disorganized tongue motion Oral Residue: Residue collection on oral structures - Pharyngeal Phase Initiation of Pharyngeal Swallow: Bolus head in pyriforms Soft Palate Elevation: No bolus between soft palate and pharyngeal wall Laryngeal Elevation: Min superior movement thyroid cart/min apprx aryte cart- epig petiole Anterior Hyoid Excursion: No anterior movement Epiglottic Movement: No inversion Laryngeal Vestibule Closure at Height of Swallow: None; wide column of air/contrast in laryngeal vestibule Pharyngeal Stripping Wave: Absent Pharyngoesophageal Segment Opening: Minimal distension and minimal duration; marked obstruction of flow Tongue Base Retraction: Wide column of contrast between tongue base & post. pharyngeal wall Pharyngeal Residue: Majority of contrast within or on pharyngeal structures - Treatment Strategies Effects of treatment strategies attemped:: Chin tuck = somewhat effective. Cough and re-swallow = somewhat effective - cleared contrast remaining in the laryngeal vestibule to only trace residue. - Diagnosis/Impression Diagnosis: Severe oropharyngeal phase dysphagia (R13.12) Impression: The oral phase is primarily marked by... -Decreased bolus control with <1/2 of the bolus spilling posteriorly to the pyriforms prior to swallow onset observed with thin liquids especially. -Slowed and repetitive tongue motion for A-P transport. Tongue ROM restricted s/p partial glossectomy. -Mild oral residue after the swallow, which mostly cleared with independent initiation of multiple swallows. -Did not complete cookie trial due to concerns for choking with decreased bolus control and poor pharyngeal clearance. The pharyngeal phase is primarily marked by... -Severely decreased airway closure during the swallow due to no anterior hyoid excursion, no epiglottic inversion, and decreased laryngeal elevation; however, laryngeal elevation and airway closure did improve as the study progressed. -Moderately-severely decreased tongue base retraction, severely decreased UES opening/duration, and no pharyngeal stripping wave with resulting moderate- severe pharyngeal residues after the swallow. -Aspiration of thin liquids by tsp. Consistent laryngeal penetration across thin and nectar thick liquid consistencies, which did not reliably eject from the laryngeal vestibule after the swallow. Use of chin tuck was most effective in decreasing laryngeal penetration during the swallow. Use of cough and re-swallow was effective in decreasing residues remaining in the laryngeal vestibule to trace amounts. - Recommendations Diet: Regular Textures, Puree Textures - moist purees only, [place] 5-thick Liquids - continue Watson Free Water Protocol Compensatory Strategies: Small Bites, Small Sips - cough and re-swallow each sip, No Straws, Chin Tuck - with all bites and sips, Multiple Swallows, Sitting upright Recommend Repeat Modified Barium Swallow: Yes - 3-6 months after completion of radiation for ongoing assessment of dysphagia and aspiration risk Need for Skilled Speech Therapy Services: Yes Comment: Will recommend the patient for continued outpatient dysphagia therapy to address severe deficits in oropharyngeal swallow function. Will recommend the patient for intensive oropharyngeal strengthening exercise program to improve laryngeal elevation, hyoid excursion, tongue base retraction, pharyngeal contraction, and duration of UES opening (CTAR, Cherise, effortful, effortful breath hold and swallow, Shaker). Continue jaw stretch to address trismus, monitor jaw opening as the patient is at risk for worsening trismus during nad following radiation therapy. The patient would benefit from thorough education regarding diet recommendations and recommended compensatory strategies. Education Completed: 1. Described result of evaluation. - Instructed the patient in recommendations, provided handout of recommendations, including home exercise program (effortful X50 reps daily, CTAR X50 reps daily, jaw stretch X50 reps daily). FORM SETTER/DRIVER to instruct in additional exercises in upcoming OP ST session., 2. Pt understands evaluation & agrees with goals and treatment plan., 7. Pt requires further education on strategies & risks. - Status Active ST Patient: Active - Contact Information [facility] Speech Therapy:: Ashley Obrien M.A. [facility]-FORM SETTER/DRIVER Speech-Language Pathologist [facility] [address] [place] [address] [email or web address] [phone] 08/30/22 11:26
== END | disposition home or self-care (01) ==
LOC: RAD 10:11
PROVIDERS: PCP Family Medicine; Referring Provider Student in an Organized Health Care Education/Training Program; Visit Provider Student in an Organized Health Care Education/Training Program
DX: R13.10 Dysphagia, unspecified (principal); C06.9 Malignant neoplasm of mouth, unspecified
CPT/HCPCS: 74230; 92611

== ENCOUNTER → 2022-09-15 | Outpatient (CLI) | payer BC, SELFPAY ==
[2022-09-15 15:15] LABS: Hematocrit 36.3 % (40-54); Hemoglobin 11.4 g/dL (13.0-16.5); Mean Corp Hgb Conc 31.4 g/dL (32-36); Mean Corpuscular Volume 98.6 fL (80-94); Mean Platelet Vol. 12.6 fl (6.2-12.0); Platelet Count 156 K/mm3 (150-450); RBC Distribution Width CV 15.6 % (11.6-14.6); RBC Distribution Width SD 56.1 fl (35.1-43.9); Red Blood Count 3.68 M/mm3 (4.6-6.2); White Blood Count 7.8 K/mm3 (4.4-11.0)
[2022-09-15 15:33] LABS: Hemoglobin A1c 5.9 % (3.8-5.6)
[2022-09-15 15:36] LABS: Vitamin B12 927 pg/mL (211-911)
[2022-09-15 15:48] LABS: ALB/GLOB Ratio 0.8 RATIO (0.9-2.4); AST(SGOT) 64 U/L (15-37); Alanine Aminotransfer ALT/SGPT 128 U/L (16-61); Albumin, Serum 3.5 g/dL (3.2-5.0); Alkaline Phosphatase 141 U/L (45-117); Anion Gap 7 (5-15); BUN 61 mg/dL (7-18); Calcium,Total 10.3 mg/dL (8.5-10.1); Chloride 102 mmol/L (98-107); Cholesterol 82 mg/dL (200); Creatinine, Serum 1.27 mg/dL (0.70-1.30); EST Glomerular Filtration Rate 61 mL/min (>60); Est Glom Filt Rate - Afr Amer 74 mL/min (>60); Ferritin 62 ng/mL (26-388); Globulin 4.5 g/dL (2.2-4.2); Glucose 94 mg/dL (74-106); High Density Lipoprotein 28 mg/dL; Iron 62 ug/dL (65-175); Iron Binding Capacity,Total 354 ug/dL (250-450); Microalbumin,Random Urine 41.5 mg/L (NO RANGE EST.); Microalbumin:Creatinine Ratio 52.7 mg/g CRE (<30 mg/g CRE); Potassium 4.6 mmol/L (3.5-5.1); Sodium Level 137 mmol/L (136-145); T4 Free Direct 0.84 ng/dL (0.76-1.46); Thyroid Stim Hormone (TSH) 1.82 uIU/mL (0.358-3.74); Triglycerides 81 mg/dL; Very Low Density Lipoprotein 16 mg/dL (5-40)
== END | disposition home or self-care (01) ==
LOC: MFPLAB 13:48
PROVIDERS: PCP Family Medicine; Referring Provider Family Medicine; Visit Provider Family Medicine
DX: E03.8 Other specified hypothyroidism (principal); E11.9 Type 2 diabetes mellitus without complications; D64.9 Anemia, unspecified
CPT/HCPCS: 36415; 80053; 80061; 82043; 82570; 82607; 82728; 82746; 83036; 83540; 83550; 84439; 84443; 85027

== ENCOUNTER → 2022-12-13 | Outpatient (CLI) | payer BC, SELFPAY ==
[2022-12-13 15:13] LABS: Absolute Lymphocyte Count 0.54 X10^3/uL (0.83-4.51); Absolute Neutrophil Count 4.9 X10^3/uL (2.0-7.7); Basophil# 0.02 X10^3/uL; Basophil% 0.3 % (0-1); Eosinophil# 0.08 X10^3/uL; Eosinophils% 1.3 % (0-5); Hematocrit 40.4 % (40-54); Hemoglobin 12.3 g/dL (13.0-16.5); Lymphocyte # 0.54 X10^3/ul (0.83-4.51); Lymphocyte % 8.7 % (19-41); Mean Corp Hgb Conc 30.4 g/dL (32-36); Mean Corpuscular Volume 101.8 fL (80-94); Mean Platelet Vol. 12.1 fl (6.2-12.0); Monocyte# 0.61 X10^3/uL; Monocyte% 9.8 % (0-10); NRBC Flagged by Analyzer 0 % (0-5); Neutrophil # 4.92 X10^3/uL (2.7-7.7); Neutrophil % 79.4 % (47-70); POSITIVE DIFFERENTIAL YES; Platelet Count 139 K/mm3 (150-450); RBC Distribution Width CV 14.4 % (11.6-14.6); RBC Distribution Width SD 53.5 fl (35.1-43.9); Red Blood Count 3.97 M/mm3 (4.6-6.2); White Blood Count 6.2 K/mm3 (4.4-11.0)
[2022-12-13 15:48] LABS: Differential Indicated SCAN CRITERIA MET
[2022-12-13 16:02] LABS: Vitamin D,25 Hydroxy 75.5 ng/mL
[2022-12-13 16:04] LABS: Hemoglobin A1c 5.4 % (3.8-5.6)
[2022-12-13 16:05] LABS: ALB/GLOB Ratio 0.7 RATIO (0.9-2.4); AST(SGOT) 41 U/L (15-37); Alanine Aminotransfer ALT/SGPT 66 U/L (16-61); Albumin, Serum 3.5 g/dL (3.2-5.0); Alkaline Phosphatase 118 U/L (45-117); Anion Gap 7 (5-15); BUN 61 mg/dL (7-18); BUN/Creat Ratio 47.7 RATIO (10-20); Calcium,Total 10.2 mg/dL (8.5-10.1); Chloride 107 mmol/L (98-107); Cholesterol 85 mg/dL (200); Creatinine, Serum 1.28 mg/dL (0.70-1.30); EST Glomerular Filtration Rate 60 mL/min (>60); Est Glom Filt Rate - Afr Amer 73 mL/min (>60); Ferritin 16 ng/mL (26-388); Globulin 5.1 g/dL (2.2-4.2); Glucose 92 mg/dL (74-106); High Density Lipoprotein 32 mg/dL; Iron 64 ug/dL (65-175); Iron Binding Capacity,Total 390 ug/dL (250-450); Magnesium 2.3 mg/dL (1.6-2.6); Potassium 4.8 mmol/L (3.5-5.1); Protein, Total 8.6 g/dL (6.4-8.2); Sodium Level 141 mmol/L (136-145); T4 Free Direct 0.86 ng/dL (0.76-1.46); Triglycerides 51 mg/dL; Very Low Density Lipoprotein 10 mg/dL (5-40)
[2022-12-13 16:24] LABS: Differential Comment SCANNED
[2022-12-13 18:23] LABS: Microalbumin:Creatinine Ratio 144.4 mg/g CRE (<30 mg/g CRE); Protein, Urine (Random) 22.5 mg/dL (<11.9); Protein:Creat Ratio 313 mg/g CRE (0-200)
[2022-12-14 08:10] LABS: PTHIN 66.1 pg/mL (18.4-80.1)
== END | disposition home or self-care (01) ==
LOC: MFPLAB 14:03
PROVIDERS: PCP Family Medicine; Referring Provider Family Medicine; Visit Provider Family Medicine
DX: E11.22 Type 2 diabetes mellitus with diabetic chronic kidney disease (principal); I48.91 Unspecified atrial fibrillation; E03.8 Other specified hypothyroidism; E61.1 Iron deficiency
CPT/HCPCS: 36415; 80053; 80061; 82043; 82306; 82570; 82728; 83036; 83540; 83550; 83735; 83970; 84100; 84156; 84439; 84443; 85025

== ENCOUNTER 2022-12-31 10:41 | Emergency (ER) | payer BC, SELFPAY ==
[2022-12-31 10:43] VITALS: BP 152/71; PULSE 69; RESP 18; TEMP 36.8; O2SAT 97; BMI 21.1
--- NOTE | 2022-12-31 11:06 | CT_ITS ---
STUDY: CT SOFT TISSUE NECK WITH CONTRAST REASON FOR EXAM: Male, 62 years old. neck swelling, TONGUE CANCER WITH RADIATION AND RESECTION SEP 2022 RADIATION DOSAGE (If Supplied By Facility): CTDIvol = ( 13.08 ) mGy, DLP = ( 437.57 ) mGycm TECHNIQUE: The patient was scanned in a multi-detector CT scanner. High resolution transaxial imaging was performed following intravenous administration of IV 100mL Isovue-370. Sagittal and coronal images were reconstructed. Individualized dose optimization techniques were used for this CT. COMPARISON: None. FINDINGS: Normal bilateral parotid glands. Normal bilateral sign writer letterer or painter spaces. Normal bilateral parapharyngeal spaces. Normal bilateral carotid spaces. Normal bilateral sublingual and submandibular glands and spaces. Normal visualized nasopharynx. Normal retropharyngeal space. Normal perivertebral space. Normal visualized bilateral faucial tonsils. Postsurgical changes to the left side of the face at the level of the floor the mouth. Skin thickening and edema in the subcutaneous fat consistent with changes from radiation therapy. 3 x 4 cm soft tissue mass in the floor the mouth extending extending inferiorly into the left aryepiglottic fold consistent with recurrent squamous cell carcinoma. The visualized cervical lymph nodes (levels I-) are within normal size limits, and maintain normal morphology. There is no demonstrated solid or cystic mass lesion. There is no abnormal contrast enhancement. Normal epiglottis, bilateral vallecula and hypopharynx. The pre-epiglottic and paraglottic adipose spaces are normal. Normal visualized bilateral piriform sinuses, aryepiglottic folds, vocal cords, and arytenoid-cricoid articulations. Normal subglottic trachea. Normal bilateral lobes of the thyroid gland. Normal visualized pulmonary apices. Mucosal thickening of the left maxillary sinus consistent with chronic sinusitis. Normal visualized cervical spine. CT/Soft Tissue Neck WITH Contrast IMPRESSION: Postsurgical and radiation changes of the floor the mouth with a recurrent 3 x 4 cm mass of the tongue base extending into the left aryepiglottic fold worrisome for recurrent squamous cell carcinoma. No lymphadenopathy. Electronically Signed: Efren Palencia MD at 13:14 EST ,
--- NOTE | 2022-12-31 11:08 | EX.ED.DYSGE1 ---
HPI <HEENA Youssef - Last Filed: 12/31/22 14:33> History of Present Illness Chief Complaint: Edema Narrative Narrative: 62-year-old male with history of atrial fibrillation on Coumadin, cardiac history with pacemaker, stent placement, history of tongue cancer with oral surgery, lymph node removal from left side of neck presents to the emergency department with right-sided neck, jaw swelling. Patient does have history of scleredema he always has swelling. However the last 48 hours, the swelling has been more significant, more redness of the right side with difficulty swallowing. Patient denies any fever or chills. Patient's last radiation was of 2021. Patiently currently sees Dr. Hoffman who is radiation here as well as Dr. Last [facility]. Patient is here with his presenting with right-sided neck pain. Patient denies any respiratory issues. Patient is supposed be on Coumadin however stopped 2 months ago secondary to cutting himself shaving. He did not tell his or his providers about this. [facility] <HEENA Youssef - Last Filed: 12/31/22 14:33> [facility] Medical History Acute kidney injury Atherosclerosis of coronary artery without angina pectoris Bipolar 1 disorder Black tarry stools Cancer Cardiology follow-up encounter Chronic diastolic (congestive) heart failure Chronic kidney disease (CKD) Chronotropic incompetence with left ventricular dysfunction Community acquired pneumonia Complete heart block Dietary restriction Difficulty chewing Difficulty swallowing Dilated cardiomyopathy Essential (primary) hypertension Gastric reflux Guaiac positive stools Yodit's thyroiditis HFrEF (heart failure with reduced ejection fraction) History of echocardiogram History of non-ST elevation myocardial infarction (NSTEMI) (03/03/22) History of renal disease History of stress test HLD (hyperlipidemia) Hypothyroid Hypothyroidism, iatrogenic Iron deficiency Lipoprotein deficiency Longstanding persistent atrial fibrillation Low iron Lower GI bleed (03/27/22) Nasogastric tube present Non-smoker Paroxysmal A-fib Pneumonia due to COVID-19 virus (12/24/20) Scleroderma Scleroderma 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 Shortness of breath on exertion 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) Wears dentures Wears glasses Home Medications lamotrigine 200 mg tablet 200 mg feeding tube QHS 12/24/13 [History Last Taken 09/22/14] ascorbic acid (vitamin C) 500 mg capsule 500 mg PO DAILY 02/03/20 [History Last Taken Unknown] olanzapine 5 mg tablet 5 mg feeding tube QHS 02/03/20 [History Last Taken Unknown] empagliflozin 10 mg tablet (Jardiance) 10 mg feeding tube DAILY 03/09/22 [History Last Taken Unknown] omeprazole 40 mg capsule,delayed release 40 mg feeding tube BID 03/09/22 [History Last Taken Unknown] clonazepam 1 mg tablet 0.5 mg feeding tube QHS 07/07/22 [History Last Taken Unknown] atorvastatin 40 mg tablet 40 mg feeding tube DAILY 08/23/22 [History Last Taken Unknown] carvedilol 12.5 mg tablet (Coreg) 12.5 mg feeding tube BID 08/23/22 [History Last Taken Unknown] MAGIC MOUTH WASH (BMX) 180 mL suspension 15 ml PO .qid PRN pain #180 mL 09/06/22 [Rx Last Taken Unknown] chlorhexidine gluconate 0.12 % mouthwash 15 ml buccal DAILY 10/11/22 [History Last Taken Unknown] levothyroxine 100 mcg tablet 150 mcg feeding tube DAILY 10/30/22 [History Last Taken Unknown] sacubitril 24 mg-valsartan 26 mg tablet 1 tab PO BID 10/30/22 [History Last Taken Unknown] ticagrelor 90 mg tablet (Brilinta) 90 mg PO BID 10/30/22 [History Last Taken Unknown] Allergy/AdvReac Type Severity Reaction Status Date / Time penicillamine Allergy Severe Anaphylaxis Verified 12/31/22 10:46 Family History Mother Yodit's disease Diabetes Hypertension Grandfather CVA (cerebral vascular accident) Surgical History H/O colonoscopy H/O stem cell transplant History of coronary artery stent placement (03/06/22) History of coronary artery stent placement History of inguinal hernia repair History of left heart catheterization (01/28/18) History of permanent cardiac pacemaker placement (06/05/22) History of right heart catheterization (05/07/19) Hx of oral surgery Social History Smoking Status: Never smoker alcohol intake: current alcohol intake frequency: a few times a week Alcohol type: beer substance use type: does not use caffeine: Yes Type: coffee Number of servings: 1 what type of physical activity do you participate in: none seatbelt use: always do you feel safe at home: Yes ROS <HEENA Youssef - Last Filed: 12/31/22 14:33> ROS ED ROS Narrative Constitutional: Negative for fever, chills, weight loss, weakness Eyes: Negative for vision loss, vision change, double vision ENT: Negative for any ear pain, congestion. Positive for sore throat, throat swelling, right jaw pain Cardiovascular: Negative for any chest pain, tightness, palpitations Respiratory: Negative for any cough, sputum production, hemoptysis, dyspnea, dyspnea on exertion, orthopnea Gastrointestinal: Negative for any abdominal pain, nausea, vomiting, diarrhea, constipation, blood in stool, blood in vomit : Negative for any urinary frequency, dysuria, retention, blood in urine Muscle skeletal: Negative for any muscle joint pain, stiffness, myalgias, arthralgias, neck pain, back pain Neurological: Negative for any headache, syncope, numbness or tingling, dizziness Skin: Negative for any rashes, lumps, itching, abrasions, lacerations Psychiatric: Negative for any depression, anxiety, stress, suicidal ideation, homicidal ideation Hematologic: Negative for any easy bruising, excessive bruising, easy bleeding Allergies: Negative for any eczema, hives, rash EXAM <HEENA Youssef - Last Filed: 12/31/22 14:33> Physical Exam Narrative Exam Narrative: Vital signs reviewed. Patient does not swallow food, he is on a thickened liquid diet. HEET: Head normocephalic atraumatic, TMs clear bilaterally. Patient does have edema to the parotid lymph nodes on the right side these are tender, erythemic. Posterior pharynx is clear, moist mucous membranes. Nares clear bilaterally. Patient's tongue, oral airway is red however this is within normal limits. Patient does have swelling to the lower jaw however per the this is normal. Neck: Supple with positive for anterior cervical lymphadenopathy which is worse with palpation.. No signs of meningismus, negative jolt sign. Cardiac: Regular rate and rhythm no murmurs gallops or rubs, equal peripheral pulses bilaterally. Respiratory: Lungs clear to auscultation bilaterally. No chest tenderness. Abdomen: Soft, nontender, nondistended. No abdominal bruit or pulsatile masses. No hepatosplenomegaly Extremities: No peripheral edema, no signs of gross trauma or deformity. Active full range of motion of all extremities. Neuro: Cranial nerves II through XII intact, no focal neurological deficits. Skin: Clean dry and intact with no rash, purpura, petechiae, vesicles or pustules. Backs/flank: No CVA tenderness, no midline spinal tenderness, no deformity. Psych: Normal mood and affect. No SI, HI or acute psychosis. Const Vital Signs: 12/31/22 10:43 12/31/22 12:12 12/31/22 14:46 Temperature 98.2 F 98 F 98.8 F Temperature Source Temporal Temporal Pulse Rate 69 70 68 Respiratory Rate 18 18 18 Blood Pressure 152/71 H 138/75 H 141/83 H Blood Pressure Mean 98 96 102 Pulse Ox 97 99 98 Oxygen Delivery Method Room Air 12/31/22 13:00 12/31/22 14:00 12/31/22 15:00 Temperature Temperature Source Pulse Rate 70 Respiratory Rate Blood Pressure 142/76 H 145/78 H 141/78 H Blood Pressure Mean 98 100 99 Pulse Ox 100 99 Oxygen Delivery Method Positive cachectic General Appearance ED: cachectic Nutritional Appearance: cachectic <Dr. Shelton Burleson DO - Last Filed: 12/31/22 18:49> Physical Exam Const Vital Signs: 12/31/22 10:43 12/31/22 12:12 12/31/22 14:46 Temperature 98.2 F 98 F 98.8 F Temperature Source Temporal Temporal Pulse Rate 69 70 68 Respiratory Rate 18 18 18 Blood Pressure 152/71 H 138/75 H 141/83 H Blood Pressure Mean 98 96 102 Pulse Ox 97 99 98 Oxygen Delivery Method Room Air 12/31/22 13:00 12/31/22 14:00 12/31/22 15:00 Temperature Temperature Source Pulse Rate 70 Respiratory Rate Blood Pressure 142/76 H 145/78 H 141/78 H Blood Pressure Mean 98 100 99 Pulse Ox 100 99 Oxygen Delivery Method MDM <HEENA Youssef - Last Filed: 12/31/22 14:33> MDM Lab Data Attestation: I reviewed the patient's lab results. Labs: Laboratory Results - last 24 hr 12/31/22 12/31/22 12/31/22 11:22 11:22 11:22 WBC 11.6 H RBC 3.58 L Hgb 11.3 L Hct 35.5 L MCV 99.2 H MCH 31.6 MCHC 31.8 L RDW Std Deviation 49.1 H RDW Coeff of Blanquita 13.5 Plt Count 120 L MPV 11.6 Immature Gran % (Auto) 0.400 Neut % (Auto) 85.2 H Lymph % (Auto) 3.5 L Robeson % (Auto) 10.3 H Eos % (Auto) 0.4 Baso % (Auto) 0.2 Absolute Neuts (auto) 9.8 H Absolute Lymphs (auto) 0.41 L Nucleated RBC % 0 Differential Comment SCANNED PT INR Sodium 140 Potassium 4.9 Chloride 106 Carbon Dioxide 30.0 Anion Gap 4 L BUN 41 H Creatinine 1.31 H Estim Creat Clear Calc 54.43 Est GFR (MDRD) Af Amer 71 Est GFR (MDRD) Non-Af 59 L BUN/Creatinine Ratio 31.3 H Glucose 156 H Lactic Acid 1.5 Calcium 10.7 H 12/31/22 11:22 WBC RBC Hgb Hct MCV MCH MCHC RDW Std Deviation RDW Coeff of Blanquita Plt Count MPV Immature Gran % (Auto) Neut % (Auto) Lymph % (Auto) Robeson % (Auto) Eos % (Auto) Baso % (Auto) Absolute Neuts (auto) Absolute Lymphs (auto) Nucleated RBC % Differential Comment PT 15.2 H INR 1.2 Sodium Potassium Chloride Carbon Dioxide Anion Gap BUN Creatinine Estim Creat Clear Calc Est GFR (MDRD) Af Amer Est GFR (MDRD) Non-Af BUN/Creatinine Ratio Glucose Lactic Acid Calcium Radiography Diagnostic Testing: Clinical Impression(s) from Imaging Studies Soft Tissue Neck CT 12/31/22 11:06 IMPRESSION: Postsurgical and radiation changes of the floor the mouth with a recurrent 3 x 4 cm mass of the tongue base extending into the left aryepiglottic fold worrisome for recurrent squamous cell carcinoma. No lymphadenopathy. Electronically Signed: Efren Palencia MD at 13:14 EST , Brain CT 12/31/22 11:15 IMPRESSION: Normal unenhanced and enhanced CT scan of the brain. Electronically Signed: Efren Palencia MD at 12:39 EST , Treatment and Re-Evaluation Narrative: All radiologic examinations were read, reviewed by the emergency department attending. From these reads, a plan of care will be put in place. Patient arrives in mild distress secondary to right-sided neck pain, difficulty swallowing. Patient presents the emergency department with neck swelling, pain to the right side of his neck.Secondary to the patient's cancer history, patient did receive a full work-up. Patient's CBC shows a leukocytosis white blood count of 3.6. Patient's hemoglobin is 11.3 which is stable compared to the past charts of 09/15/2022 and early this year. Patient's PT was 15.2 with an INR 1.2 this is suboptimal for somewhat supposed to be on Coumadin however he is currently not taking his Coumadin because he took himself off 2 months ago. Patient's chemistries show a creatinine of 1.31, this is baseline and an improvement from previous. Patient's lactic was negative. Patient did receive multiple doses of IV pain medicine. 4 mg of morphine x2, patient then needs to be placed on 1 mg of Dilaudid. Patient did receive a CT scan of his brain with contrast as well as soft tissue neck. CT scan of the brain showed no acute process. CT scan of soft tissue neck showed a postsurgical and radiation changes of the floor of the mouth with a recurrent 3 x 4 cm mass of the tongue base extending into the left area epiglottic fold. This is worrisome for recurrent squamous cell carcinoma. No lymphadenopathy is noted. Secondary to these findings, the patient's severe pain, difficulty swallowing, did reach out to the patient's surgical oncologist at [facility]. I am currently waiting for a call back. Patient and as well as the son was made aware of this. They no further questions at this time. Patient on reassessment was in a position of comfort. Vital signs are stable. Patient is maintaining his airway. [facility] did accept the patient. Patient will be ER to ER transfer. I spoke with the patient, the patient's family, they are agreeable. Patient will go by ambulance. Patient remained stable. Accepted by Dr. Lee <Dr. Shelton Burleson DO - Last Filed: 12/31/22 18:49> MDM MDM Narrative Medical decision making narrative: Interventions / MDM: Differential diagnosis:Recurrent cancer, proctitis, abscess Diagnosis considered but do not suspect: N/A My EKG interpretation: N/A Imaging independently reviewed and interpreted by myself: CT brain with without contrast no acute process. CT soft tissue neck 3 x 4 cm recurrent mass base of the tongue External documents reviewed: N/A Test considered but not ordered:N/A ED course: Attending note: Patient seen and evaluated with special forces senior sergeant. I perform my own [id number] evaluation. I agree with the plan of work-up. Here with family worsening swelling right face left lower mandibular overnight. History of squamous cell cancer of the tongue, I finished radiation this past September. Chronic trouble swallowing. No dyspnea. Exam there is swelling right parotid extending to the mandibular angle. There is a submental swelling with induration on the left side. Airway patent. No respiratory distress. Patient reporting headache with no deficits with cancer history, CT brain with without contrast obtained showing no acute process. CT soft tissue with contrast due to his cancer history has concerning recurrent mass at the base of the tongue. He is followed by [facility]. Treated for his pain symptoms. His labs are stable. Discussed with [facility] transfer, he was transferred to [facility] for further management. Re-evaluation: stable Disposition discussed with patient/family/significant other: Patient and family Case discussed with consulting clinician: [facility] transfer Lab Data Labs: Laboratory Results - last 24 hr 12/31/22 12/31/22 12/31/22 11:22 11:22 11:22 WBC 11.6 H RBC 3.58 L Hgb 11.3 L Hct 35.5 L MCV 99.2 H MCH 31.6 MCHC 31.8 L RDW Std Deviation 49.1 H RDW Coeff of Blanquita 13.5 Plt Count 120 L MPV 11.6 Immature Gran % (Auto) 0.400 Neut % (Auto) 85.2 H Lymph % (Auto) 3.5 L Robeson % (Auto) 10.3 H Eos % (Auto) 0.4 Baso % (Auto) 0.2 Absolute Neuts (auto) 9.8 H Absolute Lymphs (auto) 0.41 L Nucleated RBC % 0 Differential Comment SCANNED PT INR Sodium 140 Potassium 4.9 Chloride 106 Carbon Dioxide 30.0 Anion Gap 4 L BUN 41 H Creatinine 1.31 H Estim Creat Clear Calc 54.43 Est GFR (MDRD) Af Amer 71 Est GFR (MDRD) Non-Af 59 L BUN/Creatinine Ratio 31.3 H Glucose 156 H Lactic Acid 1.5 Calcium 10.7 H 12/31/22 11:22 WBC RBC Hgb Hct MCV MCH MCHC RDW Std Deviation RDW Coeff of Blanquita Plt Count MPV Immature Gran % (Auto) Neut % (Auto) Lymph % (Auto) Robeson % (Auto) Eos % (Auto) Baso % (Auto) Absolute Neuts (auto) Absolute Lymphs (auto) Nucleated RBC % Differential Comment PT 15.2 H INR 1.2 Sodium Potassium Chloride Carbon Dioxide Anion Gap BUN Creatinine Estim Creat Clear Calc Est GFR (MDRD) Af Amer Est GFR (MDRD) Non-Af BUN/Creatinine Ratio Glucose Lactic Acid Calcium Radiography Diagnostic Testing: Clinical Impression(s) from Imaging Studies Soft Tissue Neck CT 12/31/22 11:06 IMPRESSION: Postsurgical and radiation changes of the floor the mouth with a recurrent 3 x 4 cm mass of the tongue base extending into the left aryepiglottic fold worrisome for recurrent squamous cell carcinoma. No lymphadenopathy. Electronically Signed: Efren Palencia MD at 13:14 EST Reading Location ID and State: [employer] / [employer] Tel , Service support , Brain CT 12/31/22 11:15 IMPRESSION: Normal unenhanced and enhanced CT scan of the brain. Electronically Signed: Efren Palencia MD at 12:39 EST Reading Location ID and State: [employer] / [employer] Tel , Service support , <Dr. Shelton Burleson, DO - Last Filed: 12/31/22 18:49> Critical Care Time Critical Care Time: Yes Critical care time (excluding procedures): 30-74 minutes, Discussing w/Patient &/or Family/Assistant Director Of Plant Operations, Discussing w/Consultants, Arranging Admission or Transfer, Performing Direct Patient Care at Bedside and - (30 minutes) Discharge Plan Triage Chief Complaint: Edema ED Midlevel Provider: Tim Burk ED Provider: Shelton Burleson Dx/Rx/DC Orders Clinical Impression: Neck swelling, Tongue mass, History of cancer, Dysphagia, Intractable pain, Squamous cell cancer of buccal mucosa Prescriptions: No Action olanzapine 5 mg tablet 5 mg feeding tube QHS ascorbic acid (vitamin C) 500 mg capsule 500 mg PO DAILY omeprazole 40 mg capsule,delayed release(DR/EC) 40 mg feeding tube BID Label Comments: TAKE 1 CAPSULE BY MOUTH DAILY Jardiance 10 mg tablet 10 mg feeding tube DAILY clonazepam 1 mg tablet 0.5 mg feeding tube QHS Rx Instructions: administer 30 minutes before bedtime levothyroxine 100 mcg tablet 150 mcg feeding tube DAILY Label Comments: Take 1 tablet by mouth daily sacubitril-valsartan 24-26 mg tablet 1 tab PO BID Brilinta 90 mg tablet 90 mg PO BID MAGIC MOUTH WASH (BMX) 180 mL suspension 15 ml PO .qid PRN (Reason: pain) Qty: 180 6RF Rx Instructions: diphenhydramine 12.5 mg/5 mL oral liquid 60 mL; aluminum-mag hydroxide-simethicone 400 mg-400 mg-40 mg/5 mL oral susp 60 mL; Lidocaine Viscous 2 % mucosal solution 60 mL; Per 180 mL chlorhexidine gluconate 0.12 % mouthwash 15 ml buccal DAILY lamotrigine 200 MG tablet 200 mg feeding tube QHS Label Comments: depression atorvastatin 40 mg tablet 40 mg feeding tube DAILY carvedilol [Coreg] 12.5 mg tablet 12.5 mg feeding tube BID Rx Instructions: must administer with a meal/food Primary Care Provider: Satnam Ybarra Referrals: Satnam Ybarra MD [Primary Care Provider] - Disposition Disposition: Acute Care Hospital Discharge Location: [facility] Discharge Date/Time: 12/31/22 15:16
--- NOTE | 2022-12-31 11:15 | CT_ITS ---
STUDY: CT BRAIN WITH AND WITHOUT CONTRAST REASON FOR EXAM: Male, 62 years old. headache. TONGUE CANCER SEP 2022 RADIATION DOSAGE (If Supplied By Facility): CTDIvol = ( 13.08 ) mGy, DLP = ( 437.57 ) mGycm TECHNIQUE: Transaxial CT imaging of the brain was performed pre and post contrast administration. The examination was performed with intravenous administration of IV 100mL Isovue-370. Individualized dose optimization techniques were used for this CT. COMPARISON: 09/23/2014 FINDINGS: Normal soft tissue structures. Normal calvarium. Normal size ventricles and extra-axial spaces for the patient''s age. Normal white matter tracts of the cerebral hemispheres. Normal basal ganglia and thalami. Normal brainstem. Normal cerebellum. There is no intracranial hemorrhage. There are no findings of an acute ischemic infarction. Mucosal thickening of the left maxillary sinus consistent with sinusitis. CT/Brain/Head W/WO Contrast IMPRESSION: Normal unenhanced and enhanced CT scan of the brain. Electronically Signed: Efren Palencia MD at 12:39 EST ,
[2022-12-31] MEDS: 0.9% Normal Saline 1,000 ML 1000 ML IV (11:20)
[2022-12-31] MEDS: Ondansetron 4 MG/2 ML Vial IV (11:21)
[2022-12-31] MEDS: Morphine 4 MG/ML Syringe IV ×2 (11:21→12:31)
--- NOTE | 2022-12-31 11:24 | ED.RN ---
meds given by this rn . scanned by second rn in room
[2022-12-31 11:38] LABS: Absolute Lymphocyte Count 0.41 X10^3/uL (0.83-4.51); Absolute Neutrophil Count 9.8 X10^3/uL (2.0-7.7); Basophil# 0.02 X10^3/uL; Basophil% 0.2 % (0-1); Eosinophil# 0.05 X10^3/uL; Eosinophils% 0.4 % (0-5); Hematocrit 35.5 % (40-54); Hemoglobin 11.3 g/dL (13.0-16.5); Lymphocyte # 0.41 X10^3/ul (0.83-4.51); Lymphocyte % 3.5 % (19-41); Mean Corp Hgb Conc 31.8 g/dL (32-36); Mean Corpuscular Hgb 31.6 pg (27.0-32.0); Mean Corpuscular Volume 99.2 fL (80-94); Mean Platelet Vol. 11.6 fl (6.2-12.0); Monocyte# 1.19 X10^3/uL; Monocyte% 10.3 % (0-10); NRBC Flagged by Analyzer 0 % (0-5); Neutrophil # 9.83 X10^3/uL (2.7-7.7); Neutrophil % 85.2 % (47-70); POSITIVE DIFFERENTIAL YES; Platelet Count 120 K/mm3 (150-450); RBC Distribution Width CV 13.5 % (11.6-14.6); RBC Distribution Width SD 49.1 fl (35.1-43.9); Red Blood Count 3.58 M/mm3 (4.6-6.2); White Blood Count 11.6 K/mm3 (4.4-11.0)
[2022-12-31 11:44] LABS: Differential Indicated SCAN CRITERIA MET
[2022-12-31 11:48] LABS: Anion Gap 4 (5-15); BUN 41 mg/dL (7-18); BUN/Creat Ratio 31.3 RATIO (10-20); Calcium,Total 10.7 mg/dL (8.5-10.1); Chloride 106 mmol/L (98-107); Creatinine, Serum 1.31 mg/dL (0.70-1.30); EST Glomerular Filtration Rate 59 mL/min (>60); Est Glom Filt Rate - Afr Amer 71 mL/min (>60); Estimated Creatinine Clearance 54.43 ml/min; Glucose 156 mg/dL (74-106); Potassium 4.9 mmol/L (3.5-5.1); Sodium Level 140 mmol/L (136-145)
[2022-12-31 11:54] LABS: Lactic Acid 1.5 mmol/L (0.4-1.9)
[2022-12-31 12:06] LABS: Differential Comment SCANNED
[2022-12-31 12:12] VITALS: BP 138/75; PULSE 70; RESP 18; TEMP 36.6; O2SAT 99
[2022-12-31 12:26] LABS: International Normalized Ratio 1.2; Prothrombin Time (Protime)PT. 15.2 SECONDS (11.7-14.9)
[2022-12-31 13:00] VITALS: BP 142/76; PULSE 70; O2SAT 100
[2022-12-31] MEDS: HYDROmorphone 1 MG/ML Syringe IV (13:35)
[2022-12-31 14:00] VITALS: BP 145/78; O2SAT 99
[2022-12-31 14:46] VITALS: BP 141/83; PULSE 68; RESP 18; TEMP 37.1; O2SAT 98
[2022-12-31 15:00] VITALS: BP 141/78
== END 2022-12-31 15:16 | disposition short-term general hospital (02) ==
PROVIDERS: Nurse Practitioner; Emergency Provider Emergency Medicine; PCP Family Medicine; Visit Provider Emergency Medicine
DX: R22.1 Localized swelling, mass and lump, neck (principal); I50.42 Chronic combined systolic (congestive) and diastolic (congestive) heart failure; I13.0 Hypertensive heart and chronic kidney disease with heart failure and stage 1 through stage 4 chronic kidney disease, or unspecified chronic kidney disease; I42.0 Dilated cardiomyopathy; F31.9 Bipolar disorder, unspecified; C06.0 Malignant neoplasm of cheek mucosa; I25.10 Atherosclerotic heart disease of native coronary artery without angina pectoris; N18.9 Chronic kidney disease, unspecified; Z95.5 Presence of coronary angioplasty implant and graft; Z51.0 Encounter for antineoplastic radiation therapy; E78.5 Hyperlipidemia, unspecified; Z79.01 Long term (current) use of anticoagulants; Z85.810 Personal history of malignant neoplasm of tongue; R13.10 Dysphagia, unspecified
CPT/HCPCS: 70470; 70491; 80048; 83605; 85025; 85610; 96361; 96374; 96375; 96376; 99284; J7030; Q9967; A4216; J2405

== ENCOUNTER 2023-01-09 15:00 | Outpatient (RCR) | payer BC, SELFPAY | END 2023-01-16 23:59 | LOC: NS 15:00 | PROVIDERS: PCP Family Medicine; Visit Provider Student in an Organized Health Care Education/Training Program | DX: Z71.3 Dietary counseling and surveillance (principal); C06.9 Malignant neoplasm of mouth, unspecified; R63.4 Abnormal weight loss | CPT/HCPCS: 97803 ==

== ENCOUNTER 2023-01-23 09:30 | Outpatient (RCR) | payer BC, SELFPAY ==
--- NOTE | 2022-08-18 11:37 | HP.SP.EVAL ---
History - History Date of Eval: 08/18/22 Medical Diagnosis (from RX): Dysphagia (R13.10), Cancer of the oral cavity (C06.9) Date of Onset of Diagnosis: 06/06/2022 Previous speech therapy: Yes Results: He saw speech therapy at [facility] 08/17/2022, and they provided him exercises (hard swallows 100X/day, jaw open as wide as possible 50X/day), as well as recommendations for puree textures with L head turn, nectar thick liquids with L head turn and cough immediately following the swallow. 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 He is planned for 6-6.5 weeks of radiation therapy. He was referred for speech therapy consult due to ongoing dysphagia. He currently has and NG tube in place since his surgery, but is planned for a PEG tube on August 29. 390mL of pivot per day via NG tube per pt report. He had a trach after surgery, but it has since been removed. His current weight is 138.4lbs. Prior to cancer, the patient was 170lbs. Smoking Status: Never smoker Hx Smoking: No Hx Tobacco Use: No - Pain Is pain an issue with your current prescribed condition?: Yes Patient Allergies - Allergies Allergies penicillamine Allergy (Severe, Verified 08/16/22 10:05) Anaphylaxis Subjective Dysphagia - Symptoms Reported Symptoms/Problems with: Pain on Swallowing, Food gets stuck, Weight Loss - Current Diet Solids Current Diet: Pureed - Current Diet Liquids Current Liquids: [place] Thick - NPO NPO - Alternative Nutrition Method: Nasogastric Tube - Comments Patient comment -: He has had almost no oral intake since surgery. He feels his taste is diminished. The patient has tried to drink thickened water and purees only with the speech therapist yesterday. He did try thin water, as well. He was in SNF 3 days following surgery - he was given exercises, but no oral trials. Objective Dysphagia - Administered by Administered by: CALENDER WIND UP HELPER - Thin Liquids Administred via: Cup, Spoon Oral Transit: Delay > 10 seconds Bolus clearance: significant clearance/minimal residue Cough: throat clear Pharyngeal phase: elevation incomplete Comments: 1 ice chip consumed with use of 8 swallows, much difficulty with bolus manipulation and A-P transport. Improved swallow onset with all other trials (not frozen). 5 tsp sips of water consumed with neutral head position with throat clear following 1 sip. 2 sips via cup with throat clear following 1 sip. Sips of thin liquid with L head turn X4 with throat clear following 1 sip, increased odynophagia (8/10). Need for ~5-6 swallows per trial. - Mildly Thick ([place]) Liquids Administered via: Cup, Spoon Oral Transit: Delay > 1 seconds Cough: throat clear Patient Report: Sensation of small amount of sip remaining on the back of his tongue. Comments: Sips by tsp and cup with frequent throat clearing (majority of trials). Encouraged cough and re-swallow. Need for ~5-6 swallows per trial. - Pureed Administered via: Cup, Straw Cough: throat clear Comments: Delayed throat clear following 1/5 trials, continued need for ~5-6 swallows per bite. CALENDER WIND UP HELPER requested RNAngela, check pt's lung sounds after trials. All lobes sound clear. - Swallowing Impairment Contributing Factors to Swallowing Impairment: Reduced Oral Strength/Coordination/Sensation, Mastication Inefficiency, Impaired Oral-Pharyngeal Transport, Delayed Swallow Initiation, Reduced Laryngeal Excursion - Impact Impact on Safety & Functioning: Risk for Aspiration, Risk for Inadequate Nutrition/Hydration - Recommendations Modified Barium Swallow/Cookie Swallow Recommended: Yes Swallowing Treatment: Yes - Diet Texture Recommendations Solids: Pureed (Level 4) Liquids: Mildly thick (Level 2, [place]) Other liquids: [place] Thick Watson free water Protocol: Yes Other: Continue per diet texture ST recommendations and compensatory strategies from [facility] evaluation on 08/17/2022. This CALENDER WIND UP HELPER will additionally recommend implementation FFWP with sips of water via cup, intermittent cough and re-swallow to provide increased opportunities for swallowing and improve hydration. Continue use of NG tube for majority of nutrition and hydration needs. Educated the patient in identifying s/s of aspiration, including increased coughing, throat clearing, gurgling, or changes in breathing with oral intake. Recommended discontinuing oral intake if he experiences any of these symptoms. Pt verbalized understanding. 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 Severely impaired lingual ROM in all other directions. FOIS - Functional Oral Intake Scale Tube dependent with minimal attempts of food or liquid: Level 2 Other - Other EAT-10 - 27 -: Score of 19 or higher is helpful in detecting presence of post swallow pharyngeal residue for head and neck cancer patients. Plan - Plan Plan: Will recommend the patient for skilled outpatient dysphagia therapy to to address oropharyngeal dysphagia due to SCC of oral tongue s/p hemiglossectomy, FOM resection with L selective neck dissection and excision of R lymph node with reconstruction. He is also planned for 6-6.5 weeks of radiation, which will increase risk for worsening dysphagia and aspiration risk. Speech therapy POC to include further education re: prophylactic oropharyngeal exercise program, diet texture recommendations, aspiration precautions, and compensatory strategies to decrease risk for aspiration. Additionally, will provide ongoing assessment of diet tolerance during and post radiation treatment. Without skilled ST services, the patient is at increased risk for aspiration, weight loss, and malnutrition. - Recommendations MBS: Yes Treatment Warranted: Yes Treatment Warranted: Dysphagia Comment: Plan for MBSS as soon as able following PEG tube removal planned 08/29/2022. - Progress Prognosis: Fair - Frequency Frequency: 1x/Week Duration: 12 Months - Goals that are Established Determination:: Goals will be added/modified as deemed necessary and appropriate. Therapy will be discontinued when results of re-evaluation indicate therapy is no longer needed or lack of progress has been documented. - Goal #1-5 Goal #1: The patient will consume least restrictive diet textures without overt s/s of aspiration with minimal verbal cues for use of compensatory strategies to decrease risk for aspiration. Goal #2: The patient will complete an oropharyngeal exercise program during and post radiation treatment independently to improve and maintain strength, ROM, and coordination of swallowing mechanism (effortful swallow X100 repetitions daily). Goal #3: The patient will complete jaw strength, coordination, and ROM exercises during and post radiation treatment independently to improve and maintain mastication and speech abilities (single jaw stretch X50 repetitions daily). Goal #4: The patient will participate in MBS study to objectively assess swallow function and provide recommendations for safest, least restrictive diet and compensatory strategies to reduce risk for aspiration. Goal #5: The patient will participate in ongoing education re: short-term and long-term effects of chemoradiation treatment on swallow function and management of symptoms that contribute to dysphagia. Education - Patient has Indicated that the Following Identified Educational Needs: None The Patient has indicated that they have no educational or learning abilities that may effect their care.: Yes - Patient Instruction Patient Education: Diagnosis, Treatment Plan, Goals, Safety Precautions, Diet Level, Home Exercise Program Other Education: Education provided regarding the potential impacts of radiation treatment on swallow function during and post treatment, including effects such as dysgeusia, radiation fibrosis, and disuse atrophy which may result in restricted range of motion and weakness of swallowing mechanism. Discussed impaired swallowing and increased risk for aspiration, aspiration related illnesses, weight loss, and malnutrition. Discussed importance for speech therapy to monitor and address dysphagia during, and post radiation treatment to maintain optimal swallow function through continued education and prophylactic exercise program. Recommended the patient continue with current oropharyngeal exercise program from [facility], as well as jaw ROM exercise. The patient would benefit from continued training to monitor proper execution of exercises and encourage strict adherence to exercise program. Person Taught: Patient Teaching Method: Discussion, Handout Response to teaching: Verbalize understanding, Reinforcement needed
--- NOTE | 2023-08-28 11:33 | HP.SP.DC_ITS ---
ST Discharge Summary Discharged: Discharge: [facility] [employer] [employer] is discharging the patient as the patient has . It was a pleasure working with him.
--- NOTE | 2023-08-28 11:33 | HP.SP.DC ---
ST Discharge Summary Discharged: Discharge: [facility] is discharging the patient as the patient has . It was a pleasure working with him.
== END 2023-02-02 19:00 | disposition home or self-care (01) ==
LOC: SP 09:30
PROVIDERS: PCP Family Medicine; Referring Provider Student in an Organized Health Care Education/Training Program; Visit Provider Student in an Organized Health Care Education/Training Program
DX: C06.9 Malignant neoplasm of mouth, unspecified (principal); R13.10 Dysphagia, unspecified
CPT/HCPCS: 92526; 92610; 97803

== ENCOUNTER 2023-02-16 11:10 | Day surgery (SDC) | payer BC, SELFPAY ==
[2023-02-16] VITALS (7 sets, daily range): BP systolic 116–130; BP diastolic 71–77; PULSE 70; RESP 16; TEMP 36.5–36.6; O2SAT 98–100; BMI 20.5
--- NOTE | 2023-02-16 | GASB_PTH ---
PATIENT: LAINE OLIVARES LOC: [facility] [place][id number] AGE/SX: 62/M ROOM: RE02/16/[address]: Dr. David Pink MD : 1960 BED: DIS: 02/16/2023 SPEC #: [id number] RECD: 02/16/23 17:18 STATUS: JENIFER RETatyana #: [id number] BELLE: 02/16/23 00:[address]: David Pink DEPT: SURGICAL PATHOLOGY RECD BY: Imtiaz Spaulding ENTERED: 02/19/23 09:18 SP TYPE: Gastric Bx OTHR DR: Dr. Laine Ybarra MD Tissues: Gastric mucous membrane Procedures: Surgery Specimen Level IV HEADER OPERATION: Revision of gastrostomy tube PRE-OP DIAGNOSIS: Bleeding from gastrostomy tube site, gastric mucosa prolapse TISSUE SUBMITTED: Gastric mucosa MICROSCOPIC DIAGNOSIS Gastric mucosa, revision gastrostomy tube: Pieces of skin with underlying fibroconnective tissue with acute and chronic inflammation and granulation tissue reaction. HERMAN:kendra 02/20/2023 MICROSCOPIC DESCRIPTION Slides are reviewed. GROSS DESCRIPTION Received in fixative is one container labeled with the patient's name and designated gastric mucosa. The specimen consists of multiple polypoid fragments of singletary soft tissue that in aggregate measure 1.5 x 1.0 x 0.3 cm. The specimen is totally submitted in one cassette. / HERMAN:kendra 02/19/2023 TC:2 CPT: 33285
--- NOTE | 2023-02-16 12:14 | HP.PCM_ITS ---
History and Physical Date of Admission: 02/16/23 Date of Service:? 01/29/23 MR#: [id number] Acct: [id number] Name:LAINE ORTEGA Rep #: [id number] : 1960 ? ? Provider: Dr. David Pink MD Age/Sex:? 62/M ? ? Location: [facility] Status: Signed Intake Vital Signs ? 01/10/2310:11 Height 5 ft 10 in Intake Visit Reasons:?CHECK PEG TUBE Chief Complaint: peg tube issue Financial Administrative Assistant Required: No Is patient in pain?: No Allergies penicillamine Allergy (Severe, Verified 01/29/23 09:13) Anaphylaxis Medications lamotrigine 200 mg tablet 200 mg feeding tube QHS 12/24/13 [History Confirmed 01/29/23] ascorbic acid (vitamin C) 500 mg capsule 500 mg PO DAILY 02/03/20 [History Confirmed 01/29/23] olanzapine 5 mg tablet 5 mg feeding tube QHS 02/03/20 [History Confirmed 01/29/23] empagliflozin 10 mg tablet (Jardiance) 10 mg feeding tube DAILY 03/09/22 [History Confirmed 01/29/23] omeprazole 40 mg capsule,delayed release 40 mg feeding tube BID 03/09/22 [History Confirmed 01/29/23] clonazepam 1 mg tablet 0.5 mg feeding tube QHS 07/07/22 [History Confirmed 01/29/23] atorvastatin 40 mg tablet 40 mg feeding tube DAILY 08/23/22 [History Confirmed 01/29/23] carvedilol 12.5 mg tablet (Coreg) 12.5 mg feeding tube BID 08/23/22 [History Confirmed 01/29/23] MAGIC MOUTH WASH (BMX) 180 mL suspension 15 ml PO .qid PRN pain #180 mL 09/06/22 [Rx Confirmed 01/29/23] chlorhexidine gluconate 0.12 % mouthwash 15 ml buccal DAILY 10/11/22 [History Confirmed 01/29/23] levothyroxine 100 mcg tablet 150 mcg feeding tube DAILY 10/30/22 [History Confirmed 01/29/23] sacubitril 24 mg-valsartan 26 mg tablet 1 tab PO BID 10/30/22 [History Confirmed 01/29/23] ticagrelor 90 mg tablet (Brilinta) 90 mg PO BID 10/30/22 [History Confirmed 01/29/23] apixaban 5 mg tablet (Eliquis) 5 mg PO BID 01/29/23 [History] Subjective Details: Patient presents for follow-up of a visit last week (01/22/2023) occasioned by mucosal prolapse with a PEG tube placed August 2022.? Mr. Nieves states that he has experienced ongoing bleeding difficulty.? He also reports that his tube became looser with one of his feeds shortly after our visit and he attempted to tighten the bumper himself.? Beyond this immediate concern, Mr. Briseno relates that he is due to go to [facility] next week for a repeat biopsy and therefore we will be holding his anticoagulation (he reports that he has restarted his Brilinta, but still is holding his Eliquis) for that procedure.? He notes that he has a follow-up visit with cardiology today. Below is recapitulated from patient's prior visit for ease of review: Patient is a 62-year-old male who is known to me from a PEG tube placement on 08/24/2022.? He reports that overall he has done well with this tube, and largely remains dependent on it for his nutrition and medications as he still has not recovered his swallowing ability.? He notes a recent bad month last month with an abscess of his posterior pharynx that was biopsy done at [facility].? He notes that the biopsy results are currently pending.? He states that he took himself off of his prescribed Brilinta and Eliquis for this biopsy and for today's visit as he was concerned something would need to be done.? He reports that his PEG tube has leaked a little bit all along, but then began bleeding last week. Objective Details: Constitutional: No acute distress, pleasant Abdomen: Prolapsing gastric mucosa about the gastrostomy site that is oozing.? The bumper of the gastrostomy is positioned at 3 cm on the gastrostomy tubing and is overly snug to the abdominal wall. Coding Level of Care Code Off vis,est,level 3 Diagnoses Bleeding from gastrostomy tube site? K94.21 Gastric mucosa prolapse? K31.89 PFSH Medical History? Acute kidney injury Atherosclerosis of coronary artery without angina pectoris Bipolar 1 disorder Black tarry stools Cancer Cardiology follow-up encounter Chronic diastolic (congestive) heart failure Chronic kidney disease (CKD) Chronotropic incompetence with left ventricular dysfunction Community acquired pneumonia Complete heart block Dietary restriction Difficulty chewing Difficulty swallowing Dilated cardiomyopathy Essential (primary) hypertension Gastric reflux Guaiac positive stools Yodit's thyroiditis HFrEF (heart failure with reduced ejection fraction) History of echocardiogram History of non-ST elevation myocardial infarction (NSTEMI) (03/03/22) History of renal disease History of stress test HLD (hyperlipidemia) Hypothyroid Hypothyroidism, iatrogenic Iron deficiency Lipoprotein deficiency Longstanding persistent atrial fibrillation Low iron Lower GI bleed (03/27/22) Nasogastric tube present Non-smoker Paroxysmal A-fib Pneumonia due to COVID-19 virus (12/24/20) Scleroderma Scleroderma 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 H/O colonoscopy H/O stem cell transplant History of coronary artery stent placement (03/06/22) History of coronary artery stent placement History of inguinal hernia repair History of left heart catheterization (01/28/18) History of permanent cardiac pacemaker placement (06/05/22) History of right heart catheterization (05/07/19) Hx of oral surgery Family History? Mother Yodit's disease Diabetes HypertensionGrandfather CVA (cerebral vascular accident) Social History? Smoking Status:? Never smoker alcohol intake:? current alcohol intake frequency: a few times a week Alcohol type: beer substance use type:? does not use caffeine:? Yes Type: coffee Number of servings: 1 what type of physical activity do you participate in:? none seatbelt use:? always do you feel safe at home:? Yes Assessment and Plan (No Qualifiers) Assessment and Plan (1) Bleeding from gastrostomy tube site: ?Status:?Acute ?Comment: This remains persistent secondary to prolapsed gastric mucosa and concurrent anticoagulation.? I repeated a topical chemical cautery with potassium nitrate at bedside, but informed Mr. Yu that this would require more intervention in the operating room. (2) Gastric mucosa prolapse: ?Status:?Acute ?Comment: Persistent prolapse of gastric mucosa that is causing regular bleeding given patient's concurrent anticoagulation.? I would like to plan for excision of this gastric mucosa in the operating room and potentially downsizing his gastrostomy to try to encourage closure of the site around the tubing.? Given that patient has a planned biopsy next week and will be holding his anticoagulation in anticipation for this procedure, I would like to complete our procedure during the same medication hold.? We will notify cardiology of this intent. ?Plan: ? Revision of gastrostomy under local MAC next week.? Brilinta should be held a minimum of 5 days prior to the procedure and Eliquis 48 hours before the procedure.? We will notify cardiology of this intent. 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 Otherwise he reports that his bleeding overall has been improved as he has been off his blood thinners. There was some recent heavy bleeding couple of days ago. Otherwise there are no significant changes. Procedure and post procedure expectations were reviewed. Patient has no further questions. Proceed to the operating room for planned excision of gastric mucosa. We will forego attempts at downsizing as this will almost certainly lead to tube leaking which would increase patient's difficulties already in a difficult time.
[2023-02-16] MEDS: Lactated Ringers 1,000 ML 15 ML IV (12:21)
[2023-02-16] MEDS: Clindamycin 900 MG/50 ML BAG 75 MG IV (13:15)
[2023-02-16] MEDS: Lidocaine 1% /Epi 1:100 (50ml) 50 ML VIAL (13:30)
--- NOTE | 2023-02-16 13:58 | OP.PCM_ITS ---
Report of Operation Date of Procedure: 02/16/23 Pre-Operative Diagnosis: Gastric mucosal prolapse with PEG tube and subsequent bleeding Post-Operative Diagnosis: Same Surgery/Procedure Performed:: Revision of gastrostomy site with excision of prolapsed gastric mucosa Description of Surgical Findings:: ? Circumferential prolapsed gastric mucosa with mild oozing Surgeon: David Pink clinical staff pharmacist: Caleb Palmer Type of Anesthesia: MAC/Supplemental Anesthesiologist: Teo Boateng Specimen's removed: Gastric mucosa Drains: None Estimated Blood Loss (mL): 1 Description of Procedure: After appropriate identification and preoperative holding area and confirming appropriate hold of patient's antiplatelet/anticoagulation medications, patient was brought to the operating room. There he was administered preoperative a ntibiotics with 900 mg clindamycin. He underwent MAC sedation by anesthesia. The dressings from his gastrostomy were taken down and his bumper was advanced distally so that the surrounding skin and anterior abdominal wall could be prepped and draped. After prepping the tubing as well and draping it with a blue towel, the patient was prepped and draped as well. Formal timeout followed to confirm patient and procedure. Procedure was begun with a circumferential local block of local anesthetic with epinephrine. I quickly met difficulty with trying to grasp the prolapsed mucosa so I made the decision to simply sharply excise this redundant mucosa with a #15 scalpel and then cauterized any bleeding with our needle tip Bovie. I also cauterize any exposed mucosa, but took care to avoid any thermal injury to the actual abdominal skin. The excised mucosa was passed off the field for pathologic processing and I inspected for hemostasis circumferentially?electively applying electrocautery as needed. Once satisfied that we had achieved hemostasis, I obtained a 2 x 2 gauze and had bacitracin lathered into it so that this can then be wrapped around the gastrostomy tube. A split drain sponge was then placed around the gastrostomy and the bumper was snug to a fit on the abdominal wall. This latter gauze was taped into place along with the gastrostomy tube taking care to avoid pressure from the plastic crimping device. Procedure was then terminated and patient was transferred to PACU for ongoing recovery. Complications None
--- NOTE | 2023-02-16 13:58 | DCINST_ITS ---
Discharge Instructions Diet Discharge Diet: - (Previous diet/tube feeds) Activity Discharge Activity: Return to Normal Activity and May Shower May shower in (days): 1 Dressing / Incision Call your doctor if your incision/area has: Continuous Slow Oozing, Sudden Increased Bleeding and Swelling at the incision site Call your doctor if you observe: Fever of 101 or Higher Change Dressing in: 1 day Remove Dressing in: 1 day Cleanse incision/area with: Soap & Water Additional Dressing/Incision Instructions:: Please apply triple antibiotic ointment to peripheral circumference of G-tube first day after surgery Follow Up Care Please Follow Up With: David Pink MD When: 1 week Test Results: Test results from this visit will be discussed in further detail at your follow-up appointment, if applicable. Discharge Plan Admission Primary Reason for Your Visit: Revision of gastrostomy Attending Provider: David Pink Primary Care Provider: Satnam Ybarra Instructions Additional Instructions / Restrictions: Please hold Brilinta and Eliquis for 48 hours postop Discharge Orders/Prescriptions Prescriptions: Continued olanzapine 5 mg tablet 5 mg feeding tube QHS ascorbic acid (vitamin C) 500 mg capsule 500 mg PO DAILY omeprazole 40 mg capsule,delayed release(DR/EC) 40 mg feeding tube QHS Label Comments: TAKE 1 CAPSULE BY MOUTH DAILY Jardiance 10 mg tablet 10 mg feeding tube DAILY levothyroxine 100 mcg tablet 150 mcg feeding tube DAILY Label Comments: Take 1 tablet by mouth daily MAGIC MOUTH WASH (BMX) 180 mL suspension 15 ml PO .qid PRN (Reason: pain) Qty: 180 6RF Rx Instructions: diphenhydramine 12.5 mg/5 mL oral liquid 60 mL; aluminum-mag hydroxide- simethicone 400 mg-400 mg-40 mg/5 mL oral susp 60 mL; Lidocaine Viscous 2 % mucosal solution 60 mL; Per 180 mL amoxicillin 875 mg tablet 875 mg PO BID cholecalciferol (vitamin D3) 25 mcg (1,000 unit) capsule 25 mcg PO DAILY lamotrigine 200 MG tablet 200 mg feeding tube QHS Label Comments: depression carvedilol [Coreg] 12.5 mg tablet 12.5 mg feeding tube BID Rx Instructions: must administer with a meal/food Eliquis 5 mg tablet 5 mg feeding tube BID Qty: 180 3RF atorvastatin 40 mg tablet 40 mg feeding tube DAILY Qty: 90 3RF Brilinta 90 mg tablet 90 mg PO BID Qty: 180 3RF Referrals / Follow Up: Satnam Ybarra MD [Primary Care Provider] - Disposition Disposition (needs filled in before D/C Order can be placed): Home, Self Care
== END 2023-02-16 14:47 | disposition home or self-care (01) ==
LOC: SDC 11:10 → AC 11:12
PROVIDERS: PCP Family Medicine; Referring Provider Surgery; Visit Provider Surgery
PROC: (CPT 44373; principal; 2023-02-16 12:50)
DX: K94.21 Gastrostomy hemorrhage (principal); I50.32 Chronic diastolic (congestive) heart failure; I11.0 Hypertensive heart disease with heart failure; F31.9 Bipolar disorder, unspecified; I48.11 Longstanding persistent atrial fibrillation; Z95.5 Presence of coronary angioplasty implant and graft; Z86.16 Personal history of COVID-19; K31.89 Other diseases of stomach and duodenum; Z95.0 Presence of cardiac pacemaker; I25.10 Atherosclerotic heart disease of native coronary artery without angina pectoris; K12.33 Oral mucositis (ulcerative) due to radiation; E78.5 Hyperlipidemia, unspecified; E06.3 Autoimmune thyroiditis; Z79.01 Long term (current) use of anticoagulants
CPT/HCPCS: 44373; 00731; 88305; J7120; J2405

== ENCOUNTER 2023-02-21 08:01 | Outpatient (RCR) | payer BC, SELFPAY | END 2023-03-18 23:59 | disposition home or self-care (01) | LOC: NS 08:01 | PROVIDERS: PCP Family Medicine; Visit Provider Student in an Organized Health Care Education/Training Program | DX: Z41.3 Encounter for ear piercing (principal); C06.9 Malignant neoplasm of mouth, unspecified; R63.4 Abnormal weight loss; Z93.1 Gastrostomy status | CPT/HCPCS: 97803 ==